=== PATIENT | female | born 1975 | race Caucasian/White ===

== ENCOUNTER 2016-09-24 14:29 | Emergency (ER) | payer OTHER ==
[~2016-09-24] VITALS: Ht 175.3 cm; Wt 128.8 kg
[~2016-09-24 14:29] MED LIST: CORGARD40 MG PO; FLUOXETINE HCL20 M1 PO; METOCLOPRAMIDE10 MG PO; PREMARIN0.625 MG PO; WARFARIN SODIUM5 MG PO
[2016-09-24] MEDS ORDERED: CLARITIN10 MG PO (14:48)
[2016-09-24] MEDS ORDERED: VITAMIN D2000 UNIT PO (14:48)
[2016-09-24] MEDS ORDERED: KETOROLAC TROME10 MG (16:54)
[2016-09-24] MEDS ORDERED: KETOROLAC TROME10 MG PO ×2 (16:56→16:59)
[2016-09-24] MEDS ORDERED: FLOMAX0.4 MG PO (16:58)
[2017-03-07] MEDS ORDERED: MYRBETRIQ25 MG PO (08:18)
== END 2016-09-24 17:14 | disposition home or self-care (01) ==
LOC: ED 14:29
DX: N13.2 Hydronephrosis with renal and ureteral calculous obstruction (principal); Z86.718 Personal history of other venous thrombosis and embolism; Z86.711 Personal history of pulmonary embolism; Z86.73 Personal history of transient ischemic attack (TIA), and cerebral infarction without residual deficits; Z90.710 Acquired absence of both cervix and uterus; Z88.5 Allergy status to narcotic agent; Z79.01 Long term (current) use of anticoagulants; Z79.899 Other long term (current) drug therapy
CPT/HCPCS: 74176; 80053; 81001; 82150; 83690; 85025; 85610; 96361; 96374; 96375; 96376; 99284; J2175; J2405; J7030

== ENCOUNTER 2017-05-11 07:20 | Day surgery (SDC) | payer OTHER ==
[~2017-05-11] VITALS: Ht 175.3 cm; Wt 128.8 kg
[~2017-05-11 07:20] MED LIST changes: +CLARITIN10 MG PO; +COUMADIN5 MG PO; +FLOMAX0.4 MG PO; +KETOROLAC TROME10 MG; +KETOROLAC TROME10 MG PO; +MYRBETRIQ25 MG PO; +VITAMIN D2000 UNIT PO
--- NOTE | 2017-05-11 08:01 | NUR ---
SALINE LOCK FOR GOING TO XRAY.
--- NOTE | 2017-05-11 10:09 | NUR ---
PT RESTING IN BED-ALERT, ORIENTED AND SUPPORTED BY MOTHER AND FRIEND. PT SEEMED TO BE STRONG, AND MAKE TODAY "JUST ANOTHER DAY IN THE OFICE" SO TO SPEAK. WE BEGAN TO VISIT, HER DEFENSES FELL, AND SHE BECAME SOMEWHAT EMOTIONAL. IT WAS A GOOD HONEST TIME OF CARING-PT REQUESTED PRAYER. WILL CONTINUE TO FOLLOW NEEDED
--- NOTE | 2017-05-11 10:14 | NUR ---
0940 returned from [facility].
--- NOTE | 2017-05-11 11:49 | NUR ---
05/11/17 1149 Isabel Burns 1140 PATIENT ARRIVES TO PACU SLEEPING, OPENS EYES TO VERBAL STIMULI, THEN BACK TO SLEEP. RESP EVEN AND UNLABORED, MASK AT 6 LITERS. 1145 PATIENT AWAKE OFF/ON, DENIES PAIN OR NAUSEA. MASK OFF, ROOM AT 100%. PATIENT HAS A DRY COUGH. DENIES PAIN OR NAUSEA.
[2017-05-11] MEDS ORDERED: IBUPROFEN600 MG PO (11:53)
[2017-05-11] MEDS ORDERED: OXYCODON-ACETA1 EAC2 PO (11:54)
[2017-05-11] MEDS ORDERED: MAPAP325 MG PO (11:54)
--- NOTE | 2017-05-11 12:16 | NUR ---
FAMILY IN ROOM.
--- NOTE | 2017-05-12 13:35 | OR ---
[facility] [address] [place], [place] [address] Signed DATE OF OPERATION: 05/11/2017 SURGEON: Sung Oakes MD PREOPERATIVE DIAGNOSES: 1. Left lower outer suspicious microscopic calcifications (inaccessible to image guided biopsy). 2. 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 POSTOPERATIVE DIAGNOSES: 1. Left lower outer suspicious microscopic calcifications (inaccessible to image guided biopsy). 2. 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 PROCEDURE: Left needle localized excisional breast biopsy. ANESTHESIA: General endotracheal, Shea Garcia, FILM SPOOLER and local 10 mL of 0.25% Marcaine. INDICATION: This 41-year-old woman is currently a patient of Dr. Adelfo Chandler, previously Dr. Timothy Burks and has a complex past medical history including cerebrovascular accident at age 15 from a paradoxical embolism related to left lower leg deep venous thrombosis and patent foramen ovale. She recovered from the stroke and the patent foramina ovale was repaired surgically. She has underlying Klippel Trenaunay syndrome (vascular malformation of the left lower extremity) and is chronically anticoagulated. She is found on mammography to have microcalcifications in the left lower outer aspect of the breast. An attempt at biopsy in [place], [place] was unsuccessful due to its location. Repeat mammogram in the [place] area showed more pleomorphic microcalcifications in the same area. It is unlikely that image guided biopsy could be obtained in a reasonable way and on that basis, consideration is made for needle localized excisional biopsy. Her family history does include a paternal grandmother with breast cancer. She understands risks of breast biopsy including, but not limited to bleeding, infection, failure to diagnose the problem (missed lesion) as well as risks and hazards related to recurrent deep venous thrombosis. She is off her Coumadin 4 days in advance of this Electronically Signed By: SUNG OAKES MD 05/12/17 1335 PATIENT NAME: CHRISSY ORNELAS OPERATIVE REPORT DATE OF : 73 PHYSICIAN: SUNG OAKES MD REPORT #: [id number] REPORT IS CONFIDENTIAL AND NOT TO BE RELEASED WITHOUT AUTHORIZATION [facility] [address] [place] [id number] Signed procedure and bridge therapy has been considered, but deemed inappropriate under the circumstances. Brief withholding of her Coumadin is deemed reasonable under the circumstances. Understanding all these risks related to a needle localized excisional breast biopsy, she is here to undergo procedure. FINDINGS: Needle localization was challenging. Two wires were ultimately placed. They emanated from the lateral aspect of the left breast. Wide excision, mindful of the position of the wires were undertaken and specimen radiograph confirmed that the offending microcalcifications were in the excised specimen. The area of excision was in the lower outer aspect on the left breast. An additional amount of breast tissue was excised that had a firm fibrous feel to it, though it was not the actual area of microcalcification. The specimen radiograph as interpreted by Dr. Brewer included the area with microcalcifications. The satellite area that was excised had no microcalcifications. DESCRIPTION OF PROCEDURE: The patient received from Radiology suite and taken to the operating room, given a general endotracheal anesthetic. Preoperative antibiotic Ancef was given and sequential compression device stocking was used on the right leg. The left leg was too large to fit or accommodate such device. Heparin was administered subcutaneously. The wires emanated from the lateral aspect of the left breast. The wire designated as short of the target, was distinguished from the other, which was far beyond the target though passing through. The left breast and chest area prepared with a spray, Betadine solution and draped sterilely. A curvilinear incision was made in the lower outer aspect of the breast and dissection carried through the dermis with electrocautery. The wires were delivered into the wound. The wire that was just short of the lesion was grasped and used as the main guide. Electrocautery was used to widely excise tissue extending toward the medial aspect. The other wire, which passed through the area, but extended well beyond it was ultimately identified as well and ultimately a generous specimen of tissue was excised down to the pectoralis fascia. The specimen was removed and palpation of the biopsy cavity showed an area that was firm and nodular and this was additionally excised and placed in the cassette for specimen radiograph. Specimen radiograph ultimately confirmed microcalcifications were in the initially excised mass area. The additional tissue had no microcalcifications. Irrigation was undertaken in the biopsy cavity and there was no untoward bleeding. The wound was closed with interrupted 2-0 Vicryl and a running subcuticular 3-0 Vicryl for the skin. Steri-Strips were applied as was Mepilex silver sponge dressing and an OpSite. The patient was ultimately extubated and transferred to recovery room in good condition, having suffered no complications. Sponge, needle, and counts reported as correct x3. Electronically Signed By: SUNG OAKES MD 05/12/17 1335 PATIENT NAME: CHRISSY ORNELAS OPERATIVE REPORT DATE OF : 73 PHYSICIAN: SUNG OAKES MD REPORT #: [id number] REPORT IS CONFIDENTIAL AND NOT TO BE RELEASED WITHOUT AUTHORIZATION [address] [place] [address] Signed MD DEBBIE Mcclellan/TIM /[id number] cc: AWILDA Ewing MD Cynthia Sue Holmes, MD Electronically Signed By: SUNG OAKES MD 05/12/17 1335 PATIENT NAME: CHRISSY ORNELAS OPERATIVE REPORT DATE OF : 73 PHYSICIAN: SUNG OAKES MD REPORT #: [id number] REPORT IS CONFIDENTIAL AND NOT TO BE RELEASED WITHOUT AUTHORIZATION
[2017-06-06] MEDS ORDERED: WARFARIN SODIUM10 MG PO (07:47)
[2017-06-06] MEDS ORDERED: COUMADIN10 MG PO (07:48)
== END 2017-05-11 13:50 | disposition home or self-care (01) ==
LOC: OPS 07:20 → DS 07:20 → OPS 08:30 → MAM 08:30 → EDSTATUS 08:30 → OPS 13:50
PROVIDERS: Surgery
PROC: 0HBU0ZX Excision of Left Breast, Open Approach, Diagnostic (ICD-10-PCS; principal; 2017-05-11 09:30)
DX: N60.12 Diffuse cystic mastopathy of left breast (principal); Q87.2 Congenital malformation syndromes predominantly involving limbs; Q27.32 Arteriovenous malformation of vessel of lower limb; K21.9 Gastro-esophageal reflux disease without esophagitis; I89.0 Lymphedema, not elsewhere classified; F33.8 Other recurrent depressive disorders; G43.829 Menstrual migraine, not intractable, without status migrainosus; Z80.3 Family history of malignant neoplasm of breast; Z86.711 Personal history of pulmonary embolism; Z79.01 Long term (current) use of anticoagulants; Z87.74 Personal history of (corrected) congenital malformations of heart and circulatory system; Z86.718 Personal history of other venous thrombosis and embolism; Z90.49 Acquired absence of other specified parts of digestive tract; Z90.710 Acquired absence of both cervix and uterus; Z98.890 Other specified postprocedural states; Z88.1 Allergy status to other antibiotic agents; Z88.5 Allergy status to narcotic agent; Z86.73 Personal history of transient ischemic attack (TIA), and cerebral infarction without residual deficits
CPT/HCPCS: 00404; 19281; 76098; J0330; J0690; J1100; J1644; J2250; J2370; J2405; J2704; J3010; J7120

== ENCOUNTER 2019-02-10 10:37 | Emergency (ER) | payer OTHER ==
[~2019-02-10] VITALS: Ht 175.3 cm; Wt 128.8 kg
--- OUTSIDE RECORDS SUMMARY | ~2019-02-10 | XMS | Encounter Summary ---
Demographics + + + | Address | [address] | | | [place] [address] | + + + | Home Phone | | + + + | Preferred Language | Unknown | + + + | Marital Status | Single | + + + | Moravian Affiliation | PRO | + + + | Race | White | + + + | Ethnic Group | Not or | + + + Author + + + | Author | [facility] | + + + | Organization | [facility] | + + + | Address | Unknown | + + + | Phone | Unavailable | + + + Support + + + + + | Name | Relationship | Address | Phone | + + + + + | Mariah Prather | OZZIE | [place] | | + + + + + Care Team Providers + +------+ + | Care Washcloth Folder Name | Role | Phone | + +------+ + | Timothy Burks MD | PCP | | + +------+ + Encounter Details +--------+ + + + + | Date | Type | Department | Care Team | Description | +--------+ + + + + | 06/22/ | Documentati | Dig[facility]ive Health | [place], | | | 2016 | on | Center at [facility] [address] | MD [address]y [address] | | | | | [address] | [address] | | | | | Mailcode: Center | [place], [place] | | | | | for Health and | [address] | | | | | Healing, [address] | [phone] | | | | | [place], [place] | | | | | | [address] | | | | | | [phone] | | | +--------+ + + + + Social History + +-------+ +--------+------+ | Tobacco Use | Types | Packs/Day | Years | Date | | | | | Used | | + +-------+ +--------+------+ | Never Smoker | | | | | + +-------+ +--------+------+ + +---+---+---+ | Smokeless Tobacco: | | | | | Never Used | | | | + +---+---+---+ + + +---------+ + | Alcohol Use | Drinks/Week | oz/Week | Comments | + + +---------+ + | No | | | "few times a year | | | | | maybe" | + + +---------+ + + + + | Sex Assigned at | Date Recorded | | | | + + + | Not on file | | + + + + + + + | Job Start Date | Occupation | Industry | + + + + | Not on file | Not on file | Not on file | + + + + + + + + | Travel History | Travel Start | Travel End | + + + + + + | No recent travel history available. | + + documented as of this encounter Plan of Treatment Not on filedocumented as of this encounter Visit Diagnoses Not on filedocumented in this encounter
--- OUTSIDE RECORDS SUMMARY | ~2019-02-10 | XMS | Encounter Summary ---
Demographics + + + | Address | [address] | | | [place] [address] | + + + | Home Phone | | + + + | Preferred Language | Unknown | + + + | Marital Status | Single | + + + | Temple Affiliation | PRO | + + + | Race | White | + + + | Ethnic Group | Not or | + + + Author + + + | Author | [facility] | + + + | Organization | [facility] | + + + | Address | Unknown | + + + | Phone | Unavailable | + + + Support + + + + + | Name | Relationship | Address | Phone | + + + + + | Mariah Prather | OZZIE | [place] | | + + + + + Care Team Providers + +------+ + | Care Filenet Architect Name | Role | Phone | + +------+ + | Jose Ramires MD | PCP | | + +------+ + Reason for Referral Consultation (Routine) + +--------+ + + + + | Status | Reason | Specialty | Diagnoses / | Referred By | Referred To | | | | | Procedures | Contact | Contact | + +--------+ + + + + | Incomplete | | Podiatry / | Diagnoses | Adams, | Bryan, | | | | Family | Neoplasm of | Sierra T, | Bettricia, | | | | Practice | uncertain | [facility] [address] | [address] | | | | | behavior of | [address] | [address] | | | | | skin of | [place], [place] | [place], [place] | | | | | lower leg | [address] | [address] | | | | | Procedures | Phone: | Phone: | | | | | CONSULT TO | [phone] | [phone] | | | | | PODIATRY | Fax: | Fax: | | | | | | [phone] | [phone] | + +--------+ + + + + Reason for Visit +---------+ + | Reason | Comments | +---------+ + | Post Op | excision left leg skin lesion | +---------+ + Encounter Details +--------+---------+ + + + | Date | Type | Department | Care Team | Description | +--------+---------+ + + + | 02/01/ | Office | Plastic and | Adams, Sierra T, | Neoplasm of | | 2019 | Visit | Reconstructive | [facility] [address] | uncertain behavior | | | | Surgery at [facility] [address] [place], [place] | of skin of lower leg | | | | [address] | [address] | (Primary Dx) | | | | Mailcode: [facility] | [phone] | | | | | [facility] | | | | | | and Healing, | | | | | | Building [address], [address]th | | | | | | Floor [place], [place] | | | | | | [address] | | | | | | [phone] | | | +--------+---------+ + + + Social History + +-------+ [...] + + documented as of this encounter Last Filed Vital Signs + + + + + | Vital Sign | Reading | Time Taken | Comments | + + + + + | Blood Pressure | 112/60 | 02/01/2019 10:31 AM | | | | | PST | | + + + + + | Pulse | 84 | 02/01/2019 10:31 AM | | | | | PST | | + + + + + | Temperature | - | - | | + + + + + | Respiratory Rate | 16 | 02/01/2019 10:31 AM | | | | | PST | | + + + + + | Oxygen Saturation | 98% | 02/01/2019 10:31 AM | | | | | PST | | + + + + + | Inhaled Oxygen | - | - | | | Concentration | | | | + + + + + | Weight | 139.7 kg (308 lb) | 02/01/2019 10:31 AM | | | | | PST | | + + + + + | Height | 175.3 cm (5' 9") | 02/01/2019 10:31 AM | | | | | PST | | + + + + + | Body Mass Index | 45.48 | 02/01/2019 10:31 AM | | | | | PST | | + + + + + documented in this encounter Progress Notes Sierra Espinoza, ANGELA - 02/01/2019 10:15 AM [facility] Division of Plastic and Reconstructive Surgery Date of surgery: 01/23/2019. Description of surgery: Excision left leg mass 1.5 cm diameter, closure 4 cm wound in layer s left leg. Surgeon: Dr. Uzair Mendoza MD. POD#: 9. The 4 cm linear wound was closed with 3-0 polysorbe interrupted dermal sutures and interrup sophie 3-0 nylon mattress sutures. Subjective: Pain control going well. Only took 3-4 oxycodone. Notes has poor venous return on her left leg-had prior to surgery as well. Denies changes i n either leg. Pleased with postoperative recovery. Notes healing well. BP 112/60 (BP Location: Right lower arm, Patient Position: Sitting) | Pulse 84 | Resp 16 | Ht 1.753 m (5' 9") | Wt 139.7 kg (308 lb) | SpO2 98% | BMI 45.48 kg/m | BSA 2.61 m Objective: General: NAD, conversant. Respiratory: Non-labored breathing. Incision site, left leg: CDI incision with 1/5 teaspoon of clear serous fluid today (on gau ze). No erythema or bruising. No fluctuance. Difficult to discern if induration given skin i s generally thicker in this area at baseline. Pathology report: Vascular malformation: The findings are consistent with the patient's his tory of Klippel Trenauny syndrome. Assessment: Healing well after surgery. No signs of hematoma. Some clear fluid leakage, but no signs of trapped fluid. No fluctuance. Plan: -Discussed postoperative instructions with Mahi. Noted importance of leg elevation (above h eart, below head) to assist in healing. -Recommended she follow up with Dr. Mendoza in 4-6 weeks. Appears she was not able to be sc hedule for this follow up at check out today so I asked PLS to reach out to her for melody ya. -In addition, asked that Mahi contact us if any questions or concerns as well. I answered all of the patient's questions, discussed all examination findings, all recommen ded precautions, and discussed the agreed upon plan with the patient. The patient indicated understanding of the plan, the important precautions, and agrees/agreed with the plan. 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
--- OUTSIDE RECORDS SUMMARY | ~2019-02-10 | XMS | Encounter Summary ---
Demographics + + + | Address | [address] | | | [place] [address] | + + + | Home Phone | | + + + | Preferred Language | Unknown | + + + | Marital Status | Single | + + + | Alevism Affiliation | PRO | + + + | Race | White | + + + | Ethnic Group | Not or | + + + Author + + + | Author | [facility] | + + + | Organization | [facility] | + + + | Address [...] Team Providers + +------+ + | Care Recruitment Consultant Name | Role | Phone | + +------+ + | Timothy Burks MD | PCP | | + +------+ + Reason for Visit + + + | Reason | Comments | + + + | Pre-op evaluation | excision lymphangioma right buttock | + + + | Pre-op evaluation | | + + + Consultation (Routine) +--------+--------+ + + + + | Status | Reason | Specialty | Diagnoses / | Referred By | Referred To | | | | | Procedures | Contact | Contact | +--------+--------+ + + + + | Closed | | Plastic | Diagnoses | Zara, | Kelly, | | | | Surgery | Vascular | MD Lazaro | MD Uzair | | | | | malformation | [address] | [address] | | | | | Procedures | Bob Vital | Patsy | | | | | CONSULT TO | Rd | [place], [place] | | | | | SURGERY - | [place], [place] | [address] | | | | | PLASTICS | [address] | Phone: | | | | | | | [phone] | | | | | | | Fax: | | | | | | | [phone] | +--------+--------+ + + + + Encounter Details +--------+---------+ + + + | Date | Type | Department | Care Team | Description | +--------+---------+ + + + | 12/18/ | Office | Plastic and | Jannette Dow PA | Other specified | | 2009 | Visit | Reconstructive | | pre-operative | | | | Surgery at [facility] [address] | | examination (Primary | | | | [address] | | Dx) | | | | Mailcode: 5 | | | | | | [facility] | | | | | | and Healing, | | | | | | Building [address], [address]th | | | | | | Floor [place], [place] | | | | | | [address] | | | | | | [phone] | | | +--------+---------+ + + + Social History + +-------+ +--------+------+ | Tobacco Use | Types | Packs/Day | Years | Date | | | | | Used | | + +-------+ +--------+------+ | Never Smoker | | | | | + +-------+ +--------+------+ + + +---------+ + | Alcohol Use | Drinks/Week | oz/Week | Comments | + + +---------+ + | No | | | | + + +---------+ + + + [...] + + + | Blood Pressure | 104/57 | 12/18/2009 10:15 AM | | | | | PDT | | + + + + + | Pulse | 69 | 12/18/2009 10:15 AM | | | | | PDT | | + + + + + | Temperature | - | - | | + + + + + | Respiratory Rate | 19 | 12/18/2009 10:15 AM | | | | | PDT | | + + + + + | Oxygen Saturation | 95% | 12/18/2009 10:15 AM | | | | | PDT | | + + + + + | Inhaled Oxygen | - | - | | | Concentration | | | | + + + + + | Weight | 107.8 kg (237 lb | 12/18/2009 10:15 AM | | | | 11.2 oz) | PDT | | + + + + + | Height | 172.7 cm (5' 8") | 12/18/2009 10:15 AM | | | | | PDT | | + + + + + | Body Mass Index | 36.14 | 12/18/2009 10:15 AM | | | | | PDT | | + + + + + documented in this encounter Patient Instructions Patient Instructions Jannette Dow PA - 12/18/2009 10:37 AM PDTRegistration Locations (pl ease check in at one of the following registration desks prior to surgery) For surgeries scheduled to take place [place] the [place] at the [facility]: Surgeries scheduled in the [facility] ([address] [place] [address]): registration is located on the 4th floor of [facility] (Day Surgery). Surgeries scheduled in the [facility]: registration is located on the 9th floor. Surgeries scheduled in [facility]: registration is located on the 6th floor. Surgeries scheduled in the [facility]: registration is located i n the [facility] on the first floor. For surgeries scheduled to take place at the [facility]: registration is l ocated on the 4th floor (Surgery Center). Important Information Due to the increased prevalence of pests in our community, we are asking patients to partne r with us to keep our hospital clean. If you have noticed bugs or other pests in your home, on your belongings or on your body, please contact your doctor's office prior to your admis paloma. For your safety and protection, please limit what you bring to the hospital. All valuables should be left at home. This includes pillows, blankets, clothing, purses, wallets, money an d jewelry. Patients may not bring personal electronics into the hospital, including hairdry ers, electric milton, radios and CD players. If you use specialized medical equipment at h ome, please check with your provider before bringing it with you into the hospital. Registration Process for all Admissions/Surgeries 1. Please bring your insurance card(s) with you and be prepared to pay any co-payment, co-i nsurance or deposit that may be required. 2. Once you arrive at the registration desk, you will be interviewed by a Patient Access Se rvice Specialist ([place]). Demographics will be verified (example: name, date of , Social Security Number, address, insurance). 3. You will be asked to sign some paperwork: Terms and Conditions of Service, Notice of Pushpa vacy Practices Acknowledgement and Genetic Testing Opt Out. 4. You will be given some paperwork: copies of any forms signed by you, Patient Rights, Res ponsibilities and Safety, Understanding Advance Directives, and Smoking Cessation Brochure.E lectronically signed by JU Giles at 12/18/2009 10:37 AM PDT documented in this encounter Progress Notes Jannette Dow PA - 12/18/2009 10:37 AM PDT Pre-Procedure History and Physical Date of Admission: 12-23-09 HISTORY: 34 y.o. female with venous angiodysplasia of the left leg and a history of multipl e excision of a gluteal cleft lymphatic lesion times 3. Also has history of CVA, DVT, PE, A- Fib. 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] 05/26/2008 Allergic Rhinitis [477.9AD] 06/29/2007 Atrial Fibrillation [427.31] 06/29/2007 Deep Venous Thrombosis [453.40N] 06/29/2007 Pulmonary Embolism [415.19AD] 06/29/2007 Cerebrovascular Accident with stroke [434.91GR] 06/29/2007 Past Medical History Diagnosis Date Allergic rhinitis 06/29/2007 Atrial fibrillation 06/29/2007 Deep venous thrombosis 06/29/2007 Pulmonary embolism 06/29/2007 Cerebrovascular Accident with stroke 06-29-2007 Past Surgical History Procedure Date Angiodysplasia of vein of the lower extremities 06-29-2007 Atrial septal defect surgically repaired 06-29-2007 other 06-29-2007 Heart surgery Total abdominal hysterectomy 06-29-2007 Tonsillectomy 1981 Sinus surgery 1997 MEDICATIONS: Current outpatient prescriptions Medication Sig CLARITIN OR one tablet by mouth every day conjugated estrogens 0.625 mg Oral Tablet take 1 tablet (0.625 mg) by oral route once d aily for 21 consecutive days, followed by 7 days off COUMADIN 10 mg Oral Tablet Take 10 mg by mouth once daily. 10mg every day except 7.5mg on monday PROZAC OR take 1 table by mouth every day Allergies Allergen Reactions Codeine Hydrocodone FAMILY HISTORY: No family history on file. REVIEW OF SYSTEMS: History of PHYSICAL EXAM: VITALS: Visit Vitals Item Reading BP 104/57 Pulse 69 RR 19 Ht 1.727 m (5' 8") Wt 107.82 kg (237 lb 11.2 oz) SpO2 95% BMI 36.14 kg/(m^2) HEENT: See Notes: PERRL, EOMI NECK: See Notes: Supple, No LAD CHEST/LUNGS: See Notes: CTAB, BS equal HEART: See Notes: RRR ABDOMEN: Normal BACK: Normal EXTREMITIES: Normal NEUROLOGICAL: See Notes: A& O x3 G.U.: See Notes: deferred PROVISIONAL DIAGNOSIS: venous malformation PLANNED COURSE OF ACTION: excision lymphangioma right buttock. Mahi will be seeing her PCP to obtain instructions for d/c of coumadin and Lovenox bridge. She understands that due to h er complicated medical history and our lack of knowledge of lab values maintained by her PCP this is best handled by them. PARQ: A PARQ session and written consent to be done DOS. documented in this encounter Plan of Treatment Not on filedocumented as of this encounter Results INR (12/18/2009 12:43 PM PDT) + + + + + + | Component | Value | Ref Range | Performed | Pathologist | | | | | At | Signature | + + + + + + | INR | 1.58 (H)Comment: | 0.90 - 1.20 INR | [facility] | | | | INR Therapeutic ranges | | DEPARTMENT | | | | for full | | OF | | | | anticoagulation: | | PATHOLOGY | | | | INR for Venous | | | | | | Thromboembolism | | | | | | (2.0-3.0) | | | | | | INR INR for most | | | | | | patients with mech. | | | | | | valves (2.5-3.5) | | | | | | INR | | | | + + + + + + + + | Specimen | + + | Blood - Blood | + + + + + + + | Performing | Address | City/State/Zipcode | Phone Number | | Organization | | | | + + + + + | [facility] | [address] | [place] [address] | | | PATHOLOGY | [address] | | | + + + + + documented in this encounter Visit Diagnoses + + | Diagnosis | + + | Other specified pre-operative examination - Primary | + + documented in this encounter
--- OUTSIDE RECORDS SUMMARY | ~2019-02-10 | XMS | Clinical Summary ---
Demographics + + + | Address | [address] | | | [place] [address] | + + + | Home Phone | | + + + | Preferred Language | Unknown | + + + | Marital Status | Single | + + + | Mormonism Affiliation | PRO | + + + | Race | White | + + + | Ethnic Group | Not or | + + + Author + + + | Author | [facility] | + + + | Organization | [facility] | + + + | Address | Unknown | + + + | Phone | Unavailable | + + + Support + + + + + | Name | Relationship | Address | Phone | + + + + + | Mariah Prather | OZZIE | [place] | | + + + + + Care Team Providers + +------+ + | Care Atomizer Assembler Name | Role | Phone | + +------+ + | Jose Ramires MD | PCP | | + +------+ + Source Comments [facility] and [facility] InPatient.[facility] Allergies + + + + + + | Active Allergy | Reactions | Severity | Noted | Comments | | | | | Date | | + + + + + + | Clindamycin | Hives, Rash | Medium | 10/26/19 | | | | | | 16 | | + + + + + + | Codeine | Nausea and Vomiting | | 06/03/18 | | | | | | 99 | | + + + + + + | Hydrocodone | Nausea and Vomiting | | 06/03/18 | | | | | | 99 | | + + + + + + Medications + + + +---------+------+------+-------+ | Medication | Sig | Dispensed | Refills | Star | End | Statu | | | | | | t | Date | s | | | | | | Date | | | + + + +---------+------+------+-------+ | COUMADIN 10 mg | Take 5-10 mg by | | 0 | | | Activ | | Oral Tablet | mouth once daily. | | | | | e | | | Taking 5 mg M,W,F | | | | | | | | and 10 T, , S, | | | | | | | | Monday. | | | | | | + + + +---------+------+------+-------+ | loratadine | Take 10 mg by mouth | | 0 | | | Activ | | (CLARITIN) 10 mg | once daily. | | | | | e | | oral tablet | | | | | | | + + + +---------+------+------+-------+ | nadolol 20 mg oral | Take 20 mg by mouth | | 0 | | | Activ | | tabletIndications: | once daily. | | | | | e | | Migraine Prevention | Indications: | | | | | | | | MIGRAINE PREVENTION | | | | | | + + + +---------+------+------+-------+ | FLUoxetine 20 mg | Take 20 mg by mouth | | 0 | 06/3 | | Activ | | oral capsule | once daily. | | | 0/20 | | e | | | | | | 16 | | | + + + +---------+------+------+-------+ | mirabegron | Take 50 mg by mouth | | 0 | | | Activ | | (MYRBETRIQ) 50 mg | once daily. | | | | | e | | oral tablet extended | | | | | | | | release 24 hr | | | | | | | + + + +---------+------+------+-------+ | pantoprazole 40 mg | Take 40 mg by mouth | | 0 | 10/2 | | Activ | | oral tablet,delayed | two times daily. | | | 3/20 | | e | | release (DR/EC) | | | | 18 | | | + + + +---------+------+------+-------+ | Compression Socks, | 40-50mmHG | 5 each | 5 | 09/ | | Activ | | Medium | compression | | | 10/13 | | e | | miscellaneous (misc) | sockThigh high, | | | 19 | | | | misc | custom fit | | | | | | + + + +---------+------+------+-------+ | cholecalciferol | Take 2,000 Units by | | 0 | | | Activ | | (Vitamin D3) 2,000 | mouth once daily. | | | | | e | | unit oral capsule | | | | | | | + + + +---------+------+------+-------+ | sirolimus 2 mg | 1 Dose once daily. | | 0 | 10/ | | Activ | | oral tablet | | | | 04/15 | | e | | | | | | 19 | | | + + + +---------+------+------+-------+ | acyclovir 400 mg | Take 400 mg by mouth | | 0 | /2 | | Activ | | oral tablet | as needed. | | | 07/14 | | e | | | | | | 19 | | | + + + +---------+------+------+-------+ | acetaminophen | Take 650 mg by mouth | | 0 | / | | Activ | | (MAPAP) 325 mg oral | as needed. | | | 20 | | e | | tablet | | | | 18 | | | + + + +---------+------+------+-------+ | enoxaparin sodium | Inject 140 mg/mL | | 0 | | | Activ | | (LOVENOX | under the skin | | | | | e | | SUBQ)Indications: | (SUBC). Indications: | | | | | | | Bridge | Bridge | | | | | | + + + +---------+------+------+-------+ | oxyCODONE | Take 1 tablet by | 15 | 0 | 10/3 | | Activ | | (immediate release) | mouth every three | tablet | | 0/20 | | e | | 5 mg oral tablet | hours as needed for | | | 19 | | | | | moderate pain or | | | | | | | | severe pain. | | | | | | + + + +---------+------+------+-------+ Active Problems + + + | Problem | Noted Date | + + + | Klippel Trenaunay syndrome | 12/11/2018 | + + + | Lymphedema of left leg | 10/26/2015 | + + + | Lymphatic malformation | 12/18/2012 | + + + | Vascular malformation | 05/26/2008 | + + + | Allergic rhinitis | 06/29/2007 | + + + | Atrial fibrillation | 06/29/2007 | + + + | Deep venous thrombosis | 06/29/2007 | + + + | Pulmonary embolism | 06/29/2007 | + + + | Cerebrovascular Accident with stroke | 06/29/2007 | + + + Encounters +--------+ + + + + | Date | Type | Specialty | Care Team | Description | +--------+ + + + + | 02/09/ | MyChart | Plastic Surgery | Sierra Espinoza, | My incision | | 2018 | Encounter | | CHARHOUSE WORKER | | +--------+ + + + + | 02/09/ | MyChart | Plastic Surgery | Uzair Mendoza MD | My incision | | 2018 | Encounter | | | | +--------+ + + + + | 02/01/ | Office | Plastic Surgery | Sierra Espinoza, | Neoplasm of | | 2019 | Visit | | CHARHOUSE WORKER | uncertain behavior | | | | | | of skin of lower leg | | | | | | (Primary Dx) | +--------+ + + + + | 02/01/ | Travel | | | | | 2018 | | | | | +--------+ + + + + | 01/23/ | Surgery | Surgery | Uzair Mendoza MD | EXCISION LEFT LEG | | 2018 | | | | SKIN LESION | +--------+ + + + + | 01/23/ | Anesthesia | Surgery | Sebas Arguello, | | | 2018 | Event | | MD Twila Ambriz | | | | | | JARETT Velazquez | | +--------+ + + + + | 01/23/ | Hospital | Surgery | Uzair Mendoza MD | | | 2018 | Encounter | | | | +--------+ + + + + | 01/23/ | Pharmacy | Pharmacy Services | | | | 2018 | Visit | | | | +--------+ + + + + | 01/23/ | Travel | | | | | 2018 | | | | | +--------+ + + + + | 01/23/ | Procedure | Surgery | | | | 2019 | Pass | | | | +--------+ + + + + | 01/17/ | Telephone | Plastic Surgery | Uzair Mendoza MD | Pre-surgery | | 2018 | | | | evaluation | +--------+ + + + + | 01/14/ | Kelseyt | Plastic Surgery | Sierra Espinoza, | RE: UTI | | 2019 | Encounter | | CHARHOUSE WORKER | | +--------+ + + + + | 01/10/ | Telephone-S | Pre-operative | | Pre-op evaluation | | 2018 | cheduled | Medicine | | | +--------+ + + + + | 01/10/ | Travel | | | | | 2019 | | | | | +--------+ + + + + | 01/07/ | Document-Sc | | Other, Faculty | | | 2019 | anned | | | | +--------+ + + + + | 12/28/ | Telephone | Plastic Surgery | Uzair Mendoza MD | Surgery | | 2019 | | | | | +--------+ + + + + | 12/11/ | Procedure | Dermatology | Michelle | Vascular lesion in | | 2018 | | | MD Kusum | skin or mucosa; New | | | | | | patient consultation | +--------+ + + + + | 12/11/ | Office | Plastic Surgery | Uzair Mendoza MD | Neoplasm of | | 2018 | Visit | | | uncertain behavior | | | | | | of skin of lower leg | | | | | | (Primary Dx) | +--------+ + + + + | 12/11/ | Travel | | | | | 2018 | | | | | +--------+ + + + + from Last 3 Months Family History + + +------+ + | Medical History | Relation | Name | Comments | + + +------+ + | Diabetes | Father | | | + + +------+ + | Obesity | Father | | | + + +------+ + | Prostate Cancer | Father | | | + + +------+ + | Skin Cancer | Father | | | + + +------+ + | Thyroid | Father | | | + + +------+ + | Obesity | Mother | | | + + +------+ + | Thyroid | Mother | | | + + +------+ + | Anesthesia | Neg Hx | | | + + +------+ + | Blood Disease | Neg Hx | | | + + +------+ + + +------+--------+ + | Relation | Name | Status | Comments | + +------+--------+ + | Father | | | | + +------+--------+ + | Mother | | | | + +------+--------+ + Social History + +-------+ +--------+------+ | [...] recent travel history available. | + + Last Filed Vital Signs + + + [...] + + + + | Temperature | 36.6 C (97.9 F) | 01/23/2019 9:30 AM | | | | | PDT [...] | | + + + + + Plan of Treatment + + + + + | Health Maintenance | Due Date | Last Done | Comments | + + + + + | Pneumococcal | | | | | vaccination (1 of 3 | 1 | | | | - PCV13) | | | | + + + + + | Influenza (Flu) | Completed | 12/17/2018, 12/11/2017, | | | vaccination | | 12/23/2015, Additional history | | | | | exists | | + + + + + Procedures + +--------+ + + + | Procedure Name | Priori | Date/Time | Associated Diagnosis | Comments | | | ty | | | | + +--------+ + + + | ANE ETT | Routin | 01/23/2019 | | Results for this | | | e | 8:08 AM | | procedure are in the | | | | PDT | | results section. | + +--------+ + + + | SURGICAL PATHOLOGY | Routin | 01/23/2019 | | Results for this | | | e | 8:04 AM | | procedure are in the | | | | PDT | | results section. | + +--------+ + + + | INCISION & DRAINAGE | Electi | 01/23/2019 | Disorder of the | | | LOWER EXTREMITY | ve | 7:33 AM | skin and | | | | Surgic | PDT | subcutaneous tissue, | | | | al | | unspecified | | + +--------+ + + + | HCG URINE, POC | Routin | 01/23/2019 | | Results for this | | | e | 6:40 AM | | procedure are in the | | | | PDT | | results section. | + +--------+ + + + | CARDIOLOGY | | 01/23/2019 | | Results for this | | | | 12:00 AM | | procedure are in the | | | | PDT | | results section. | + +--------+ + + + | ORDERS OTHER | | 01/07/2019 | | Results for this | | | | 1:58 PM | | procedure are in the | | | | PDT | | results section. | + +--------+ + + + from Last 3 Months Results ETT (01/23/2019 8:08 AM PDT) + + + | Narrative | Performed At | + + + | Karo Jackson CRNA 01/23/2019 8:09 AM [facility] | | | MANAGEMENT - ETT Time of Placement: 01/23/2019 7:44 AM Intubation | | | Reason: For surgical procedure Positioning: Ramped and Sniffing | | | Location Performed:OR OXYGENATION Patient was preoxygenated | | | Grade: Grade 1 - Ventilated by mask Induction:Routine INTUBATION | | | ATTEMPT 1 Blade Type: Mckeon Blade #: 2 Intubation Adjuncts: | | | w/ Stylet Laryngoscopic View: Grade I ETT DETAILS ETT | | | Type:Standard, Hi-Lo Cuffed Intubation Type: Oral Cuff Status: | | | Cuffed Size: 7 ETT secured with adhesive tape Depth at Lip: 22 | | | cm CONFIRMATION Number of Attempts: 1 Atraumatic placement | | | Positive for EtCO2:Waveform capnography Breath Sounds: Bilateral and | | | equal NARRATIVE Attending was physically present for the critical | | | portions of the procedure as described in the procedure note | | | Attending/Authorizing Provider: Sebas Arguello MD Performing | | | Provider: Karo Jackson CRNA Procedure Comments: Easy BMV, | | | ETT passed easily through vocal cords. Soft bite block placed. | | | Atraumatic | | + + + SURGICAL PATHOLOGY (01/23/2019 8:04 AM PDT) + + + + + + | Component | Value | Ref Range | Performed | Pathologist | | | | | At | Signature | + + + + + + | Clinical | The patient is a 43 year | | [facility] | | | History | old woman with a left | | DEPARTMENT | | | | leg mass | | OF | | | | | | PATHOLOGY | | + + + + + + | Final | A. Soft tissue mass, | | [facility] | Electronically | | Pathologic | left leg, excision: | | DEPARTMENT | signed by | | Diagnosis | Vascular malformation | | OF | Destiny G | | | (see comment)Comment: | | PATHOLOGY | MD Gil | | | Sections show a vascular | | | on 01/28/2019 at | | | malformation involving | | | 11:05 AM | | | the dermis and | | | | | | subcutaneous tissue. | | | | | | Immunostain for D2-40 | | | | | | highlights the dilated | | | | | | lymphatics, which are | | | | | | most prominent in the | | | | | | dermis. The malformation | | | | | | is mixed with | | | | | | lymphatic, capillary and | | | | | | venous components. | | | | | | Immunostain is negative | | | | | | for HMB-45. The | | | | | | findings are consistent | | | | | | with the patient's | | | | | | history of Klippel | | | | | | Trenauny syndrome.Case | | | | | | seen by:Margarita Schmid - | | | | | | Medical Student | | | | | | FellowPatricia | | | | | | MD Gil, PhD | | | | | | | | | | | | PathologistPathology, | | | | | | [facility] | | | | | | [facility] electronic | | | | | | signature indicates that | | | | | | I have personally | | | | | | reviewed all diagnostic | | | | | | slides, the gross and/or | | | | | | microscopic portion of | | | | | | this report and | | | | | | formulated the final | | | | | | diagnosis. | | | | + + + + + + | Gross | Received fresh in one | | [facility] | | | Description | container labeled with | | LABORATORY | | | | the patient's name | | SERVICES, | | | | (initials [facility]) and | | [facility] | | | | medical record number | | HEALTH + | | | | [id number].A. Leg, Left | | HEALING | | | | Leg Mass: Received | | | | | | labeled "left leg | | | | | | mass-1" is a 2.4 x 1.6 | | | | | | cm flores-brown, teardrop, | | | | | | wrinkled and hairbearing | | | | | | portion of unoriented | | | | | | skin with underlying | | | | | | flores-yellow cauterized | | | | | | soft tissue excised to a | | | | | | maximum depth of 1.5 | | | | | | cm. The skin surface is | | | | | | remarkable for a | | | | | | central 0.8 x 0.6 cm | | | | | | flores-brown, raised (0.1 | | | | | | cm), ovoid nodule coming | | | | | | to within 0.5 cm of the | | | | | | closest resection edge | | | | | | margins and 1.1 cm of | | | | | | the closest tip margin. | | | | | | The margins are inked | | | | | | black entirely. The | | | | | | specimen is serially | | | | | | sectioned to reveal | | | | | | flores-brown and soft cut | | | | | | surfaces coming to | | | | | | within 1.0 cm of the | | | | | | deep margin and | | | | | | measuring 0.5 cm in | | | | | | thickness. The specimen | | | | | | is submitted entirely | | | | | | and sequentially as | | | | | | follows:A1, tip, | | | | | | bisectedA2-A3, cross | | | | | | sections with noduleA4, | | | | | | broad-based tip, | | | | | | sectioned [facility] | | | | + + + + + + | Ancillary | Analyte specific | | [facility] | | | Information | reagents are used in | | LABORATORY | | | | many laboratory tests | | SERVICES, | | | | necessary for standard | | [facility] | | | | medical care. This test | | HEALTH + | | | | was developed and its | | HEALING | | | | performance | | | | | | characteristics | | | | | | determined by [facility] | | | | | | laboratories. It has not | | | | | | been cleared or | | | | | | approved by the US Food | | | | | | and Drug Administration | | | | | | (FDA). FDA does not | | | | | | require this test to go | | | | | | through premarket FDA | | | | | | review. This test is | | | | | | used for clinical | | | | | | purposes. It should not | | | | | | be regarded as | | | | | | investigational or for | | | | | | research. This | | | | | | laboratory is certified | | | | | | under the Clinical | | | | | | Laboratory Improvement | | | | | | Amendments (CLIA) as | | | | | | qualified to perform | | | | | | high complexity clinical | | | | | | laboratory testing. If | | | | | | immunohistochemical | | | | | | analysis (IHC) was | | | | | | performed concurrently | | | | | | with flow cytometry, the | | | | | | IHC was done to allow | | | | | | assessment of | | | | | | immunoarchitecture, | | | | | | which is not supplied by | | | | | | flow cytometry. Flow | | | | | | cytometry enables better | | | | | | assessment of clonality | | | | | | and antigen aberrancy | | | | | | than IHC. Appropriate | | | | | | positive controls and/or | | | | | | negative controls were | | | | | | used for all stains, | | | | | | including | | | | | | immunohistochemical | | | | | | stains, special stains, | | | | | | and in situ | | | | | | hybridization, and these | | | | | | reacted appropriately. | | | | + + + + + + + + | Specimen | + + | Tissue - Lower leg | | structure (body | | structure) | + + + + + + + | Performing | Address | City/State/Zipcode | Phone Number | | Organization | | | | + + + + + | [facility] DEPARTMENT OF | [address] | [place] [address] | | | PATHOLOGY | [address] | | | + + + + + | [facility] | [address] | [place] [address] | | | [facility] | | | | | HE[facility] + HEALING | | | | + + + + + HCG URINE, POC (01/23/2019 6:40 AM PDT) + + + + + + | Component | Value | Ref Range | Performed | Pathologist | | | | | At | Signature | + + + + + + | HCG URINE, | Negative | Negative | [facility], | | | POC | | | POINT OF | | | | | | CARE TESTS | | + + + + + + + + | Specimen | + + | Urine - Urine | | (substance) | + + + + + + + | Performing | Address | City/State/Zipcode | Phone Number | | Organization | | | | + + + + + | [facility], POINT | [address] | [place] [address] | | | OF CARE TESTS | | | | + + + + + CARDIOLOGY (01/23/2019 12:00 AM PDT) + + + | Narrative | Performed At | + + + | | | + + + ORDERS OTHER (01/07/2019 1:58 PM PDT) + + + | Narrative | Performed At | + + + | | | + + + from Last 3 Months Insurance + +--------+ +--------+ + +------+ | Payer | Benefi | Subscriber | Effect | Phone | Address | Type | | | t Plan | ID | simeon | | | | | | / | | Dates | | | | | | Group | | | | | | + +--------+ +--------+ + +------+ | [employer] | HMA/RG | [phone] | 04/27/19 | [phone] | [address] | PPO | | SHIELD | A | x | 18-Pre | 8 | [address] | | | | | | sent | | [place], | | | | | | | | [place] | | | | | | | | [phone] | | + +--------+ +--------+ + +------+ + +--------+ +--------+ + + | Guarantor Name | Accoun | Relation to | Date | Phone | Billing Address | | | t Type | Patient | of | | | | | | | | | | + +--------+ +--------+ + + | Mahi Prather | Person | Self | [birth year] | [address] | | | al/Fam | | 1976 | [phone] | [place] [id number] | | | sal | | | 1 (Home) | | + +--------+ +--------+ + + Advance Directives + + + + + | Type | Date Recorded | Patient | Explanation | | | | Perl Developer | | + + + + + | Advance | | | | | Directives and | | | | | Living Will | | | | + + + + + | Power of | | | | | Track Machine Operator Repairer | | | | + + + + + + + + + + | Code Status | Date | Date | Comments | | | Activated | Inactivated | | + + + + + | Full Code | 01/23/2019 | 01/23/2019 | | | | 6:10 AM | 3:57 PM | | + + + + +
--- OUTSIDE RECORDS SUMMARY | ~2019-02-10 | XMS | Encounter Summary ---
Demographics + + + | Address | [address] | | | [place] [address] | + + + | Home Phone | | + + + | Preferred Language | Unknown | + + + | Marital Status | Single | + + + | Baptism Affiliation | PRO | + + + | Race | White | + + + | Ethnic Group | Not or | + + + Author + + + | Organization | Unknown | + + + | Address | Unknown | + + + | Phone | Unavailable | + + + Support + + + + + | Name | Relationship | Address | Phone | + + + + + | Mariah Prather | OZZIE | [place] | | + + + + + Care Team Providers + +------+ + | Care Customer Service Representative Name | Role | Phone | + +------+ + | Timothy Burks MD | PCP | | + +------+ + Encounter Details +--------+ + + + + | Date | Type | Department | Care Team | Description | +--------+ + + + + | 06/03/ | [facility] | | Physical, History | Hstry & Physical | | 1999 | ibed | | & | | +--------+ + + + + Social History + +-------+ +--------+------+ | Tobacco Use | Types | Packs/Day | Years | Date | | | | | Used | | + +-------+ +--------+------+ | Never Assessed | | | | | + +-------+ +--------+------+ + + + | Sex Assigned at [...] Visit Diagnoses Not on filedocumented in this encounter"
--- OUTSIDE RECORDS SUMMARY | ~2019-02-10 | XMS | Encounter Summary ---
Demographics + + + | Address | [address] | | | [place] [address] | + + + | Home Phone [...] Team Providers + +------+ + | Care Behavioral Science Chair Name | Role | Phone | + +------+ + PCP | Unavailable | + +------+ + Encounter Details +--------+ + + + + | Date | Type | Department | Care Team | Description | +--------+ + + + + | 11/17/ | Office | | Note, Outpatient | Progress Note | | 2004 | Visit-Trans | | Clinic | | | | cribed | | | | +--------+ + + [...] + + documented as of this encounter Progress Notes Interface, Eeo Officer In - 10/24/2004 7:22 AM PDTClinic Date: 11/18/2003 Clinic: Urology I saw and evaluated this patient with Dr. Shadia German. I discussed the patient with Dr. German and agree with her findings and plan as dictated in her note and also written in her handwritten H and P from November 18, 2003. Derrell Lowe M.D. / [id number] / [id number] / [id number] / [id number] Tdocumented in this encounter Plan of Treatment Not on filedocumented as of this encounter Visit Diagnoses Not on filedocumented in this encounter"
--- OUTSIDE RECORDS SUMMARY | ~2019-02-10 | XMS | Encounter Summary ---
Demographics + + + | Address | [address] | | | [place] [address] | + + + | Home Phone | | + + + | Preferred Language | Unknown | + + + | Marital Status | Single | + + + | Lutheran Affiliation | PRO | + + + | Race | White | + + + | Ethnic Group | Not or | + + + Author + + + | Author | [facility] | + + + | Organization | [facility] | + + + | Address [...] Team Providers + +------+ + | Care Insulation Installer Name | Role | Phone | + +------+ + | Timothy Burks MD | PCP | | + +------+ + Reason for Visit + + + | Reason | Comments | + + + | 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 | + + + Consultation (Routine) +--------+--------+ + + + + | Status | Reason | Specialty | Diagnoses / | Referred By | Referred To | | | | | Procedures | Contact | Contact | +--------+--------+ + + + + | Closed | | Plastic | Diagnoses | Micheal, | Kelly, | | | | Surgery | Other | MD Sebas | MD Uzair | | | | | specified | [address] | [address] | | | | | congenital | [address] | [address] | | | | | anomalies | [address] | [place], [place] | | | | | Congenital | [place], [place] | [address] | | | | | lower limb | [address] | Phone: | | | | | vessel | Phone: | [phone] | | | | | anomaly | [phone] | Fax: | | | | | Procedures | Fax: | [phone] | | | | | CONSULT TO | [phone] | | | | | | SURGERY - | | | | | | | PLASTICS | | | +--------+--------+ + + + + Encounter Details +--------+---------+ + + + | Date | Type | Department | Care Team | Description | +--------+---------+ + + + | 02/26/ | Office | Plastic and | Uzair Mendoza MD | Lymphatic | | 2013 | Visit | Reconstructive | [address] | malformation | | | | Surgery at [facility] [address] | [place], [place] | (Primary Dx) | | | | [address] | [address] | | | | | Mailcode: [facility] | [phone] | | | | | [facility] | | | | | | and Healing, | | | | | | Building 1, | | | | | | Floor [facility] [place] | | | | | | [address] | | | | | | [phone] | | | +--------+---------+ + + + [...] this encounter Last Filed Vital Signs + +---------+ + + | Vital Sign | Reading | Time Taken | Comments | + +---------+ + + | Blood Pressure | 127/72 | 02/26/2013 10:45 AM | | | | | PST | | + +---------+ + + | Pulse | 88 | 02/26/2013 10:45 AM | | | | | PST | | + +---------+ + + | Temperature | - | - | | + +---------+ + + | Respiratory Rate | 16 | 02/26/2013 10:45 AM | | | | | PST | | + +---------+ + + | Oxygen Saturation | 97% | 02/26/2013 10:45 AM | | | | | PST | | + +---------+ + + | Inhaled Oxygen | - | - | | | Concentration | | | | + +---------+ + + | Weight | - | - | | + +---------+ + + | Height | - | - | | + +---------+ + + | Body Mass Index | - | - | | + +---------+ + + documented in this encounter Progress Notes Uzair Mendoza MD - 02/26/2013 7:03 PM Stephanie Prather is a 37 y.o. female about 6 weeks after excision of right gluteal cleft lymphangioma. She was doing well but has noted the dev elopment of a raised exophytic lymphangioma type area on the upper 2 cm of the recent excisi on scar. She is otherwise doing well. The area appears to be recurrent lymphangioma. We will try steroid injection to see if that helps shrink the lesion. If not she may need further surgery. Under sterile conditions after informed consent I injected 0.3 mL of Kenalog 40 into the le paloma. If this injection works she will return in a month for more injections. If it doesn't work she will let us know if she wants further surgical excision. documented in this encounter Plan of Treatment Not on filedocumented as of this encounter Visit Diagnoses + + | Diagnosis | + + | Lymphatic malformation - Primary Congenital anomaly, unspecified | + + documented in this encounter
--- OUTSIDE RECORDS SUMMARY | ~2019-02-10 | XMS | Encounter Summary ---
Demographics + + + | Address | [address] | | | [place] [address] | + + + | Home Phone | | + + + | Preferred Language | Unknown | + + + | Marital Status | Single | + + + | Mandaen Affiliation | PRO | + + + | Race | White | + + + | Ethnic Group | Not or | + + + Author + + + | Author | [facility] | + + + | Organization | [facility] | + + + | Address [...] Team Providers + +------+ + | Care Floor And Wall Applier Liquid Name | Role | Phone | + +------+ + | Timothy Burks MD | PCP | | + +------+ + Reason for Visit + + + | Reason | Comments | + + + | Pre-op evaluation | | + + + Encounter Details +--------+---------+ + + + | Date | Type | Department | Care Team | Description | +--------+---------+ + + + | 12/18/ | Office | Preoperative | Eleni Valdivia, | Vascular | | 2009 | Visit | Medicine Clinic at | ANP [address] | malformation | | | | [facility] 4th Floor [address] | [facility] [address] | (Primary Dx); Other | | | | [address] | [place], [place] | specified | | | | Mailcode: CH4S | [address] | pre-operative | | | | [facility] | [phone] | examination; Atrial | | | | and Healing, | | fibrillation (HCC); | | | | Building [address],4th Floor | | Deep venous | | | | [place], [place] | | thrombosis (HCC); | | | | [address] | | Pulmonary embolism | | | | [phone] | | (HCC) | +--------+---------+ + + + Social History [...] + + + | Blood Pressure | 104/64 | 12/18/2009 12:41 PM | | | | | PDT | | + + + + + | Pulse | 79 | 12/18/2009 12:41 PM | | | | | PDT | | + + + + + | Temperature | 36.4 C (97.5 F) | 12/18/2009 12:41 PM | | | | | PDT | | + + + + + | Respiratory Rate | 12 | 12/18/2009 12:41 PM | | | | | PDT | | + + + + + | Oxygen Saturation | 100% | 12/18/2009 12:41 PM | | | | | PDT | | + + + + + | Inhaled Oxygen | - | - | | | Concentration | | | | + + + + + | Weight | 107.5 kg (237 lb) | 12/18/2009 12:41 PM | | | | | PDT | | + + + + + | Height | 175.3 cm (5' 9") | 12/18/2009 12:41 PM | | | | | PDT | | + + + + + | Body Mass Index | 35 | 12/18/2009 12:41 PM | | | | | PDT | | + + + + + documented in this encounter Patient Instructions Patient Instructions Eleni Rothman - 12/18/2009 12:52 PM PDTPreparing for surgery guidelines for surgery patients Do not eat or drink anything after midnight the night before surgery. These are your Medications: cephALEXin (KEFLEX) 500 mg Oral Capsule, Take 1 Cap by mouth every eight hours. CLARITIN OR, one tablet by mouth every day conjugated estrogens 0.625 mg Oral Tablet, take 1 tablet (0.625 mg) by oral route once xavier y for 21 consecutive days, followed by 7 days off COUMADIN 10 mg Oral Tablet, Take 10 mg by mouth once daily. 10mg every day except 7.5mg on monday PROZAC OR, take 1 table by mouth every day TAKE the following medications with a sip of water on the morning of surgery: Follow your doctor's recommendations for coumadin use and transition to lovenox; do not jarad e oral medications on the day of your procedure Do not take any Aspirin, vitamin E or non-steroidal anti-inflammatory (NSAIDs i.e. Advil , Aleve, Ibuprofen) or herbal supplements seven days prior to your surgery. These drugs may interfere with normal blood clotting and may cause excessive bleeding and bruising during or after the surgery. Please see the list below for more products that contain Aspirin, Ibupro fen, or Vitamin E If you are taking Coumadin (warfarin), Plavix or any other blood thinners please let you r surgical team know as medication changes will be necessary. If you need a pain medication for general purposes, use Tylenol as directed. If you are in doubt about any medications that you are taking, please contact our office . AVOID THESE MEDICATIONS FOR 7 DAYS BEFORE SURGERY PRODUCTS CONTAINING ASPIRIN OR NON-STEROIDAL ANTI-INFLAMMATORY DRUGS (NSAIDs) Advil, Aleve, Sweetie-[place], Anacin, Arthopan, Ascriptin, Aspergum, Aspirin with and without codeine, Chandra aspirin. Bufferin, Butalbital, Butazone, Cataflam, Clinoril, Co-Advil, Coges ic, Darvon, Daypro, Diclofenac, Diflunisal, Dipyridamole, Disalcid, Yoan s, Dolene, Dolobi d, Easpirin, Etodolac, Feldene, Fenoprofen, Ibuprofen, Indocin, Indomethacin, Lodine, Meclof enamate, Menadol, Meprobamate/Aspirin, Midol, Motrin and Motrin IB, Nabumetone, Naproxen, No rgesic, Nuprin, Nytol, Nyquil, Orudis, Oruvail, Oxycodone and aspirin, Oxyphenbutazone, Pamp rin, Pepto Bismol, Percodan, Persantine, Phenylbutazone, Piroxicam, Propoxyphene, Relafen, R obomol, Rufen, Sine-aid, [place] s cold tablets, Sulindac, Talwin, Tolectin, Triaminici n, Trigesic, Voltaren, Zorprin. OTHER PRODUCTS WHICH MAY PROMOTE BLEEDING Vitamin E, Gingko Biloba, Marine Fatty Acids, [place]-3 Fish Oil Supplements Important Guidelines Please do not to shave the surgical site at home before the surgery Do not smoke, drink alcohol or use recreational drugs for 24 hours before your surgery Do not eat any hard candy or chew gum after midnight the night before your surgery. Watch for any change in your health condition. Let your surgeon know right away if you do not feel well. Body hygiene: Take a bath or shower and remember to shampoo your hair using your usual hair product before your arrival at the hospital. Body hygiene -- Hibiclens bath/shower bathe or shower the evening before and the mor alem of your surgery. Use the bottle of Hibiclens soap for each cleansing. Wash from yo ur neck to your toes. BE CAREFUL NOT TO WASH YOUR FACE OR HAIR WITH THIS SOLUTION. Shampoo your hair using your usual hair product before your arrival at the hospital. Dental hygiene: Please remember to brush your teeth the night before and the morning of your procedure. Do not wear makeup, perfume, lotions or powder. Remove any nail mauritanian from at least one fingernail. Do not wear any jewelry to the hospital. Wear loose, comfortable clothing. Bring the case and solution for your contact lenses or wear your glasses. Leave all your valuables at home. Allow enough travel time so you re not late for your check in for surgery. Pain management after surgery Following surgery, at regular intervals, your nurse will ask you to rate your pain on a scale of 0-10 (0 is no pain and 10 is the worst pain you can imagine). A variety of pain management strategies may be appropriate, such as intravenous medicati ons, oral medications, peripheral nerve bocks or epidural catheters that can deliver local a nesthetic to cover the area of your surgical incision. Please discuss this with your anesth esiologist to receive additional information about what might be appropriate for you. The goal for pain control therapy is to be comfortable enough to change your position, c ough and take deep breaths. You will be asked to do such activities to help prevent complic ations. Things to do after surgery (hospitalized patients) Use an incentive spirometer or peep breathe to keep your lungs working properly an d to help prevent respiratory complications. It helps you take long, deep breaths. Use it at least once every hour while you are awake. Leg and feet exercises will maintain good circulation and help prevent blood clots in yo ur legs. Sometimes your doctor will order air compression stockings. Compressed air helps the circulation in your legs. Walking and moving will help stimulate normal circulation and deep breathing. After you r surgery, your nurse may ask you to sit, stand or walk. Check in locations Check-in times for Hospital Admissions are not available until the day prior to surgery. So meone from your surgeon's office will contact you with your check in time. If you do not hea r from anyone by 3:00 PM please call your surgeons' office for [id number]. Day Stay Unit [phone], [facility], fourth floor Room [address] [facility] Day Stay [phone], [facility], fourth floor Admitting [phone], [facility], ninth floor lobby [facility] Unit [phone], [facility], sixth floor Going Home Your surgeon will decide when you are medically ready to go home. If you are released to go home on the same day as your procedure/surgery please note the following: You will not be competent to drive and will require someone else to transport y ou home on the day of discharge since pain medications and physical activity restrictions li delma your ability to drive safely. It is also required that you have someone assist you and look after you on the first night after you have undergone regional blocks, deep sedation, a nd/or general anesthesia. If you stayed in the hospital after surgery, please arrange for your ride to come for yo u around 9AM on the day your doctor says you can go home. Check out time is 11AM. If you have questions or concerns after you go home, call your doctor s office. If it is after office hours, call the [facility] power screwdriver operator at [phone] and ask them to page your doc tor. You will require transportation home on the day of discharge. Pain medications and physi bibi activity restrictions may limit your ability to drive safely. It is also recommended th at you have someone assist you and look after you on the first night after you are released to go home. documented in this encounter Progress Notes Mali Servin - 12/18/2009 12:49 PM PDTVenipuncture performed in clinic, blood sample obtained from Right antecubital site Electronically signed by Mali Servin at 0 12:49 PM PDTAyot Eleni Chase - 12/18/2009 12:41 PM PDTPlease see scanned Preop H & P i n the "Media" tab under ANESTHESIA PREOP EVALUATION. KAROLINE OVALLE [facility] PREADMIT CLINIC [facility] PREOPERATIVE MEDICINE CLINIC [address] [facility] [address] 2007 ACC/ AHA Perioperative Guidelines 1. Need for emergency noncardiac surgery? b. No -> Proceed to next step. 2. Active Cardiac Conditions? These conditions mandate further investigation and manageme nt. A. Acute NV within 7 days: no B. Unstable angina/Recent NV (7- 30 days): no C. Decompensated CHF: no D. Significant arrhythmia: None E. Severe valvular disease: NONE 3. Low risk surgery? b. No -> proceed with next step. 4. Good functional capacity? (>4 METS)a. Yes -> proceed with surgery. 5. Assess Clinical Risk Factors? A. Ischemic heart disease: no B. Compensated / prior heart failure: no C. Diabetes mellitus (treated with insulin): no D. Renal insufficiency (Cr > 2): no E. Cerebrovascular disease: no Recommendations (based on risk factors): 0 risk factors- proceed with surgery 1- 2 risk factors- proceed with planned surgery with HR control or consider noninvasive gualberto ting if it will military exchange wireless manager. 3 or more risk factors AND high risk surgery- consider testing if it will military exchange wireless manager . documented in this e ncounter Plan of Treatment + +------+--------+ + + | Name | Type | Priori | Associated Diagnoses | Order Schedule | | | | ty | | | + +------+--------+ + + | 12 LEAD ECG | ECG | Routin | Other specified | Ordered: 12/18/2009 | | | | e | pre-operative | | | | | | examination | | + +------+--------+ + + documented as of this encounter Procedures + +--------+ + + + | Procedure Name | Priori | Date/Time | Associated Diagnosis | Comments | | | ty | | | | + +--------+ + + + | NM COLLECTION VENOUS | Routin | 12/18/2009 | Other specified | | | BLOOD,VENIPUNCTURE | e | 12:49 PM | pre-operative | | | | | PDT | examination | | + +--------+ + + + | INR | Routin | 12/18/2009 | Other specified | Results for this | | | e | 12:43 PM | pre-operative | procedure are in the | | | | PDT | examination | results section. | + +--------+ + + + | BASIC METABOLIC SET | Routin | 12/18/2009 | Other specified | Results for this | | (NA, K, CL, TCO2, | e | 12:43 PM | pre-operative | procedure are in the | | BUN, CR, GLU, CA) | | PDT | examination | results section. | + +--------+ + + + | CBC ONLY | Routin | 12/18/2009 | Other specified | Results for this | | | e | 12:43 PM | pre-operative | procedure are in the | | | | PDT | examination | results section. | + +--------+ + + + documented in this encounter Results INR (12/18/2009 12:43 PM PDT) + + + + + + | Component | Value | Ref Range | Performed | Pathologist | | | | | At | Signature | + + + + + + | INR | 1.58 (H)Comment: | 0.90 - 1.20 INR | [facility] | | | | INR Therapeutic ranges [...] | + + + + + | [facility] DEPARTMENT OF | [address] | [place] [address] | | | PATHOLOGY | [address] | | | + + + + + CBC ONLY (12/18/2009 12:43 PM PDT) + + + + + + | Component | Value | Ref Range | Performed | Pathologist | | | | | At | Signature | + + + + + + | WHITE CELL | 7.2 | 4.4 - 11.0 K/cu | [facility] | | | COUNT | | mm | DEPARTMENT | | | | | | OF | | | | | | PATHOLOGY | | + + + + + + | RED CELL | 5.04 | 4.00 - 5.20 | [facility] | | | COUNT | | M/cu mm | DEPARTMENT | | | | | | OF | | | | | | PATHOLOGY | | + + + + + + | HEMOGLOBIN | 14.1 | 12.0 - 16.0 | [facility] | | | | | g/dL | DEPARTMENT | | | | | | OF | | | | | | PATHOLOGY | | + + + + + + | HEMATOCRIT | 42.0 | 36.0 - 46.0 % | [facility] | | | | | | DEPARTMENT | | | | | | OF | | | | | | PATHOLOGY | | + + + + + + | MCV | 83.3 | 80.0 - 96.0 fL | [facility] | | | | | | DEPARTMENT | | | | | | OF | | | | | | PATHOLOGY | | + + + + + + | MCHC | 33.6 | 33.4 - 35.5 | [facility] | | | | | g/dL | DEPARTMENT | | | | | | OF | | | | | | PATHOLOGY | | + + + + + + | RDW | 16.5 (H) | 11.5 - 15.0 % | [facility] | | | | | | DEPARTMENT | | | | | | OF | | | | | | PATHOLOGY | | + + + + + + | PLATELET | 255 | 150 - 400 K/cu | [facility] | | | COUNT | | mm | DEPARTMENT | | | | | | OF | | | | | | PATHOLOGY | | + + + + + + + + | Specimen | + + | Blood - Blood | + + + + + + + | Performing | Address | City/State/Zipcode | Phone Number | | Organization | | | | + + + + + | [facility] DEPARTMENT OF | [address] | [place] [address] | | | PATHOLOGY | [address] | | | + + + + + BASIC METABOLIC SET (NA, K, CL, TCO2, BUN, CR, GLU, CA) (12/18/2009 12:43 PM PDT) + + + + + + | Component | Value | Ref Range | Performed | Pathologist | | | | | At | Signature | + + + + + + | GLUCOSE, | 124 (H) | 60 - 99 mg/dL | [facility] | | | PLASMA | | | DEPARTMENT | | | (LAB) | | | OF | | | | | | PATHOLOGY | | + + + + + + | BUN, PLASMA | 14 | 6 - 20 mg/dL | [facility] | | | (LAB) | | | DEPARTMENT | | | | | | OF | | | | | | PATHOLOGY | | + + + + + + | CREATININE | 0.65 | 0.60 - 1.10 | [facility] | | | PLASMA | | mg/dL | DEPARTMENT | | | (LAB) | | | OF | | | | | | PATHOLOGY | | + + + + + + | SODIUM, | 142 | 134 - 143 | [facility] | | | PLASMA | | mmol/L | DEPARTMENT | | | (LAB) | | | OF | | | | | | PATHOLOGY | | + + + + + + | POTASSIUM, | 4.7 | 3.4 - 5.0 | [facility] | | | PLASMA | | mmol/L | DEPARTMENT | | | (LAB) | | | OF | | | | | | PATHOLOGY | | + + + + + + | CHLORIDE, | 106 | 97 - 108 mmol/L | [facility] | | | PLASMA | | | DEPARTMENT | | | (LAB) | | | OF | | | | | | PATHOLOGY | | + + + + + + | TOTAL CO2, | 27 | 23 - 31 mmol/L | [facility] | | | PLASMA | | | DEPARTMENT | | | (LAB) | | | OF | | | | | | PATHOLOGY | | + + + + + + | CALCIUM, | 9.2 | 8.6 - 10.2 | [facility] | | | PLASMA | | mg/dL | DEPARTMENT | | | (LAB) | | | OF | | | | | | PATHOLOGY | | + + + + + + | EGFR | > 60 | >60 mL/min | [facility] | | | - | | | DEPARTMENT | | | FAROESE | | | OF | | | | | | PATHOLOGY | | + + + + + + | EGFR NON | > 60Comment: GFR is | >60 mL/min | [facility] | | | -ALAN | estimated using the MDRD | | DEPARTMENT | | | RICAN | equation recommended by | | OF | | | | theNational Kidney | | PATHOLOGY | | | | Disease Education | | | | | | Program. Estimated GFR | | | | | | Interpretive | | | | | | Information: <60 | | | | | | mL/min/1.73 sq m | | | | | | Chronic Kidney Disease | | | | | | <15 mL/min/1.73 sq m | | | | | | Kidney Failure | | | | | | Estimated GFR greater | | | | | | than 60mL/min/1.73 is of | | | | | | limited clinical Value. | | | | | | The MDRD equation is | | | | | | not valid in the | | | | | | following situations: - | | | | | | Patients under 18 years | | | | | | of age - Severe | | | | | | malnutrition or obesity | | | | | | - Vegetarian diet - | | | | | | Rapidly changing kidney | | | | | | function | | | | + + + + + + | ANION GAP | 9 | 4 - 11 mmol/L | [facility] | | | | | | DEPARTMENT | | | | | | OF | | | | | | PATHOLOGY | | + + + + + + + + | Specimen | + + | Blood - Blood | + + + + + + + | Performing | Address | City/State/Zipcode | Phone Number | | Organization | | | | + + + + + | 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
--- OUTSIDE RECORDS SUMMARY | ~2019-02-10 | XMS | Encounter Summary ---
Demographics + + + | Address | [address] | | | [place] [address] | + + + | Home Phone | | + + + | Preferred Language | Unknown | + + + | Marital Status | Single | + + + | Mu-Ism Affiliation | PRO | + + + | Race | White | + + + | Ethnic Group | Not or | + + + Author + + + | Author | [facility] | + + + | Organization | [facility] | + + + | Address | Unknown | + + + | Phone | Unavailable | + + + Support + + + + + | Name | Relationship | Address | Phone | + + + + + | Mariah Prather | OZZIE | [place] | | + + + + + Care Team Providers + +------+ + | Care Broadband Engineer Name | Role | Phone | + +------+ + | Timothy Burks MD | PCP | | + +------+ + Reason for Referral Diagnostic Testing (Routine) +--------+--------+ + + + + | Status | Reason | Specialty | Diagnoses / | Referred By | Referred To | | | | | Procedures | Contact | Contact | +--------+--------+ + + + + | Closed | | Radiology | Diagnoses | [place], | | | | | | Lymphedema | Sheldon Mack MD | | | | | | of left leg | [address] | | | | | | Procedures | [facility] | | | | | | V[facility] | [address] | | | | | | VENOUS | [place], [place] | | | | | | DUPLEX LOWER | [address] | | | | | | EXTREMITY | Phone: | | | | | | LT | [phone] | | | | | | | Fax: | | | | | | | [phone] | | +--------+--------+ + + + + Reason for Visit Diagnostic Testing (Routine) +--------+--------+ + + + + | Status | Reason | Specialty | Diagnoses / | Referred By | Referred To | | | | | Procedures | Contact | Contact | +--------+--------+ + + + + | Closed | | Radiology | Diagnoses | Ron, | | | | | | Lymphedema | Sheldon Mack MD | | | | | | of left leg | [address] | | | | | | Procedures | [facility] | | | | | | VAS [facility] | [address] | | | | | | VENOUS | [place], [place] | | | | | | DUPLEX LOWER | [address] | | | | | | EXTREMITY | Phone: | | | | | | LT | [phone] | | | | | | | Fax: | | | | | | | [phone] | | +--------+--------+ + + + + Encounter Details +--------+ + + + + | Date | Type | Department | Care Team | Description | +--------+ + + + + | 10/25/ | Hospital | Diagnostic | | | | 2016 | Encounter | Radiology at [facility] | | | | | | [address] | | | | | | [place] Mailcode: | | | | | | [address] [facility] | | | | | | [place], | | | | | | [place] [address] | | | | | | [phone] | | | +--------+ + + + [...] + + documented as of this encounter Medications at Time of Discharge + + + +---------+ + + | Medication | Sig | Dispensed | Refills | Start | End Date | | | | | | Date | | + + + +---------+ + + | COUMADIN 10 mg | Take 5-10 mg by | | 0 | | | | Oral Tablet | mouth once daily. | | | | | | | Taking 5 mg M,W,F | | | | | | | and 10 T, TH, S, | | | | | | | Monday. | | | | | + + + +---------+ + + | FLUoxetine 20 mg | Take 20 mg by mouth | | 0 | 09/24/19 | | | oral capsule | once daily. | | | 16 | | + + + +---------+ + + | loratadine | Take 10 mg by mouth | | 0 | | | | (CLARITIN) 10 mg | once daily. | | | | | | oral tablet | | | | | | + + + +---------+ + + | nadolol 20 mg oral | Take 20 mg by mouth | | 0 | | | | tabletIndications: | once daily. | | | | | | Migraine Prevention | Indications: | | | | | | | MIGRAINE PREVENTION | | | | | + + + +---------+ + + documented as of this encounter Plan of Treatment Not on filedocumented as of this encounter Procedures + +--------+ + + + | Procedure Name | Priori | Date/Time | Associated Diagnosis | Comments | | | ty | | | | + +--------+ + + + | VASC LAB VENOUS | Routin | 10/26/2015 | Lymphedema of left | Results for this | | DUPLEX LOWER | e | 11:55 AM | leg | procedure are in the | | EXTREMITY LT | | PDT | | results section. | + +--------+ + + + documented in this encounter Results VAS LAB VENOUS DUPLEX LOWER EXTREMITY LT (10/26/2015 11:55 AM PDT) + + + + + + | Component | Value | Ref Range | Performed | Pathologist | | | | | At | Signature | + + + + + + | VASC LAB | Left: Left lower | | | | | VENOUS | extremity pain with a | | | | | DUPLEX | prior history of a | | | | | LOWER | congential left | | | | | EXTREMITY | lowerextremity vascular | | | | | LEFT | anomaly.The deep and | | | | | | superficial veins of | | | | | | left lower extremity | | | | | | were examined with | | | | | | the[employer] scanner. There | | | | | | is venous thrombus | | | | | | present in the varicose | | | | | | veins of theleft lateral | | | | | | thigh and calf. All | | | | | | other veins of the left | | | | | | lower extremity | | | | | | hadnormal phasic flow | | | | | | with normal response to | | | | | | augmentation and | | | | | | compressionthroughout. | | | | | | Conclusions: Abnormal | | | | | | examination.Left: There | | | | | | is superficial vein | | | | | | thrombosis of varicose | | | | | | veins of the leftlateral | | | | | | thigh and proximal | | | | | | calf. No deep vein | | | | | | thrombosis. Attending | | | | | | Radiologists: RAYMUNDO | | | | | | NAVYA JUANuthor: | | | | | | RAYMUNDO JUAN MD I | | | | | | have personally viewed | | | | | | this procedure/exam, | | | | | | reviewed this report, | | | | | | and madechanges to it | | | | | | where appropriate. | | | | | | Final/Electronically | | | | | | signed / RAYMUNDO | | | | | | YESSICA 10/26/2015 12:18 | | | | | | PM Preliminary / | | | | | | RAYMUNDO YESSICA | | | | | | 10/26/2015 11:55 AM | | | | + + + + + + + + | Specimen | + + | | + + + +---------+ + + | Performing | Address | City/State/Zipcode | Phone Number | | Organization | | | | + +---------+ + + | [facility] DEPARTMENT OF | | | | | RADIOLOGY | | | | + +---------+ + + documented in this encounter Visit Diagnoses + + | Diagnosis | + + | Lymphedema of left leg Other lymphedema | + + documented in this encounter
--- OUTSIDE RECORDS SUMMARY | ~2019-02-10 | XMS | Encounter Summary ---
Demographics + + + | Address | [address] | | | [place] [address] | + + + | Home Phone | | + + + | Preferred Language | Unknown | + + + | Marital Status | Single | + + + | Confucianist Affiliation | PRO | + + + | Race | White | + + + | Ethnic Group | Not or | + + + Author + + + | Author | [facility] | + + + | Organization | [facility] | + + + | [...] Team Providers + +------+ + | Care Disability Attorney Name | Role | Phone | + +------+ + | Timothy Burks MD | PCP | | + +------+ + Reason for Visit AUTH/CERT +--------+--------+ + + + + | Status | Reason | Specialty | Diagnoses / | Referred By | Referred To | | | | | Procedures | Contact | Contact | +--------+--------+ + + + + | | | | | | | +--------+--------+ + + + + Encounter Details +--------+ + + + + | Date | Type | Department | Care Team | Description | +--------+ + + + + | 06/21/ | Hospital | [facility] | [place], | | | 2016 | Encounter | [address] | MD [address] | | | | | [address] Mailcode: [facility] | [address] | | | | | [facility] | [place], [place] | | | | | [facility] He[facility], | [address] | | | | | [place] [address] | [phone] | | | | | [place], [place] | | | | | | [address] | | | | | | [phone] | | | +--------+ + + + [...] + + + | Blood Pressure | 124/75 | 06/22/2015 3:35 PM | | | | | PDT | | + + + + + | Pulse | 76 | 06/22/2015 3:35 PM | | | | | PDT | | + + + + + | Temperature | 36.4 C (97.6 F) | 06/22/2015 2:26 PM | | | | | PDT | | + + + + + | Respiratory Rate | 23 | 06/22/2015 3:35 PM | | | | | PDT | | + + + + + | Oxygen Saturation | 99% | 06/22/2015 3:35 PM | | | | | PDT | | + + + + + | Inhaled Oxygen | - | - | | | Concentration | | | | + + + + + | Weight | - | - | | + + + + + | Height | - | - | | + + + + + | Body Mass Index | - | - | | + + + + + documented in this encounter Discharge Instructions Instructions [place] [facility] Instructions after Colonoscopy You may resume your normal diet and medications unless told otherwise. Medications The medications you received can cause you to be forgetful and drowsy and will take the rem ainder of the day to wear off. DO NOT drink alcohol, drive, operate heavy machinery, sign legal documents, or make major d ecisions until tomorrow. Common After Effects mild abdominal pain, bloating, and excessive gas. This is caused by the air that was pu t in your colon during the procedure. These symptoms will improve as you pass gas. Activity Light activity such as walking will help you pass the air that was put into your colon. Complications Call your GI doctor if you have: Abnormal pain or any new unexplained symptoms. Bright red rectal bleeding Fever above 101.5 Redness, pain, or swelling at your IV site that is not relieved with warm compress. For any questions related to your procedure call: Monday- Monday 8:00- 4:30 Endoscopy Toll free ext: [phone] or After business hours, or on weekends and holidays call the Hospital Metal Wire Coating Operator Toll Free [phone] Ext. [phone] or and have the GI doctor pharmacy operations manager paged. The provider who performed your procedure is: Dr Montero Results of your exam. biopsies taken and sent to pathology. No coumadin until tomorrow. Only take Tylenol if needed for pain. You will see bleeding tonight and tomorrow am. Go t o ER if bleeding persists and is more than usual. Recommended follow up Colonoscopy: Depends on PCP and pathology Biopsies were taken, they will be sent to the laboratory. You and your referring doctor will get a letter with biopsy results in approximately 2 week s. Follow up Appointments with: Your primary care provider or referring provider will receive copies of the procedure repor t and all pathology reports with recommendations for treatment documented in this encounter Medications at Time of Discharge + + + +---------+--------+ + | Medication | Sig | Dispensed | Refills | Start | End Date | | | | | | Date | | + + + +---------+--------+ + | COUMADIN 10 mg | Take 5-10 mg by | | 0 | | | | Oral Tablet | mouth once daily. | | | | | | | Taking 5 mg M,W,F | | | | | | | and 10 T, TH, S, | | | | | | | Monday. | | | | | + + + +---------+--------+ + | loratadine | Take 10 mg by mouth | | 0 | | | | (CLARITIN) 10 mg | once daily. | | | | | | oral tablet | | | | | | + + + +---------+--------+ + | nadolol 20 mg oral | Take 20 mg by mouth | | 0 | | | | tabletIndications: | once daily. | | | | | | Migraine Prevention | Indications: | | | | | | | MIGRAINE PREVENTION | | | | | + + + +---------+--------+ + documented as of this encounter Progress Notes Heidy Sarmiento Md - 06/22/2015 2:59 PM PDT PRE PROCEDURE NOTE: MR# [id number] Subjective: Mahi Prather is a 39 y.o. female with 6 months of BRBPR who presents today fo r diagnostic colonoscopy. She had a colonoscopy 9 years ago which was normal. She has histor y of stroke and PE, currently holding coumadin. Medications reviewed. Allergies: Allergies as of 05/18/2015 - Fully Reviewed 04/20/2015 Allergen Reaction Noted Codeine Nausea and Vomiting 06/03/1998 Hydrocodone Nausea and Vomiting 06/03/1998 ROS: All others negative. Objective: Vital Signs: BP 102/60 | Pulse 89 | Temp (Src) 36.4 C (97.6 F) (Oral) | RR 18 | SpO2 98 % Neuro: Oriented X3. Mallampati Score: III Neck: Normal Respiratory: Unlabored breathing, lungs clear Cardiac: Regular rhythm Abdomen: Soft, nontender, no masses Impression Mahi Prather is a 39 y.o. female who presents for diagnostic colonoscopy. Plan Colonoscopy PARQ held and all questions addressed. See procedure note 06/22/2015. Heidy Sarmiento MD General Surgery PGY-3 documented in thi s encounter Plan of Treatment + +------+--------+ + + | Name | Type | Priori | Associated Diagnoses | Order Schedule | | | | ty | | | + +------+--------+ + + | SURGICAL PATHOLOGY | Lab | Routin | | Collect Now for 1 | | | | e | | Occurrences starting | | | | | | 06/22/2015 until | | | | | | 06/22/2015 | + +------+--------+ + + documented as of this encounter Procedures + +--------+ + + + | Procedure Name | Priori | Date/Time | Associated Diagnosis | Comments | | | ty | | | | + +--------+ + + + | COLONOSCOPY | | 06/22/2015 | | Results for this | | | | 12:00 AM | | procedure are in the | | | | PDT | | results section. | + +--------+ + + + | SURGICAL PATHOLOGY | Routin | 06/22/2015 | | Results for this | | | e | | | procedure are in the | | | | | | results section. | + +--------+ + + + documented in this encounter Results COLONOSCOPY (06/22/2015 12:00 AM PDT) + + + | Narrative | Performed At | + + + | | | + + + SURGICAL PATHOLOGY (06/22/2015) + + + + + + | Component | Value | Ref Range | Performed | Pathologist | | | | | At | Signature | + + + + + + | SURGICAL | SOURCE OF SPECIMEN:A | | [facility] | | | PATHOLOGY | Sigmoid biopsySOURCE OF | | DEPARTMENT | | | | SPECIMEN:B Rectal biopsy | | OF | | | | Final Pathologic | | PATHOLOGY | | | | Diagnosis:A: Sigmoid, | | | | | | biopsy: - Colonic | | | | | | mucosa with no | | | | | | diagnostic abnormality | | | | | | B: Rectal, | | | | | | biopsy: - Colonic | | | | | | mucosa with no | | | | | | diagnostic abnormality | | | | | | Comment: Multiple | | | | | | deeper levels have been | | | | | | examined for both | | | | | | specimens. Theendoscopic | | | | | | findings and clinical | | | | | | history are noted, but | | | | | | no histologiccorrelate | | | | | | is present in the | | | | | | submitted tissue. | | | | | | Case seen by:Nolan | | | | | | Bravo M.D./Surgical | | | | | | pathology fellowPhilipp | | | | | | Raess M.D., | | | | | | Ph.D./Pathologist | | | | | | Clinical History:The | | | | | | patient is a 39-year-old | | | | | | female with rectal | | | | | | bleeding. Per | | | | | | Epic:abnormal findings | | | | | | of sigmoid and rectum | | | | | | mucositis; abnormal | | | | | | mucosa withenlarged | | | | | | veins. 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 | | | | | | Gross | | | | | | Description:Received are | | | | | | 2 specimens in formalin | | | | | | in containers labeled | | | | | | with the patientname | | | | | | (initials SUZANNE) and: | | | | | | A: Sigmoid biopsy: | | | | | | Received are 3 flores-red | | | | | | tissue fragments, 0.1 x | | | | | | 0.1 x0.1 cm to 0.3 x | | | | | | 0.2 x 0.1 cm. The | | | | | | entire specimen is | | | | | | submitted. B: | | | | | | Rectal biopsy: | | | | | | Received are 2 flores-red | | | | | | tissue fragments, 0.2 x | | | | | | 0.1 x0.1 cm and 0.5 x | | | | | | 0.2 x 0.1 cm. The | | | | | | entire specimen is | | | | | | submitted. | | | | | | Cassette Index:A: | | | | | | Sigmoid biopsy:A1B: | | | | | | Rectal biopsy:B1TG:tp | | | | | | My electronic | | | | | | signature indicates that | | | | | | I have personally | | | | | | reviewed alldiagnostic | | | | | | slides, the gross and/or | | | | | | microscopic portion of | | | | | | thisreport and | | | | | | formulated the final | | | | | | diagnosis. | | | | | | Rendering Diagnostician: | | | | | | Hugh Sprague M.D., | | | | | | | | | | | | Ph.D.PathologistElectron | | | | | | urvashi Signed 06/25/2015 | | | | | | 5:40PM | | | | + + + + + + + + | Specimen | + + | | + + + + + | Narrative | Performed At | + + + | | | + + + + + + + + | Performing | Address | City/State/Zipcode | Phone Number | | Organization | | | | + + + + + | [facility] | [address] | [place] [address] | | | PATHOLOGY | [address] | | | + + + + + documented in this encounter Visit Diagnoses Not on filedocumented in this encounter Administered Medications + +--------+ +---------+------+------+ | Medication Order | MAR | Action | Dose | Rate | Site | | | Action | Date | | | | + +--------+ +---------+------+------+ | fentaNYL citrate (PF) | Given | 06/22/19 | 150 mcg | | | | (SUBLIMAZE) injection 1 dose, | | 16 3:28 | | | | | Starting 06/22/15 at 1453, | | PM PDT | | | | | Until 06/22/15 at 1528 | | | | | | + +--------+ +---------+------+------+ +---+---+ | | | +---+---+ + +-------+ +------+---+---+ | midazolam (PF) (VERSED) | Given | 06/22/19 | 6 mg | | | | injection 1 dose, Starting Mon | | 16 3:27 | | | | | 06/22/15 at 1453, Until Mon | | PM PDT | | | | | 06/22/15 at 1527 | | | | | | + +-------+ +------+---+---+ +---+---+ | | | +---+---+ + +-------+ +------+---+---+ | midazolam (PF) (VERSED) | Given | 06/22/19 | 2 mg | | | | injection 1 dose, Starting Mon | | 16 3:28 | | | | | 06/22/15 at 1512, Until Mon | | PM PDT | | | | | 06/22/15 at 1528 | | | | | | + +-------+ +------+---+---+ +---+---+ | | | +---+---+ + +---------+ +-------+-------+---+ | NaCl 0.9 % solution 100 mL/hr, | New Bag | 06/22/19 | 100 | 100 | | | intravenous, PROCEDURE | | 16 3:28 | mL/hr | mL/hr | | | CONTINUOUS, Starting 06/22/15 | | PM PDT | | | | | at 1500, Until 06/22/15 at | | | | | | | 2224 | | | | | | + +---------+ +-------+-------+---+ +---+---+ | | | +---+---+ documented in this encounter
--- OUTSIDE RECORDS SUMMARY | ~2019-02-10 | XMS | Encounter Summary ---
Demographics + + + | Address | [address] | | | [place] [address] | + + + | Home Phone | | + + + | Preferred Language | Unknown | + + + | Marital Status | Single | + + + | Tenriism Affiliation | PRO | + + + | Race | White | + + + | Ethnic Group | Not or | + + + Author + + + | Author | [facility] | + + + | Organization | [facility] | + + + | Address | Unknown | + + + | Phone | Unavailable | + + + Support + + + + + | Name | Relationship | Address | Phone | + + + + + | Mariah Prather | OZZIE | [place] | | + + + + + Care Team Providers + +------+ + | Care Restaurant Maintenance Technician Name | Role | Phone | + [...] + + + | Closed | | | | | | +--------+--------+ + + + + Encounter Details +--------+ + + + + | Date | Type | Department | Care Team | Description | +--------+ + + + + | 01/10/ | Anesthesia | [facility] | Rut Do, | | | 2012 | Event | [facility] | MD [address] | | | | | and Healing Surgery | [place], [place] | | | | | [facility] | [address] | | | | | Desk Located on the | [phone] | | | | | [address] [place] [address] [address] | | | | | | [place], | | | | | | [place] [address] | | | +--------+ + + + + Anesthesia Record + + + + + | Procedure Name | Responsible | Anesthesia Start | Anesthesia Stop Time | | | Anesthesiologist | Time | | + + + + + | EXCISION BILATERAL | Rut Do MD | 01/10/13 0859 | 01/10/13 1014 | | VASCULAR | | | | | MALFORMATION | | | | | BUTTOCKS Specimens | | | | | to pathology | | | | | (Bilateral Buttocks) | | | | + + + + + +----+---+ + + | Da | T | Event | Comment | | te | i | | | | | m | | | | | e | | | +----+---+ + + | 10 | 0 | | | | /1 | 8 | | | | 7/ | 2 | | | | 20 | 6 | | | | 13 | | | | +----+---+ + + | | 0 | Pt. Check | Prior to anesthesia start, pt. Identified, examined, chart | | | 8 | | reviewed, PARQ held, anesthetic plan made or approved by | | | 2 | | attending anesthesiologist. NPO status confirmed as appropriate | | | 6 | | for procedure Preoperative evaluation: unchanged | +----+---+ + + | | 0 | Eq Check | Anesthesia machine checked Equipment verified | | | 8 | | | | | 4 | | | | | 4 | | | +----+---+ + + | | 0 | An Start | | | | 8 | | | | | 5 | | | | | 9 | | | +----+---+ + + | | 0 | An Start | | | | 9 | Data | | | | 0 | | | | | 2 | | | +----+---+ + + | | 0 | Vitals | Monitors applied Vital signs checked Patient ready for anesthesia | | | 9 | Checked | | | | 0 | | | | | 5 | | | +----+---+ + + | | 0 | Std. Airway | | | | 9 | Mgt. | | | | 0 | | | | | 8 | | | +----+---+ + + | | 0 | Abx | | | | 9 | Administere | | | | 1 | d | | | | 0 | | | +----+---+ + + | | 0 | Ready | | | | 9 | | | | | 1 | | | | | 1 | | | +----+---+ + + | | 0 | Timeout | | | | 9 | | | | | 1 | | | | | 8 | | | +----+---+ + + | | 0 | Incision | | | | 9 | | | | | 2 | | | | | 0 | | | +----+---+ + + | | 0 | Surgery end | | | | 9 | | | | | 5 | | | | | 4 | | | +----+---+ + + | | 1 | An Extubate | Neuromuscular function Intact. Pharynx suctioned. Patient obeys | | | 0 | | commands. Adequate pulmonary mechanics. | | | 0 | | | | | 5 | | | +----+---+ + + | | 1 | an stop | | | | 0 | data | | | | 0 | | | | | 5 | | | +----+---+ + + | | 1 | Anesthesia | | | | 0 | End | | | | 1 | | | | | 4 | | | +----+---+ + + +------+ | Meds | +------+ + + + | Name | Total | + + + | midazolam | 2 mg | + + + | fentaNYL | 175 mcg | + + + | propofol | 200 mg | + + + | succinylcholine | 100 mg | + + + | dexamethasone | 10 mg | + + + | ceFAZolin | 2,000 mg | + + + | ondansetron | 4 mg | + + + | lactated ringers IV | 1,000 mL | + + + + + | Name | + + | Insp Sevo | + + | Et Sevo | + + | O2 Flow Rate (Total Liters) | + + | Air Flow rate (L/min) | + + + + | No blood administrations on file. | + + +--------+ + + + | Type | Details | Placement | Removal | +--------+ + + + | Wound/ | 03/06/08; 1730; buttocks; | 03/06/08 1730 by | 01/12/171621 by | | Incisi | Right:; 01/12/17 (Automatic | Aminta Robertson | Discontinued After | | on/Mini | cleanup per RA 3006--contact | | Discharge | | in | admin for questions.); 1622 | | | | | (Automatic cleanup per RA | | | | | 3006--contact admin for | | | | | questions.) | | | +--------+ + + + | RETIRE | 06/19/08; 905; gluteal wound | 06/19/08905 by | 01/12/17 1622 by | | D - | (surgical); medial; sacrum; | Nia Palmer | Discontinued After | | Wound | surgical wound; 01/12/17 | | Discharge | | | (Automatic cleanup per RA | | | | | 3006--contact admin for | | | | | questions.); 1622 (Automatic | | | | | cleanup per RA 3006--contact | | | | | admin for questions.) | | | +--------+ + + + | RETIRE | 01/10/13; 01/10/13; 1130 (remove | 01/10/13 0000 by | 01/10/13 1130 by | | D - | at [facility]); No; left buttock | JARETT Jimenez | | Drains | wound drain; 10fr; [place]; | | | | | Buttocks | | | | (wound | | | | | s/surg | | | | | ical) | | | | +--------+ + + + | RETIRE | 01/10/13; 0708; 01/10/13; 1130; | 01/10/13 0708 by | 01/10/13 1130 by | | D - | No; 20; Left; Hand; Lidocaine; | JARETT Orr | | Periph | No; Positive | | | | eral | | | | | Line | | | | +--------+ + + + | RETIRE | 01/10/13; 919; No; Bilateral:; | 01/10/13919 by | 01/10/131129 by | | D - | gluteal; 01/10/13; 1129 | Vick Healy RN | Estelle Healy | | Incisi | | | | | on | | | | +--------+ + + + documented in this encounter Social History + +-------+ +--------+------+ | Tobacco [...] in this encounter Administered Medications + +--------+ + +------+------+ | Medication Order | MAR | Action | Dose | Rate | Site | | | Action | Date | | | | + +--------+ + +------+------+ | ceFAZolin (ANCEF) injection | Given | 01/11/20 | 2,000 mg | | | | intravenous, INTRAPROCEDURE PRN, | | 13 9:10 | | | | | Starting Lexus 01/10/13 at 0910, | | AM PDT | | | | | Until Lexus 01/10/13 at 1005 | | | | | | + +--------+ + +------+------+ +---+---+ | | | +---+---+ + +-------+ +-------+---+---+ | dexamethasone (DECADRON) | Given | 01/11/20 | 10 mg | | | | injection intravenous, | | 13 9:16 | | | | | INTRAPROCEDURE PRN, Starting Lexus | | AM PDT | | | | | 01/10/13 at 0916, Until Lexus | | | | | | | 01/10/13 at 1005 | | | | | | + +-------+ +-------+---+---+ +---+---+ | | | +---+---+ + +-------+ +--------+---+---+ | fentaNYL citrate (PF) | Given | 01/11/20 | 25 mcg | | | | (SUBLIMAZE) injection | | 13 9:43 | | | | | INTRAPROCEDURE PRN, Starting Lexus | | AM PDT | | | | | 01/10/13 at 0905, Until Lexus | | | | | | | 01/10/13 at 1005, sedation | | | | | | + +-------+ +--------+---+---+ +-------+ +---------+---+---+ | Given | 01/11/20 | 50 mcg | | | | | 13 9:28 | | | | | | AM PDT | | | | +-------+ +---------+---+---+ | Given | 01/11/20 | 100 mcg | | | | | 13 9:05 | | | | | | AM PDT | | | | +-------+ +---------+---+---+ +---+---+ | | | +---+---+ + +---------+ +---+---+---+ | lactated ringers IV 10 mL/hr, | New Bag | 01/11/20 | | | | | intravenous, PROCEDURE | | 13 9:54 | | | | | CONTINUOUS, Starting Lexus 01/10/13 | | AM PDT | | | | | at 0645, Until Lexus 01/10/13 at | | | | | | | 1747 | | | | | | + +---------+ +---+---+---+ + + +---+---+---+ | given by anesthesiology | 01/11/20 | | | | | | 13 9:22 | | | | | | AM PDT | | | | + + +---+---+---+ | New Bag | 01/11/20 | | | | | | 13 8:28 | | | | | | AM PDT | | | | + + +---+---+---+ +---+---+ | | | +---+---+ + +-------+ +------+---+---+ | midazolam (VERSED) injection | Given | 01/11/20 | 2 mg | | | | INTRAPROCEDURE PRN, Starting Lexus | | 13 8:59 | | | | | 01/10/13 at 0859, Until Lexus | | AM PDT | | | | | 01/10/13 at 1005, sedation | | | | | | + +-------+ +------+---+---+ +---+---+ | | | +---+---+ + +-------+ +------+---+---+ | ondansetron (ZOFRAN) injection | Given | 01/11/20 | 4 mg | | | | INTRAPROCEDURE PRN, Starting Lexus | | 13 9:52 | | | | | 01/10/13 at 0952, Until Lexus | | AM PDT | | | | | 01/10/13 at 1005 | | | | | | + +-------+ +------+---+---+ +---+---+ | | | +---+---+ + +-------+ +--------+---+---+ | propofol INTRAPROCEDURE PRN, | Given | 01/11/20 | 200 mg | | | | Starting Lexus 01/10/13 at 0906, | | 13 9:06 | | | | | Until Lexus 01/10/13 at 1005 | | AM PDT | | | | + +-------+ +--------+---+---+ +---+---+ | | | +---+---+ + +-------+ +--------+---+---+ | SUCCINYLCHOLINE CHLORIDE 20 | Given | 01/11/20 | 100 mg | | | | MG/ML INJ (PROSED/RSI) | | 13 9:06 | | | | | INTRAPROCEDURE PRN, Starting Lexus | | AM PDT | | | | | 01/10/13 at 0906, Until Lexus | | | | | | | 01/10/13 at 1005, Neuromuscular | | | | | | | block | | | | | | + +-------+ +--------+---+---+ +---+---+ | | | +---+---+ documented in this encounter
--- OUTSIDE RECORDS SUMMARY | ~2019-02-10 | XMS | Encounter Summary ---
Demographics + + + | Address | [address] | | | [place] [address] | + + + | Home Phone [...] Team Providers + +------+ + | Care Shoe Dyer Name | Role | Phone | + +------+ + | Timothy Burks MD | PCP | | + +------+ + Reason for Visit + + + | Reason | Comments | + + + | Follow-up encounter | gluteal cleft hemangnoma op 01-10-14 steroid injection | + + + Consultation (Routine) +--------+--------+ [...] | | | | | specified | [address] | [address] | | | | | congenital | [address] | | | | | anomalies | [address] | [place], [place] | | | | | Congenital | [place], [place] | [address] | | | | | lower limb | [address] | Phone: | | | | | vessel | Phone: | [phone] | | | | | anomaly | [phone] | Fax: | | | | | Procedures | Fax: | [phone] | | | | | CONSULT TO | [phone] | | | | | | SURGERY - | | | | | | | PLASTICS | | | +--------+--------+ + + + + Encounter Details +--------+---------+ + + + | Date | Type | Department | Care Team | Description | +--------+---------+ + + + | 05/10/ | Office | Plastic and | Sebastian Jackson, | Lymphatic | | 2014 | Visit | Reconstructive | PA-C [address] | malformation | | | | Surgery at [facility] [address] | (Primary Dx) | | | | [address] | [address] [facility] [place] | | | | | Mailcode: [facility] | [address] | | | | | [facility] | | | | | | and Healing, | | | | | | Building 1, 5th | | | | | | Floor [place], [place] | | | | | | [address] | | | | | | [phone] | | | +--------+---------+ + + + [...] documented as of this encounter Progress Notes Sebastian Hdz - 05/10/2013 2:36 PM PSTPlastic and Reconstructive Surgery Post-operative Visit HPI: Mahi Prather is a 37 y.o. 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 She had excision of left 9 x 2 cm buttock lymphangioma o n 01/10/13. Recovery complicated by recurrence of lesion, She received an injection 02/26/[address] Mendoza. Reports feels there has been some improvement. She has no acute concerns or issues. She would like another injection of steroid today. Denies constitutional sxs. Denies fever, chills, fatigue. Denies increased pain, swelling, or progressive redness around the site. PE: Vitals: There were no vitals taken for this visit. General Appearance: Well-developed, well-nourished female in no apparent distress. Buttocks: no swelling. There is a raised thickened lymphangioma malformation along the glut eal cleft. No erythema, no induration. No wound complications or drainage. Area is NT. Impression: Recurrent lymphangioma Plan: -Will do an intralesional injection today in clinic. -F/U with Dr Mendoza in one month, sooner prn. The patient indicates understanding of these issues and agrees to the plan. Procedure note: Steroid Injection for recurrent lymphangioma (Injection #2) Indication: 37 y.o. female with a recurrent lymphangioma at the gluteal cleft. The risks, benefits and alternatives of kenalog injection were discussed with the patient today. The ri sks, including but not limited to failure to improve condition, telangectasias, thinning of the tissue, and hypopigmentation were discussed with the patient. All questions were answere d. Description of procedure: Prior to beginning the procedure, the patient's identity was veri fied, as well as the procedure to be performed and the surgical site. All equipment required was ready and available. The patient was positioned appropriately. The area was prepped with betadine and alcohol and 0.3 mL of triamcinolone acetonide suspen paloma ( 40 mg/ml) was used to inject the lesion. The site was then dressed with a bandage. Sebastian Jackson PA-C Dept Plastic/Reconstructive Surgery [facility] Electronically signed on 05/10/2013 at 2:37 PM SEBASTIAN JACKSON PA-C. documented in this encounter Plan of Treatment + + +--------+ + + | Name | Type | Priori | Associated Diagnoses | Order Schedule | | | | ty | | | + + +--------+ + + | INTRALESIONAL | Procedures | Routin | Lymphatic | Ordered: 05/10/2013 | | INJECTION, BACK | | e | malformation | | | OFFICE | | | | | + + +--------+ + + documented as of this encounter Visit Diagnoses + + | Diagnosis | + + | Lymphatic malformation - Primary Congenital anomaly, unspecified | + + documented in this encounter
--- OUTSIDE RECORDS SUMMARY | ~2019-02-10 | XMS | Encounter Summary ---
Demographics + + + | Address | [address] | | | [place] [address] | + + + | Home Phone | | + + + | Preferred Language | Unknown | + + + | Marital Status | Single | + + + | Rastafarian Affiliation | PRO | + + + [...] Team Providers + +------+ + | Care Latrine Cleaner Name | Role | Phone | + +------+ + PCP | Unavailable | + +------+ + Encounter Details +--------+ + + + + | Date | Type | Department | Care Team | Description | +--------+ + + + + | 03/19/ | Office | [facility] | Nte, Vascular | Progress Note | | 2002 | Visit-Trans | SURGERY | Surgery Clinic | | | | cribed | [...] as of this encounter Progress Notes Interface, Technology Applications Consultant In - 10/23/2004 4:48 PM PDTDate: 03/19/2003 Patient: Mahi Prather MR# [id number] Vascular Surgery Clinic Established Patient Examination She is back for followup of longstanding angiodysplasia of her left leg and pelvis. She has had no problems with her leg since last being seen. 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 She is going to finish college this year. She has been having increasing irritation, some moist drainage, and some bloody drainage from a lesion in the cleft of her buttocks, and this is the primary source of problems that she has now. Physical Examination: Her left leg is larger than the right. It is swollen. It has the angiodysplastic malformations and the surface hemangioma which had been present since she was a little girl. 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 I suspect that this is angiodysplasia but it could also be a separate neoplasm. It is about 1 x 2 cm in diameter and projects above the surface of the intact skin surrounding it by about 1 cm. Impression: New skin lesion in the buttocks with some bleeding. Plan: Refer her to Dr. Juan Jose Newby to see if he agrees that this is part of her angiodysplasia, and if it can be treated by laser ablation as I think this would probably give a better result than surgical excision in this area. She understands the plan. Lazaro Zuñiga M.D. tent finisher NOET / [id number] / [id number] / [id number] / C: 03/31/2003 jlb P M PDTdocumented in this encounter Plan of Treatment Not on filedocumented as of this encounter Visit Diagnoses Not on filedocumented in this encounter"
--- OUTSIDE RECORDS SUMMARY | ~2019-02-10 | XMS | Encounter Summary ---
Demographics + + + | Address | [address] | | | [place] [address] | + + + | Home Phone [...] Author + + + | Author | [facility] | + + + | Organization | [facility] | + + + | [...] Team Providers + +------+ + | Care Ship Laborer Name | Role | Phone | + +------+ + | Jose Ramires MD | PCP | | + +------+ + Encounter Details +--------+ + + + + | Date | Type | Department | Care Team | Description | +--------+ + + + + | 01/23/ | Pharmacy | Pharmacy @ [facility] | | | | 2019 | Visit | [address] | | | | | | [address] Mailcode: | | | | | | [facility] | | | | | | and Healing, | | | | | | Building [address] | | | | | | [place], [place] | | | | | | [address] | | | +--------+ + + + [...]
--- OUTSIDE RECORDS SUMMARY | ~2019-02-10 | XMS | Encounter Summary ---
Demographics + + + | Address | [address] | | | [place] [address] | + + + | Home Phone | | + + + | Preferred Language | Unknown | + + + | Marital Status | Single | + + + | Bahai Affiliation | PRO | + + + | Race | White | + + + | Ethnic Group | Not or | + + + Author + + + | Author | [facility] | + + + | Organization | [facility] | + + + | Address [...] Team Providers + +------+ + | Care Insurance Sales Representative Name | Role | Phone | + +------+ + | Jose Ramires MD | PCP | | + +------+ + Encounter Details +--------+ + + + + | Date | Type | Department | Care Team | Description | +--------+ + + + + | 01/07/ | Document-Sc | UNKNOWN DEPARTMENT | Other, Faculty | | | 2019 | anned | [address] [facility] | [phone] | | | | | [address] | | | | | | [place], [place] | | | | | | [address] | | | +--------+ + + + [...] + + documented in this encounter Results ORDERS OTHER (01/07/2019 1:58 PM PDT) + + + | Narrative | Performed At | + + + | | | + + + documented in this encounter Visit Diagnoses Not on filedocumented in this encounter
--- OUTSIDE RECORDS SUMMARY | ~2019-02-10 | XMS | Encounter Summary ---
Demographics + + + | Address | [address] | | | [place] [address] | + + + | Home Phone | | + + + | Preferred Language | Unknown | + + + | Marital Status | Single | + + + | Faith Affiliation | PRO | + + + | Race | White | + + + | Ethnic Group | Not or | + + + Author + + + | Author | [facility] | + + + | Organization | [facility] | + + + | Address [...] Team Providers + +------+ + | Care Cream Cheese Maker Name | Role | Phone | + [...] Medicine Clinic at | ANP [address] | malformation | | | | [facility] 4th Floor [address] [facility] [address] | (Primary Dx); Other | | | | [address] | [place], [place] | specified | | | | Mailcode: CH4S | [address] | pre-operative | | | | [facility] | [phone] | examination; Atrial | | | | and Healing, | | fibrillation (HCC); | | | | Building 1,4th Floor | | Deep venous | | | | [place], [place] | | thrombosis (HCC); | | | | [address] | | Pulmonary embolism | | | | [phone] | | (HCC) | +--------+---------+ + + [...] OR NON-STEROIDAL ANTI-INFLAMMATORY DRUGS (NSAIDs) Advil, Aleve, [place], Anacin, Arthopan, Ascriptin, Aspergum, Aspirin with and [...] Piroxicam, Propoxyphene, Relafen, R obomol, Rufen, Sine-aid, [place] s cold tablets, Sulindac, Talwin, Tolectin, Triaminici n, Trigesic, Voltaren, Zorprin. OTHER PRODUCTS WHICH MAY PROMOTE BLEEDING Vitamin E, Gingko Biloba, Marine Fatty Acids, [place]-3 Fish Oil Supplements Important Guidelines Please do [...] perfume, lotions or powder. Remove any nail maltese from at least one fingernail. Do not [...] PM please call your surgeons' office for [id number]. Day Stay Unit [phone], [facility], fourth floor Room [address] [facility] Day Stay [phone], [facility], fourth floor Admitting [phone], [facility], ninth floor lobby [facility] Unit [phone], [facility], sixth floor Going Home Your surgeon will [...] it is after office hours, call the [facility] lens grinding machine operator at [phone] and ask them to page your doc [...] tab under ANESTHESIA PREOP EVALUATION. KAROLINE OVALLE [facility] CL[facility]IC [facility] PREOPERATIVE MEDICINE CLINIC [address] [facility] [address] 2007 ACC/ AHA Perioperative Guidelines 1. Need for emergency noncardiac surgery? b. No -> Proceed to next step. 2. Active Cardiac Conditions? These conditions mandate further investigation and manageme nt. A. Acute MS within 7 days: no B. Unstable angina/Recent MS (7- 30 days): no C. Decompensated CHF: [...] consider noninvasive gualberto ting if it will change control coordinator. 3 or more risk factors AND high risk surgery- consider testing if it will change control coordinator . documented in this e ncounter Plan [...] | + +--------+ + + + | [place] COLLECTION VENOUS | Routin | 12/18/2009 | [...] (H)Comment: | 0.90 - 1.20 INR | [facility] | | | | INR Therapeutic [...] | + + + + + | [facility] DEPARTMENT OF | [address] | [place] [address] | | | PATHOLOGY | [address] [...] DEPARTMENT OF | [address] | [place] [address] | | | PATHOLOGY | [address] [...] | | | DEPARTMENT | | | [facility] | | | OF | | | [...] | + + + + + | [facility] | [address] | [place] [address] | | | PATHOLOGY | [address] [...]
--- OUTSIDE RECORDS SUMMARY | ~2019-02-10 | XMS | Encounter Summary ---
Demographics + + + | Address | [address] | | | [place] [address] | + + + | Home Phone | | + + + | Preferred Language | Unknown | + + + | Marital Status | Single | + + + | Orthodox Affiliation | PRO | + + + [...] Team Providers + +------+ + | Care Plywood Layup Line Back Feeder Name | Role | Phone | + +------+ + | Timothy Burks MD | PCP | | + +------+ + Encounter Details +--------+ + + + + | Date | Type | Department | Care Team | Description | +--------+ + + + + | 09/15/ | Office | [facility] | Note, Outpatient | Progress Note | | 1999 | Visit-Trans | MEDICINE | Clinic | | | | cribed [...] as of this encounter Progress Notes Interface, Merchandiser Seasonal In - 02/09/2006 3:02 [facility]: [facility] SUBJECTIVE: This patient is a 23-year-old woman referred by Dr. Alison Araujo who has a history of gross hematuria with clots which started in March 1999. 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 The patient also complains of frequency every one to two hours, nocturia once or two times per night, urgency with occasional incontinence, but no hesitancy, decreased force of stream, or incomplete emptying. She also denies any dysuria, suprapubic pain, or flank pain but states she had suprapubic pain when she was bleeding. She last had bleeding approximately one week after her cystoscopy was performed in June 1999. The patient has no history of urinary tract infections or kidney stones. Of note, the patient is on chronic anticoagulation with Coumadin secondary to a left lower extremity AVM from which the patient developed a DVT and a subsequent embolic stroke. The patient also has a patent foramen ovale which was closed at the age of 17. Her embolic stroke was in 1991. The patient was taken off her anticoagulation her last year and placed on aspirin after which time she suffered a pulmonary embolus. PAST MEDICAL HISTORY: Hysterectomy and bilateral salpingo-oophorectomy in 1997 and tonsillectomy in 1980. ALLERGIES: None. MEDICATIONS: Coumadin 7.5 mg p.o. Monday, Monday, , Monday, and Monday, and 10 mg p.o. Monday and Monday; Premarin 0.625 mg p.o. q.d.; and Claritin. SOCIAL HISTORY: Tobacco: Negative. Alcohol: Rare. The patient is a full-time student. FAMILY HISTORY: Negative. REVIEW OF SYSTEMS: Otherwise negative. PHYSICAL EXAMINATION: VITAL SIGNS: Blood pressure 116/76, pulse 68, and respirations 20. GENERAL: She is a pleasant woman in no acute distress. LUNGS: Clear to auscultation bilaterally. HEART: Regular rate and rhythm without auscultated murmurs. ABDOMEN: Soft and flat with no palpable masses. She has a very mild suprapubic tenderness to deep palpation but normal abdominal bowel sounds. BACK: No costovertebral angle tenderness. EXTREMITIES: Edema 1+, left lower extremity. The patient also has a large AVM in the upper part of the left lower extremity and a hemangioma in midsacrum. LABORATORY DATA: Urinalysis shows pH 5.0, specific gravity 1.015, glucose normal, protein normal, heme normal, leucocyte esterase negative, and nitrite negative. ASSESSMENT/PLAN: History of gross hematuria which has cleared. The patient clearly does not need to be reevaluated with cystoscopy and is not interested in having treatment for this. We did recommend to her to obtain a study to evaluate the vasculature in her pelvis to evaluate whether she has extension of arterioventricular malformation in the pelvis with the varicosities. We will discuss this with Interventional Radiology and determine whether to do an magnetic resonance imaging or an angiogram and schedule this within one month at which time we will reevaluate the patient. She was advised that if she started having recurrent gross hematuria, to notify us, and we would consider performing a repeat cystoscopy. Colleen Rodrigez M.D. Derrell Lowe M.D. MIKHAIL / ALENA [id number] / [id number] / [id number] / [id number] cc: ALISON ARAUJO MD [address] [place] [address] [id number] signed by Interface, Merchandiser Seasonal In at 02/09/2006 3:02 AM PSTdocume nted in this encounter Plan of Treatment Not on filedocumented as of this encounter Visit Diagnoses Not on filedocumented in this encounter"
--- OUTSIDE RECORDS SUMMARY | ~2019-02-10 | XMS | Encounter Summary ---
Demographics + + + | Address | [address] | | | [place] [address] | + + + | Home Phone | | + + + | Preferred Language | Unknown | + + + | Marital Status | Single | + + + | Restoration Affiliation | PRO | + + + | Race | White | + + + | Ethnic Group | Not or | + + + Author + + + | Author | [facility] | + + + | Organization | [facility] | + + + | Address [...] Team Providers + +------+ + | Care Assistant Dean Name | Role | Phone | + +------+ + PCP | Unavailable | + +------+ + Encounter Details +--------+ + + + + | Date | Type | Department | Care Team | Description | +--------+ + + + + | 11/17/ | Results | Urology General | Derrell Lowe, | | | 2003 | Only | [address] | [address] | | | | | [place] Mailcode: | [place], [place] | | | | | [address] | [address] | | | | | [address] | [phone] | | | | | [place], [place] | | | | | | [address] | | | | | | [phone] | | | +--------+ + + + [...] + | CBC ONLY | Routin | 11/18/2003 | | Results for this | | | e | 4:24 PM | | procedure are in the | | | | PDT | | results section. | + +--------+ + + + documented in this encounter Results CBC ONLY WITH PLATELET (11/18/2003 4:24 PM PDT) + + + + + + | Component | Value | Ref Range | Performed | Pathologist | | | | | At | Signature | + + + + + + | WHITE CELL | 6.6 | 4.4 - 11.0 K/cu | [facility] | | | COUNT | | mm | DEPARTMENT | | | | | | OF | | | | | | PATHOLOGY | | + + + + + + | RED CELL | 5.01 | 3.65 - 5.10 | [facility] | | | COUNT | | M/cu mm | DEPARTMENT | | | | | | OF | | | | | | PATHOLOGY | | + + + + + + | HEMOGLOBIN | 14.0 | 11.4 - 15.0 | [facility] | | | | | g/dL | DEPARTMENT | | | | | | OF | | | | | | PATHOLOGY | | + + + + + + | HEMATOCRIT | 41.7 | 33.0 - 44.6 % | [facility] | | | | | | DEPARTMENT | | | | | | OF | | | | | | PATHOLOGY | | + + + + + + | MCV | 83.1 | 80.0 - 96.0 fL | [facility] | | | | | | DEPARTMENT | | | | | | OF | | | | | | PATHOLOGY | | + + + + + + | MCH | 27.9 (L) | 29.0 - 32.0 pg | [facility] | | | | | [...] + + + + | RDW | 14.4 | 11.5 - 15.0 % | [facility] | | | | | | DEPARTMENT | | | | | | OF | | | | | | PATHOLOGY | | + + + + + + | PLATELET | 277 | 150 - 400 K/cu | [facility] | | | COUNT | | mm | DEPARTMENT | | | | | | OF | | | | | | PATHOLOGY | | + + + + + + | MPV | 7.3 (L) | 7.4 - 10.4 fL | [facility] | | | | [...] + + + + + | [facility] | [address] | [place] [address] | | | PATHOLOGY | [address] | | | + + + + + | [facility] | [address] | [place] [address] | | | PATHOLOGY | [address] | | | + + + + + documented in this encounter Visit Diagnoses Not on filedocumented in this encounter"
--- OUTSIDE RECORDS SUMMARY | ~2019-02-10 | XMS | Encounter Summary ---
Demographics + + + | Address | [address] | | | [place] [address] | + + + | Home Phone | | + + + | Preferred Language | Unknown | + + + | Marital Status | Single | + + + | Congregation Affiliation | PRO | + + + | Race | White | + + + | Ethnic Group | Not or | + + + Author + + + | Author | [facility] | + + + | Organization | [facility] | + + + | Address [...] Team Providers + +------+ + | Care Spout Liner Name | Role | Phone | + +------+ + | Timothy Burks MD | PCP | | + +------+ + Reason for Visit + + + | Reason | Comments | + + + | Follow-up visit | gluteal cleft hemangioma. | + + + Consultation (Routine) +--------+--------+ + + + + | Status | Reason | Specialty | Diagnoses / | Referred By | Referred To | | | | | Procedures | Contact | Contact | +--------+--------+ + + + + | Closed | | Plastic | Diagnoses | [place], | Kelly, | | | | Surgery | Other | MD Sebas | MD Uzair | | | | | specified | [address] | [address] | | | | | congenital | [address] | | | | | anomalies | [address] | [place], [place] | | | | | Congenital | [place], [place] | [address] | | | | | lower limb | [address] | Phone: | | | | | vessel | Phone: | [phone] | | | | | anomaly | [phone] | Fax: | | | | | Procedures | Fax: | [phone] | | | | | CONSULT TO | [phone] | | | | | | SURGERY - | | | | | | | PLASTICS | | | +--------+--------+ + + + + Encounter Details +--------+---------+ + + + | Date | Type | Department | Care Team | Description | +--------+---------+ + + + | 08/06/ | Office | Plastic and | Uzair Mendoza MD | Hemangioma and | | 2014 | Visit | Reconstructive | [address] | lymphangioma | | | | Surgery at [facility] [address] | [place], [place] | (Primary Dx) | | | | [address] | [address] | | | | | Mailcode: [address] | [phone] | | | | | [facility] | | | | | | and Healing, | | | | | | Building [address], | | | | | | Floor [facility] [place] | | | | | | [address] | | | | | | [phone] | | | +--------+---------+ + + + [...] +---------+ + + | Blood Pressure | 120/69 | 08/06/2013 10:13 AM | | | | | PDT | | + +---------+ + + | Pulse | 70 | 08/06/2013 10:13 AM | | | | | PDT | | + +---------+ + + | Temperature | - | - | | + +---------+ + + | Respiratory Rate | 16 | 08/06/2013 10:13 AM | | | | | PDT | | + +---------+ + + | Oxygen Saturation | 97% | 08/06/2013 10:13 AM | | | | | PDT | | + +---------+ + + | [...] encounter Progress Notes Uzair Mendoza MD - 08/09/2013 8:26 AM PDTShe has had good improvement with the steroid in jections. No new lesions. On exam the linear lesion on the left buttock and three small scat tered lesions on the right buttock are all improved since last visit. No bleeding. No draina ge. We elected to inject the lesions again. Under sterile conditions after prepping the skin with alcohol the left linear lesion was in jected along its length with for injection points using a 30 gauge needle, and the three rig ht buttock lesions were injected in the same manner. A total of 0.6 mL of kenalog 40 was inj ected intralesional. She will return in 6-8 weeks. documented in this encounter Plan of Treatment Not on filedocumented as of this encounter Procedures + +--------+ + + + | Procedure Name | Priori | Date/Time | Associated Diagnosis | Comments | | | ty | | | | + +--------+ + + + | WA FILL CONTOUR | Routin | 08/09/2013 | Hemangioma and | | | DEFCT <1CC | e | 8:30 AM | lymphangioma | | | | | PDT | | | + +--------+ + + + documented in this encounter Visit Diagnoses + + | Diagnosis | + + | Hemangioma and lymphangioma - Primary Hemangioma of unspecified site | + + documented in this encounter
--- OUTSIDE RECORDS SUMMARY | ~2019-02-10 | XMS | Encounter Summary ---
Demographics + + + | Address | [address] | | | [place] [address] | + + + | Home Phone | | + + + | Preferred Language | Unknown | + + + | Marital Status | Single | + + + | Yazdanism Affiliation | PRO | + + + [...] Team Providers + +------+ + | Care Data Processing Systems Consultant Name | Role | Phone | + +------+ + | Timothy Burks MD | PCP | | + +------+ + Encounter Details +--------+ + + + + | Date | Type | Department | Care Team | Description | +--------+ + + + + | 02/03/ | Procedure - | | Lab, Vascular | Vascular | | 1998 | | | | | | | Transcribed | | | | +--------+ + + [...] | + +--------+ + + + | VASCULAR FLOW | | 02/03/1999 | | | | IMAGING, NONCARDIAC | | | | | | - VASC LAB | | | | | + +--------+ + + + documented in this encounter Visit Diagnoses Not on filedocumented in this encounter"
--- OUTSIDE RECORDS SUMMARY | ~2019-02-10 | XMS | Encounter Summary ---
Demographics + + + | Address | [address] | | | [place] [address] | + + + | Home Phone | | + + + | Preferred Language | Unknown | + + + | Marital Status | Single | + + + | Yarsani Affiliation | PRO | + + + [...] Team Providers + +------+ + | Care Women'S Swim Coach Name | Role | Phone | + [...] as of this encounter Progress Notes Interface, Exchange Consultant In - 10/24/2004 7:22 AM PDTClinic Date: 11/18/2003 Clinic: Urology I saw and evaluated this patient with Dr. Shadia German. I discussed the patient with Dr. German and agree with her findings and plan as dictated in her note and also written in her handwritten H and P from November 18, 2003. Derrell Lowe M.D. / [id number] / [id number] / [id number] / [id number] Tdocumented in this encounter Plan of Treatment Not on filedocumented as of this encounter Visit Diagnoses Not on filedocumented in this encounter"
--- OUTSIDE RECORDS SUMMARY | ~2019-02-10 | XMS | Encounter Summary ---
Demographics + + + | Address | [address] | | | [place] [address] | + + + | Home Phone | | + + + | Preferred Language | Unknown | + + + | Marital Status | Single | + + + | Advent Affiliation | PRO | + + + | Race | White | + + + | Ethnic Group | Not or | + + + Author + + + | Author | [facility] | + + + | Organization | [facility] | + + + | Address [...] Team Providers + +------+ + | Care Director Global Market Research Name | Role | Phone | + +------+ + | Jose Ramires MD | PCP | | + +------+ + Encounter Details +--------+ + + + + | Date | Type | Department | Care Team | Description | +--------+ + + + + | 01/23/ | Pharmacy | Pharmacy @ [facility] | | | | 2019 | Visit | [address] | | | | | | [address] Mailcode: | | | | | | [facility] | | | | | | and Healing, | | | | | | [address] | | | | | | [place], [place] | | | | | | [address] | | | +--------+ + + + [...]
--- OUTSIDE RECORDS SUMMARY | ~2019-02-10 | XMS | Encounter Summary ---
Demographics + + + | Address | [address] | | | [place] [address] | + + + | Home Phone | | + + + | Preferred Language | Unknown | + + + | Marital Status | Single | + + + | Latter Day Affiliation | PRO | + + + | Race | White | + + + | Ethnic Group | Not or | + + + Author + + + | Author | [facility] | + + + | Organization | [facility] | + + + | Address [...] Team Providers + +------+ + | Care Grain Sacker Name | Role | Phone | + +------+ + | Timothy Burks MD | PCP | | + +------+ + Encounter Details +--------+ + + + + | Date | Type | Department | Care Team | Description | +--------+ + + + + | 06/28/ | Abstract | Vascular Surgery | Sebas Lauren, | | | 2007 | | at [facility] 2nd Floor | [address] | | | | | [address] | [address] | | | | | [place] Mailcode: | [place], [place] | | | | | [address] | [phone] | | | | | [place], | [phone] | | | | | [place] [address] | | | | | | [phone] | | | +--------+ + + + [...]
--- OUTSIDE RECORDS SUMMARY | ~2019-02-10 | XMS | Encounter Summary ---
Demographics + + + | Address | [address] | | | [place] [address] | + + + | Home Phone | | + + + | Preferred Language | Unknown | + + + | Marital Status | Single | + + + | Adventist Affiliation | PRO | + + + [...] Providers + +------+ + | Care Director Of Safety Name | Role | Phone | + +------+ + | Timothy Burks MD | PCP | | + +------+ + Reason for Visit + + + | Reason | Comments | + + + | Postoperative visit | Revision of right gluteal cleft scar | + + + Encounter Details +--------+---------+ + + + | Date | Type | Department | Care Team | Description | +--------+---------+ + + + | 07/07/ | Office | Vascular Surgery | Imtiaz Trejo, | Vascular | | 2008 | Visit | at [facility] 2nd Floor | [address] | Malformation | | | | [address] | [address] | (Primary Dx) | | | | [place] Mailcode: | [place], [place] | | | | | [address] | [address] | | | | | [place], | | | | | | [place] [address] | | | | | | [phone] | | | +--------+---------+ + + + [...] documented as of this encounter Progress Notes Imtiaz Trejo MD - 07/07/2008 9:15 AM PDT 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 On June 19, 2008 the patient underwent reexcision of the poorly healing scared region with open packing of the wound. Today the w ound appears superficial and starting to epithelialize. There is no sign of infection. The re is some drainage from the wound but no evidence of perimeter skin irritation. The patien jesse seems to be managing her wound well and she comes from a good distance so we will arrange for follow-up in one month. The patient agrees with this plan. 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
--- OUTSIDE RECORDS SUMMARY | ~2019-02-10 | XMS | Encounter Summary ---
Demographics + + + | Address | [address] | | | [place] [address] | + + + | Home Phone [...] Author + + + | Author | [facility] | + + + | Organization | [facility] | + + + | Address [...] Team Providers + +------+ + | Care Motocross Racer Name | Role | Phone | + +------+ + | Jose Ramires MD | PCP | | + +------+ + Encounter Details +--------+ + + + + | Date | Type | Department | Care Team | Description | +--------+ + + + + | 01/07/ | Document-Sc | UNKNOWN DEPARTMENT | Other, Faculty | | | 2019 | anned | [address] [facility] | [phone] | | | | | [address] | | | | | | [place], [place] | | | | | | [address] | | | +--------+ + + + [...]
--- OUTSIDE RECORDS SUMMARY | ~2019-02-10 | XMS | Encounter Summary ---
Demographics + + + | Address | [address] | | | [place] [address] | + + + | Home Phone [...] + + + | Author | [facility] | + + + | Organization | [facility] | + + + | Address [...] Team Providers + +------+ + | Care Graduate Engineer Name | Role | Phone | + +------+ + | Jose Ramires MD | PCP | | + +------+ + Encounter Details +--------+ + + + + | Date | Type | Department | Care Team | Description | +--------+ + + + + | 03/14/ | Abstract | Digestive Health | Clinic, Surgery | | | 2018 | | [place] [facility] [address] | | | | | | [address] | | | | | | Mailcode: [place] | | | | | | for Health and | | | | | | Healing, [address] | | | | | | [facility] [place] | | | | | | [address] | | | | | | [phone] | | | +--------+ + + + [...]
--- OUTSIDE RECORDS SUMMARY | ~2019-02-10 | XMS | Encounter Summary ---
Demographics + + + | Address | [address] | | | [place] [address] | + + + | Home Phone [...] Author + + + | Author | [facility] | + + + | Organization | [facility] | + + + | Address | Unknown | + + + | Phone | Unavailable | + + + Support + + + + + | Name | Relationship | Address | Phone | + + + + + | Mariah Prather | OZZIE | [place] | | + + + + + Care Team Providers + +------+ + | Care Divisional Storekeeper Name | Role | Phone | + +------+ + | Timothy Burks MD | PCP | | + +------+ + Encounter Details +--------+ + + + + | Date | Type | Department | Care Team | Description | +--------+ + + + + | 06/21/ | Armature Straightener | [facility] at [facility] | [place] | Bright red rectal | | 2016 | | [place] [address] | [place] | bleeding (Primary | | | | [address] Mailcode: | [address] | Dx) | | | | [facility] | [place], [place] | | | | | Health and Healing, | [address] | | | | | [address] | [phone] | | | | | [place], [place] | | | | | | [address] | | | | | | [phone] | | | +--------+ + + + [...] + | Diagnosis | + + | Bright red rectal bleeding - Primary Hemorrhage of rectum and anus | + + documented in this encounter
--- OUTSIDE RECORDS SUMMARY | ~2019-02-10 | XMS | Encounter Summary ---
Demographics + + + | Address | [address] | | | [place] [address] | + + + | Home Phone [...] + + + | Author | [facility] | + + + | Organization | [facility] | + + + | [...] Team Providers + +------+ + | Care Skate Boarder Name | Role | Phone | + +------+ + | Timothy Burks MD | PCP | | + +------+ + Reason for Visit + + + | Reason | Comments | + + + | Follow-up in | excision gluteal cleft vascular malformation | | outpatient clinic | | + + + Encounter Details +--------+---------+ + + + | Date | Type | Department | Care Team | Description | +--------+---------+ + + + | 05/19/ | Office | Vascular Surgery | Sebas Burton, | Vascular | | 2008 | Visit | at [facility] 2nd Floor | [address] | Malformation | | | | [address] | [address] | Peripheral (Primary | | | | [place] Mailcode: | [place], [place] | Dx) | | | | [address] | [address] | | | | | [place], | [phone] | | | | | [place] [address] | | | | | | [phone] | | | +--------+---------+ + + + [...] documented as of this encounter Progress Notes Sebas Burton MD - 05/19/2008 9:11 AM PSTMassiel still has exudate from her wound from the excisionof the AVM. No fever or chills. Exam: The scar is heaped up and with 5 areasof raw surface. No invasive infection. Treat ed again with silver nitrate. A/P: persistent wound problem. If it does not resolve i would favor reexcision with healin g by secondary intention. 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
--- OUTSIDE RECORDS SUMMARY | ~2019-02-10 | XMS | Encounter Summary ---
Demographics + + + | Address | [address] | | | [place] [address] | + + + | Home Phone | | + + + | Preferred Language | Unknown | + + + | Marital Status | Single | + + + | Jain Affiliation | PRO | + + + [...] Team Providers + +------+ + | Care Rn Plasma Center Name | Role | Phone | + +------+ + | Jose Ramires MD | PCP | | + +------+ + Encounter Details +--------+ + + + + | Date | Type | Department | Care Team | Description | +--------+ + + + + | 01/14/ | MyChart | Plastic and | Sierra Espinoza T, | RE: UTI | | 2019 | Encounter | Reconstructive | SCOURING TRAIN OPERATOR CHIEF [address] | | | | | Surgery at [facility] [address] | [address] [facility] [place] | | | | | [address] | [address] | | | | | Mailcode: [address] | [phone] | | | | | [facility] | | | | | | and Healing, | | | | | | Building [address], 5th | | | | | | Floor [place], [place] | | | | | | [address] | | | | | | [phone] | | | +--------+ + + + [...]
--- OUTSIDE RECORDS SUMMARY | ~2019-02-10 | XMS | Encounter Summary ---
Demographics + + + | Address | [address] | | | [place] [address] | + + + | Home Phone | | + + + | Preferred Language | Unknown | + + + | Marital Status | Single | + + + | Anabaptist Affiliation | PRO | + + + | Race | White | + + + | Ethnic Group | Not or | + + + Author + + + | Author | [facility] | + + + | Organization | [facility] | + + + | Address [...] Team Providers + +------+ + | Care Sheep Farmer Name | Role | Phone | + +------+ + | Jose Ramires MD | PCP | | + +------+ + Encounter Details +--------+ + + + + | Date | Type | Department | Care Team | Description | +--------+ + + + + | 09/07/ | Ancillary | [facility] | | | | 2005 | Registratio | Practice [address] | | | | | n | [facility] | | | | | | [place] [address] | | | | | | [phone] | | | +--------+ + + + [...]
--- OUTSIDE RECORDS SUMMARY | ~2019-02-10 | XMS | Encounter Summary ---
Demographics + + + | Address | [address] | | | [place] [address] | + + + | Home Phone [...] Author + + + | Author | [facility] | + + + | Organization | [facility] | + + + | Address [...] Team Providers + +------+ + | Care Research Biostatistician Name | Role | Phone | + +------+ + | Timothy Burks MD | PCP | | + +------+ + Reason for Visit + + + | Reason | Comments | + + + | Return Patient | | + + + Consultation (Routine) +--------+--------+ + + + + | Status | Reason | Specialty | Diagnoses / | Referred By | Referred To | | | | | Procedures | Contact | Contact | +--------+--------+ + + + + | Closed | | Plastic | Diagnoses | Zara | Kelly | | | | Surgery | Vascular | MD Lazaro | MD Uzair | | | | | malformation | [address] | [address] | | | | | Procedures | [address] | Ave | | | | | CONSULT TO | Rd | [place], [place] | | | | | SURGERY - | [place], [place] | [address] | | | | | PLASTICS | [address] | Phone: | | | | | | | [phone] | | | | | | | Fax: | | | | | | | [phone] | +--------+--------+ + + + + Encounter Details +--------+---------+ + + + | Date | Type | Department | Care Team | Description | +--------+---------+ + + + | 11/09/ | Office | Plastic and | Uzair Mendoza MD | Vascular | | 2010 | Visit | Reconstructive | [address] | malformation | | | | Surgery at [facility] [address] | [place], [place] | (Primary Dx) | | | | [address] | [address] | | | | | Mailcode: CH5P | [phone] | | | | | [facility] | | | | | | and Healing, | | | | | | Building [address], 5th | | | | | | Floor [place], [place] | | | | | | [address] | | | | | | [phone] | | | +--------+---------+ + + + [...] + + + | Blood Pressure | 103/59 | 11/09/2010 11:01 AM | | | | | PDT | | + + + + + | Pulse | 65 | 11/09/2010 11:01 AM | | | | | PDT | | + + + + + | Temperature | - | - | | + + + + + | Respiratory Rate | - | - | | + + + + + | Oxygen Saturation | - | - | | + + + + + | Inhaled Oxygen | - | - | | | Concentration | | | | + + + + + | Weight | 114.6 kg (252 lb 9.6 | 11/09/2010 11:01 AM | | | | oz) | PDT | | + + + + + | Height | 176.5 cm (5' 9.5") | 11/09/2010 11:01 AM | | | | | PDT | | + + + + + | Body Mass Index | 36.77 | 11/09/2010 11:01 AM | | | | | PDT | | + + + + + documented in this encounter Progress Notes Uzair Mendoza MD - 11/09/2010 11:35 AM MAGALIEMahi Prather is here for follow up of a right b uttock lymphangioma excision. She states that she has had not problems on the right side of her buttock where the excision was done. She does have some concerns about the left buttock where she feels some occasional discomfort and has noted episodes of drainage on her clothin g. She was wondering if the left sided lesion should be excised. OBJECTIVE: The scar along the right medial gluteal cleft is clean, dry and intact without e rythema. The scar is of good quality. The right side of the gluteal cleft has 5-6 raised, erythematous, rough feeling, compressib le lesions consistent with lymphangioma penetrating the skin. Palpation of the deeper tissue does not reveal a mass. There is no thrill nor bruit. The skin is of normal color. ASSESSMENT: I have advised her that I would not operate on the right buttock lesion unless it becomes more painful, or the drainage or bleeding become more of a problem, or the lesion is enlarging. PLAN: watchfully waiting. 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
--- OUTSIDE RECORDS SUMMARY | ~2019-02-10 | XMS | Encounter Summary ---
Demographics + + + | Address | [address] | | | [place] [address] | + + + | Home Phone | | + + + | Preferred Language | Unknown | + + + | Marital Status | Single | + + + | Christian Affiliation | PRO | + + + | Race | White | + + + | Ethnic Group | Not or | + + + Author + + + | Author | [facility] | + + + | Organization | [facility] | + + + | Address [...] Team Providers + +------+ + | Care Resolution Expert Name | Role | Phone | + [...] | | | Zahraa Shay Mailcode: | [place], [place] | | | | | [address] | [address] | | | | | [place], | | | | | | [place] [address] | | | | | | [phone] | | | +--------+---------+ + + + [...]
--- OUTSIDE RECORDS SUMMARY | ~2019-02-10 | XMS | Encounter Summary ---
Demographics + + + | Address | [address] | | | [place] [address] | + + + | Home Phone [...] Author + + + | Author | [facility] | + + + | Organization | [facility] | + + + | [...] Team Providers + +------+ + | Care Link Assembler Name | Role | Phone | + +------+ + | Jose Ramires MD | PCP | | + +------+ + Encounter Details +--------+ + + + + | Date | Type | Department | Care Team | Description | +--------+ + + + + | 03/14/ | Abstract | Dig[facility]ive [facility] | Clinic, Surgery | | | 2018 | | [facility] [address] | | | | | | [address] | | | | | | Mailcode: [facility] | | | | | | for Health and | | | | | | Healing, [address] | | | | | | [facility] [place] | | | | | | [address] | | | | | | [phone] | | | +--------+ + + + [...]
--- OUTSIDE RECORDS SUMMARY | ~2019-02-10 | XMS | Encounter Summary ---
Demographics + + + | Address | [address] | | | [place] [address] | + + + | Home Phone | | + + + | Preferred Language | Unknown | + + + | Marital Status | Single | + + + | Mosque Affiliation | PRO | + + + [...] Providers + +------+ + | Care Research Compliance Specialist Name | Role | Phone | + +------+ + | Timothy Burks MD | PCP | | + +------+ + Encounter Details +--------+ + + + + | Date | Type | Department | Care Team | Description | +--------+ + + + + | 08/31/ | Results | | Other, Faculty | | | 2006 | Only | | [phone] | | +--------+ + + + + [...] as of this encounter Plan of Treatment + +------+--------+ + + | Name | Type | Priori | Associated Diagnoses | Date/Time | | | | ty | | | + +------+--------+ + + | DERMATOPATHOLOGY(WET | Lab | Routin | | 08/31/2005 | | GIOVANA) | | e | | | + +------+--------+ + + documented as of this encounter Procedures + +--------+ + + + | Procedure Name | Priori | Date/Time | Associated Diagnosis | Comments | | | ty | | | | + +--------+ + + + | DERMATOPATHOLOGY(WET | Routin | 08/31/2005 | | Results for this | | GI[facility]NA) | e | | | procedure are in the | | | | | | results section. | + +--------+ + + + documented in this encounter Results DERMATOPATHOLOGY(WET [place]) (08/31/2005) + + + + + + | Component | Value | Ref Range | Performed | Pathologist | | | | | At | Signature | + + + + + + | DERMATOPATH | SOURCE OF SPECIMEN:A | | | | | OLOGY(WET | FIRST TISSUE LEVEL IV | | | | | MNT) | [id number] CLINICAL | | | | | | DESCRIPTION:Punch, 5 mm, | | | | | | rt. ant thigh; present | | | | | | x many yrs as a mole- in | | | | | | last 12 moshas spread | | | | | | with irreg. pigment; R/O | | | | | | melanoma. GROSS | | | | | | DESCRIPTION:Rt. anterior | | | | | | thigh, punch, 0.4 x 0.4 | | | | | | cm, bisected. | | | | | | MICROSCOPIC | | | | | | DESCRIPTION:There is a | | | | | | small, fairly well | | | | | | circumscribed | | | | | | melanocytic | | | | | | neoplasmcharacterized by | | | | | | melanin pigment and | | | | | | single melanocytes along | | | | | | the epidermalbasal | | | | | | layer. There are | | | | | | numerous nests, cords, | | | | | | and strands of | | | | | | melanocytesthroughout | | | | | | the papillary and | | | | | | extending into the upper | | | | | | reticular dermis.The | | | | | | melanocytic nuclei are | | | | | | uniform in size and | | | | | | shape. 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 | | | | | | CRW/jyi09/05/05Rendering | | | | | | Diagnostician: Grayson | | | | | | Laquita Rizo Jr., | | | | | | MTerrancePathologistElectroni | | | | | | chino Signed 09/05/2005 | | | | + + + + + + + + | Specimen | + + | | + + + + + | Narrative | Performed At | + + + | Ordered by Han Tenorio | | + + + + + + + + | Performing | Address | City/State/Zipcode | Phone Number | | Organization | | | | + + + + + | [facility] | Mailcode CH5D, [address] | [place] [address] | | | DERMATOPATHOLOGY | Lawrence Acosta | | | + + + + + documented in this encounter Visit Diagnoses Not on filedocumented in this encounter"
--- OUTSIDE RECORDS SUMMARY | ~2019-02-10 | XMS | Encounter Summary ---
Demographics + + + | Address | [address] | | | [place] [address] | + + + | Home Phone [...] + + + | Author | [facility] | + + + | Organization | [facility] | + + [...] Team Providers + +------+ + | Care Caul Fat Puller Name | Role | Phone | + [...] | | | | | VENOUS | [place], [place] | | | | | | DUPLEX LOWER | [address] | | | | | | EXTREMITY | Phone: | | | | | | LT | [phone] | | | | | | | Fax: | | | | | | | [phone] | | +--------+--------+ + + + + [...] | | | of left leg | [address] | | | | | | Procedures | [address] | | | | | | VAS LAB | Zahraa Shay | | | | | | VENOUS | [place], [place] | | | | | | DUPLEX LOWER | [address] | | | | | | EXTREMITY | Phone: | | | | | | LT | [phone] | | | | | | | Fax: | | | | | | | [phone] | | +--------+--------+ + + + + [...] | | | | | | [place], | | | | | | [place] [address] | | | | | | [phone] | | | +--------+ + + + [...] with | | | | | | theDaptiv scanner. There | | | | | [...] | | + +---------+ + + | [facility] DEPARTMENT OF | | | | | RADIOLOGY | | | | + +---------+ + + documented in this encounter Visit Diagnoses + + | Diagnosis | + + | Lymphedema of left leg Other lymphedema | + + documented in this encounter
--- OUTSIDE RECORDS SUMMARY | ~2019-02-10 | XMS | Encounter Summary ---
Demographics + + + | Address | [address] | | | [place] [address] | + + + | Home Phone | | + + + | Preferred Language | Unknown | + + + | Marital Status | Single | + + + | Hoahaoism Affiliation | PRO | + + + | Race | White | + + + | Ethnic Group | Not or | + + + Author + + + | Author | [facility] | + + + | Organization | [facility] | + + + | [...] Team Providers + +------+ + | Care Classroom Teacher Name | Role | Phone | + +------+ + PCP | Unavailable | + +------+ + Encounter Details +--------+ + + + + | Date | Type | Department | Care Team | Description | +--------+ + + + + | 06/03/ | Results | Vascular Surgery | Lazaro Zuñiga MD | | | 1998 | Only | Interventional [address] | | | | | | [address] | | | | | | Jaspal Mailcode: [address] | | | | | | [facility] | | | | | | [place], [place] | | | | | | [address] | | | | | | [phone] | | | +--------+ + + + [...] | + +--------+ + + + | X-RAY CHEST 2 VIEW | Routin | 06/03/1998 | | Results for this | | | e | 12:37 PM | | procedure are in the | | | | PST | | results section. | + +--------+ + + + | NM LUNG VENTILATION | Routin | 06/03/1998 | | Results for this | | AND PERFUSION | e | 12:32 PM | | procedure are in the | | | | PST | | results section. | + +--------+ + + + documented in this encounter Results CHEST 2 VIEW (06/03/1998 12:37 PM PST) + + + + + + | Component | Value | Ref Range | Performed | Pathologist | | | | | At | Signature | + + + + + + | CHEST, 2 | Radiologist 1: ANGELLA, | | | | | VIEWS [place] | Jay OWENS PA AND | | | | | STEREO | LATERAL VIEWS OF THE | | | | | | CHEST: 06/03/98 at 1237 | | | | | | hours. Dictated | | | | | | 06/03/98 COMPARISON: | | | | | | There are no prior | | | | | | studies available for | | | | | | comparison. FINDINGS: | | | | | | The soft tissues are | | | | | | normal. The osseous | | | | | | structures areremarkable | | | | | | for sternal wires from | | | | | | prior cardiac surgery. | | | | | | Thecardiomediastinal | | | | | | silhouette is | | | | | | unremarkable. The lungs | | | | | | are clear. IMPRESSION: | | | | | | 1. Status post old | | | | | | median sternotomy.2. | | | | | | No evidence of acute | | | | | | cardiopulmonary disease. | | | | | | END OF IMPRESSION: | | | | + + + + + + + + | Specimen | + + | | + + + +---------+ + + | Performing | Address | City/State/Zipcode | Phone Number | | Organization | | | | + +---------+ + + | [facility] DEPARTMENT OF | | | | | RADIOLOGY | | | | + +---------+ + + NM LUNG PERFUSION & VENTILATN (06/03/1998 12:32 PM PST) + + + + + + | Component | Value | Ref Range | Performed | Pathologist | | | | | At | Signature | + + + + + + | NM LUNG | Radiologist 1: ANGELLA | | | | | PERFUSION & | Jay OWENSVQ SCAN: | | | | | VENTILATN | 06/03/98 at 1232 hours. | | | | | | Dictated 06/03/98 | | | | | | PROCEDURE: Single | | | | | | breath, equilibrium, and | | | | | | washout ventilation | | | | | | imageswere obtained in | | | | | | the posterior projection | | | | | | following the | | | | | | inhalation of11.1 | | | | | | milliCuries of Xenon | | | | | | 133. The patient was | | | | | | then | | | | | | injectedintravenously | | | | | | with 4.85 milliCuries of | | | | | | 99m technetium MMAA. | | | | | | Perfusionimages of the | | | | | | lungs were obtained in | | | | | | multiple projections. | | | | | | Planarimages of the | | | | | | head and abdomen were | | | | | | also obtained. FINDINGS: | | | | | | 1: Ventilation scan | | | | | | is normal. 2: The | | | | | | perfusion scan | | | | | | demonstrates numerous | | | | | | moderate | | | | | | enlargedsegmental and | | | | | | subsegmental defects in | | | | | | both lungs. The chest | | | | | | x-ray isnormal in this | | | | | | patient. Overall, the | | | | | | finding is consistent | | | | | | with highprobability for | | | | | | acute pulmonary | | | | | | embolism. No tracer is | | | | | | seen withinthe kidneys | | | | | | or brain to suggest a | | | | | | right to left shunt. | | | | | | IMPRESSION: High | | | | | | probability for acute | | | | | | pulmonary embolism. | | | | | | END OF IMPRESSION: | | | | + + + + + + + + | Specimen | + + | | + + + +---------+ + + | Performing | Address | City/State/Zipcode | Phone Number | | Organization | | | | + +---------+ + + | [facility] DEPARTMENT OF | | | | | RADIOLOGY | | | | + +---------+ + + documented in this encounter Visit Diagnoses Not on filedocumented in this encounter"
--- OUTSIDE RECORDS SUMMARY | ~2019-02-10 | XMS | Encounter Summary ---
Demographics + + + | Address | [address] | | | [place] [address] | + + + | Home Phone [...] Author + + + | Author | [facility] | + + + | Organization | [facility] | + + + | Address [...] Team Providers + +------+ + | Care Supervisor Contact And Service Clerks Name | Role | Phone | + +------+ + | Timothy Burks MD | PCP | | + +------+ + Reason for Visit + + + | Reason | Comments | + + + | Follow-up visit | | + + + Consultation (Routine) [...] | | anomalies | [address] | [place], [place] | | | | | Congenital | [place], [place] | [address] | | | | | lower limb | [address] | Phone: | | | | | vessel | Phone: | [phone] | | | | | anomaly | [phone] | Fax: | | | | | Procedures | Fax: | [phone] | | | | | CONSULT TO | [phone] | | | | | | SURGERY - | | | | | | | PLASTICS | | | +--------+--------+ + + + + Encounter Details +--------+---------+ + + + | Date | Type | Department | Care Team | Description | +--------+---------+ + + + | 02/25/ | Office | Plastic and | Uzair Mendoza MD | Lymphangioma | | 2016 | Visit | Reconstructive | [address] | (Primary Dx) | | | | Surgery at [facility] [address] | [place], [place] | | | | | [address] | [address] | | | | | Mailcode: [facility] | [phone] | | | | | [facility] | | | | | | and Mic, | | | | | | [facility] | | | | | | [place], [place] | | | | | | [address] | | | | | | [phone] | | | +--------+---------+ + + + [...] + + + | Blood Pressure | 121/73 | 02/26/2016 4:01 PM | | | | | PST | | + + + + + | Pulse | 82 | 02/26/2016 4:01 PM | | | | | PST | | + + + + + | Temperature | 36.6 C (97.8 F) | 02/26/2016 4:01 PM | | | | | PST | | + + + + + | Respiratory Rate | 18 | 02/26/2016 4:01 PM | | | | | PST | | + + + + + | Oxygen Saturation | 95% | 02/26/2016 4:01 PM | | | | | PST | | + + + + + | Inhaled Oxygen | - | - | | | Concentration | | | | + + + + + | Weight | 133.8 kg (295 lb) | 02/26/2016 4:01 PM | | | | | PST | | + + + + + | Height | - | - | | + + + + + | Body Mass Index | 43.54 | 10/26/2015 10:34 AM | | | | | PDT | | + + + + + documented in this encounter Progress Notes Uzair Mendoza MD - 02/26/2016 3:30 PM 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 She would like further steroid injections. She has noted increase in size and ten derness of some new lesions at the inferior gluteal cleft. She has had good response with th e steroid treatments. OBJECTIVE: There a lymphangioma blebs on both sides of the gluteal cleft. The previously tr eated areas on the upper gluteal cleft are doing well and not enlarging. There is a 4 x 1 cm area of scattered new blebs on the left inferior gluteal cleft. These are the areas treated today. Under sterile conditions 0.7 mL of Kenalog 40 was injected into the lymphangiomas and scar on both sides of the gluteal cleft. She tolerated it well. There are several areas of lympha ngiomatous blebs near the anus. PLAN: She will follow up in 6-8 weeks for more injections. documented in this encounter Plan of Treatment Not on filedocumented as of this encounter Visit Diagnoses + + | Diagnosis | + + | Lymphangioma - Primary Lymphangioma, any site | + + documented in this encounter Administered Medications + +--------+ +-------+------+------+ | Medication Order | MAR | Action | Dose | Rate | Site | | | Action | Date | | | | + +--------+ +-------+------+------+ | triamcinolone acetonide | Given | 03/01/20 | 28 mg | | | | (KENALOG-40) injection 28 mg 28 | | 16 3:48 | | | | | mg, intralesional, ONCE, 1 dose, | | PM PST | | | | | 03/01/16 at 1600 | | | | | | + +--------+ +-------+------+------+ +---+---+ | | | +---+---+ documented in this encounter
--- OUTSIDE RECORDS SUMMARY | ~2019-02-10 | XMS | Encounter Summary ---
Demographics + + + | Address | [address] | | | [place] [address] | + + + | Home Phone | | + + + | Preferred Language | Unknown | + + + | Marital Status | Single | + + + | Jew Affiliation | PRO | + + + [...] Team Providers + +------+ + | Care Health Unit Clerk Name | Role | Phone | + +------+ + PCP | Unavailable | + +------+ + Encounter Details +--------+ + + + + | Date | Type | Department | Care Team | Description | +--------+ + + + + | 03/24/ | Office | [facility] | Nte, Vascular | Progress Note | | 2003 | Visit-Trans | SURGERY | Surgery Clinic [...] as of this encounter Progress Notes Interface, Extrusion Supervisor In - 10/23/2004 11:52 PM PDT [id number] JOHNSON Sagastume Date: 03/24/2004 Patient: Mahi Prather MR# [id number] Established Patient Examination VASCULAR CLINIC FOLLOWUP NOTE Subjective: She is back for annual followup of her ( ) syndrome in the left leg. She has had no specific events regarding the abnormal veins in the left leg since last been seen a year ago. Specifically, there had been no hemorrhages, no ulcerations, and no episodes of thrombosis. She does wear a compression stocking. She finished college and is looking for a job. One problem that has occurred in the last year is that she has gained considerable weight and this affects that amount of swelling present in her leg. 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 She has multiple varicose veins. There are no areas of ulceration. 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 It does not seem to have changed since I saw her a year ago. I discussed with her various approaches to weight loss which might be possible, and she appears to understand all this well. She will return for a routine followup in 1 year. Lazaro Zuñiga M.D. racing secretary and handicapper KT / ALENA [id number] / [id number] / [id number] / Electronically signed by Lazaro Zuñiga JR 03-29-2004 04:03:04 PM documented i n this encounter Plan of Treatment Not on filedocumented as of this encounter Visit Diagnoses Not on filedocumented in this encounter"
--- OUTSIDE RECORDS SUMMARY | ~2019-02-10 | XMS | Encounter Summary ---
Demographics + + + | Address | [address] | | | [place] [address] | + + + | Home Phone | | + + + | Preferred Language | Unknown | + + + | Marital Status | Single | + + + | Buddhism Affiliation | PRO | + + + [...] Team Providers + +------+ + | Care Account Clerk Name | Role | Phone | + +------+ + | Jose Ramires MD | PCP | | + +------+ + Encounter Details +--------+--------+ + + + | Date | Type | Department | Care Team | Description | +--------+--------+ + + + | 01/23/ | Travel | | | | | 2019 | | | | | +--------+--------+ + + + Social History + +-------+ [...]
--- OUTSIDE RECORDS SUMMARY | ~2019-02-10 | XMS | Encounter Summary ---
Demographics + + + | Address | [address] | | | [place] [address] | + + + | Home Phone | | + + + | Preferred Language | Unknown | + + + | Marital Status | Single | + + + | Voodoo Affiliation | PRO | + + + | Race | White | + + + | Ethnic Group | Not or | + + + Author + + + | Author | [facility] | + + + | Organization | [facility] | + + + | [...] Team Providers + +------+ + | Care In Home Baby Sitter Name | Role | Phone | + +------+ + | Timothy Burks MD | PCP | | + +------+ + Encounter Details +--------+ + + + + | Date | Type | Department | Care Team | Description | +--------+ + + + + | 02/16/ | Telephone | Vascular Surgery | Surgery, Vascular | | | 2014 | | at [facility] 2nd Floor | [address] | | | | | [address] | [facility] | | | | | [place]a Shay Mailcode: | [place] [address] | | | | | [address] | | | | | | [place] | | | | | | [place] [address] | | | | | | [phone] | | | +--------+ + + + [...]
--- OUTSIDE RECORDS SUMMARY | ~2019-02-10 | XMS | Encounter Summary ---
Demographics + + + | Address | [address] | | | [place] [address] | + + + | Home Phone | | + + + | Preferred Language | Unknown | + + + | Marital Status | Single | + + + | Protestant Affiliation | PRO | + + + | Race | White | + + + | Ethnic Group | Not or | + + + Author + + + | Author | [facility] | + + + | Organization | [facility] | + + + | [...] Team Providers + +------+ + | Care Machine Worker Name | Role | Phone | + +------+ + | Timothy Burks MD | PCP | | + +------+ + Reason for Visit + + + | Reason | Comments | + + + | Follow-up visit | Needs Steroid Injection | + + + Consultation (Routine) +--------+--------+ + + + + | Status | Reason | Specialty | Diagnoses / | Referred By | Referred To | | | | | Procedures | Contact | Contact | +--------+--------+ + + + + | Closed | | Plastic | Diagnoses | [place], | [place], | | | | Surgery | Other | MD Sebas | MD Uzair | | | | | specified | [address] | [address] | | | | | congenital | [address] | | | | | anomalies | [address] | [place], [place] | | | | | Congenital | [place], [place] | [address] | | | | | lower limb | [address] | Phone: | | | | | vessel | Phone: | [phone] | | | | | anomaly | [phone] | Fax: | | | | | Procedures | Fax: | [phone] | | | | | CONSULT TO | [phone] | | | | | | SURGERY - | | | | | | | PLASTICS | | | +--------+--------+ + + + + Encounter Details +--------+---------+ + + + | Date | Type | Department | Care Team | Description | +--------+---------+ + + + | 01/28/ | Office | Plastic and | Uzair Mendoza MD | Lymphatic | | 2013 | Visit | Reconstructive | [address] | malformation | | | | Surgery at [facility] [address] | [place], [place] | (Primary Dx) | | | | [address] | [address] | | | | | Mailcode: 5 | [phone] | | | | | [facility] | | | | | | and Healing, | | | | | | Building [address] | | | | | | Floor [place], [place] | | | | | | [address] | | | | | | [phone] | | | +--------+---------+ + + + [...] + + + | Blood Pressure | 128/69 | 01/28/2014 10:06 AM | | | | | PST | | + + + + + | Pulse | 70 | 01/28/2014 10:06 AM | | | | | PST | | + + + + + | Temperature | 36.4 C (97.6 F) | 01/28/2014 10:06 AM | | | | | PST | | + + + + + | Respiratory Rate | 16 | 01/28/2014 10:06 AM | | | | | PST | | + + + + + | Oxygen Saturation | 96% | 01/28/2014 10:06 AM | | | | | PST | | + + + + + | Inhaled Oxygen | - | - | | | Concentration | | | | + + + + + | Weight | 126.2 kg (278 lb 4.8 | 01/28/2014 10:06 AM | | | | oz) | PST | | + + + + + | Height | 175.3 cm (5' 9") | 01/28/2014 10:06 AM | verbal | | | | PST | | + + + + + | Body Mass Index | 41.1 | 01/28/2014 10:06 AM | | | | | PST | | + + + + + documented in this encounter Progress Notes Uzair Mendoza MD - 01/28/2014 10:23 AM PSTNo significant change since last visit. Not sure if steroid injections are making a difference. We decided to see what will happen if we sto p the injections. She will follow up if the lesions worsen. documented in this enco unter Plan of Treatment Not on filedocumented as of this encounter Visit Diagnoses + + | Diagnosis | + + | Lymphatic malformation - Primary Congenital anomaly, unspecified | + + documented in this encounter
--- OUTSIDE RECORDS SUMMARY | ~2019-02-10 | XMS | Encounter Summary ---
Demographics + + + | Address | [address] | | | [place] [address] | + + + | Home Phone [...] Team Providers + +------+ + | Care Engineering Assistant Name | Role | Phone | + +------+ + | Timothy Burks MD | PCP | | + +------+ + Encounter Details +--------+ + + + + | Date | Type | Department | Care Team | Description | +--------+ + + + + | 03/10/ | Procedure - | | Lab, Vascular [...] + + | VASCULAR FLOW | | 06/03/1998 | | | | IMAGING, NONCARDIAC | | | | | | - VASC LAB | | | | | + +--------+ + + + documented in this encounter Visit Diagnoses Not on filedocumented in this encounter"
--- OUTSIDE RECORDS SUMMARY | ~2019-02-10 | XMS | Encounter Summary ---
Demographics + + + | Address | [address] | | | [place] [address] | + + + | Home Phone | | + + + | Preferred Language | Unknown | + + + | Marital Status | Single | + + + | Muslim Affiliation | PRO | + + + | Race | White | + + + | Ethnic Group | Not or | + + + Author + + + | Author | [facility] | + + + | Organization | [facility] | + + + | Address [...] Team Providers + +------+ + | Care Waiter/Waitress Informal Name | Role | Phone | + +------+ + | Timothy Burks MD | PCP | | + +------+ + Encounter Details +--------+ + + + + | Date | Type | Department | Care Team | Description | +--------+ + + + + | 06/03/ | Results | Registration [id number] | | | | 1998 | Only | [address] | | | | | | [address] Mailcode: [id number] | | | | | | [place], [place] | | | | | | [address] | | | | | | [phone] | | | +--------+ + + + [...] + +--------+ + + + | CBC TESTS 2 | Routin | 06/07/1998 | | Results for this | | | e | 6:17 AM | | procedure are in the | | | | PST | | results section. | + +--------+ + + + | COAGULATION TESTS 2 | Routin | 06/07/1998 | | Results for this | | | e | 6:17 AM | | procedure are in the | | | | PST | | results section. | + +--------+ + + + | CBC TESTS 2 | Routin | 06/06/1998 | | Results for this | | | e | 6:25 AM | | procedure are in the | | | | PST | | results section. | + +--------+ + + + | COAGULATION TESTS 2 | Routin | 06/06/1998 | | Results for this | | | e | 6:25 AM | | procedure are in the | | | | PST | | results section. | + +--------+ + + + | CHEMISTRY TESTS 4 | Routin | 06/05/1998 | | Results for this | | | e | 6:50 AM | | procedure are in the | | | | PST | | results section. | + +--------+ + + + | CBC TESTS 2 | Routin | 06/05/1998 | | Results for this | | | e | 6:50 AM | | procedure are in the | | | | PST | | results section. | + +--------+ + + + | COAGULATION TESTS 2 | Routin | 06/05/1998 | | Results for this | | | e | 6:50 AM | | procedure are in the | | | | PST | | results section. | + +--------+ + + + | MISCELLANEOUS | Routin | 06/05/1998 | | Results for this | | CHEMISTRY TESTS | e | 5:00 AM | | procedure are in the | | | | PST | | results section. | + +--------+ + + + | CBC TESTS 2 | Routin | 06/04/1998 | | Results for this | | | e | 6:50 AM | | procedure are in the | | | | PST | | results section. | + +--------+ + + + | COAGULATION TESTS 2 | Routin | 06/04/1998 | | Results for this | | | e | 6:50 AM | | procedure are in the | | | | PST | | results section. | + +--------+ + + + | CHEMISTRY TESTS 4 | Routin | 06/03/1998 | | Results for this | | | e | 9:00 PM | | procedure are in the | | | | PST | | results section. | + +--------+ + + + | COAGULATION TESTS 2 | Routin | 06/03/1998 | | Results for this | | | e | 9:00 PM | | procedure are in the | | | | PST | | results section. | + +--------+ + + + | COAGULATION TESTS 1 | Routin | 06/03/1998 | | Results for this | | | e | 9:00 PM | | procedure are in the | | | | PST | | results section. | + +--------+ + + + | COAGULATION TESTS 1 | Routin | 06/03/1998 | | Results for this | | | e | 6:48 PM | | procedure are in the | | | | PST | | results section. | + +--------+ + + + | COAGULATION TESTS 2 | Routin | 06/03/1998 | | Results for this | | | e | 6:00 PM | | procedure are in the | | | | PST | | results section. | + +--------+ + + + | COAGULATION TESTS 2 | Routin | 06/03/1998 | | Results for this | | | e | 4:36 PM | | procedure are in the | | | | PST | | results section. | + +--------+ + + + | CHEMISTRY TESTS 4 | Routin | 06/03/1998 | | Results for this | | | e | 4:35 PM | | procedure are in the | | | | PST | | results section. | + +--------+ + + + | CBC TESTS 2 | Routin | 06/03/1998 | | Results for this | | | e | 4:35 PM | | procedure are in the | | | | PST | | results section. | + +--------+ + + + | COAGULATION TESTS 2 | Routin | 06/03/1998 | | Results for this | | | e | 4:35 PM | | procedure are in the | | | | PST | | results section. | + +--------+ + + + | MISCELLANEOUS | Routin | 06/03/1998 | | Results for this | | CHEMISTRY TESTS | e | 4:35 PM | | procedure are in the | | | | PST | | results section. | + +--------+ + + + | MISCELLANEOUS | Routin | 06/03/1998 | | Results for this | | CHEMISTRY TESTS | e | 4:35 PM | | procedure are in the | | | | PST | | results section. | + +--------+ + + + | COAGULATION TESTS 1 | Routin | 06/03/1998 | | Results for this | | | e | 4:35 PM | | procedure are in the | | | | PST | | results section. | + +--------+ + + + | COAGULATION TESTS 1 | Routin | 06/03/1998 | | Results for this | | | e | 4:35 PM | | procedure are in the | | | | PST | | results section. | + +--------+ + + + documented in this encounter Results COAGULATION TESTS 2 (06/07/1998 6:17 AM PST) + + + + + + | Component | Value | Ref Range | Performed | Pathologist | | | | | At | Signature | + + + + + + | INR | 1.1 (H) | INR | | | + + + + + + | APTT | 38.8 (H) | SECONDS | | | + + + + + + + + | Specimen | + + | | + + + + + + + | Performing | Address | City/State/Zipcode | Phone Number | | Organization | | | | + + + + + | [facility] | [address] | [place] [address] | | | PATHOLOGY | [address] | | | + + + + + CBC TESTS 2 (06/07/1998 6:17 AM PST) + + + + + + | Component | Value | Ref Range | Performed | Pathologist | | | | | At | Signature | + + + + + + | WHITE CELL | 4.9 | K/CU MM | | | | COUNT | | | | | + + + + + + | RED CELL | 5.05 | M/CU MM | | | | COUNT | | | | | + + + + + + | HEMOGLOBIN | 13.5 | GM/DL | | | + + + + + + | HEMATOCRIT | 40.4 | % | | | + + + + + + | MCV | 79.9 (L) | [place] | | | + + + + + + | MCH | 26.7 (L) | PG | | | + + + + + + | MCHC | 33.4 | GM/DL | | | + + + + + + | RDW | 14.5 | % | | | + + + + + + | PLATELET | 276. | K/CU MM | | | | COUNT | | | | | + + + + + + | MPV | 8.1 | [place] | | | + + + + + + + + | Specimen | + + | | + + + + + + + | Performing | Address | City/State/Zipcode | Phone Number | | Organization | | | | + + + + + | [facility] | [address] | [place] [address] | | | PATHOLOGY | [address] | | | + + + + + COAGULATION TESTS 2 (06/06/1998 6:25 AM PST) + + + + + + | Component | Value | Ref Range | Performed | Pathologist | | | | | At | Signature | + + + + + + | INR | 1.03 | INR | | | + + + + + + | APTT | 36. (H) | SECONDS | | | + + + + + + + + | Specimen | + + | | + + + + + + + | Performing | Address | City/State/Zipcode | Phone Number | | Organization | | | | + + + + + | [facility] | [address] | [place] [address] | | | PATHOLOGY | [address] | | | + + + + + CBC TESTS 2 (06/06/1998 6:25 AM PST) + + + + + + | Component | Value | Ref Range | Performed | Pathologist | | | | | At | Signature | + + + + + + | WHITE CELL | 4.7 | K/CU MM | | | | COUNT | | | | | + + + + + + | RED CELL | 5.01 | M/CU MM | | | | COUNT | | | | | + + + + + + | HEMOGLOBIN | 13.3 | GM/DL | | | + + + + + + | HEMATOCRIT | 39.8 | % | | | + + + + + + | MCV | 79.3 (L) | [place] | | | + + + + + + | MCH | 26.6 (L) | PG | | | + + + + + + | MCHC | 33.6 | GM/DL | | | + + + + + + | RDW | 14.2 | % | | | + + + + + + | PLATELET | 290. | K/CU MM | | | | COUNT | | | | | + + + + + + | MPV | 8.1 | [place] | | | + + + + + + + + | Specimen | + + | | + + + + + + + | Performing | Address | City/State/Zipcode | Phone Number | | Organization | | | | + + + + + | [facility] | [address] | [place] [address] | | | PATHOLOGY | [address] | | | + + + + + COAGULATION TESTS 2 (06/05/1998 6:50 AM PST) + + + + + + | Component | Value | Ref Range | Performed | Pathologist | | | | | At | Signature | + + + + + + | INR | 1.05 | INR | | | + + + + + + + + | Specimen | + + | | + + + + + + + | Performing | Address | City/State/Zipcode | Phone Number | | Organization | | | | + + + + + | [facility] | [address] | [place] [address] | | | PATHOLOGY | [address] | | | + + + + + CBC TESTS 2 (06/05/1998 6:50 AM PST) + + + + + + | Component | Value | Ref Range | Performed | Pathologist | | | | | At | Signature | + + + + + + | WHITE CELL | 4.6 | K/CU MM | | | | COUNT | | | | | + + + + + + | RED CELL | 4.98 | M/CU MM | | | | COUNT | | | | | + + + + + + | HEMOGLOBIN | 13.4 | GM/DL | | | + + + + + + | HEMATOCRIT | 39.6 | % | | | + + + + + + | MCV | 79.4 (L) | [place] | | | + + + + + + | MCH | 26.8 (L) | PG | | | + + + + + + | MCHC | 33.7 | GM/DL | | | + + + + + + | RDW | 14.9 | % | | | + + + + + + | PLATELET | 268. | K/CU MM | | | | COUNT | | | | | + + + + + + | MPV | 8. | [place] | | | + + + + + + + + | Specimen | + + | | + + + + + + + | Performing | Address | City/State/Zipcode | Phone Number | | Organization | | | | + + + + + | [facility] | [address] | [place] [address] | | | PATHOLOGY | [address] | | | + + + + + CHEMISTRY TESTS 4 (06/05/1998 6:50 AM PST) + + + + + + | Component | Value | Ref Range | Performed | Pathologist | | | | | At | Signature | + + + + + + | SODIUM, | 141. | mmol/l | | | | PLASMA | | | | | | (LAB) | | | | | + + + + + + | POTASSIUM, | 4. | mmol/l | | | | PLASMA | | | | | | (LAB) | | | | | + + + + + + | CHLORIDE, | 104. | mmol/l | | | | PLASMA | | | | | | (LAB) | | | | | + + + + + + | TOTAL CO2, | 31. (H) | mmol/l | | | | PLASMA | | | | | | (LAB) | | | | | + + + + + + | BUN, PLASMA | 13. | mg/dL | | | | (LAB) | | | | | + + + + + + | CREATININE | 0.9 | mg/dL | | | | PLASMA | | | | | | (LAB) | | | | | + + + + + + | GLUCOSE, | 83. | mg/dL | | | | PLASMA | | | | | | (LAB) | | | | | + + + + + + + + | Specimen | + + | | + + + + + + + | Performing | Address | City/State/Zipcode | Phone Number | | Organization | | | | + + + + + | [facility] | [address] | [place] [address] | | | PATHOLOGY | [address] | | | + + + + + MISCELLANEOUS CHEMISTRY TESTS (06/05/1998 5:00 AM PST) + + + + + + | Component | Value | Ref Range | Performed | Pathologist | | | | | At | Signature | + + + + + + | SAMPLE | 7ML LAVENDER,WHOLE BLOOD | | | | | TYPE-ROUTIN | | | | | | G | | | | | + + + + + + | TEST | FACTOR 5 CAMERON | | | | | REQUESTED | | | | | + + + + + + | SENT TO | DNA LAB:EXT [id number] | | | | + + + + + + + + | Specimen | + + | | + + + + + + + | Performing | Address | City/State/Zipcode | Phone Number | | Organization | | | | + + + + + | [facility] | [address] | [place] [address] | | | PATHOLOGY | [address] | | | + + + + + COAGULATION TESTS 2 (06/04/1998 6:50 AM PST) + + + + + + | Component | Value | Ref Range | Performed | Pathologist | | | | | At | Signature | + + + + + + | INR | 1.01 | INR | | | + + + + + + | APTT | 29.5 | SECONDS | | | + + + + + + + + | Specimen | + + | | + + + + + + + | Performing | Address | City/State/Zipcode | Phone Number | | Organization | | | | + + + + + | [facility] | [address] | [place] [address] | | | PATHOLOGY | [address] | | | + + + + + CBC TESTS 2 (06/04/1998 6:50 AM PST) + + + + + + | Component | Value | Ref Range | Performed | Pathologist | | | | | At | Signature | + + + + + + | WHITE CELL | 4.2 | K/CU MM | | | | COUNT | | | | | + + + + + + | RED CELL | 4.86 | M/CU MM | | | | COUNT | | | | | + + + + + + | HEMOGLOBIN | 12.9 | GM/DL | | | + + + + + + | HEMATOCRIT | 38.7 | % | | | + + + + + + | MCV | 79.4 (L) | [place] | | | + + + + + + | MCH | 26.5 (L) | PG | | | + + + + + + | MCHC | 33.3 | GM/DL | | | + + + + + + | RDW | 13.8 | % | | | + + + + + + | PLATELET | 264. | K/CU MM | | | | COUNT | | | | | + + + + + + | MPV | 8.2 | [place] | | | + + + + + + + + | Specimen | + + | | + + + + + + + | Performing | Address | City/State/Zipcode | Phone Number | | Organization | | | | + + + + + | [facility] | [address] | [place] [address] | | | PATHOLOGY | [address] | | | + + + + + COAGULATION TESTS 2 (06/03/1998 9:00 PM PST) + + + + + + | Component | Value | Ref Range | Performed | Pathologist | | | | | At | Signature | + + + + + + | INR | 1.1 (H) | INR | | | + + + + + + | APTT | 38.4 (H) | SECONDS | | | + + + + + + | FIBRINOGEN | 327. | mg/dL | | | | LEVEL | | | | | + + + + + + + + | Specimen | + + | | + + + + + + + | Performing | Address | City/State/Zipcode | Phone Number | | Organization | | | | + + + + + | [facility] | [address] | [place] [address] | | | PATHOLOGY | [address] | | | + + + + + CHEMISTRY TESTS 4 (06/03/1998 9:00 PM PST) + + + + + + | Component | Value | Ref Range | Performed | Pathologist | | | | | At | Signature | + + + + + + | POTASSIUM, | 4.2 | mmol/l | | | | PLASMA | | | | | | (LAB) | | | | | + + + + + + + + | Specimen | + + | | + + + + + + + | Performing | Address | City/State/Zipcode | Phone Number | | Organization | | | | + + + + + | [facility] | [address] | [place] [address] | | | PATHOLOGY | [address] | | | + + + + + COAGULATION TESTS 1 (06/03/1998 9:00 PM PST) + + + + + + | Component | Value | Ref Range | Performed | Pathologist | | | | | At | Signature | + + + + + + | PROTEIN C | DUPLICATE ORDER | U/mL | | | | ACTIVITY | | | | | + + + + + + | PROTEIN S | DUPLICATE ORDER | U/mL | | | | ACTIV | | | | | + + + + + + + + | Specimen | + + | | + + + + + + + | Performing | Address | City/State/Zipcode | Phone Number | | Organization | | | | + + + + + | [facility] | [address] | [place] [address] | | | PATHOLOGY | [address] | | | + + + + + COAGULATION TESTS 1 (06/03/1998 6:48 PM PST) + + + + + + | Component | Value | Ref Range | Performed | Pathologist | | | | | At | Signature | + + + + + + | ATIII | 0.99 | U/mL | | | | ACTIVITY, | | | | | | PLASMA | | | | | + + + + + + | C-CLOTTING | 1.18 | U/mL | | | + + + + + + | PT SCREEN | TEST NOT INDICATED | INR | | | + + + + + + | PROTEIN S | 0.83 | U/mL | | | | ACTIVITY | | | | | + + + + + + + + | Specimen | + + | | + + + + + + + | Performing | Address | City/State/Zipcode | Phone Number | | Organization | | | | + + + + + | [facility] | [address] | [place] [address] | | | PATHOLOGY | [address] | | | + + + + + COAGULATION TESTS 2 (06/03/1998 6:00 PM PST) + + + + + + | Component | Value | Ref Range | Performed | Pathologist | | | | | At | Signature | + + + + + + | INR | ERRONEOUS REQUEST | INR | | | + + + + + + | APTT | ERRONEOUS REQUEST | SECONDS | | | + + + + + + | FIBRINOGEN | ERRONEOUS REQUEST | mg/dL | | | | LEVEL | | | | | + + + + + + + + | Specimen | + + | | + + + + + + + | Performing | Address | City/State/Zipcode | Phone Number | | Organization | | | | + + + + + | [facility] | [address] | [place] [address] | | | PATHOLOGY | [address] | | | + + + + + COAGULATION TESTS 2 (06/03/1998 4:36 PM PST) + + + + + + | Component | Value | Ref Range | Performed | Pathologist | | | | | At | Signature | + + + + + + | INR | HEMOLYZED, PLEASE | INR | | | | | RESUBMIT | | | | + + + + + + | APTT | HEMOLYZED, PLEASE | SECONDS | | | | | RESUBMIT | | | | + + + + + + | FIBRINOGEN | HEMOLYZED, PLEASE | mg/dL | | | | LEVEL | RESUBMIT | | | | + + + + + + + + | Specimen | + + | | + + + + + + + | Performing | Address | City/State/Zipcode | Phone Number | | Organization | | | | + + + + + | [facility] | [address] | [place] [address] | | | PATHOLOGY | [address] | | | + + + + + COAGULATION TESTS 1 (06/03/1998 4:35 PM PST) + + + + + + | Component | Value | Ref Range | Performed | Pathologist | | | | | At | Signature | + + + + + + | ATIII | SPECIMEN UNSATISFACTORY | U/mL | | | | ACTIVITY, | | | | | | PLASMA | | | | | + + + + + + | PROTEIN C | SPECIMEN UNSATISFACTORY | U/mL | | | | ACTIVITY | | | | | + + + + + + | C-CLOTTING | SPECIMEN UNSATISFACTORY | U/mL | | | + + + + + + | PT SCREEN | SPECIMEN UNSATISFACTORY | INR | | | + + + + + + | PROTEIN S | SPECIMEN UNSATISFACTORY | U/mL | | | | ACTIV | | | | | + + + + + + | PROTEIN S | SPECIMEN UNSATISFACTORY | U/mL | | | | ACTIVITY | | | | | + + + + + + + + | Specimen | + + | | + + + + + + + | Performing | Address | City/State/Zipcode | Phone Number | | Organization | | | | + + + + + | [facility] | [address] | [place] [address] | | | PATHOLOGY | [address] | | | + + + + + MISCELLANEOUS CHEMISTRY TESTS (06/03/1998 4:35 PM PST) + + + + + + | Component | Value | Ref Range | Performed | Pathologist | | | | | At | Signature | + + + + + + | C-REACTIVE | 0.5 | mg/dL | | | | PROTEIN | | | | | + + + + + + + + | Specimen | + + | | + + + + + + + | Performing | Address | City/State/Zipcode | Phone Number | | Organization | | | | + + + + + | [facility] | [address] | [place] [address] | | | PATHOLOGY | [address] | | | + + + + + MISCELLANEOUS CHEMISTRY TESTS (06/03/1998 4:35 PM PST) + + + + + + | Component | Value | Ref Range | Performed | Pathologist | | | | | At | Signature | + + + + + + | HOMOCYSTEIN | 8.4 | umol/L | | | | E,PLASMA,TO | | | | | | CIRILO | | | | | + + + + + + | HOMOCYSTEIN | REF TO [facility] + | umol/L | | | | E,PLASMA,TO | [facility] | | | | | [facility]ILO | | | | | + + + + + + + + | Specimen | + + | | + + + + + + + | Performing | Address | City/State/Zipcode | Phone Number | | Organization | | | | + + + + + | [facility] | [address] | [place] [address] | | | PATHOLOGY | [address] | | | + + + + + CHEMISTRY TESTS 4 (06/03/1998 4:35 PM PST) + + + + + + | Component | Value | Ref Range | Performed | Pathologist | | | | | At | Signature | + + + + + + | SODIUM, | 146. | mmol/l | | | | PLASMA | | | | | | (LAB) | | | | | + + + + + + | POTASSIUM, | 5.3 (H) | mmol/l | | | | PLASMA | | | | | | (LAB) | | | | | + + + + + + | CHLORIDE, | 105. | mmol/l | | | | PLASMA | | | | | | (LAB) | | | | | + + + + + + | TOTAL CO2, | 27. | mmol/l | | | | PLASMA | | | | | | (LAB) | | | | | + + + + + + | BUN, PLASMA | 12. | mg/dL | | | | (LAB) | | | | | + + + + + + | CREATININE | 0.9 | mg/dL | | | | PLASMA | | | | | | (LAB) | | | | | + + + + + + | GLUCOSE, | 75. | mg/dL | | | | PLASMA | | | | | | (LAB) | | | | | + + + + + + | CALCIUM, | 10. | mg/dL | | | | PLASMA | | | | | | (LAB) | | | | | + + + + + + | AST(SGOT) | 31. | U/L | | | + + + + + + | ALK PHOS | 82. | U/L | | | + + + + + + | BILIRUBIN | 1. | mg/dL | | | | TOTAL | | | | | + + + + + + | TOTAL | 8.3 (H) | GM/DL | | | | PROTEIN, | | | | | | PLASMA | | | | | | (LAB) | | | | | + + + + + + | ALBUMIN, | 4.9 | GM/DL | | | | PLASMA | | | | | | (LAB) | | | | | + + + + + + + + | Specimen | + + | | + + + + + + + | Performing | Address | City/State/Zipcode | Phone Number | | Organization | | | | + + + + + | [facility] | [address] | [place] [address] | | | PATHOLOGY | [address] | | | + + + + + COAGULATION TESTS 1 (06/03/1998 4:35 PM PST) + + + + + + | Component | Value | Ref Range | Performed | Pathologist | | | | | At | Signature | + + + + + + | ANTICARDIOL | NEGATIVE | | | | | IPIN GMA | | | | | + + + + + + | ANTICARDIOL | 7. | PL Units | | | | IPIN IGG | | | | | + + + + + + | ANTICARDIOL | <5 | PL Units | | | | IPIN IGM | | | | | + + + + + + | ANTICARDIOL | <5 | PL Units | | | | IPIN IGA | | | | | + + + + + + + + | Specimen | + + | | + + + + + + + | Performing | Address | City/State/Zipcode | Phone Number | | Organization | | | | + + + + + | [facility] | [address] | [place] [address] | | | PATHOLOGY | [address] | | | + + + + + COAGULATION TESTS 2 (06/03/1998 4:35 PM PST) + + + + + + | Component | Value | Ref Range | Performed | Pathologist | | | | | At | Signature | + + + + + + | INR | IMPROPER RATIO | INR | | | | | BLOOD/ANTICOAGULANT | | | | + + + + + + | APTT | IMPROPER RATIO | SECONDS | | | | | BLOOD/ANTICOAGULANT | | | | + + + + + + | FIBRINOGEN | IMPROPER RATIO | mg/dL | | | | LEVEL | BLOOD/ANTICOAGULANT | | | | + + + + + + + + | Specimen | + + | | + + + + + + + | Performing | Address | City/State/Zipcode | Phone Number | | Organization | | | | + + + + + | [facility] | [address] | [place] [address] | | | PATHOLOGY | [address] | | | + + + + + CBC TESTS 2 (06/03/1998 4:35 PM PST) + + + + + + | Component | Value | Ref Range | Performed | Pathologist | | | | | At | Signature | + + + + + + | WHITE CELL | 7.2 | K/CU MM | | | | COUNT | | | | | + + + + + + | RED CELL | 5.16 | M/CU MM | | | | COUNT | | | | | + + + + + + | HEMOGLOBIN | 13.9 | GM/DL | | | + + + + + + | HEMATOCRIT | 41.4 | % | | | + + + + + + | MCV | 80. (L) | FL | | | + + + + + + | MCH | 26.9 (L) | PG | | | + + + + + + | MCHC | 33.6 | GM/DL | | | + + + + + + | RDW | 14.7 | % | | | + + + + + + | PLATELET | 293. | K/CU MM | | | | COUNT | | | | | + + + + + + | MPV | 8.6 | FL | | | + + + + + + | NEUTROPHIL | 73. | % | | | | % | | | | | + + + + + + | LYMPHOCYTE | 21. | % | | | | % | | | | | + + + + + + | MONOCYTE % | 4. | % | | | + + + + + + | EOS % | 1. | % | | | + + + + + + | BASO % | 1. | % | | | + + + + + + | NEUTROPHIL | 5.2 | K/CU MM | | | | # | | | | | + + + + + + | LYMPHOCYTE | 1.5 | K/CU MM | | | | # | | | | | + + + + + + | MONOCYTE # | 0.3 | K/CU MM | | | + + + + + + | EOS # | 0.1 | K/CU MM | | | + + + + + + | BASO # | 0.1 | K/CU MM | | | + + + + + + | RBC FLAG | ;1+ HYPOCHROMIA | K/CU MM | | | + + + + + + + + | Specimen | + + | | + + + + + + + | Performing | Address | City/State/Zipcode | Phone Number | | Organization | | | | + + + + + | [facility] | [address] | [place] [address] | | | PATHOLOGY | [address] | | | + + + + + documented in this encounter Visit Diagnoses Not on filedocumented in this encounter"
--- OUTSIDE RECORDS SUMMARY | ~2019-02-10 | XMS | Encounter Summary ---
Demographics + + + | Address | [address] | | | [place] [address] | + + + | Home Phone [...] Author + + + | Author | [facility] | + + + | Organization | [facility] | + + + | [...] Team Providers + +------+ + | Care Aircraft Structural Fitter Name | Role | Phone | + +------+ + | Timothy Burks MD | PCP | | + +------+ + Encounter Details +--------+ + + + + | Date | Type | Department | Care Team | Description | +--------+ + + + + | 03/08/ | Office | UNKNOWN DEPARTMENT | Other, Faculty | Progress Note | | 1999 | Visit-Trans | [address] [facility] | [phone] | | | | [place] | [address] | | | | | | [place], [place] | | | | | | [address] | | | +--------+ + + + [...] documented as of this encounter Progress Notes Other, Faculty - 10/23/2007 2:05 PM PDT ESTABLISHED PATIENT EXAMINATION DATE: 03/08/2000 PATIENT: Mahi Kim [id number] History: She is here for follow-up of her 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 She has had no symptomatic episodes in the last year. She uses a 40-50 mm high thigh stocking and this controls her swelling adequately. 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 She has had no bleeding complications from her fdc warfarin therapy. Physical Examination: On examination her left leg is approximately twice the size of the right. 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 There are no ulcerations or other abnormalities in these areas. She has normal arterial pulses in the foot. Impression: Venous angiodysplagia, venous thrombosis and pulmonary embolism. Plan: I agree completely with lifelong warfarin therapy and elastic compression. She will return in one year. Lazaro Zuñiga Jr., M.D. hair salon manager [employer]del[employer] A documented in this encounter Plan of Treatment Not on filedocumented as of this encounter Visit Diagnoses Not on filedocumented in this encounter"
--- OUTSIDE RECORDS SUMMARY | ~2019-02-10 | XMS | Encounter Summary ---
Demographics + + + | Address | [address] | | | [place] [address] | + + + | Home Phone [...] Team Providers + +------+ + | Care Supervising Producer Name | Role | Phone | + [...] | | | 2012 | Event | [facility] | MD [address] | | | | | and [facility] | [place], [place] | | | | | [facility] | [address] | | | | | Desk Located on the | [phone] | | | | | [address] [place] [address] [address] | | | | | | [place], | | | | | | [place] [address] | | | +--------+ + + + [...] by | | D - | at [facility]); No; left buttock | JARETT Jimenez | [...]
--- OUTSIDE RECORDS SUMMARY | ~2019-02-10 | XMS | Encounter Summary ---
Demographics + + + | Address | [address] | | | [place] [address] | + + + | Home Phone | | + + + | Preferred Language | Unknown | + + + | Marital Status | Single | + + + | Congregational Affiliation | PRO | + + + | Race | White | + + + | Ethnic Group | Not or | + + + Author + + + | Author | [facility] | + + + | Organization | [facility] | + + + | [...] Team Providers + +------+ + | Care Overcoil Stepper Name | Role | Phone | + +------+ + | Timothy Burks MD | PCP | | + +------+ + Encounter Details +--------+ + + + + | Date | Type | Department | Care Team | Description | +--------+ + + + + | 02/15/ | Office | [facility] | [facility], Vascular | Progress Note | | 2005 | Visit-Trans | SURGERY | Surgery Clinic [...] as of this encounter Progress Notes Interface, Master Lay Out Specialist In - 03/02/2006 2:30 AM PST [id number] JOHNSON Sagastume [id number] Date: 02/15/2006 Patient: Mahi Prather MR# [id number] Established Patient Examination Subjective: Mrs. Prather is coming back for a yearly visit. Briefly, she is a 30-year-old woman with a history of angiodysplasia and edema of her left leg which has been followed in our clinic on a yearly basis. She wears a 40- to 50-mmHg compression stocking, thigh high. Since her last visit, she does not report having any problems. Her leg is stable. There are no episodes of bleeding, infection, or increased flowing, or palpable masses. She has not seen any clots in her leg. She is able to go around with her daily activities without any problems. She has been wearing her compression stocking completely, and at the last-year visit, we recommended her to have CircAid on top of her ( ) partially compliant with that, but not at all time. Objective: The left leg is grossly swollen from the toes all the way to the hip. There are areas of angiodysplasia on third, fourth, and fifth toes, and also on lateral aspect of the upper calf, knee, and lower thigh. The skin overall looks good without any evidence of skin breaks at any place. The consistency of the soft tissue is soggy without any palpable masses. Assessment and Plan: Stable chronic angiodysplasia with cutaneous hemangiomas under good control with compression stocking without any evidence of ulceration or skin break. We recommended her to continue wearing compression stocking at all times which she has been very compliant with, and continue to do her skin care and control weight, and also to wear CircAid as much as possible for her. She understands all this and is willing to follow. We will see her back in our clinic in 1 year for her annual visit. The patient was seen and examined with Dr. Burton. Kenneth Orlando M.D. Sebas Burton M.D. director of resource development / [id number] / [id number] / [id number] / [id number] Electronically signed by Sebas Burton (Greg) 03-01-2006 03:57:24 PM documented i n this encounter Plan of Treatment Not on filedocumented as of this encounter Visit Diagnoses Not on filedocumented in this encounter"
--- OUTSIDE RECORDS SUMMARY | ~2019-02-10 | XMS | Encounter Summary ---
Demographics + + + | Address | [address] | | | [place] [address] | + + + | Home Phone | | + + + | Preferred Language | Unknown | + + + | Marital Status | Single | + + + | Sabianist Affiliation | PRO | + + + [...] Team Providers + +------+ + | Care Evaporator Repairer Name | Role | Phone | + +------+ + | Timothy Burks MD | PCP | | + +------+ + Reason for Referral PROC - Outpatient Surgery (Routine) +--------+--------+ + + + + | Status | Reason | Specialty | Diagnoses / | Referred By | Referred To | | | | | Procedures | Contact | Contact | +--------+--------+ + + + + | Closed | | Plastic | Diagnoses | Kelly | Raven | | | | Surgery | Vascular | MD Uzair | Gen/Recon | | | | | malformation | [address] | [address] | | | | | Procedures | [address] | [address] | | | | | REQUEST TO | [place], [place] | Mailcode: | | | | | SURGERY | [address] | [facility] | | | | | [employer] | Phone: | for Health | | | | | [place] REMOVAL | [phone] | and Healing, | | | | | [place] | Fax: | [facility] 1, | | | | | | [phone] | [address] [place] [address] | | | | | | | [place], [place] | | | | | | | [address] | | | | | | | Phone: | | | | | | | [phone] | +--------+--------+ + + + + Reason for Visit + + + | Reason | Comments | + + + | New patient | eval of r treatment/excision of hypertrophic scar in gluteal area | | consultation | which is uncomfortable and drains lymph fluids. | + + + Consultation (Routine) +--------+--------+ + + + + | Status | Reason | Specialty | Diagnoses / | Referred By | Referred To | | | | | Procedures | Contact | Contact | +--------+--------+ + + + + | Closed | | Plastic | Diagnoses | Zara | Kelly, | | | | Surgery | Vascular | MD Lazaro | MD Uzair | | | | | malformation | [address] | [address] | | | | | Procedures | Bob Vital | Patsy | | | | | CONSULT TO | Rd | [place], [place] | | | | | SURGERY - | [place] | [address] | | | | | PLASTICS | [address] | Phone: | | | | | | | [phone] | | | | | | | Fax: | | | | | | | [phone] | +--------+--------+ + + + + Encounter Details +--------+---------+ + + + | Date | Type | Department | Care Team | Description | +--------+---------+ + + + | 11/24/ | Office | Plastic and | Uzair Mendoza MD | Vascular | | 2009 | Visit | Reconstructive | [address] | malformation | | | | Surgery at [facility] [address] | [place], [place] | (Primary Dx) | | | | [address] | [address] | | | | | Mailcode: [facility] | [phone] | | | | | [facility] | | | | | | and Healing, | | | | | | Building [address], 5th | | | | | | Floor [place], [place] | | | | | | [address] | | | | | | [phone] | | | +--------+---------+ + + + [...] + + + | Blood Pressure | 101/55 | 11/24/2009 2:08 PM | | | | | PDT | | + + + + + | Pulse | 79 | 11/24/2009 2:08 PM | | | | | PDT | | + + + + + | Temperature | - | - | | + + + + + | Respiratory Rate | 19 | 11/24/2009 2:08 PM | | | | | PDT | | + + + + + | Oxygen Saturation | 98% | 11/24/2009 2:08 PM | | | | | PDT | | + + + + + | Inhaled Oxygen | - | - | | | Concentration | | | | + + + + + | Weight | 104.3 kg (230 lb) | 11/24/2009 2:08 PM | | | | | PDT | | + + + + + | Height | 175.3 cm (5' 9") | 11/24/2009 2:08 PM | | | | | PDT | | + + + + + | Body Mass Index | 33.97 | 11/24/2009 2:08 PM | | | | | PDT | | + + + + + documented in this encounter Progress Notes Uzair Mendoza MD - 11/26/2009 8:49 PM PDT Mahi Prather is a 34 y.o. female with venous angiodysplasia of the left leg and a history of multiple excision of a gluteal cleft lymphatic lesion times 3. With each excision the les ion has recurred. She must wear a feminine pad on the lesion at all times and change is mult iple times a day to control the drainage of lymph from the wound. It is also painful for her . ROS:A 14-point review of systems intake form was filled out by the patient and reviewed wit h the patient. ROS was positive for: left leg swelling from angiodysplasia, history of DVT, easy bruising and bleeding from coumadin therapy, depression, heart burn and indigestion. RO S pertinent negative response for: No constitutional symptoms of fevers, fatigue, chills, we ight loss or sweats. ROS was negative of all other symptoms. Past Medical History Diagnosis Date Allergic rhinitis 06/29/2007 Atrial fibrillation 06/29/2007 Deep venous thrombosis 06/29/2007 Pulmonary embolism 06/29/2007 Cerebrovascular Accident with stroke 06-29-2007 Past Surgical History Procedure Date Angiodysplasia of vein of the lower extremities 06-29-2007 Atrial septal defect surgically repaired 06-29-2007 other 06-29-2007 Heart surgery Total abdominal hysterectomy 06-29-2007 Tonsillectomy 1981 Sinus surgery 1997 Allergies Allergen Reactions Codeine Hydrocodone Current outpatient prescriptions Medication Sig CLARITIN OR [...] take 1 table by mouth every day No family history on file. History Substance Use Topics Tobacco Use: Never Alcohol Use: No OBJECTIVE: BP 101/55 | Pulse 79 | RR 19 | Ht 1.753 m (5' 9") | Wt 104.327 kg (230 lb) | SpO2 98% | BMI 33.96 kg/(m^2) Body mass index is 33.96 kg/(m^2). General: She is a well developed, well nourished female in no apparent distress, alert and oriented X 3. Buttock: On the right buttock just next to the gluteal cleft there is a raised 10 long, 1.5 cm wide, and 1 cm raised, bumpy reddish, weeping lesion that looks similar to granulation t issue, but with a thin epithelium. The surrounding skin in soft and normal in appearance. Th ere are no palpable masses surrounding the lesion. The left leg is massively swollen and in a compression garment. ASSESSMENT: I believe this is another focus of her angiodysplasia that is causing these les ions after the previous excisions. We discussed that I did not know of any non-surgical cindy tments. We discussed that reexcision and closure over drains would have a very high recurren ce rate, however I think that is her only change to get rid of the lesion. She understands t he high risk nature of a re-excision and would like me to try. A PARQ was held for excision and closure over drains of right gluteal mass. We discussed th at complications include but are not limited to: infection, bleeding, scar, hematoma, seroma , nerve injury causing permanent numbness paralysis or chronic pain, asymmetry, contour irre gularity, very high risk of recurrence, need for more surgery and other unforseen complicati ons. She appears to understand and wishes to proceed. Photographs were taken today. 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
--- OUTSIDE RECORDS SUMMARY | ~2019-02-10 | XMS | Encounter Summary ---
Demographics + + + | Address | [address] | | | [place] [address] | + + + | Home Phone | | + + + | Preferred Language | Unknown | + + + | Marital Status | Single | + + + | Yazidism Affiliation | PRO | + + + | Race | White | + + + | Ethnic Group | Not or | + + + Author + + + | Author | [facility] | + + + | Organization | [facility] | + + + | Address | Unknown | + + + | Phone | Unavailable | + + + Support + + + + + | Name | Relationship | Address | Phone | + + + + + | Mariah Prather | OZZIE | [place] | | + + + + + Care Team Providers + +------+ + | Care Luncheonette Operator Name | Role | Phone | + +------+ + | Jose Ramires MD | PCP | | + +------+ + Reason for Visit + + + | Reason | Comments | + + + | Pre-surgery | | | evaluation | | + + + Encounter Details +--------+ + + + + | Date | Type | Department | Care Team | Description | +--------+ + + + + | 01/17/ | Telephone | Plastic and | Uzair Mendoza MD | Pre-surgery | | 2019 | | Reconstructive | [address] | evaluation | | | | Surgery at [facility] [address] | [place], [place] | | | | | [address] | [address] | | | | | Mailcode: [facility] | [phone] | | | | | [facility] | | | | | | and Healing, | | | | | | Building [address], [address]th | | | | | | Floor [place], [place] | | | | | | [address] | | | | | | [phone] | | | +--------+ + + + [...]
--- OUTSIDE RECORDS SUMMARY | ~2019-02-10 | XMS | Encounter Summary ---
Demographics + + + | Address | [address] | | | [place] [address] | + + + | Home Phone | | + + + | Preferred Language | Unknown | + + + | Marital Status | Single | + + + | Worship Affiliation | PRO | + + + | Race | White | + + + | Ethnic Group | Not or | + + + Author + + + | Author | [facility] | + + + | Organization | [facility] | + + + | [...] Team Providers + +------+ + | Care Batchmaker Name | Role | Phone | + +------+ + | Timothy Burks MD | PCP | | + +------+ + Encounter Details +--------+ + + + + | Date | Type | Department | Care Team | Description | +--------+ + + + + | 03/21/ | Letter-Laboy | Vascular Surgery | Alonzo Torrez MD | Letters | | 2006 | scribed | Interventional [address] | [address] | | | | | [address] [facility] | [place], | | | | | Jaspal Mailcode: OP[address] | [place] [address] | | | | | [facility] | [phone] | | | | | [place], [place] | | | | | | [address] | | | | | | [phone] | | | +--------+ + + + [...] documented as of this encounter Progress Notes ShanAlonzo - 03/22/2007 7:03 AM [facility] [id number] 03/21/2007 03/21/2007 [id number] JOHNSON Sagastume [id number] [facility] & [address] [address] or March 21, 2007 Timothy Burks M.D. [place], [place] RE: CHRISSY PRATHER MR #: [id number] Dear Dr. Burks: This is just a letter updating you on Ms. Prather. She is the patient who has been followed in our Vascular Clinic at [facility] for her arteriovenous malformations. Most recently, she had excision of a gluteal crease malformation. The indication was recurrent bleeding. Postoperatively, she has done very well, and her incision is well healed. We removed the sutures today. Our plan is to have her come back in 1 year for her usual followup. She can certainly return sooner if problems arise in the meantime. Thanks again for allowing us to continue seeing her. With best wishes, Alonzo Torrez M.D. / ALENA [id number] / [id number] / [id number] / documented in this encoun ter Plan of Treatment Not on filedocumented as of this encounter Visit Diagnoses Not on filedocumented in this encounter"
--- OUTSIDE RECORDS SUMMARY | ~2019-02-10 | XMS | Encounter Summary ---
Demographics + + + | Address | [address] | | | [place] [address] | + + + | Home Phone | | + + + | Preferred Language | Unknown | + + + | Marital Status | Single | + + + | Baptist Affiliation | PRO | + + + | Race | White | + + + | Ethnic Group | Not or | + + + Author + + + | Author | [facility] | + + + | Organization | [facility] | + + + | [...] Team Providers + +------+ + | Care Communications Equipment Operator Name | Role | Phone | + +------+ + PCP | Unavailable | + +------+ + Encounter Details +--------+ + + + + | Date | Type | Department | Care Team | Description | +--------+ + + + + | 10/07/ | Results | Urology General | Derrell Lowe, | | | 1999 | Only | [address] | [address] | | | | | [place] Mailcode: | [place], [place] | | | | | [address] | [address] | | | | | [address] | [phone] | | | | | [place], [place] | | | | | | [address] | | | | | | [phone] | | | +--------+ + + + [...] | + +--------+ + + + | MRI PELVIS, 3 SEQ, | Routin | 10/08/1999 | | Results for this | | [facility] | e | 2:00 PM | | procedure are in the | | | | PDT | | results section. | + +--------+ + + + documented in this encounter Results MRI PELVIS, 3 SEQ, (10/08/1999 2:00 PM PDT) + + + + + + | Component | Value | Ref Range | Performed | Pathologist | | | | | At | Signature | + + + + + + | MRI PELVIS, | Radiologist 1: TYLER, | | | | | 3 SEQ, | Ivana LOZANO, | | | | | | M.D.-Radiologist 2: | | | | | | Ivana SCOTT, | | | | | | M.D.PELVIC MRI: | | | | | | 10/08/99PELVIC MR | | | | | | ANGIOGRAPHY 10/08/99 | | | | | | Dictated: 10/11/99 | | | | | | CLINICAL HISTORY: The | | | | | | patient is a 23-year-old | | | | | | female with a historyof | | | | | | chronic swelling | | | | | | secondary to diffuse | | | | | | varices in the left | | | | | | thigh,the patient has | | | | | | bladder varices on | | | | | | cystoscopy. Please | | | | | | evaluate forpelvic | | | | | | extension. TECHNIQUE:1. | | | | | | Fast spin echo | | | | | | inversion recovery and | | | | | | T1 weighted images | | | | | | wereperformed.2. Axial | | | | | | spin echo proton | | | | | | density and T2 weighted | | | | | | images.3. Sagittal | | | | | | fast spin echo T2 | | | | | | weighted images.4. | | | | | | Axial and coronal spin | | | | | | echo T1 weighted images | | | | | | with fat saturationpost | | | | | | gadolinium | | | | | | administration. 2D time | | | | | | of flight MRA study was | | | | | | also performed. | | | | | | COMPARISON: None. | | | | | | FINDINGS: There is | | | | | | extensive and prominent | | | | | | varicele veins | | | | | | identifiedwithin the | | | | | | subcutaneous tissues of | | | | | | the left proximal thigh | | | | | | and glutealregion. | | | | | | Prominent varices are | | | | | | also seen within the | | | | | | glutealmusculature. | | | | | | These vessels appear | | | | | | to converge upon | | | | | | somewhat largervessels | | | | | | which are in the | | | | | | pudendal and obturator | | | | | | region on the left | | | | | | aswell as a larger | | | | | | vessel which course is | | | | | | along the posterior | | | | | | aspect ofthe iliac crest | | | | | | on the left. | | | | | | Collaterals are seen | | | | | | within the pelviswithin | | | | | | the deep parametrial | | | | | | fat. Similar vessels | | | | | | are within | | | | | | theparametrium | | | | | | bilaterally, however | | | | | | greater on the left. | | | | | | Numerousvarices are | | | | | | seen within the bladder | | | | | | wall with a large varix | | | | | | extendingoff the bladder | | | | | | roof directed towards | | | | | | the left. It appears | | | | | | the pelvicvessels | | | | | | converge on a large | | | | | | internal iliac vein | | | | | | which | | | | | | measuresapproximately 2 | | | | | | cm in greatest | | | | | | dimension. | | | | | | Subcutaneous and | | | | | | somewhatdeeper varices | | | | | | are also seen anteriorly | | | | | | in the region of the | | | | | | monspubis. There is | | | | | | edematous changes | | | | | | surrounding these | | | | | | vessels andappearent | | | | | | proliferation of the | | | | | | pelvic fat. No discreet | | | | | | vascular mass with large | | | | | | feeding or draining | | | | | | veins isidentified to | | | | | | suggest shunt lesion or | | | | | | arterial-venous | | | | | | malformation.No | | | | | | loculated fluid | | | | | | collections are present. | | | | | | The enhancement | | | | | | patternis consistent | | | | | | with slow flow | | | | | | vasculature. MR | | | | | | ANGIOGRAPHY OF THE | | | | | | PELVIS: 2D time of | | | | | | flight MRA images were | | | | | | performed without fat | | | | | | saturationbands in order | | | | | | to evaluate both the | | | | | | arterial and venous | | | | | | flow.Multiple varices | | | | | | are again noted within | | | | | | the left proximal | | | | | | thigh,buttock, and | | | | | | pelvic regions with | | | | | | collaterals converging | | | | | | along the leftiliac | | | | | | vein. Again no | | | | | | discreet arterial venous | | | | | | malformation is | | | | | | present.The smaller | | | | | | varices are not resolved | | | | | | on the MRA. The | | | | | | visualized osseous | | | | | | structures appear normal | | | | | | without evidence | | | | | | forcortical fractures | | | | | | and the marrow signal | | | | | | which is within | | | | | | normallimits. No joint | | | | | | effusions are present. | | | | | | IMPRESSION: 1. Diffuse | | | | | | varicele dilatation | | | | | | within the left proximal | | | | | | thigh,gluteal, and | | | | | | subcutaneous tissues | | | | | | with intra pelvic | | | | | | extension andparametrial | | | | | | vein varices with | | | | | | convergence into the | | | | | | left iliac veinwhich is | | | | | | dilated. This appears | | | | | | to represent a | | | | | | generalized and | | | | | | purelyvenous dysplastic | | | | | | process of the left | | | | | | lower extremity with | | | | | | proximalinvolvement to | | | | | | the pelvis. No | | | | | | discreet vascular mass | | | | | | lesion,arterial-venous | | | | | | malformation, hemangioma | | | | | | of A-V shunting | | | | | | isidentified. 2. | | | | | | Varices within the | | | | | | bladder wall most | | | | | | prominent on the roof of | | | | | | thebladder. END OF | | | | | | IMPRESSION: | | | | + + + + + + + + | Specimen | + + | | + + + +---------+ + + | Performing | Address | City/State/Zipcode | Phone Number | | Organization | | | | + +---------+ + + | [facility] DEPARTMENT OF | | | | | RADIOLOGY | | | | + +---------+ + + documented in this encounter Visit Diagnoses Not on filedocumented in this encounter"
--- OUTSIDE RECORDS SUMMARY | ~2019-02-10 | XMS | Encounter Summary ---
Demographics + + + | Address | [address] | | | [place] [address] | + + + | Home Phone | | + + + | Preferred Language | Unknown | + + + | Marital Status | Single | + + + | Synagogue Affiliation | PRO | + + + [...] Team Providers + +------+ + | Care Ruby On Rails Software Developer Name | Role | Phone | + +------+ + | Timothy Burks MD | PCP | | + +------+ + Encounter Details +--------+ + + + + | Date | Type | Department | Care Team | Description | +--------+ + + + + | 08/30/ | Procedure - | | Record, Operation | Operative Report | | 2001 | | | | | | | [...] | + +--------+ + + + | OPERATION RECORD | | 08/30/2001 | | Results for this | | | | | | procedure are in the | | | | | | results section. | + +--------+ + + + documented in this encounter Results OPERATION RECORD (08/30/2001) + + | Transcriptions | + + | Interface, Fagot Heater In - 11/22/2005 3:00 AM PDT | | [facility] Ciarra Rojas | | [place], [place] [address] | | [facility]OPERATION RECORDMed Rec No.: | | [id number] Date: 08/30/2001Name: Mahi Prather SURGEON:Derrell Heath | | Jay LwoePREOPERATIVE DIAGNOSIS(ES):1. Gross hematuria.2. 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 Gross hematuria.2. 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 Cystourethroscopy.2. Sclerosis of bleeding | | bladder lesion.3. Neodymium YAG laser coagulation of bleeding lesion.SPECIMEN(S) | | REMOVED:Not dictated.ANESTHESIA:General laryngeal mask airway.INDICATIONS:This patient | | is a 25-year-old female with a known venous anomaly withsignificant aberrant | | veins in her pelvis and left leg. She has hadcontinuous gross hematuria | | requiring transfusions over the last month orso. She is here today for coagulation | | of the bleeding lesion. Attempts atstopping the hemorrhage with Amicar instillation | | of the bladder wasunsuccessful.FINDINGS:There was a solitary lesion within the | | bladder, posterior aspect near thedome, which did not appear to be a tumor, but was | | edematous and measuringapproximately 5-6 mm in size. It was actively bleeding. | | This wassuccessfully sclerosed with ethanolamine as well as laser | | photocoagulationwith the neodymium YAG laser. At the end of the case there was | | nobleeding. There were also multiple large venous channels seen below thesurface of | | the bladder, not entirely within the epithelial layer.PROCEDURE:Following informed | | consent the patient was properly identified and broughtto the operating room. After | | the induction of general laryngeal maskairway anesthesia the patient was placed in | | a cystolithotomy position andsterilely prepped and draped in the usual | | sterile fashion forcystourethroscopy. The findings are noted above.A small needle, | | but Contigen needle, was used to inject the base of thelesion with ethanolamine, 2 | | cc. Prior to this contrast was injected toinsure that we were within localized | | tissue and not extravasating beyondthe bladder. A slow injection of this material | | proved initially partiallysatisfactory for coagulation, and this improved over time. | | Additionalcoagulation was then performed using the neodynium YAG laser at the | | settingof 10 blots in a continuous form. The entire lesion was coagulated | | withoutdifficulty. At the end of the case there was no bleeding from this lesion.The | | bladder was emptied and the cystoscope removed. The patient toleratedthe procedure | | well and was transported to the recovery room in stablecondition. No Coombs | | catheter was left in place.Derrell Lowe M.D.[facility] [place]:xt7D: 08/30/2001T: | | 09/01/2001cc:ALISON RAMOS MD[address] [facility] [place] [id number]: | |significant aberrant veins in her pelvis and left leg. She has had | |continuous gross hematuria requiring transfusions over the last month or | |so. She is here today for coagulation of the bleeding lesion. Attempts at | |stopping the hemorrhage with Amicar instillation of the bladder was | |unsuccessful. | | | |FINDINGS: | |There was a solitary lesion within the bladder, posterior aspect near the | |dome, which did not appear to be a tumor, but was edematous and measuring | |approximately 5-6 mm in size. It was actively bleeding. This was | |successfully sclerosed with ethanolamine as well as laser photocoagulation | |with the neodymium YAG laser. At the end of the case there was no | |bleeding. There were also multiple large venous channels seen below the | |surface of the bladder, not entirely within the epithelial layer. | | | |PROCEDURE: | |Following informed consent the patient was properly identified and brought | |to the operating room. After the induction of general laryngeal mask | |airway anesthesia the patient was placed in a cystolithotomy position and | |sterilely prepped and draped in the usual sterile fashion for | |cystourethroscopy. The findings are noted above. | | | |A small needle, but Contigen needle, was used to inject the base of the | |lesion with ethanolamine, 2 cc. Prior to this contrast was injected to | |insure that we were within localized tissue and not extravasating beyond | |the bladder. A slow injection of this material proved initially partially | |satisfactory for coagulation, and this improved over time. Additional | |coagulation was then performed using the neodynium YAG laser at the setting | |of 10 blots in a continuous form. The entire lesion was coagulated without | |difficulty. At the end of the case there was no bleeding from this lesion. | |The bladder was emptied and the cystoscope removed. The patient tolerated | |the procedure well and was transported to the recovery room in stable | |condition. No Coombs catheter was left in place. | | | | | | | |Derrell Lowe M.D. | | | |Tanika:xt7 | | | | | | | |cc: | | | | | | | |ALISON RAMOS MD | |[address] [facility] | |[place] [address] | | | | | |[phone] | | | |CC: | + + documented in this encounter Visit Diagnoses Not on filedocumented in this encounter"
--- OUTSIDE RECORDS SUMMARY | ~2019-02-10 | XMS | Encounter Summary ---
Demographics + + + | Address | [address] | | | [place] [address] | + + + | Home Phone | | + + + | Preferred Language | Unknown | + + + | Marital Status | Single | + + + | Anglican Affiliation | PRO | + + + [...] Team Providers + +------+ + | Care Celery Packer Name | Role | Phone | + +------+ + | Timothy Burks MD | PCP | | + +------+ + Reason for Visit + + + | Reason | Comments | + + + | Follow-up in | excision of right gluteal cleft mass | | outpatient clinic | | + + + Encounter Details +--------+---------+ + + + | Date | Type | Department | Care Team | Description | +--------+---------+ + + + | 04/07/ | Office | Vascular Surgery | Joesph Howard, | Vascular | | 2008 | Visit | at [facility] [address] | [address] | Malformation | | | | [address] | [address] | (Primary Dx) | | | | [address] Mailcode: | [place], [place] | | | | | [address] [facility] | [address] | | | | | [place], | | | | | | [place] [address] | | | | | | [phone] | | | +--------+---------+ + + + [...] documented as of this encounter Progress Notes Clyde Bowen Md - 04/07/2008 10:37 AM PST Vascular Surgery Clinic Established Patient Note Mahi Prather is a 32 y.o. female here today for 2 week follow-up after suture removal for a right gluteal cleft AVM excision on 03/06/08. Pt states that she still has some drainage f rom wound, but is back to her baseline function and the wound is not painful. SUBJECTIVE: Current Medications: Current outpatient prescriptions Medication Sig Dispense Refill CLARITIN OR one tablet by mouth every day clotrimazole 1 % Topical Cream by Topical route two times daily. Apply to affected area for 7 consecutive days. 1 tube 2 conjugated estrogens 0.625 mg Oral Tablet take 1 tablet (0.625 mg) by oral route once d aily for 21 consecutive days, followed by 7 days off COUMADIN ORAL 10 mg every day except 7.5mg on sundays enoxaparin (LOVENOX) 150 mg/mL Subcutaneous Syringe inject 1.5 mg/kg by subcutaneous ro tonto apache once daily, start on MondayMarch 03, finish on MondayMarch 05 3 0 oxycodone (immediate release) 5 mg Oral Tablet Take 1-2 Tabs by mouth every three hour as needed 30 0 PROZAC OR take 1 table by mouth every day Allergies/Adverse Drug Reactions: Allergies Allergen Reactions Codeine Hydrocodone OBJECTIVE: Right superior gluteal cleft incision intact but with edematous granulation tissue with carrie e serous leakage from tissue. No pain on palp and no erythema. Vital Signs: There were no vitals taken for this visit. ASSESSMENT/PLAN: Pt continuing to heal wound in a difficult location especially given her history of lymphed ron. Will continue with conservative treatment and will plan to follow-up again with patient in 2 weeks. Clyde Bowen MD, PhD Resident, General Surgery Department of Surgery [facility] Joesph Munoz MD - 04/07 10:32 AM PSTI saw and evaluated the patient. I agree with the findings and the plan o f care as documented in the resident s note. 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
--- OUTSIDE RECORDS SUMMARY | ~2019-02-10 | XMS | Encounter Summary ---
Demographics + + + | Address | [address] | | | [place] [address] | + + + | Home Phone | | + + + | Preferred Language | Unknown | + + + | Marital Status | Single | + + + | Scientology Affiliation | PRO | + + + [...] Team Providers + +------+ + | Care Lithographic Press Feeder Name | Role | Phone | [...] Closed | | Radiology | Diagnoses | [place], | 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 [facility] [address] | | | | | lower limb | [address] | [address] | | | | | vessel | [address] | | | | | anomaly | [address] | [address] Mailcode: | | | | | Procedures | [facility] [place] | [id number] | | | | | VASC LAB | [address] | Physician's | | | | | VENOUS | Phone: | Pavilion | | | | | DUPLEX LOWER | [phone] | [place], [place] | | | | | EXTREMITY | Fax: | [address] | | | | | LT | [phone] | Phone: | | | | | | | [phone] | | | | | | | Fax: | | | | | | | [phone] | +--------+--------+ + + + + Reason [...] + + + | Closed | | Vascular | | Non-[facility] | Vas Vasc | | | | Surgery | | Epic Dept | Surg [facility] | | | | | | | [address] | | | | | | | [address] | | | | | | | [place] Mailcode: | | | | | | | [address] | | | | | | | Physician's | | | | | | | Pavilion | | | | | | | [place], [place] | | | | | | | [address] | | | | | | | Phone: | | | | | | | [phone] | | | | | | | Fax: | | | | | | | [phone] | +--------+--------+ + + + + Encounter Details +--------+---------+ + + + | Date | Type | Department | Care Team | Description | +--------+---------+ + + + | 10/23/ | Office | Vascular Surgery | Sebas Burton, | Congenital lower | | 2011 | Visit | at [facility] [address] Floor | [address] | limb vessel anomaly | | | | [address] | [address] | (Primary Dx) | | | | [address] Mailcode: | [place], [place] | | | | | [address] [facility] | [address] | | | | | [place], | [phone] | | | | | [place] [address] | | | | | | [phone] | | | +--------+---------+ + + + [...] + + + | Blood Pressure | 97/61 | 10/24/2011 10:08 AM | | | | | PDT | | + + + + + | Pulse | 65 | 10/24/2011 10:08 AM | | | | | PDT | | + + + + + | Temperature | 36.7 C (98.1 F) | 10/24/2011 10:08 AM | | | | | PDT | | + + + + + | Respiratory Rate | - | - | | + + + + + | Oxygen Saturation | 98% | 10/24/2011 10:08 AM | | | | | PDT | | + + + + + | Inhaled Oxygen | - | - | | | Concentration | | | | + + + + + | Weight | 116.6 kg (257 lb) | 10/24/2011 10:08 AM | | | | | PDT | | + + + + + | Height | 176.5 cm (5' 9.5") | 10/24/2011 10:08 AM | | | | | PDT | | + + + + + | Body Mass Index | 37.41 | 10/24/2011 10:08 AM | | | | | PDT | | + + + + + documented in this encounter Progress Notes Jannette Vo MD - 10/24/2011 10:36 AM PDTFormatting of this note might be different fr om the original. Clinical Progress Note Author: JANNETTE VO MD Attending Surgeon: Sebas Burton MD Date: 10/24/2011 IDENTIFICATION: Mahi Prather is a 36 y.o. 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 SUBJECTIVE: Patient is doing well. She states that the swelling in her LLE has been stable . She denies any pain. She has no difficulty with walking. Since the excision of her lymphan gioma, the pain and drainage have completely resolved. She continues to use a compression st ocking on her LLE daily. She only complains of pain x 1.5 months that is occuring behind the left lateral knee usually with movement, but sometimes at rest. No other concerns. MEDICATIONS: CLARITIN OR, one tablet by mouth every day conjugated estrogens 0.625 mg Oral Tablet, take 1 tablet (0.625 mg) by oral route once xavier y for 21 consecutive days, followed by 7 days off COUMADIN 10 mg Oral Tablet, Take 10 mg by mouth once daily. metoclopramide 10 mg Oral Tablet, Take 10 mg by mouth every six hours as needed. PROZAC OR, take 1 table by mouth every day ALLERGIES: Allergies Allergen Reactions Codeine Hydrocodone OBJECTIVE: Vital Signs: Filed Vitals: 10/24/2011 10:08 AM Height: 1.765 m (5' 9.5") Weight: 116.574 kg (257 lb) BP: 97/61 Pulse: 65 Temp: 36.7 C (98.1 F) SpO2: 98% PainSc: 0 - Zero BMI: 37.41 kg/(m^2) Physical Examination: General: Sitting comfortably on exam table. NAD. Pulm: Non-labored breathing LLE: Severe swelling of entire LLE up to the hip. Angiodysplasia visible on mid-lateral leg and over knee. Also present on digits 2-5. Non-tender. No seepage of fluid, no ulcerations or signs of infections. Warm and well-perfused. PT and DP signals present. ASSESSMENT and PLAN: Mahi Prather is a 36 y.o. female with a history of DVT's and PE on co umadin, angiodysplasia of the left lower extremity and gluteal region lymphangioma s/p excis ion in 2007 and 2009. -Gluteal lymphangioma s/p excision- resolved. -LLE angiodysplasia with chronic swelling. Stable. Continue use of compression stockings (4 0-50lb). Advised patient to replace every 6 months for maximum benefit. Provided counseling regarding prevention of infection. Advised patient of importance of skin integrity, reducing risks of skin compromise. -Left knee pain. Will order venous duplex of the left popliteal fossa region to evaluate fo r SVT. Patient is already on anticoagulation so will not require further therapy if present, however, if no SVT recommend see PCP to investigate other etiologies of pain -RTC [address] Burton was present and performed all dumont portions of the history and physical examinati on. The attending surgeon agrees with my assessment and plan. JANNETTE VO MD VASCULAR SURGERY [address] [place] [address] Mailcode: [address] [place] [address] Sebas Prince MD - 10/24/2011 10:32 AM PDTI saw and evaluated the patient. I agree with the findings and the plan of care as documented in the resident s note. SEBAS BURTON MD VASCULAR SURGERY [address] [place] [address] Mailcode: [address] [place] [address] documented in this en counter Plan of Treatment Not on filedocumented as of this encounter Results VASC LAB VENOUS DUPLEX LOWER EXTREMITY LT (10/24/2011 11:22 AM PDT) + + + + + + | Component | Value | Ref Range | Performed | Pathologist | | | | | At | Signature | + + + + + + | VASC LAB | LEFT LOWER EXTREMITY | | | | | VENOUS | VENOUS DUPLEX SCAN: | | | | | DUPLEX | 10/24/2011Dictated | | | | | LOWER | 10/25/2011CLINICAL | | | | | EXTREMITY | INDICATION: Left lower | | | | | LEFT | extremity pain with a | | | | | | prior historyof a | | | | | | congential left lower | | | | | | extremity vascular | | | | | | anomaly.FINDINGS: The | | | | | | deep and superficial | | | | | | veins of left lower | | | | | | extremity wereexamined | | | | | | with the duplex scanner. | | | | | | It was difficult to | | | | | | visualize theleft calf | | | | | | veins due to the | | | | | | patient's body habitus | | | | | | and the | | | | | | previouslymentioned | | | | | | vascular anomaly. | | | | | | However, the visualized | | | | | | veins of the leftlower | | | | | | extremity had normal | | | | | | phasic flow with normal | | | | | | response toaugmentation | | | | | | and compression | | | | | | throughout.IMPRESSION:No | | | | | | rmal left lower | | | | | | extremity venous duplex | | | | | | scan without evidence | | | | | | fordeep or superficial | | | | | | vein thrombosis.END | | | | | | IMPRESSION: Attending | | | | | | Radiologists: Alonzo | | | | | | Jay TorrezAuthor: | | | | | | Alonzo Torrez M.D. I | | | | | | have personally viewed | | | | | | this procedure/exam, | | | | | | reviewed this report,and | | | | | | made changes to it | | | | | | where appropriate. 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
--- OUTSIDE RECORDS SUMMARY | ~2019-02-10 | XMS | Encounter Summary ---
Demographics + + + | Address | [address] | | | [place] [address] | + + + | Home Phone | | + + + | Preferred Language | Unknown | + + + | Marital Status | Single | + + + | Sikh Affiliation | PRO | + + + [...] Team Providers + +------+ + | Care Packaging Coordinator Name | Role | Phone | + [...] Closed | | Plastic | Diagnoses | Kelly, | Kelly, | | | | Surgery | Lymphatic | MD Guillermo | MD Guillermo | | | | | malformation | [address] | [address] | | | | | Procedures | Ave | Ave | | | | | SURGICAL | [place], [place] | [place] | | | | | CASE REQUEST | [id number] | [id number] | | | | | CO EXC | Phone: | Phone: | | | | | SKIN BENIG | [phone] | [phone] | | | | | >4CM | Fax: | Fax: | | | | | TRUNK,ARM,LE | [phone] | [phone] | | | | | G | | | +--------+--------+ + + + [...] | Other | MD Sebas | MD Guillermo | | | | | specified | [address] | [address] | | | | | congenital | Bob | Ave | | | | | anomalies | [address] | [place], [place] | | | | | Congenital | [place], [place] | [address] | | | | | lower limb | [address] | Phone: | | | | | vessel | Phone: | [phone] | | | | | anomaly | [phone] | Fax: | | | | | Procedures | Fax: | [phone] | | | | | CONSULT TO | [phone] | | | | | | SURGERY - | | | | | | | PLASTICS | | | +--------+--------+ + + + + Encounter Details +--------+---------+ + + + | Date | Type | Department | Care Team | Description | +--------+---------+ + + + | 12/18/ | Office | Plastic and | Guillermo Mendoza MD | Vascular | | 2013 | Visit | Reconstructive | [address] | malformation | | | | Surgery at [facility] [address] | [facility] [place] | (Primary Dx); | | | | [address] | [address] | Lymphatic | | | | Mailcode: [facility] | [phone] | malformation | | | | [facility] | | | | | | and Mic, | | | | | | Building | | | | | | [place], [place] | | | | | | [address] | | | | | | [phone] | | | +--------+---------+ + + + [...] + + + | Blood Pressure | 112/61 | 12/18/2012 1:53 PM | | | | | PDT | | + + + + + | Pulse | 89 | 12/18/2012 1:53 PM | | | | | PDT | | + + + + + | Temperature | - | - | | + + + + + | Respiratory Rate | 16 | 12/18/2012 1:53 PM | | | | | PDT | | + + + + + | Oxygen Saturation | 97% | 12/18/2012 1:53 PM | | | | | PDT | | + + + + + | Inhaled Oxygen | - | - | | | Concentration | | | | + + + + + | Weight | 118.8 kg (262 lb) | 12/18/2012 1:53 PM | | | | | PDT | | + + + + + | Height | 176.5 cm (5' 9.49") | 12/18/2012 1:53 PM | | | | | PDT | | + + + + + | Body Mass Index | 38.15 | 12/18/2012 1:53 PM | | | | | PDT | | + + + + + documented in this encounter Progress Notes Guillermo Mendoza MD - 12/19/2012 7:28 AM PDTI was present with the resident during the histo ry and exam. I discussed the case with the resident and agree with the findings and plan as documented in the resident s note. 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 The growths are painful, b leed, and drain lymph. I have recommended surgical excision of the left 8 x 1 cm area and ca uterization of the several small areas of regrowth on the right. A PARQ was held for excision and cautery of lymphatic malformation. We discussed that compl ications include but are not limited to: infection, bleeding, scar, hematoma, seroma, nerve injury causing permanent numbness or chronic pain, asymmetry, contour irregularity, recurren ce, need for more surgery and other unforseen complications. She appears to understand and wishes to proceed. GUILLERMO MENDOZA MD olericulture professor of Plastic Surgery [facility] [place] [address] erRandall carmichael MD - 12/18/2012 1:53 PM PDTFormatting of this note might be different from the origin al. 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 Subjective: Presenting for re-evaluation of gluteal lymphangiomas. Pt reports they have rec urred mostly on the L side over the past few months. They are extremely painful "like razors " and are draining a pinkish fluid. She denies recent fever, chills. No recent infection. No chest pain, no shortness of breath. Pt has difficulty ambulating due to LLE but not due to SOB or chest pain. Denies recent changes to her health. Desires excision of these masses. Past Medical History Diagnosis Date Allergic rhinitis 06/29/2007 Atrial fibrillation 06/29/2007 Deep venous thrombosis 1998 Pulmonary embolism 1998 Cerebrovascular Accident with stroke 06-29-2007 ASD (atrial septal defect) repaired as a child Lymphangioma gluteal cleft region Past Surgical History Procedure Laterality Date Angiodysplasia of vein of the lower extremities 06-29-2007 Atrial septal defect surgically repaired 06-29-2007 other 06-29-2007 Heart surgery Total abdominal hysterectomy 06-29-2007 Tonsillectomy 1981 Sinus surgery 1998 Excision of lymphangioma 2006, 2007, 2009 Social History Narrative None on file Family History Problem Relation Diabetes Father Thyroid Father Thyroid Mother Anesthesia Neg Hx Blood Disease Neg Hx Current Outpatient Prescriptions on File Prior to Visit Medication Sig Dispense Refill CLARITIN OR one tablet by mouth every day conjugated estrogens 0.625 mg Oral Tablet take 1 tablet (0.625 mg) by oral route once d aily for 21 consecutive days, followed by 7 days off COUMADIN 10 mg Oral Tablet Take 10 mg by mouth once daily. metoclopramide 10 mg Oral Tablet Take 10 mg by mouth every six hours as needed. PROZAC OR take 1 table by mouth every day No current facility-administered medications on file prior to visit. Allergies Allergen Reactions Codeine Hydrocodone Physical Exam: BP 112/61 | Pulse 89 | RR 16 | Ht 1.765 m (5' 9.49") | Wt 118.842 kg (262 lb) | SpO2 97% | BMI 38.15 kg/(m^2) Gen- comfortable, oriented CV- regular rate, rhythm Resp- Breathing comfortably on room air, clear bilaterally Abd- soft, non-tender L gluteal cleft with multiple, exophytic sub-centimeter lymphangiomas in clusters, pink in color, tender to palpation, not draining on exam. R gluteal cleft with well healed incision scar LLE significantly swollen due to lymphedema from ankle to hip- stocking in place Assessment and Plan: 37F with congenital angiodysplasia of the LLE, R sided gluteal cleft lymphangiomas s/p exci paloma in 2006, 2007 and 2009, AFib, and hx of DVT and PE (in 1998) on coumadin presenting wit h recurrent gluteal masses now primarily on the L side. Pt desires cauterization and excisio n of the lesions due to discomfort. -- Pt consented for excision of gluteal cleft lesions -- Pt scheduled for surgery on 01/10/2013 at [facility] -- Pt will need to stop coumadin 5 days prior to surgery and bridge with Lovenox. Pt inform ed and will contact her PCP regarding anti-coagulation. Pt seen with Dr. Mendoza who agrees with above assessment and plan. 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
--- OUTSIDE RECORDS SUMMARY | ~2019-02-10 | XMS | Encounter Summary ---
Demographics + + + | Address | [address] | | | [place] [address] | + + + | Home Phone | | + + + | Preferred Language | Unknown | + + + | Marital Status | Single | + + + | Catholic Affiliation | PRO | + + + | Race | White | + + + | Ethnic Group | Not or | + + + Author + + + | Author | [facility] | + + + | Organization | [facility] | + + + | Address [...] Team Providers + +------+ + | Care Chief Scientist Name | Role | Phone | + +------+ + PCP | Unavailable | + +------+ + Encounter Details +--------+ + + + + | Date | Type | Department | Care Team | Description | +--------+ + + + + | 01/07/ | Office | [facility] | Clinic, Urology | Progress Note | | 2003 | Visit-Trans | | | | | | cribed | | [...] as of this encounter Progress Notes Interface, Fruit Or Nut Grower In - 10/24/2004 7:48 AM PDT [id number] [facility] Date: 01/08/2004 Clinic: Urology Ms. Prather is here today for followup. She is doing well. She did have an episode of gross hematuria following our cystoscopy and fulguration of bladder varicosities approximately 2 weeks after surgery. This lasted a couple of weeks and has since resolved, and she has been completely free of gross hematuria since then. She is satisfied with her current results. Of note during her last procedure, I did not notice the degree of varicosities that she had on her first procedure, so I am hoping that this procedure will resolve her for an even longer period of time than the initial procedure. Objective General: Ms. Prather appears comfortable and otherwise healthy. Vital signs: Blood pressure is 106/68, pulse 68, and respirations 14. Impression: Doing well following fulguration of bladder varicosities. Plan: Return to clinic for followup if her bleeding returns. Derrell Lowe M.D. / [id number] / [id number] / [id number] / cc: Charity Araujo M.D. [address] [place] [address] documented i kaden this encounter Plan of Treatment Not on filedocumented as of this encounter Visit Diagnoses Not on filedocumented in this encounter"
--- OUTSIDE RECORDS SUMMARY | ~2019-02-10 | XMS | Encounter Summary ---
Demographics + + + | Address | [address] | | | [place] [address] | + + + | Home Phone [...] Author + + + | Author | [facility] | + + + | Organization | [facility] | + + + | Address [...] Providers + +------+ + | Care Assistant Professor Of Archaeology Name | Role | Phone | + [...] + + | 01/23/ | Hospital | [facility] | Uzair Mendoza MD | | | 2019 | Encounter | [address] | [address] | | | | | Ave Mailcode: [facility] | [place], [place] | | | | | [facility] | [address] | | | | | Health and Healing, | [phone] | | | | | [facility] [address] | | | | | | [place], [place] | | | | | | [address] | | | | | | [phone] | | | +--------+ + + + [...] + + + | Blood Pressure | 132/49 | 01/23/2019 9:30 AM | | | | | PDT | | + + + + + | Pulse | 70 | 01/23/2019 9:15 AM | | | | | PDT | | + + + + + | Temperature | 36.6 C (97.9 F) | 01/23/2019 9:30 AM | | | | | PDT | | + + + + + | Respiratory Rate | 16 | 01/23/2019 9:00 AM | | | | | PDT | | + + + + + | Oxygen Saturation | 99% | 01/23/2019 9:30 AM | | | | | PDT | | + + + + + | Inhaled Oxygen | - | - | | | Concentration | | | | + + + + + | Weight | 137.4 kg (303 lb) | 01/23/2019 6:31 AM | | | | | PDT | | + + + + + | Height | 175.3 cm (5' 9") | 01/23/2019 6:31 AM | | | | | PDT | | + + + + + | Body Mass Index | 44.75 | 01/23/2019 6:31 AM | | | | | PDT | | + + + + + documented in this encounter Discharge Instructions Discharge - Day Procedure Instructions Hailey Red MD - 01/23/2019 7:17 AM PD Alfredocojoanne Instructions: Upon arriving at home, it is best to start low-level activity. You are encouraged to brush your teeth and hair, and get up and walk around the house. Most patients are surprised that they can resume these simple tasks so quickly. Please keep in mind that you have just had a n operation and it is still important to take things easy. Remember to listen to your body; avoid any activity that causes pain or discomfort. Showering and Wound Care: Your incisions have non absorbable sutures in place that will nee d to be removed in 10-14 days. The sutures are covered with a water proof dressing (tegaderm ). Keep this dressing in place, clean and dry until your follow up appointment. The flores colo red margarette bandage can be removed whenever, and replaced with your compression garments at home . You can start showering 24 hours after surgery. When drying, be gentle and towel pat dry. If water gets under the clear tegaderm tape and saturates the white gauze below, then remov e it and cover it with a clean dressing. Please avoid hot tubs, swimming pools, or soaking your incision until advised otherwise. Tobacco and nicotine are bad for wound healing. Tobacco smoke is filled with chemicals that decrease oxygen and healing. Vitamin C and Zinc are critical to the healing process. If yo u eat a well-balanced diet, you most likely have enough. However, if you do not eat a lot of fruits and vegetables, you should take an extra Multi-Vitamin with Vitamin C and Zinc. Food: If you are feeling well without nausea, resuming your regular diet is fine. Most pa tients prefer to avoid heavy or greasy foods the first 24 hours after surgery. Eat a high pr otein and high vitamin C diet to promote healing. Excessive alcohol suppresses your immune s ystem and increases your risks of surgical site infection. Having an occasional glass of win e or beer is fine. Work: Depending on your profession, you may resume work as soon as you feel up to it. Driving: You may resume driving when you are no longer taking prescription narcotic pain m edication and feel you can safely operate a vehicle. Driving while taking narcotic medicatio n is equivalent to drinking and driving. Exercise restrictions: It is safe to resume normal daily activities as soon as you feel yo u are able. Avoid strenuous aerobic exercise such as running, aerobics, and weight lifting w hich can cause swelling, bleeding or prevent healing until cleared by your doctor. Remember to listen to your body if an activity hurts, stop and do not try it again for a couple d ays. Medications: Narcotic pain medication may be given to you after surgery. These pain medica tions may not be necessary if your pain is minimal. Narcotics can be associated with several common side effects such as constipation, nausea, headache, and itching. A good alternative to these medications are Ibuprofen (Motrin, Advil), Naproxen (Aleve) or Tylenol. Follow the medication instructions on the bottle if you are having pain. Avoid consuming alcohol and a dhere to driving restrictions while taking any narcotic pain medication (see above). Scar management: To optimize the conditions for a favorable scar you can: ? Avoid direct sunlight to your incision for 12 months after your surgery as your scars may darken or thicken. Use a sunscreen with an SPF 30 or higher on the incisions every 2 hours when outdoors in the sun. ? Massaging the scar may help breakdown scar tissue and hasten the resolution of swelling i n the area. Massage may be done multiple times a day with a good quality lotion such as Lub riderm, Cetaphil, or Eucerin after the wound has healed. Usually beginning 2-3 weeks after s urgery. ? Studies have shown that the application of silicone sheeting or gel can improve the appea praveena of scars. Silicone sheeting should be applied between 6-24 hours a day, removing once daily to allow site to be washed and dried. For optimal results, wear as often as possible f or a minimum of 2 months. Silicone sheeting or gels may be applied as soon as your physician tells you that your wound is ready, generally 2-3 weeks after surgery. ? Other scar products such as Mederma and Vitamin E have not been proven to work, and you might even be allergic to these products. Follow-up appointment: You will be scheduled to be seen in clinic about 1-2 weeks after you r surgery. Questions? Please feel free to call our office at [phone] with any questions. Call our office immediately or seek medical care if: ? You have severe pain ? You have fluid under the skin or a lot of swelling at the surgery site ? You are sick to your stomach and cannot keep fluids down ? You have pain that does not get better after you take pain medicine ? You have signs of infection, such as: o Increased pain, swelling, warmth or redness o Red streaks leading from your incision o Pus draining from the incision o A fever (oral temperature greater than 101.5 F or 38.5 C) ? You have signs of a blood clot, such as: o Shortness of breath o Pain in your calf, back of the knee, thigh or groin o Redness or swelling in your leg or groin Call 911 anytime you think you have a life threatening emergency or think you may need ameya gency care. documented in this encounter Medications at Time of Discharge + + + +---------+ + + | Medication | Sig | Dispensed | Refills | Start | End Date | | | | | | Date | | + + + +---------+ + + | acetaminophen | Take 650 mg by mouth | | 0 | 05/11/19 | | | (MAPAP) 325 mg oral | as needed. | | | 18 | | | tablet | | | | | | + + + +---------+ + + | acyclovir 400 mg | Take 400 mg by mouth | | 0 | 04/19/19 | | | oral tablet | as needed. | | | 19 | | + + + +---------+ + + | cholecalciferol | Take 2,000 Units by | | 0 | | | | (Vitamin D3) 2,000 | mouth once daily. | | | | | | unit oral capsule | | | | | | + + + +---------+ + + | Compression Socks, | 40-50mmHG | 5 each | 5 | 12/12/19 | | | Medium | compression | | | 19 | | | miscellaneous (misc) | sockThigh high, | | | | | | misc | custom fit | | | | | + + [...] + + + +---------+ + + | enoxaparin sodium | Inject 140 mg/mL | | 0 | | | | (LOVENOX | under the skin | | | | | | SUBQ)Indications: | (SUBC). Indications: | | | | | | Bridge | Bridge | | | | | + + + +---------+ + + | FLUoxetine 20 mg | Take 20 mg by mouth | | 0 | 06/30/20 | | | oral capsule | once daily. | | | 16 | | + + + +---------+ + + | loratadine | Take 10 mg by mouth | | 0 | | | | (CLARITIN) 10 mg | once daily. | | | | | | oral tablet | | | | | | + + + +---------+ + + | mirabegron | Take 50 mg by mouth | | 0 | | | | (MYRBETRIQ) 50 mg | once daily. | | | | | | oral tablet extended | | | | | | | release 24 hr | | | | | | + [...] + + + +---------+ + + | oxyCODONE | Take 1 tablet by | 15 | 0 | //20 | | | (immediate release) | mouth every three | tablet | | 19 | | | 5 mg oral tablet | hours as needed for | | | | | | | moderate pain or | | | | | | | severe pain. | | | | | + + + +---------+ + + | pantoprazole 40 mg | Take 40 mg by mouth | | 0 | 01/16/ | | | oral tablet,delayed | two times daily. | | | 18 | | | release (/EC) | | | | | | + + + +---------+ + + | sirolimus 2 mg | 1 Dose once daily. | | 0 | 01/05/20 | | | oral tablet | | | | 19 | | + + + +---------+ + [...] + + documented in this encounter Results SURGICAL PATHOLOGY (01/23/2019 8:04 AM PDT) + [...] PathologistPathology, | | | | | | [facility] | | | | | | University electronic | | | | | | [...] | HEALTH + | | | | [id number]. Leg, Left | | HEALING | | [...] | + + + + + | [facility] | [address] | [place] [address] | | | PATHOLOGY | [address] | | | + + + + + | [facility] | [address] | [place] [address] | | | SERVICES, TUTTLE FOR | | | | | HEALTH [...] | [facility] | [address] [facility] | [place] [address] | | | OF CARE TESTS | [...] | | + +--------+ + +------+------+ | acetaminophen (TYLENOL) tablet | Given | 01/24/20 | 1,000 mg | | | | 1,000 mg 1,000 mg, oral, ONCE, 1 | | 19 7:30 | | | | | dose, 01/23/19 at 0800 | | AM PDT | | | | + +--------+ + +------+------+ + +---+ | | | + +---+ | acetaminophen (TYLENOL) tablet | | | 1 dose, Starting Mon01/23/19 at | | | 0729, Until Mon01/23/19 at 0730 | | + +---+ | | | + +---+ | fentaNYL (SUBLIMAZE) injection | | | 25 mcg 25 mcg, intravenous, | | | POSTPROCEDURE PRN, 8 doses, | | | Starting Mon01/23/19 at 0813, | | | Until Mon01/23/19 at 1552, | | | severe pain while in Phase I | | | Recovery | | + +---+ | | | + +---+ + + + +---+---+---+ | lactated ringers IV 10 mL/hr, | given by | 01/24/20 | | | | | intravenous, PROCEDURE | | 19 8:32 | | | | | CONTINUOUS, Starting Mon01/23/19 | anesthes | AM PDT | | | | | at 0615, Until Mon01/23/19 at | iology | | | | | | 1552 | | | | | | + + + +---+---+---+ +---------+ + + +---+ | New Bag | 01/24/20 | 10 mL/hr | 10 mL/hr | | | | 19 6:54 | | | | | | AM PDT | | | | +---------+ + + +---+ + +---+ | | | + +---+ | lactated ringers IV 500 mL, | | | intravenous, POSTPROCEDURE PRN, 1 | | | dose, Starting 01/23/19 at | | | 0813, Until Mon01/23/19 at 1552, | | | nausea/vomiting due to | | | dehydration | | + +---+ | | | + +---+ | lidocaine (XYLOCAINE) 10 mg/mL | | | (1 %) injection subcutaneous, | | | PREPROCEDURE PRN, Starting Wed | | | 01/23/19 at 0610, Until Wed | | | 01/23/19 at 1552, IV start | | + +---+ | | | + +---+ | naloxone (NARCAN) injection | | | intravenous, POSTPROCEDURE PRN, | | | Starting 01/23/19 at 0812, | | | Until Mon01/23/19 at 1552, | | | hypopnea | | + +---+ | | | + +---+ | ondansetron (ZOFRAN) injection | | | 4 mg 4 mg, intravenous, | | | POSTPROCEDURE PRN, 1 dose, | | | Starting Mon01/23/19 at 0813, | | | Until Mon01/23/19 at 1552, | | | nausea/vomiting (greater than 6 | | | hours post-operatively) | | + +---+ | | | + +---+ | promethazine (PHENERGAN) | | | injection 6.25 mg 6.25 mg, | | | intravenous, POSTPROCEDURE PRN, 1 | | | dose, Starting Mon01/23/19 at | | | 0813, Until Mon01/23/19 at 1552, | | | nausea/vomiting, 1st line | | + +---+ | | | + +---+ documented in this encounter
--- OUTSIDE RECORDS SUMMARY | ~2019-02-10 | XMS | Encounter Summary ---
Demographics + + + | Address | [address] | | | [place] [address] | + + + | Home Phone [...] | Author | [facility] | + + + | Organization | [facility] | + + + | Address | Unknown | + + + | Phone | Unavailable | + + + Support + + + + + | Name | Relationship | Address | Phone | + + + + + | Mariah Prather | OZZIE | [place] | | + + + + + Care Team Providers + +------+ + | Care Billing Machine Operator Name | Role | Phone | + +------+ + | Jose Ramires MD | PCP | | + +------+ + Encounter Details +--------+ + + + + | Date | Type | Department | Care Team | Description | +--------+ + + + + | 03/02/ | Hospital | Registration 3[address] | Alonzo Torrez MD | | | 2006 | Activity | [address] | [address] | | | | | [place] Mailcode: [id number] | [address] [place], | | | | | [place], [place] | [place] [address] | | | | | [address] | [phone] | | | | | [phone] | | | +--------+ + + + [...] +--------+ + + + | INR | Urgent | 03/02/2007 | | Results for this | | | | 12:10 PM | | procedure are in the | | | | PST | | results section. | + +--------+ + + + | SURGICAL PATHOLOGY | Routin | 03/02/2007 | | Results for this | | | e | | | procedure are in the | | | | | | results section. | + +--------+ + + + documented in this encounter Results PROTHROMBIN TIME (03/02/2007 12:10 PM PST) + + + + + + | Component | Value | Ref Range | Performed | Pathologist | | | | | At | Signature | + + + + + + | INR | 1.84 (H)Comment: | 0.90 - 1.20 INR | [facility] | | | | PT INR Therapeutic | | DEPARTMENT | | | | ranges for full | | OF | | | | anticoagulation: | | PATHOLOGY | | | | INR for | | | | | | Venous Thromboembolism | | | | | | | | | | | | (2.0-3.0)INR | | | | | | INR for most | | | | | | patients with mech. | | | | | | valves (2.5-3.5)INR | | | | + + + + + + + + | Specimen | + + | | + + + + + | Narrative | Performed At | + + + | Specimen hemolyzed | [facility] | | | DEPARTMENT OF | | | PATHOLOGY | + + + + + + + + | Performing | Address | City/State/Zipcode | Phone Number | | Organization | | | | + + + + + | [facility] DEPARTMENT OF | [address] | [place] [address] | | | PATHOLOGY | [address] | | | + + + + + | [facility] DEPARTMENT OF | [address] | [place] [address] | | | PATHOLOGY | [address] | | | + + + + + SURGICAL PATHOLOGY (03/02/2007) + + + + + + | Component | Value | Ref Range | Performed | Pathologist | | | | | At | Signature | + + + + + + | SURGICAL | SOURCE OF SPECIMEN:A | | [facility] | | | PATHOLOGY | Gluteal cleft | | DEPARTMENT | | | | arteriovenous | | OF | | | | malformation Final | | PATHOLOGY | | | | Pathologic | | | | | | Diagnosis:Gluteal cleft, | | | | | | arteriovenous | | | | | | malformation, excision: | | | | | | - Superficial | | | | | | lymphangioma Comment: | | | | | | Immunohistochemical | | | | | | staining for LYVE-1 | | | | | | demonstrates staining | | | | | | ofthe vessels | | | | | | (lymphatics) with no | | | | | | staining of the larger | | | | | | dilated | | | | | | subdermalvessels. The | | | | | | staining is most | | | | | | consistent with a | | | | | | superficial | | | | | | lymphangioma.CD34 | | | | | | decorates blood vessels. | | | | | | Case reviewed by:Kristin | | | | | | Kody Rizo M.D. | | | | | | /ResidentS. Vania | | | | | | [place] | | | | | | /PathologistT: | | | | | | 03/06// I have | | | | | | reviewed all diagnostic | | | | | | slides and have edited | | | | | | the gross | | | | | | and/ormicroscopic | | | | | | portion of this report | | | | | | as part of my pathologic | | | | | | assessment andfinal | | | | | | diagnosis. Clinical | | | | | | History:The patient is a | | | | | | 31-year-old female with | | | | | | a history of | | | | | | arteriovenousmalformatio | | | | | | n. 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 Gross | | | | | | Description:One specimen | | | | | | is received in formalin | | | | | | in a container labeled | | | | | | with thepatient name | | | | | | (initials SUZANNE) and | | | | | | "gluteal cleft | | | | | | arteriovenous | | | | | | malformation."Received | | | | | | is an unoriented, 6.2 x | | | | | | 1.2-cm wrinkled, flores, | | | | | | hair-bearing skinellipse | | | | | | with attached | | | | | | subjacent, lobular, | | | | | | yellow, fatty tissue | | | | | | excised to adepth of up | | | | | | to 1 cm. Along greater | | | | | | than 95% of the skin | | | | | | ellipse is araised, | | | | | | multinodular, | | | | | | glistening, white-red | | | | | | lesion that extends to | | | | | | within<1 mm of the | | | | | | nearest lateral | | | | | | resection margin. The | | | | | | resection margin isinked | | | | | | black. The specimen | | | | | | is serially sectioned to | | | | | | reveal | | | | | | theaforementioned | | | | | | multinodular lesion to | | | | | | extend subcutaneously up | | | | | | to 0.8 cm,as a firm, | | | | | | glistening white lesion. | | | | | | Enrollment Processor cross | | | | | | sections aresubmitted. | | | | | | Cassette Index:A1, skin | | | | | | ellipse, cross | | | | | | sectionKK:GDW:See | | | | | | ng Diagnostician: SSuzie | | | | | | Vania [place] | | | | | | JayPathologistElectroni | | | | | | chino Signed 03/07/2007 | | | | + + + + + + + + | Specimen | + + | | + + + + + + + | Performing | Address | City/State/Zipcode | Phone Number | | Organization | | | | + + + + + | [facility] | [address] | [place] [address] | | | PATHOLOGY | [address] | | | + + + + + | [facility] | [facility] | [place] [address] | | | PATHOLOGY | [address] | | | + + + + + documented in this encounter Visit Diagnoses Not on filedocumented in this encounter
--- OUTSIDE RECORDS SUMMARY | ~2019-02-10 | XMS | Encounter Summary ---
Demographics + + + | Address | [address] | | | [place] [address] | + + + | Home Phone | | + + + | Preferred Language | Unknown | + + + | Marital Status | Single | + + + | Church Affiliation | PRO | + + + | Race | White | + + + | Ethnic Group | Not or | + + + Author + + + | Author | [facility] | + + + | Organization | [facility] | + + + | Address | Unknown | + + + | Phone | Unavailable | + + + Support + + + + + | Name | Relationship | Address | Phone | + + + + + | Mariah Prather | OZZIE | [place] | | + + + + + Care Team Providers + +------+ + | Care Senior Lead Project Manager Name | Role | Phone | + +------+ + | Timothy Burks MD | PCP | | + +------+ + Reason for Visit + + + | Reason | Comments | + + + | Surgical follow-up | Revision of right gluteal cleft scar - pt states finally healing | + + + Encounter Details +--------+---------+ + + + | Date | Type | Department | Care Team | Description | +--------+---------+ + + + | 09/01/ | Office | Vascular Surgery | Sebas Burton, | Vascular | | 2008 | Visit | at [facility] 2nd Floor | [address] | Malformation | | | | [address] | [address] | (Primary Dx) | | | | [place] [place] Mailcode: | [place], [place] | | | | | [address] | [phone] | | | | | [place], | [phone] | | | | | [place] [address] | | | | | | [phone] | | | +--------+---------+ + + + [...] encounter Progress Notes Sebas Burton MD - 09/01/2008 9:38 AM PDTHere for more followup. Initial excision of r ight gluteal cleft lymphangioma in February 2008 with poor wound healing. On June 19, 2008 the patient underwent reexcision of the poorly healing scared region with open packing of th e wound. Today the wound is healed over and very hypertrophic along it's entire length about a cm above the skin surface There is no sign of infection. There is minimal drainage from t he wound and no evidence of perimeter skin irritation. I offered for her to see plastic maribell thomas about the hypertrophic scar but she declined. Will see back prn. 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
--- OUTSIDE RECORDS SUMMARY | ~2019-02-10 | XMS | Encounter Summary ---
Demographics + + + | Address | [address] | | | [place] [address] | + + + | Home Phone | | + + + | Preferred Language | Unknown | + + + | Marital Status | Single | + + + | Hinduism Affiliation | PRO | + + + | Race | White | + + + | Ethnic Group | Not or | + + + Author + + + | Author | [facility] | + + + | Organization | [facility] | + + + | Address | [...] Providers + +------+ + | Care Customer Care Assistant Name | Role | Phone | + +------+ + | Timothy Burks MD | PCP | | + +------+ + Reason for Referral Consultation (Routine) +--------+--------+ + + + + [...] | | | | | specified | [address] | [address] | | | | | congenital | [address] | [address] | | | | | anomalies | [address] | [facility] [place] | | | | | Congenital | [place] | [address] | | | | | lower limb | [address] | Phone: | | | | | vessel | Phone: | [phone] | | | | | anomaly | [phone] | Fax: | | | | | Procedures | Fax: | [phone] | | | | | CONSULT TO | [phone] | | | | | | SURGERY [...] | | | | | | | [address] | | | | | | | [address] | | | | | | | [place] Mailcode: | | | | | | | [address] | | | | | | | Physician's | | | | | | | [address] | | | | | | | [place], [place] | | | | | | | [address] | | | | | | | Phone: | | | | | | | [phone] | | | | | | | Fax: | | | | | | | [phone] | +--------+--------+ + + + + Encounter Details +--------+---------+ + + + | Date | Type | Department | Care Team | Description | +--------+---------+ + + + | 10/29/ | Office | Vascular Surgery | Sebas Burton, | Other specified | | 2012 | Visit | at [facility] 2nd Floor | [address] | congenital anomalies | | | | [address] | [address] | (Primary Dx); | | | | [place] Mailcode: | [place], [place] | Congenital lower | | | | [address] | [address] | limb vessel anomaly | | | | [place], | [phone] | | | | | [place] [address] | | | | | | [phone] | | | +--------+---------+ + + + [...] + + + | Blood Pressure | 114/67 | 10/29/2012 10:43 AM | | | | | PDT | | + + + + + | Pulse | 89 | 10/29/2012 10:43 AM | | | | | PDT | | + + + + + | Temperature | - | - | | + + + + + | Respiratory Rate | - | - | | + + + + + | Oxygen Saturation | 100% | 10/29/2012 10:43 AM | | | | | PDT | | + + + + + | Inhaled Oxygen | - | - | | | Concentration | | | | + + + + + | Weight | 119.3 kg (262 lb | 10/29/2012 10:43 AM | | | | 14.4 oz) | PDT | | + + + + + | Height | - | - | | + + + + + | Body Mass Index | 38.27 | 10/24/2011 10:08 AM | | | | | PDT | | + + + + + documented in this encounter Progress Notes Sebas Burton MD - 10/29/2012 11:24 AM PDTID: Mahi C Crescencio is a 37 yr old female with a history of angiodysplasia of the LLE, 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 Subjective: Ms. Prather is overall doing well. Her main complaint is that she feels that her gluteal cleft lymphangiomas have returned. She first noticed these 3-4 months ago. The y are located bilaterally but the ones on the left are now painful and often have drainage. She says she feels like I am sitting on razor blades . The lymphedema in her LLE is stable. She denies any pain or recurrence of her DVT in this leg. She continues to wear co mpression stocking on the left leg regularly. She does not have any complaints with the LLE . Objective: Wt. 119.251 kg (262 lbs 14.4 oz, BP 114/67, Pulse 89, SpO2 100%, BMI 38.28 kg/(m2) Physical Exam: General: No apparent distress, sitting comfortably HEENT: Atraumatic, normocephalic Back: Multiple 0.5-1 cm erythematous nodules located just laterally to the gluteal cleft bi laterally, more extensive on the left. Extremities: WWP, marked lymphedema in the left lower extremity up to the hip, angiodysplas ia noted on the lateral aspect of the left leg surrounding the knee, no ulcerations or signs of infection. Laboratory Data: No recent lab data Imaging (Vascular Labs, Ultrasound, Computed Tomography): No recent imaging Assessment and Plan: Ms. Prather is a 37 yr old female with a history of LLE angiodysplasial, gluteal cleft lymph angiomas, DVT, and PE who presents today with recurrence of the gluteal cleft lymphangiomas bilaterally, worse on the left. - Gluteal cleft lymphangioma: Discussed with patient the options for treatment including s urveillance , excision by the Vascular team, or discussing options with Dr. Mendoza the Plas tic Surgeon she has also see for this issue. She has decided to see Dr. Mendoza for his opi nion. We will put in for a referral to his clinic. Instructed her to return to our clinic if she would like to have the Vascular team treat her lymphangiomas. - LLE angiodysplasia with chronic lymphedema: Stable today without complaints. Refill for her compression stockings (Thigh-high 40-50). Instructed her to limit the use of the stock ings to 6 months at a time for maximum benefit. - Return to clinic in 1 year for LLE angiodysplasia SEBAS BURTON MD VASCULAR SURGERY [address] [place] [address] Mailcode: [address] [place] [address] documented in this en counter Plan of Treatment Not on filedocumented as of this encounter Visit Diagnoses + + | Diagnosis | + + | Other specified congenital anomalies - Primary | + + | Congenital lower limb vessel anomaly | + + documented in this encounter
--- OUTSIDE RECORDS SUMMARY | ~2019-02-10 | XMS | Encounter Summary ---
Demographics + + + | Address | [address] | | | [place] [address] | + + + | Home Phone | | + + + | Preferred Language | Unknown | + + + | Marital Status | Single | + + + | Evangelical Affiliation | PRO | + + + [...] Team Providers + +------+ + | Care Commercial Baking Teacher Name | Role | Phone | + +------+ + | Timothy Burks MD | PCP | | + +------+ + Reason for Visit + + + | Reason | Comments | + + + | Follow-up visit | 3mth f/u gluteal cleft hemangnoma | + + + Consultation (Routine) +--------+--------+ + + + + | Status | Reason | Specialty | Diagnoses / | Referred By | Referred To | | | | | Procedures | Contact | Contact | +--------+--------+ + + + + | Closed | | Plastic | Diagnoses | Tyler, | Kelly, | | | | Surgery | Other | MD Sebas | MD Uzair | | | | | specified | [address] | [address] | | | | | congenital | [address] | [address] | | | | | anomalies | [address] | [facility], [place] | | | | | Congenital | [place] | [address] | | | | | lower limb | [address] | Phone: | | | | | vessel | Phone: | [phone] | | | | | anomaly | [phone] | Fax: | | | | | Procedures | Fax: | [phone] | | | | | CONSULT TO | [phone] | | | | | | SURGERY - | | | | | | | PLASTICS | | | +--------+--------+ + + + + Encounter Details +--------+---------+ + + + | Date | Type | Department | Care Team | Description | +--------+---------+ + + + | 10/24/ | Office | Plastic and | Uzair Mendoza MD | Lymphatic | | 2015 | Visit | Reconstructive | [address] | malformation | | | | Surgery at [facility] [address] | [place], [place] | (Primary Dx) | | | | [address] | [address] | | | | | Mailcode: [facility] | [phone] | | | | | [facility] | | | | | | and Healing, | | | | | | Building [address], 5th | | | | | | Floor [place], [place] | | | | | | [address] | | | | | | [phone] | | | +--------+---------+ + + + [...] +---------+ + + | Blood Pressure | 107/76 | 10/24/2014 3:34 PM | | | | | PDT | | + +---------+ + + | Pulse | 72 | 10/24/2014 3:34 PM | | | | | PDT | | + +---------+ + + | Temperature | - | - | | + +---------+ + + | Respiratory Rate | 16 | 10/24/2014 3:34 PM | | | | | PDT | | + +---------+ + + | Oxygen Saturation | - [...] encounter Progress Notes Uzair Mendoza MD - 10/24/2014 3:49 PM PDTMahi Prather 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 She would like further steroid injections. OBJECTIVE: There a lymphangioma blebs on both sides of the gluteal cleft. They have improve d with the last series of steroid injections. Under sterile conditions 6 mL of Kenalog 40 was injected into the lymphangiomas and scar on both sides of the gluteal cleft. She tolerated it well. PLAN: She will follow up in 6-8 weeks for more injections. documented in this encounter Plan of Treatment Not on filedocumented as of this encounter Procedures + +--------+ + + + | Procedure Name | Priori | Date/Time | Associated Diagnosis | Comments | | | ty | | | | + +--------+ + + + | TN FILL CONTOUR | Routin | 10/24/2014 | Lymphatic | | | DEFCT <1CC | e | 3:49 PM | malformation | | | | | PDT | | | + +--------+ + + + documented in this encounter Visit Diagnoses + + | Diagnosis | + + | Lymphatic malformation - Primary Congenital anomaly, unspecified | + + documented in this encounter
--- OUTSIDE RECORDS SUMMARY | ~2019-02-10 | XMS | Encounter Summary ---
Demographics + + + | Address | [address] | | | [place] [address] | + + + | Home Phone | | + + + | Preferred Language | Unknown | + + + | Marital Status | Single | + + + | Holiness Affiliation | PRO | + + + [...] Team Providers + +------+ + | Care Home Restoration Service Supervisor Name | Role | Phone | + +------+ + | Timothy Burks MD | PCP | | + +------+ + Encounter Details +--------+ + + + + | Date | Type | Department | Care Team | Description | +--------+ + + + + | 08/31/ | Discharge | | Summary, Discharge | D/C Summary ODDS | | 2001 | Summary-Tra | | | | | | nscribed | | | | +--------+ + + [...] + + documented as of this encounter Discharge Summaries Interface, Permastone Applicator In - 11/18/2005 1:09 AM PDT [place] [address] [address] [facility] MEDICAL SUMMARY OF HOSPITALIZATION Med Rec No: [id number] Admission Date: 08/28/2001 Name: Mahi Prather Discharge Date: 08/31/2001 ATTENDING PHYSICIAN: Derrell Lowe MD PRINCIPAL FINAL DIAGNOSIS: Gross hematuria. ADDITIONAL DIAGNOSES: 1. Congenital venous angiodysplasia. 2. History of patent atrial septal defect surgically repaired. 3. History of stroke. 4. History of pulmonary embolism. 5. History of deep venous thrombosis. 6. 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 7. History of atrial fibrillation. PRINCIPAL PROCEDURE: Left lower extremity angiogram. ADDITIONAL PROCEDURES: 1. Cystourethroscopy. 2. Fulguration of bleeding bladder lesion. 3. Neodymium YAG laser coagulation of bleeding lesions. 4. Magnetic resonance venography (MRV) of the pelvis. REASON FOR ADMISSION: This is a middle-aged female patient with known history of angiodysplasia of the lower extremities, and the pelvis, and history of patent atrial septal defect managed surgically, history of atrial fibrillation, previous history of stroke, and previous history of pulmonary embolism. HOSPITAL COURSE: The patient presented with history of hematuria, and was taken to the operating room on August 26, 2001, and was found to be bleeding from distended and dilated veins. Sclerosis of the blood of lesions was performed, and neodymium YAG laser coagulation. The patient did well postoperatively. There was no bleeding. She was discharged home in good general condition. CONDITION ON DISCHARGE: Good general condition. DISCHARGE DISPOSITION: Home. DISCHARGE MEDICATIONS: Continue previous medications. DISCHARGE INSTRUCTIONS: ACTIVITY: Normal. DIET: Normal. FOLLOWUP: Followup with her primary care physician. MD Derrell Cruz MD [place]:x60 C: 2001 [facility] [id number] signed by Interface, Permastone Applicator In at 11/18/2005 1:09 AM PDTdoc umented in this encounter Plan of Treatment Not on filedocumented as of this encounter Visit Diagnoses Not on filedocumented in this encounter"
--- OUTSIDE RECORDS SUMMARY | ~2019-02-10 | XMS | Encounter Summary ---
Demographics + + + | Address | [address] | | | [place] [address] | + + + | Home Phone [...] Team Providers + +------+ + | Care Pile Header Name | Role | Phone | + +------+ + | Timothy Burks MD | PCP | | + +------+ + Encounter Details +--------+ + + + + | Date | Type | Department | Care Team | Description | +--------+ + + + + | 08/31/ | Documentati | Anesthesiology | Unknown . | | | 2001 | on | [address] | | | | | | [place], | | | | | | [place] [address] | | | +--------+ + + + [...] | + +--------+ + + + | ANESTHESIA/SEDATION | | 08/31/2001 | | Results for this | | | | 10:44 AM | | procedure are in the | | | | PDT | | results section. | + +--------+ + + + documented in this encounter Results ANESTHESIA/SEDATION (08/31/2001 10:44 AM PDT) + + + | Narrative | Performed At | + + + | Ordered by an unspecified provider. | | + + + + + | Transcriptions | + + | 08/31/2001 10:44 AM PDT Anesthesia PostOp Report | | | | Patient: CHRISSY PRATHER Med Rec: [id number] Sex F Bdate: 1975 | | Date/Time Data | | Entered Into [facility] | | Anesth PostOp | | Surgery Date 08/31/01 10:44 | | Anesthesiologist JITENDRA NUNEZ 08/31/01 10:44 | | Complications | | None/None Reported YES 08/31/01 09:34 | | Outcomes Information | | Satisfied with care YES 08/31/01 09:34 | | Info obtained from PATIENT 08/31/01 09:34 | | Outcome of Anesthesia NO CHANGE IN HOSPITAL COURSE 08/31/01 09:34 | | | + + documented in this encounter Visit Diagnoses Not on filedocumented in this encounter"
--- OUTSIDE RECORDS SUMMARY | ~2019-02-10 | XMS | Encounter Summary ---
Demographics + + + | Address | [address] | | | [place] [address] | + + + | Home Phone | | + + + | Preferred Language | Unknown | + + + | Marital Status | Single | + + + | Islam Affiliation | PRO | + + + [...] Team Providers + +------+ + | Care Delimer Name | Role | Phone | + +------+ + | Timothy Burks MD | PCP | | + +------+ + Encounter Details +--------+ + + + + | Date | Type | Department | Care Team | Description | +--------+ + + + + | 08/31/ | Results | | Other, Faculty | | | 2006 | Only | | [phone] | | +--------+ + + + + [...] | | | | | MNT) | [address] CLINICAL | | | | | | [...] + + | [facility] | Mailcode [address] | [place] [address] | | | DERMATOPATHOLOGY | Lawrence Acosta | | | + + + + + documented in this encounter Visit Diagnoses Not on filedocumented in this encounter"
--- OUTSIDE RECORDS SUMMARY | ~2019-02-10 | XMS | Encounter Summary ---
Demographics + + + | Address | [address] | | | [place] [address] | + + + | Home Phone [...] + + + | Author | [facility] | + + + | Organization | [facility] | + + + | Address [...] Team Providers + +------+ + | Care Flow Worker Name | Role | Phone | + +------+ + | Timothy Burks MD | PCP | | + +------+ + Reason for Visit + + + | Reason | Comments | + + + | Follow-up in | edema of her left leg | | outpatient clinic | | + + + Encounter Details +--------+---------+ + + + | Date | Type | Department | Care Team | Description | +--------+---------+ + + + | 01/20/ | Office | Vascular Surgery | Sebas Lauren, | Vascular Anomaly | | 2007 | Visit | at [facility] 2nd Floor | [address] | (Primary Dx) | | | | [address] | [address] | | | | | [place] Mailcode: | [place], [place] | | | | | [address] Phys[address] | [phone] | | | | | [place], | [phone] | | | | | [place] [address] | | | | | | [phone] | | | +--------+---------+ + + + [...] Comments | + + +---------+ + | Not Asked | | | | + + +---------+ [...] as of this encounter Progress Notes Sebas Lauren - 01/21/2008 10:25 AM PDTAddendum: I wrote her a prescription for 40-50 mmH g thigh high compression stockings. SEBAS LAUREN MD VASCULAR SURGERY, [address] Mail Code [address] [place] [address] Email: [email or web address] ebas Lauren - 008 10:21 AM PDT VASCULAR AND ENDOVASCULAR SURGERY CLINIC Reason for Visit: f/u excision of gluteal AVM and LLE AVM HISTORY: Ms. Prather is a 32 y.o. female who is s/p left gluteal cleft AVM excision last yea r. She has recently noticed AVM recurrence with new onset of bleeding and drainage. She othe rwise is doing well. He left leg AVM is stable and she is able to ambulate without difficult y. 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 Atrial septal defect surgically repaired 06-29-2007 other 06-29-2007 Hx total abdominal hysterectomy 06-29-2007 Current outpatient prescriptions Medication Sig CLARITIN OR one tablet by mouth every day Conjugated Estrogens (PREMARIN) 0.625 mg Oral Tablet take 1 tablet (0.625 mg) by oral r oute once daily for 21 consecutive days, followed by 7 days off COUMADIN ORAL 10 mg every day except 7.5mg on sundays PROZAC OR take 1 table by mouth every day Allergies Allergen Reactions Codeine Hydrocodone PHYSICIAN EXAMINATION: the patient appears WDWN and in no distress motor function is 5 of 5 in all extremities and sensation is intact in all extremities. There is recurrent AVM at the site of her previous left gluteal cleft AVM excision. Large l eft leg AVM. Good pulses in all extremities. No other significant abnormalities noted on exa m. ASSESSMENT AND PLAN: recurrent left gluteal cleft AVM. It is painful enough that she wishes to have definitive treatment of it. She has not had any imaging of this for a long time. I would like to do a pelvic MRI to assess its depth before doing any further excision. We will schedule an MRI and see her back afterwards. CC: Timothy Burks MD [facility] [address] [place] [address] [place] [id number] documented in this encoun ter Plan of Treatment Not on filedocumented as of this encounter Procedures + +--------+ + + + | Procedure Name | Priori | Date/Time | Associated Diagnosis | Comments | | | ty | | | | + +--------+ + + + | MRA PELVIS W | Routin | 02/07/2008 | | Results for this | | CONTRAST | e | 1:54 PM | | procedure are in the | | | | PST | | results section. | + +--------+ + + + | MRI PELVIS WWO | Routin | 02/07/2008 | Vascular Anomaly | Results for this | | CONTRAST | e | 1:54 PM | | procedure are in the | | | | PST | | results section. | + +--------+ + + + documented in this encounter Results MRA PELVIS W CONTRAST (02/07/2008 1:54 PM PST) + + + + + + | Component | Value | Ref Range | Performed | Pathologist | | | | | At | Signature | + + + + + + | MR MRA | Procedure: MRI and MR | | | | | PELVIS W | angiogram of the | | | | | CONTRAST | pelvisIndications: 32 | | | | | | year-old female with | | | | | | known vascular | | | | | | malformation leftleg and | | | | | | pelvis. Patient has | | | | | | had prior MR in 1999 and | | | | | | 2001, andselective | | | | | | venography in 2001. At | | | | | | the time of venography, | | | | | | and therewere no | | | | | | apparent deep valves in | | | | | | a lower extremity. | | | | | | There was anapparent | | | | | | persistent sciatic vein | | | | | | on the left.Procedure:T1 | | | | | | weighted aircraft instrument repairer images | | | | | | as well and has proton | | | | | | density axial imagesin | | | | | | three planes, T1 | | | | | | weighted images in three | | | | | | planes, and | | | | | | postcontrastgradient | | | | | | echo images were | | | | | | obtained. Angiographic | | | | | | MIP projectionswere | | | | | | performed. The present | | | | | | study is compared to | | | | | | two prior | | | | | | studies.Findings:There | | | | | | are numerous low flow | | | | | | vascular structures in | | | | | | the soft tissuesof the | | | | | | posterior left buttock | | | | | | and extending into the | | | | | | pelvis along thesuperior | | | | | | aspect of the bladder. | | | | | | The subcutaneous | | | | | | components of thisappear | | | | | | more prominent than on | | | | | | the previous studies. 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 | | | | | | In the low left | | | | | | posterior inferior | | | | | | gluteal deep | | | | | | subcutaneousfat there is | | | | | | a oblong venous albrecht | | | | | | that was not seen on | | | | | | prior studies.There is a | | | | | | large draining vein | | | | | | posteriorly in the | | | | | | region of thesciatic | | | | | | nerve that appears to | | | | | | emanate from the left | | | | | | internal iliacvein.. | | | | | | This extends inferiorly | | | | | | and laterally. The | | | | | | common femoralvein is | | | | | | normal. The femoral | | | | | | vein in the thigh is not | | | | | | well-visualizedon this | | | | | | study. there is no | | | | | | arterial component. | | | | | | The left common | | | | | | iliacvein is again noted | | | | | | to be somewhat enlarged | | | | | | but unchanged compared | | | | | | toprior studies. No | | | | | | pelvic masses are | | | | | | identified. There is | | | | | | atrophy ofthe left | | | | | | gluteal muscles. The | | | | | | bony structures appear | | | | | | intact.Impression:1. | | | | | | Extensive venous | | | | | | confirmation left thigh | | | | | | and left | | | | | | buttock.Intrapelvic | | | | | | components involving | | | | | | bladder dome. 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 | | | | | | Thesefindings are | | | | | | largely stable, although | | | | | | the subcutaneous veins | | | | | | appearmore prominent on | | | | | | the current | | | | | | study.[id number] have | | | | | | personally viewed this | | | | | | procedure/exam and | | | | | | reviewed this | | | | | | report.Author: SUNG | | | | | | Jay NORRISReviewer: | | | | | | SUNG Doe | | | | | | Jay JUAREZSTATUS FINAL | | | | | | / Dr. SUNG Doe | | | | | | JOSYUS FINAL / | | | | | | Dr. SUNG Doe | | | | | | JOSYUS | | | | | | PRELIMINARY - UNSIGNED / | | | | | | Dr. SUNG JUAREZ | | | | + + + + + + + + | Specimen | + + | | + + + +---------+ + + | Performing | Address | City/State/Zipcode | Phone Number | | Organization | | | | + +---------+ + + | [facility] | | | | | RADIOLOGY | | | | + +---------+ + + MRI PELVIS WWO CONTRAST (02/07/2008 1:54 PM PST) + + + + + + | Component | Value | Ref Range | Performed | Pathologist | | | | | At | Signature | + + + + + + | MR PELVIS | Procedure: MRI and MR | | | | | WWO | angiogram of the | | | | | CONTRAST | pelvisIndications: 32 | | | | | | year-old female with | | | | | | known vascular | | | | | | malformation leftleg and | | | | | | pelvis. Patient has | | | | | | had prior MR in 1999 and | | | | | | 2001, andselective | | | | | | venography in 2001. At | | | | | | the time of venography, | | | | | | and therewere no | | | | | | apparent deep valves in | | | | | | a lower extremity. | | | | | | There was anapparent | | | | | | persistent sciatic vein | | | | | | on the left.Procedure:T1 | | | | | | weighted aircraft instrument repairer images | | | | | | as well and has proton | | | | | | density axial imagesin | | | | | | three planes, T1 | | | | | | weighted images in three | | | | | | planes, and | | | | | | postcontrastgradient | | | | | | echo images were | | | | | | obtained. Angiographic | | | | | | MIP projectionswere | | | | | | performed. The present | | | | | | study is compared to | | | | | | two prior | | | | | | studies.Findings:There | | | | | | are numerous low flow | | | | | | vascular structures in | | | | | | the soft tissuesof the | | | | | | posterior left buttock | | | | | | and extending into the | | | | | | pelvis along thesuperior | | | | | | aspect of the bladder. | | | | | | The subcutaneous | | | | | | components of thisappear | | | | | | more prominent than on | | | | | | the previous studies. 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 | | | | | | In the low left | | | | | | posterior inferior | | | | | | gluteal deep | | | | | | subcutaneousfat there is | | | | | | a oblong venous albrecht | | | | | | that was not seen on | | | | | | prior studies.There is a | | | | | | large draining vein | | | | | | posteriorly in the | | | | | | region of thesciatic | | | | | | nerve that appears to | | | | | | emanate from the left | | | | | | internal iliacvein.. | | | | | | This extends inferiorly | | | | | | and laterally. The | | | | | | common femoralvein is | | | | | | normal. The femoral | | | | | | vein in the thigh is not | | | | | | well-visualizedon this | | | | | | study. there is no | | | | | | arterial component. | | | | | | The left common | | | | | | iliacvein is again noted | | | | | | to be somewhat enlarged | | | | | | but unchanged compared | | | | | | toprior studies. No | | | | | | pelvic masses are | | | | | | identified. There is | | | | | | atrophy ofthe left | | | | | | gluteal muscles. The | | | | | | bony structures appear | | | | | | intact.Impression:1. | | | | | | Extensive venous | | | | | | confirmation left thigh | | | | | | and left | | | | | | buttock.Intrapelvic | | | | | | components involving | | | | | | bladder dome. 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 | | | | | | Thesefindings are | | | | | | largely stable, although | | | | | | the subcutaneous veins | | | | | | appearmore prominent on | | | | | | the current | | | | | | study.[id number] have | | | | | | personally viewed this | | | | | | procedure/exam and | | | | | | reviewed this | | | | | | report.Author: SUNG | | | | | | Jay NORRISReviewer: | | | | | | SUNG Doe | | | | | | Jay JUAREZSTATUS FINAL | | | | | | / Dr. SUNG Doe | | | | | | LARRYSTATUS FINAL / | | | | | | Dr. SUNG Doe | | | | | | INDU | | | | | | PRELIMINARY - UNSIGNED / | | | | | | Dr. 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
--- OUTSIDE RECORDS SUMMARY | ~2019-02-10 | XMS | Encounter Summary ---
Demographics + + + | Address | [address] | | | [place] [address] | + + + | Home Phone [...] Author + + + | Author | [facility] | + + + | Organization | [facility] | + + + | Address [...] Team Providers + +------+ + | Care Heading Pinner Name | Role | Phone | + +------+ + | Timothy Burks MD | PCP | | + +------+ + Encounter Details +--------+ + + + + | Date | Type | Department | Care Team | Description | +--------+ + + + + | 02/16/ | Telephone | Vascular Surgery | Surgery, Vascular | | | 2014 | | at [facility] 2nd Floor | [address] | | | | | [address] | [facility] | | | | | [place] Mailcode: | [place] [address] | | | | | [address] | | | | | | [place] | | | | | | [place] [address] | | | | | | [phone] | | | +--------+ + + + [...]
--- OUTSIDE RECORDS SUMMARY | ~2019-02-10 | XMS | Encounter Summary ---
Demographics + + + | Address | [address] | | | [place] [address] | + + + | Home Phone | | + + + | Preferred Language | Unknown | + + + | Marital Status | Single | + + + | Gnosticist Affiliation | PRO | + + + | Race | White | + + + | Ethnic Group | Not or | + + + Author + + + | Author | [facility] | + + + | Organization | [facility] | + + + | [...] Team Providers + +------+ + | Care Java Websphere Developer Name | Role | Phone | [...] + + + + | 01/10/ | Hospital | [facility] | Uzair Mendoza MD | | | 2012 | Encounter | [address] | [address] | | | | | Ave Mailcode: [facility] | [place], [place] | | | | | [facility] | [address] | | | | | [facility], | [phone] | | | | | [address] [address] | | | | | | [place], [place] | | | | | | [address] | | | | | | [phone] | | | +--------+ + + + [...] + + + | Blood Pressure | 127/77 | 01/10/2013 10:45 AM | | | | | PDT | | + + + + + | Pulse | 65 | 01/10/2013 10:45 AM | | | | | PDT | | + + + + + | Temperature | 36.7 C (98.1 F) | 01/10/2013 10:45 AM | | | | | PDT | | + + + + + | Respiratory Rate | 14 | 01/10/2013 10:45 AM | | | | | PDT | | + + + + + | Oxygen Saturation | 97% | 01/10/2013 10:45 AM | | | | | PDT | | + + + + + | Inhaled Oxygen | - | - | | | Concentration | | | | + + + + + | Weight | 117.9 kg (260 lb) | 01/10/2013 6:35 AM | | | | | PDT | | + + + + + | Height | 175.3 cm (5' 9") | 01/10/2013 6:35 AM | | | | | PDT | | + + + + + | Body Mass Index | 38.4 | 01/10/2013 6:35 AM | | | | | PDT | | + + + + + documented in this encounter Discharge Instructions Instructions Rigoberto Bills RN - 01/10/2013 Nursing Disc harge Instructions General discharge instructions for same-day procedure patients: Remember that you are under the influence of medication. Do not stay alone. A responsible person should be with you. Do not drive, drink alcohol or make important personal or business decision for 24 hours . Resume normal activity and return to work when advised by your Doctor. Pain Management: 650mg Tylenol at 11:15am Your last oral pain medication was given at: Please follow your Doctor's instructions on the medication bottle. Do not take pain medication on an empty stomach, as this may cause nausea and vomiting. Do not drive or drink alcohol while on narcotic pain medication. If you received a Peripheral Nerve Block, please take pain medication when numbing begin s to wear off or when you go to bed. This will allow for pain coverage when your nerve bloc k wears off during the night. Diet: If you do not experience nausea or vomiting resume your regular diet. Eat lightly and av oid large, high fat or highly spiced meals for 24-48 hours. Constipation can be a side effect of narcotic pain medication. Take stool softeners, in crease dietary fiber and drink plenty of water to prevent this. Wound/Dressing/Drain Care: Change your dressing according to your Doctor's instructions. You may place a bandaid o n incisional site if needed. Change bandaid daily. Call your Doctor if there is excessive bleeding, redness, swelling or drainage at the o perative site. IV Site Care Instructions: Monitor IV site for pain, redness, swelling and/or drainage. If present, call your Doct or immediately. Minor redness and/;or tenderness may be treated with warm, moist compresses for 24-48 ho urs, If the area is still red and/or tender after this, notify your Doctor. Call 911 if you experience difficulty breathing or unusual shortness of breath. Additional Home Care Instructions: General instructions for the Care of your Drain at home Follow up Appointment: As scheduled After arriving home you may receive a patient satisfaction survey from "Francoise Schwartz". We w jean marie appreciate your feedback on the survey to help us provide excellent service to you and your families. documented in this encounter Medications at Time [...] +---------+--------+ + documented as of this encounter Plan of Treatment Not on filedocumented as of this encounter Procedures + +--------+ + + + | Procedure Name | Priori | Date/Time | Associated Diagnosis | Comments | | | ty | | | | + +--------+ + + + | PROCEDURE NOTE | Routin | 04/30/2015 | | Results for this | | | e | 9:08 PM | | procedure are in the | | | | PST | | results section. | + +--------+ + + + | PROCEDURE NOTE | Routin | 04/30/2015 | | Results for this | | | e | 9:07 PM | | procedure are in the | | | | PST | | results section. | + +--------+ + + + | BUTTOCK MASS | Electi | 01/10/2013 | Lymphatic | | | EXCISION | ve | 9:01 AM | malformation | | | | Surgic | PDT | | | | | al | | | | + +--------+ + + + | SURGICAL PATHOLOGY | Routin | 01/10/2013 | | Results for this | | | e | | | procedure are in the | | | | | | results section. | + +--------+ + + + documented in this encounter Results PROCEDURE NOTE (04/30/2015 9:08 PM PST)PROCEDURE NOTE (04/30/2015 9:07 PM PST) + + | Transcriptions | + + | Other, Faculty - 01/12/2013 6:09 AM PDT | + + SURGICAL PATHOLOGY (01/10/2013) + + + + + + | Component | Value | Ref Range | Performed | Pathologist | | | | | At | Signature | + + + + + + | SURGICAL | SOURCE OF SPECIMEN:A | | [facility] | | | PATHOLOGY | Inferior left buttock | | DEPARTMENT | | | | lesionSOURCE OF | | OF | | | | SPECIMEN:B Superior left | | PATHOLOGY | | | | buttock lesion | | | | | | Final Pathologic | | | | | | Diagnosis:A. Left | | | | | | buttock, inferior | | | | | | lesion, resection:- | | | | | | Lymphangioma, completely | | | | | | excised B. Left | | | | | | buttock, superior | | | | | | lesion, resection:- | | | | | | Lymphangioma, completely | | | | | | excised Case seen | | | | | | by:Hugh Sprague M.D., | | | | | | Ph.D./Surgical | | | | | | Pathology FellowRichard | | | | | | Katya Abdi, | | | | | | M.D./Pathologist | | | | | | Clinical History:The | | | | | | patient is a 37-year-old | | | | | | female with buttock | | | | | | lesions. Gross | | | | | | Description:Received are | | | | | | 2 specimens fresh in | | | | | | containers labeled with | | | | | | the patient | | | | | | name(initials SUZANNE) and: | | | | | | A: Inferior left | | | | | | buttock lesion: | | | | | | Received is an | | | | | | unoriented skin | | | | | | excisionmeasuring 1.5 x | | | | | | 0.8 cm to a depth of 1.1 | | | | | | cm. The epidermal | | | | | | surfacecontains a 1 x | | | | | | 0.6 x 0.3-cm, claire-pink, | | | | | | elevated, wrinkled | | | | | | lesion. Thelesion | | | | | | comes within 0.1 cm of | | | | | | the nearest resection | | | | | | margin. The entiredeep | | | | | | margin is inked black. | | | | | | The specimen is | | | | | | trisected and submitted. | | | | | | B: Superior | | | | | | left buttock lesion: | | | | | | Received is an | | | | | | oriented skin | | | | | | excisionmeasuring 6 (SI) | | | | | | x 1.4 (ML) x 3.3 (SD) | | | | | | cm. The epidermal | | | | | | surface containsmultiple | | | | | | claire-pink, bulging, | | | | | | bosselated lesions | | | | | | measuring 5 x 1.4 x 0.8 | | | | | | cmin aggregate. The | | | | | | closest approach to | | | | | | margin is 0.1 cm to the | | | | | | superiorlateral margin | | | | | | and 0.1 cm to the | | | | | | superior medial margin. | | | | | | The remaininglesion | | | | | | comes within 0.2 cm of | | | | | | remaining margins. The | | | | | | specimen is | | | | | | inkedaccording to the | | | | | | color scheme: Superior = | | | | | | blue, inferior = green, | | | | | | medial =orange, lateral | | | | | | = purple, deep = black. | | | | | | The lesion grossly | | | | | | appears toextend 1.5 cm | | | | | | into the subjacent | | | | | | tissue and comes within | | | | | | 1.5 cm of the | | | | | | deepmargin. The entire | | | | | | specimen is serially | | | | | | sectioned and | | | | | | sequentiallysubmitted | | | | | | from superior to | | | | | | inferior. Cassette | | | | | | Index:A: Inferior | | | | | | left buttock lesion:A1B: | | | | | | Superior left buttock | | | | | | lesion:B1, bisected | | | | | | superior tipB2-8, | | | | | | sequentially submitted | | | | | | from superior to | | | | | | inferiorB9, inferior tip | | | | | | bisectedAMJ:tp My | | | | | | electronic signature | | | | | | indicates that I have | | | | | | personally reviewed | | | | | | alldiagnostic slides, | | | | | | the gross and/or | | | | | | microscopic portion of | | | | | | thisreport and | | | | | | formulated the final | | | | | | diagnosis. | | | | | | Rendering Diagnostician: | | | | | | Imtiaz Abdi | | | | | | MTerrancePathologistElectroni | | | | | | chino Signed 01/14/2013 | | | | | | 2:49PM | | | | + + + + + + + + | Specimen | + + | | + + + + + + + | Performing | Address | City/State/Zipcode | Phone Number | | Organization | | | | + + + + + | [facility] | [address] | [place] [address] | | | PATHOLOGY | [address] | | | + + + + + documented in this encounter Visit Diagnoses Not on filedocumented in this encounter Administered Medications + +--------+ +--------+------+------+ | Medication Order | MAR | Action | Dose | Rate | Site | | | Action | Date | | | | + +--------+ +--------+------+------+ | acetaminophen (TYLENOL) tablet | Given | 01/11/20 | 625 mg | | | | 500-1,000 mg 500-1,000 mg, oral, | | 13 11:15 | | | | | EVERY 6 HOURS NEEDED, | | AM PDT | | | | | Starting Lexus 01/10/13 at 0958, | | | | | | | Until Lexus 01/10/13 at 1747, mild | | | | | | | pain | | | | | | + +--------+ +--------+------+------+ +---+---+ | | | +---+---+ + +---------+ [...] | | +---+---+ + +-------+ +--------+---+---+ | lidocaine (XYLOCAINE) 10 mg/mL | Given | 01/11/20 | 0.1 mL | | | | (1 %) injection subcutaneous, | | 13 7:08 | | | | | PREPROCEDURE PRN, Starting Lexus | | AM PDT | | | | | 01/10/13 at 0639, Until Lexus | | | | | | | 01/10/13 at 1747, IV start | | | | | | + +-------+ +--------+---+---+ +---+---+ | | | +---+---+ + + + +---------+---+---+ | scopolamine (TRANSDERM-SCOPE) | Applied | 01/11/20 | 1 patch | | | | 1.5 mg 1 patch 1 patch, | Patch | 13 7:10 | | | | | transdermal, ONCE, 1 dose, Lexus | | AM PDT | | | | | 01/10/13 at 1700 | | | | | | + + + +---------+---+---+ +---+---+ | | | +---+---+ documented in this encounter
--- OUTSIDE RECORDS SUMMARY | ~2019-02-10 | XMS | Encounter Summary ---
Demographics + + + | Address | [address] | | | [place] [address] | + + + | Home Phone | | + + + | Preferred Language | Unknown | + + + | Marital Status | Single | + + + | Gnosticism Affiliation | PRO | + + + [...] Team Providers + +------+ + | Care Packager Hand Name | Role | Phone | + +------+ + | Timothy Burks MD | PCP | | + +------+ + Encounter Details +--------+ + + + + | Date | Type | Department | Care Team | Description | +--------+ + + + + | 11/25/ | Telephone | Vascular Surgery | Surgery, Vascular | | | 2016 | | at [facility] 2nd Floor | [address] | | | | | [address] | [facility] | | | | | [place] Mailcode: | [place] [address] | | | | | [address] | | | | | | [place] | | | | | | [place] [address] | | | | | | [phone] | | | +--------+ + + + [...]
--- OUTSIDE RECORDS SUMMARY | ~2019-02-10 | XMS | Encounter Summary ---
Demographics + + + | Address | [address] | | | [place] [address] | + + + | Home Phone | | + + + | Preferred Language | Unknown | + + + | Marital Status | Single | + + + | Amish Affiliation | PRO | + + + | Race | White | + + + | Ethnic Group | Not or | + + + Author + + + | Author | [facility] | + + + | Organization | [facility] | + + + | Address [...] Team Providers + +------+ + | Care Equipment Operator Name | Role | Phone [...] | Closed | | | | | [address] | | | | | | | Short Stay | | | | | | | [address] | | | | | | | [address] | | | | | | | [address] | | | | | | | [place] | | | | | | | [place] | | | | | | | [facility] | | | | | | | ([facility]) | | | | | | | [place], | | | | | | | [place] [address] | | | | | | | Phone: | | | | | | | [phone] | | | | | | | Fax: | | | | | | | [phone] | +--------+--------+ + + + + Encounter Details +--------+ + + + + | Date | Type | Department | Care Team | Description | +--------+ + + + + | 03/06/ | Hospital | [facility] [address] | Sebas Payan, | | | 2007 | Encounter | [address] | MD [address] [facility] | | | | | [address] [place] [address]/[facility] | [address] | | | | | Donald Velasquez | [place], [place] | | | | | ([place]/[facility]) | [address] | | | | | [place], [place] | [phone] | | | | | [address] | | | | | | [phone] | | | +--------+ + + + [...] + + + | Blood Pressure | 106/48 | 03/06/2008 6:45 PM | | | | | PST | | + + + + + | Pulse | 72 | 03/06/2008 6:45 PM | | | | | PST | | + + + + + | Temperature | 36.1 C (97 F) | 03/06/2008 6:28 PM | | | | | PST | | + + + + + | Respiratory Rate | 16 | 03/06/2008 6:45 PM | | | | | PST | | + + + + + | Oxygen Saturation | 97% | 03/06/2008 6:45 PM | | | | | PST | | + + + + + | Inhaled Oxygen | - | - | | | Concentration | | | | + + + + + | Weight | 104.3 kg (230 lb) | 03/06/2008 2:37 PM | | | | | PST | | + + + + + | Height | 175.3 cm (5' 9") | 03/06/2008 2:37 PM | | | | | PST | | + + + + + | Body Mass Index | 33.97 | 03/06/2008 2:37 PM | | | | | PST | | + + + + + documented in this encounter Discharge Summaries Adalberto, Dre - 03/06/2008 7:00 PM PST Raquel Vazquez - 03/06/2008 5:17 PM PSTFormatt ing of this note might be different from the original. 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 Prather is a 32 y.o. 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 She nathan s recently noticed AVM recurrence with new onset of bleeding and drainage. She underwent re- excision of gluteal cleft AVM without apparent complication. Discharge Medications: Current Medication List Name Sig CLARITIN OR one tablet by mouth every day CONJUGATED ESTROGENS 0.625 MG TAB take 1 tablet (0.625 mg) by oral route once daily for 21 consecutive days, followed by 7 days off COUMADIN ORAL 10 mg every day except 7.5mg on sundays LOVENOX 150 MG/ML SUB-Q SYRINGE inject 1.5 mg/kg by subcutaneous route once daily, start on MondayMarch 03, finish on MondayMarch 05 PROZAC OR take 1 table by mouth every day Oxycodone 5-10mg PO Q3h prn pain disp 30 Diet: regular Activity: No Restrictions Special Instructions: (Treatment, Equipment, Supplies, Dressings, LAB follow-up) Weigh daily: no Call: Vascular Surgery Resident at If you have any of the following: Difficulty breathing or unusual shortness of breath Excessive bleeding, drainage at the operative site Fevers, chills, increased pain that is not relieved by pain medications Persistent nausea or vomiting Other SPECIFIC concerns, such as: Follow Up Appointments: PCP: Timothy Burks MD When? Vascular Surgery clinic in 2 weeks, call to schedule [phone] Other: Follow Up Tests: (Tests at [facility] must be entered into Epic) Condition On Discharge: good Vital Signs at discharge as appropriate: BP: 103/58 mmHg (03/06/08 2:02 PM) Pulse: 72 (03/06/08 2:02 PM) Resp: 16 (03/06/08 2:02 PM) Wt - Scale: 104.327 kg (230 lb) (03/06/08 2:37 PM) Discharge Patient To: Home Does patient have a planned readmission: No Discharge Summary Completed?: Yes- Date Discharging Provider: RAQUEL VAZQUEZ MD Date Completed: Time Completed: Discharging Attending: MD RAQUEL Ayala MD [facility] [address] [place] [address] documented in this encoun ter Discharge Instructions Instructions Raquel Vazquez - 03/06/2008Formatting of this note might be different from t he original. 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 Prather is a 32 y.o. 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 She nathan s recently noticed AVM recurrence with new onset of bleeding and drainage. She underwent re- excision of gluteal cleft AVM without apparent complication. Discharge Medications: Current Medication List Name Sig CLARITIN OR one tablet by mouth every day CONJUGATED ESTROGENS 0.625 MG TAB take 1 tablet (0.625 mg) by oral route once daily for 21 consecutive days, followed by 7 days off COUMADIN ORAL 10 mg every day except 7.5mg on sundays LOVENOX 150 MG/ML SUB-Q SYRINGE inject 1.5 mg/kg by subcutaneous route once daily, start on MondayMarch 03, finish on MondayMarch 05 PROZAC OR take 1 table by mouth every day Diet: regular Activity: No Restrictions Special Instructions: (Treatment, Equipment, Supplies, Dressings, LAB follow-up) Weigh daily: no Call: Vascular Surgery Resident at If you have any of the following: Difficulty breathing or unusual shortness of breath Excessive bleeding, drainage at the operative site Fevers, chills, increased pain that is not relieved by pain medications Persistent nausea or vomiting Other SPECIFIC concerns, such as: Follow Up Appointments: PCP: Timothy Burks MD When? Vascular Surgery clinic in 2 weeks, call to schedule [phone] Other: Follow Up Tests: (Tests at [facility] must be entered into Epic) Condition On Discharge: good Vital Signs at discharge as appropriate: BP: 103/58 mmHg (03/06/08 2:02 PM) Pulse: 72 (03/06/08 2:02 PM) Resp: 16 (03/06/08 2:02 PM) Wt - Scale: 104.327 kg (230 lb) (03/06/08 2:37 PM) Discharge Patient To: Home Does patient have a planned readmission: No Discharge Summary Completed?: Yes- Date Discharging Provider: RAQUEL VAZQUEZ MD Date Completed: Time Completed: Discharging Attending: Sebas Payan MD documented in this encounter Progress Notes Sebas Payan - 03/06/2008 3:35 PM PSTVascular Attending Preop Note Full PARQ conference held with patient. 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 It is in the g luteal cleft just to the right of midline. It is an exophytic lesion about 1x4cm at the site of prior excision. It is exquisitely tender and also frequently bleeds. She wishes to have it re-excised. She had a recent MRI that showed some hypervascularity in the general region but no significant vascular anomaly that would preclude excision. I discussed the procedure in detail with the patient including a discussion of alternatives, benefits, and risks. Risk s include but are not limited to bleeding, infection, lesion recurrence, nerve injury, anest hetic complications, others. Patient understands and wishes to proceed. Questions solicited and answered. Consent signed by patient. SEBAS PAYAN MD VASCULAR SURGERY, [address] [place] [address] Email: [email or web address] documented in this encoun ter Plan of Treatment Not on filedocumented as of this encounter Procedures + +--------+ + + + | Procedure Name | Priori | Date/Time | Associated Diagnosis | Comments | | | ty | | | | + +--------+ + + + | PROCEDURE NOTE | Routin | 05/01/2015 | | Results for this | | | e | 2:16 PM | | procedure are in the | | | | PST | | results section. | + +--------+ + + + | ANESTHESIA/SEDATION | | 03/06/2008 | | Results for this | | | | 7:00 PM | | procedure are in the | | | | PST | | results section. | + +--------+ + + + | ANESTHESIA/SEDATION | | 03/06/2008 | | Results for this | | | | 7:00 PM | | procedure are in the | | | | PST | | results section. | + +--------+ + + + | INR | Urgent | 03/06/2008 | | Results for this | | | | 2:25 PM | | procedure are in the | | | | PST | | results section. | + +--------+ + + + | OPERATION RECORD | | 03/06/2008 | | Results for this | | | | 12:00 AM | | procedure are in the | | | | PST | | results section. | + +--------+ + + + | SURGICAL PATHOLOGY | Routin | 03/06/2008 | | Results for this | | | e | | | procedure are in the | | | | | | results section. | + +--------+ + + + documented in this encounter Results PROCEDURE NOTE (05/01/2015 2:16 PM PST)ANESTHESIA/SEDATION (03/06/2008 7:00 PM PST) + + + | Narrative | Performed At | + + + | | | + + + + + | Procedure Note | + + | Dre Glover - 03/06/2008 7:00 PM PST | + + ANESTHESIA/SEDATION (03/06/2008 7:00 PM PST) + + + | Narrative | Performed At | + + + | | | + + + + + | Procedure Note | + + | Dre Glover - 03/06/2008 7:00 PM PST | + + INR (03/06/2008 2:25 PM PST) + + + + + + | Component | Value | Ref Range | Performed | Pathologist | | | | | At | Signature | + + + + + + | INR | 1.26 (H)Comment: | 0.90 - 1.20 INR | [...] | + + + + + | [facility] | [address] | [place] [address] | | | PATHOLOGY | [address] | | | + + + + + | [facility] | [address] | [place] [address] | | | PATHOLOGY | [address] | | | + + + + + OPERATION RECORD (03/06/2008 12:00 AM PST) + + + | Narrative | Performed At | + + + | [id number] | | | [id number] | | | [id number] [address] [id number] | | | Date: 03/06/2008 Attending | | | Surgeon: Sebas Payan M.D. | | | Business Continuity Director(s): Raquel Vazquez M.D. | | | Preoperative Diagnosis(es): Right gluteal cleft mass. | | | Postoperative Diagnosis(es): Right gluteal cleft mass. | | | Procedures Performed: Excision of right gluteal cleft mass. | | | Anesthesia: General. Indications: Recurrent right gluteal | | | cleft mass causing significant pain and bleeding. The patient | | | wishes excision of the mass. Findings: We made an elliptical | | | incision around the mass. This was an exophytic mass, and when | | | measured in the operating room measured about 7 cm in length and 1 | | | to 2 cm in width. An elliptical incision was made around this with | | | sharp dissection and electrocautery and carried down to the | | | subcutaneous tissue. The subcutaneous tissue actually appeared | | | normal. There was no vascular lesion present in the subcutaneous | | | tissue. Normal fat was encountered. The lesion was excised and | | | sent to Pathology. Primary closure of the wound performed. | | | Procedure: I met with the patient in the preoperative holding area | | | and discussed the procedure in detail with her including a | | | discussion of alternatives, benefits and risks. The right gluteal | | | cleft lesion was inspected, and the site was marked. Questions | | | were solicited and answered, and the patient wishes to proceed. I | | | did explain to the patient that it is certainly possible that the | | | lesion could recur, and she understands this but feels sufficiently | | | symptomatic presently to want to proceed with the excision. | | | The patient was then brought to the operating room and placed | | | supine. General anesthesia was induced, and she was then placed in | | | the prone position. The right gluteal region was prepped and | | | draped sterilely. An elliptical incision was made around the | | | mass. In order to incorporate the entire mass, the incision was | | | approximately 9 cm in length and 2 cm in width. Sharp dissection | | | and electrocautery were performed down to the subcutaneous tissue, | | | and the lesion was completely excised. The subcutaneous tissue | | | appeared normal. There were no abnormal vascular structures | | | encountered. Normal fat was present. The mass was sent to | | | Pathology and labeled with suture for orientation. We then | | | raised some subcutaneous flaps medially and laterally to facilitate | | | wound closure. The subcutaneous tissue was closed with | | | interrupted 3-0 Vicryl suture, and the skin closed with vertical | | | mattress 2-0 nylon suture. Local anesthetic of 0.5% Marcaine with | | | epinephrine was injected. A total of 10 mL was injected. A | | | sterile dressing was applied. She tolerated the procedure well | | | without complication and was taken to the recovery room in stable | | | condition. Sebas Payan M.D. [facility] | | | / HS [id number] / [id number] / [id number] / | | | | | + + + + + | Procedure Note | + + | Sebas Payan MD - 03/06/2008 12:00 AM PST [id number] | | [id number] [address] | | C [id number] Date: 03/06/2008 Attending Surgeon: | | Sebas Payan M.D. Business Continuity Director(s): Raquel Vazquez, M.D. | | Preoperative Diagnosis(es):Right gluteal cleft mass. Postoperative Diagnosis(es):Right | | gluteal cleft mass. Procedures Performed:Excision of right gluteal cleft mass. | | Anesthesia:General. Indications:Recurrent right gluteal cleft mass causing significant | | pain and bleeding.The patient wishes excision of the mass. Findings:We made an | | elliptical incision around the mass. This was an exophyticmass, and when measured in | | the operating room measured about 7 cm in lengthand 1 to 2 cm in width. An elliptical | | incision was made around this withsharp dissection and electrocautery and carried down | | to the subcutaneoustissue. The subcutaneous tissue actually appeared normal. There was | | novascular lesion present in the subcutaneous tissue. Normal fat wasencountered. The | | lesion was excised and sent to Pathology. Primaryclosure of the wound performed. | | Procedure:I met with the patient in the preoperative holding area and discussed | | theprocedure in detail with her including a discussion of alternatives,benefits and | | risks. The right gluteal cleft lesion was inspected, and thesite was marked. Questions | | were solicited and answered, and the patientwishes to proceed. I did explain to the | | patient that it is certainlypossible that the lesion could recur, and she understands | | this but feelssufficiently symptomatic presently to want to proceed with the excision. | | The patient was then brought to the operating room and placed supine.General anesthesia | | was induced, and she was then placed in the proneposition. The right gluteal region was | | prepped and draped sterilely. Anelliptical incision was made around the mass. In | | order to incorporate theentire mass, the incision was approximately 9 cm in length and 2 | | cm inwidth. Sharp dissection and electrocautery were performed down to thesubcutaneous | | tissue, and the lesion was completely excised. Thesubcutaneous tissue appeared normal. | | There were no abnormal vascularstructures encountered. Normal fat was present. The | | mass was sent toPathology and labeled with suture for orientation. We then raised some | | subcutaneous flaps medially and laterally to facilitatewound closure. The subcutaneous | | tissue was closed with interrupted 3-0Vicryl suture, and the skin closed with vertical | | mattress 2-0 nylon suture.Local anesthetic of 0.5% Marcaine with epinephrine was | | injected. A totalof 10 mL was injected. A sterile dressing was applied. She tolerated | | theprocedure well without complication and was taken to the recovery room instable | | condition. Sebas Payan M.D. LARRY / [id number] / [id number] / [id number] /D: | | 03/06/2008T: 03/06/2008 | |Indications: | |Recurrent right gluteal cleft mass causing significant pain and bleeding. | |The patient wishes excision of the mass. | | | | | |Findings: | |We made an elliptical incision around the mass. This was an exophytic | |mass, and when measured in the operating room measured about 7 cm in length | |and 1 to 2 cm in width. An elliptical incision was made around this with | |sharp dissection and electrocautery and carried down to the subcutaneous | |tissue. The subcutaneous tissue actually appeared normal. There was no | |vascular lesion present in the subcutaneous tissue. Normal fat was | |encountered. The lesion was excised and sent to Pathology. Primary | |closure of the wound performed. | | | | | |Procedure: | |I met with the patient in the preoperative holding area and discussed the | |procedure in detail with her including a discussion of alternatives, | |benefits and risks. The right gluteal cleft lesion was inspected, and the | |site was marked. Questions were solicited and answered, and the patient | |wishes to proceed. I did explain to the patient that it is certainly | |possible that the lesion could recur, and she understands this but feels | |sufficiently symptomatic presently to want to proceed with the excision. | | | | | |The patient was then brought to the operating room and placed supine. | |General anesthesia was induced, and she was then placed in the prone | |position. The right gluteal region was prepped and draped sterilely. An | |elliptical incision was made around the mass. In order to incorporate the | |entire mass, the incision was approximately 9 cm in length and 2 cm in | |width. Sharp dissection and electrocautery were performed down to the | |subcutaneous tissue, and the lesion was completely excised. The | |subcutaneous tissue appeared normal. There were no abnormal vascular | |structures encountered. Normal fat was present. The mass was sent to | |Pathology and labeled with suture for orientation. | | | | | |We then raised some subcutaneous flaps medially and laterally to facilitate | |wound closure. The subcutaneous tissue was closed with interrupted 3-0 | |Vicryl suture, and the skin closed with vertical mattress 2-0 nylon suture. | |Local anesthetic of 0.5% Marcaine with epinephrine was injected. A total | |of 10 mL was injected. A sterile dressing was applied. She tolerated the | |procedure well without complication and was taken to the recovery room in | |stable condition. | | | | | | | | | | | | | | | | | |Sebas Payan M.D. | | | | | |[facility] / HS | |[id number] / [id number] / [id number] / | | | | | | | | | | | | | | | | | | | | | + + SURGICAL PATHOLOGY (03/06/2008) + + + + + + | Component | Value | Ref Range | Performed | Pathologist | | | | | At | Signature | + + + + + + | SURGICAL | SOURCE OF SPECIMEN:A | | [facility] | | | PATHOLOGY | Right gluteal massFinal | | DEPARTMENT | | | | Pathologic | | OF | | | | Diagnosis:Right gluteal | | PATHOLOGY | | | | mass, excision: - | | | | | | Lymphangioma with skin | | | | | | erosion, extending to | | | | | | medial and | | | | | | lateralmarginsCase seen | | | | | | by:Rox Valdovinos M.D. | | | | | | / ResidentChristopher | | | | | | LSuzie Orozco M.D., Ph.D. 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 Prior | | | | | | resection of mass at | | | | | | [facility].Gross | | | | | | Description:One specimen | | | | | | is received fresh in a | | | | | | container labeled with | | | | | | the patient | | | | | | name(initials SUZANNE) and | | | | | | "right gluteal mass | | | | | | (long stitch cephalad, | | | | | | short stitchlateral)." | | | | | | Received is a7.3 (SI) | | | | | | x 2.7 (ML)-cm flores skin | | | | | | ellipse excised to a | | | | | | depth of 1.2 cm. | | | | | | Anattached short | | | | | | suture along one skin | | | | | | aspect designates | | | | | | lateral and anattached | | | | | | long suture at one skin | | | | | | tip designates cephalad. | | | | | | The epithelialsurface | | | | | | has multiple raised, | | | | | | confluent, flores-pink | | | | | | nodules with an | | | | | | overallconfluent | | | | | | measurement of 4.8 (SI) | | | | | | x 1.7 (ML) cm and | | | | | | extends up to 0.3 | | | | | | cmabove the epithelial | | | | | | surface. Two distinct | | | | | | purple ulcers are noted | | | | | | andmeasure up to 1.1 x | | | | | | 0.3 and 2.2 x 0.8 cm.The | | | | | | entire lateral skin and | | | | | | corresponding soft | | | | | | tissue margin is inked | | | | | | blue,the entire medial | | | | | | skin and corresponding | | | | | | soft tissue margin is | | | | | | inked green,and the deep | | | | | | margin is inked black. | | | | | | Serial sectioning | | | | | | reveals the noduleson | | | | | | section to have an | | | | | | ill-defined, fibrous, | | | | | | [id number] | | | | | | purple cutsurface, | | | | | | averaging 0.4 cm thick. | | | | | | The tissue deep to the | | | | | | lesion is | | | | | | grosslyconsistent with | | | | | | dense, fibrous tissue. | | | | | | The fibrous tissue is | | | | | | notedextending | | | | | | throughout the entire | | | | | | specimen. | | | | | | Outreach Analyst | | | | | | sections aresubmitted | | | | | | sequentially, superiorly | | | | | | to inferiorly.Cassette | | | | | | Index:A1-7, sequential, | | | | | | superior to | | | | | | inferiorJK:labRendering | | | | | | Diagnostician: | | | | | | Scot Orozco | | | | | | | | | | | | Neva.,Ph.D.PathologistEle | | | | | | ctronically Signed | | | | | | 03/11/2008 | | | | + + + + + + + + | Specimen | + + | Other | + + + + + + + | Performing | Address | City/State/Zipcode | Phone Number | | Organization | | | | + + + + + | [facility] | [facility] [facility] [address] | [place] [address] | | | PATHOLOGY | [address] | | | + + + + + | [facility] | [address] [facility] [address] | [place] [address] | | | PATHOLOGY | [address] | | | + + + + + documented in this encounter Visit Diagnoses Not on filedocumented in this encounter Administered Medications + +--------+ +------+------+------+ | Medication Order | MAR | Action | Dose | Rate | Site | | | Action | Date | | | | + +--------+ +------+------+------+ | ondansetron (aka ZOFRAN) | Given | 03/06/20 | 4 mg | | | | injection 1 dose, Starting Lexus | | 08 5:45 | | | | | 03/06/08 at 1747, Until Lexus | | PM PST | | | | | 03/06/08 at 1746 | | | | | | + +--------+ +------+------+------+ +---+---+ | | | +---+---+ documented in this encounter
--- OUTSIDE RECORDS SUMMARY | ~2019-02-10 | XMS | Encounter Summary ---
Demographics + + + | Address | [address] | | | [place] [address] | + + + | Home Phone | | + + + | Preferred Language | Unknown | + + + | Marital Status | Single | + + + | Sikhism Affiliation | PRO | + + + [...] Team Providers + +------+ + | Care Trial Manager Name | Role | Phone | [...] | | | Zahraa Shay Mailcode: | [place], [place] | | | | | [address] | [phone] | | | | | [place], | [phone] | | | | | [place] [address] | | | | | | [phone] | | | +--------+---------+ + + + [...] back prn. 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
--- OUTSIDE RECORDS SUMMARY | ~2019-02-10 | XMS | Encounter Summary ---
Demographics + + + | Address | [address] | | | [place] [address] | + + + | Home Phone [...] + + + | Author | [facility] | + + + | Organization | [facility] | + + + | [...] Team Providers + +------+ + | Care Clinical Documentation Specialist Name | Role | Phone | [...] Closed | | Plastic | Diagnoses | [place], | Kelly, | | | | Surgery | Other | MD Sebas | MD Uzair | | | | | specified | [address] | [address] | | | | | congenital | [address] | [address] | | | | | anomalies | [address] | [place], [place] | | | | | Congenital | [place], [place] | [address] | | | | | lower limb | [address] | Phone: | | | | | vessel | Phone: | [phone] | | | | | anomaly | [phone] | Fax: | | | | | Procedures | Fax: | [phone] | | | | | CONSULT TO | [phone] | | | | | | SURGERY [...] malformation | | | | Surgery at [facility] [address] | [place], [place] | (Primary Dx) | | | | [address] | [address] | | | | | Mailcode: 5 | [phone] | | | | | [facility] | | | | | | and Healing, | | | | | | Building 1, 5th | | | | | | Floor [place], [place] | | | | | | [address] | | | | | | [phone] | | | +--------+---------+ + + + [...]
--- OUTSIDE RECORDS SUMMARY | ~2019-02-10 | XMS | Encounter Summary ---
Demographics + + + | Address | [address] | | | [place] [address] | + + + | Home Phone [...] Author | [facility] | + + + | Organization | [facility] | + + + | Address | Unknown | + + + | Phone | Unavailable | + + + Support + + + + + | Name | Relationship | Address | Phone | + + + + + | Mariah Prather | OZZIE | [place] | | + + + + + Care Team Providers + +------+ + | Care Schedule Checker Name | Role | Phone | + +------+ + | Timothy Burks MD | PCP | | + +------+ + Encounter Details +--------+ + + + + | Date | Type | Department | Care Team | Description | +--------+ + + + + | 12/25/ | Office | General Internal | Note, Outpatient | Progress Note | | 1995 | Visit-Trans | Medicine [address] | Clinic | | | | [address]alatha | [address] | | | | | | Mailcode: L475 | | | | | | Outpatient Clinic | | | | | | [address] | | | | | | [place], [place] | | | | | | [address] | | | | | | [phone] | | | +--------+ + + + [...] as of this encounter Progress Notes Interface, Bulb Brander In - 06/10/2006 5:11 AM PDT CLINIC DATE: 12/26/95 ALLERGY CLINIC HISTORY OF PRESENT ILLNESS/PATIENT IDENTIFICATION: Ms. Prather is a 20-year-old female originally seen in Allergy Clinic on the . At that time she presented complaining of more prominent hay fever symptoms since moving to [place] from [facility] on September 24 of this year. Physically she had some sneezing, watery eyes, and rhinorrhea to a greater degree than she had experienced prior to the move westward. Work-up at that time was unrevealing for any specific new allergens. She was empirically tried on combination of nasal steroids and Claritin. She responded symptomatically very positively to the Claritin and reported today that her breathing was much better and was very satisfied with that medication. Subsequently she was provided with a prescription for Claritin D and given 6 refills, encouraged that if her symptoms persist to once again try the nasal steroid in conjunction with the medication. We plan on seeing her back in 6 months for a routine follow-up. Jose Martin Araujo M.D. Environmental Projects Advisor, Internal Medicine Ingrid Marion M.D. Harmonic Analyst, Medicine [place]/gil documented in this encounter Plan of Treatment Not on filedocumented as of this encounter Visit Diagnoses Not on filedocumented in this encounter"
--- OUTSIDE RECORDS SUMMARY | ~2019-02-10 | XMS | Encounter Summary ---
Demographics + + + | Address | [address] | | | [place] [address] | + + + | Home Phone [...] Team Providers + +------+ + | Care Media Professional Name | Role | Phone | + +------+ + | Timothy Burks MD | PCP | | + +------+ + Encounter Details +--------+ + + + + | Date | Type | Department | Care Team | Description | +--------+ + + + + | 02/22/ | Telephone | Vascular Surgery | Surgery, Vascular | | | 2015 | | at [facility] 2nd Floor | [address] | | | | | [address] | [facility] | | | | | Zahraa Shay Mailcode: | [place] [address] | | | | | [address] | | | | | | [place] | | | | | | [place] [address] | | | | | | [phone] | | | +--------+ + + + [...]
--- OUTSIDE RECORDS SUMMARY | ~2019-02-10 | XMS | Encounter Summary ---
Demographics + + + | Address | [address] | | | [place] [address] | + + + | Home Phone | | + + + | Preferred Language | Unknown | + + + | Marital Status | Single | + + + | Orthodoxy Affiliation | PRO | + + + | Race | White | + + + | Ethnic Group | Not or | + + + Author + + + | Author | [facility] | + + + | Organization | [facility] | + + + | Address | Unknown | + + + | Phone | Unavailable | + + + Support + + + + + | Name | Relationship | Address | Phone | + + + + + | Mariah Prather | OZZIE | [place] | | + + + + + Care Team Providers + +------+ + | Care Certified Social Workers In Health Care Name | Role | Phone | + +------+ + | Timothy Burks MD | PCP | | + +------+ + Reason for Visit + + + | Reason | Comments | + + + | Follow-up visit | alexus blanc. | + + + Consultation (Routine) +--------+--------+ [...] | | anomalies | [address] | [place], [place] | | | | | Congenital | [place] | [address] | | | | | lower limb | [address] | Phone: | | | | | vessel | Phone: | [phone] | | | | | anomaly | [phone] | Fax: | | | | | Procedures | Fax: | [phone] | | | | | CONSULT TO | [phone] | | | | | | SURGERY - | | | | | | | PLASTICS | | | +--------+--------+ + + + + Encounter Details +--------+---------+ + + + | Date | Type | Department | Care Team | Description | +--------+---------+ + + + | 04/01/ | Office | Plastic and | Uzair Mendoza MD | Lymphangioma | | 2015 | Visit | Reconstructive | [address] | (Primary Dx) | | | | Surgery at [facility] [address] | [place], [place] | | | | | [address] | [address] | | | | | Mailcode: [facility] | [phone] | | | | | [facility] | | | | | | and Healing, | | | | | | Building 1, | | | | | | Floor [facility] [place] | | | | | | [address] | | | | | | [phone] | | | +--------+---------+ + + + [...] +---------+ + + | Blood Pressure | 130/72 | 04/01/2014 11:20 AM | | | | | PST | | + +---------+ + + | Pulse | 90 | 04/01/2014 11:20 AM | | | | | PST | | + +---------+ + + | Temperature | - | - | | + +---------+ + + | Respiratory Rate | 16 | 04/01/2014 11:20 AM | | | | | PST | | + +---------+ + + | Oxygen Saturation | 95% | 04/01/2014 11:20 AM | | | | | PST [...] encounter Progress Notes Uzair Mendoza MD - 04/01/2014 6:24 PM PSTShe has noted increase in size and discomfort of the lesions without steroid injections. In addition she has developed new lesions closer to the rectum. We elected to inject the lesions again. Under sterile conditions after prepping the skin with alcohol the Left upper buttock lesi ons were injected along their length with for injection points using a 30 gauge needle, and the three right buttock lesions were injected in the same manner. The 5 new lesions closer to the rectum were also injected. A total of 0.8 mL of kenalog 40 was injected intralesiona l. She will return in 6-8 weeks. documented in this encounter Plan of Treatment Not on filedocumented as of this encounter Procedures + +--------+ + + + | Procedure Name | Priori | Date/Time | Associated Diagnosis | Comments | | | ty | | | | + +--------+ + + + | NV FILL CONTOUR | Routin | 04/01/2014 | Lymphangioma | | | DEFCT <1CC | e | 6:28 PM | | | | | | PST | | | + +--------+ + + + documented in this encounter Visit Diagnoses + + | Diagnosis | + + | Lymphangioma - Primary Lymphangioma, any site | + + documented in this encounter
--- OUTSIDE RECORDS SUMMARY | ~2019-02-10 | XMS | Encounter Summary ---
Demographics + + + | Address | [address] | | | [place] [address] | + + + | Home Phone [...] Team Providers + +------+ + | Care Embroidery Operator Name | Role | Phone | + +------+ + | Jose Ramires MD | PCP | | + +------+ + Encounter Details +--------+ + + + + | Date | Type | Department | Care Team | Description | +--------+ + + + + | 09/07/ | Ancillary | [facility] | | | | 2005 | Registratio | Practice [address] | | | | | n | [facility] | | | | | | [place] [address] | | | | | | [phone] | | | +--------+ + + + [...]
--- OUTSIDE RECORDS SUMMARY | ~2019-02-10 | XMS | Encounter Summary ---
Demographics + + + | Address | [address] | | | [place] [address] | + + + | Home Phone | | + + + | Preferred Language | Unknown | + + + | Marital Status | Single | + + + | Jewish Affiliation | PRO | + + + [...] Team Providers + +------+ + | Care Rodent Control Worker Name | Role | Phone | + +------+ + | Jose Ramires MD | PCP | | + +------+ + Encounter Details +--------+ + + + + | Date | Type | Department | Care Team | Description | +--------+ + + + + | 03/14/ | Documentati | Dig[facility]ive Health | Clinic, Surgery | | | 2018 | on | Center at [address] | | | | | | [address] | | | | | | Mailcode: [place] | | | | | | for Health and | | | | | | Healing, [address] | | | | | | [place], [place] | | | | | | [address] | | | | | | [phone] | | | +--------+ + + + [...]
--- OUTSIDE RECORDS SUMMARY | ~2019-02-10 | XMS | Encounter Summary ---
Demographics + + + | Address | [address] | | | [place] [address] | + + + | Home Phone [...] Team Providers + +------+ + | Care Lunchroom Operator Name | Role | Phone | + +------+ + | Timothy Burks MD | PCP | | + +------+ + Reason for Visit + + + | Reason | Comments | + + + | Follow-up visit | | + + + Office Visit - E/M Services (Routine) +--------+--------+ + + + + | [...] | | | | | [address] | | | | | | | [address] | | | | | | | [place]asp[place] Mailcode: | | | | | | | [address] | | | | | | | Physician's | | | | | | | [place] | | | | | | | [place], [place] | | | | | | | [address] | | | | | | | Phone: | | | | | | | [phone] | | | | | | | Fax: | | | | | | | [phone] | +--------+--------+ + + + + Encounter Details +--------+---------+ + + + | Date | Type | Department | Care Team | Description | +--------+---------+ + + + | 10/27/ | Office | Vascular Surgery | Sarkis [place] MD | Lymphedema of left | | 2014 | Visit | at [facility] 2nd Floor | [address] | leg (Primary Dx) | | | | [address] | Zahraa Shay [place], | | | | | Zahraa Shay Mailcode: | [place] [address] | | | | | [address] | [phone] | | | | | [place] | | | | | | [place] [address] | | | | | | [phone] | | | +--------+---------+ + + + [...] + + + | Blood Pressure | 119/62 | 10/27/2014 11:07 AM | | | | | PDT | | + + + + + | Pulse | 56 | 10/27/2014 11:07 AM | | | | | PDT | | + + + + + | Temperature | - | - | | + + + + + | Respiratory Rate | - | - | | + + + + + | Oxygen Saturation | 100% | 10/27/2014 11:07 AM | | | | | PDT | | + + + + + | Inhaled Oxygen | - | - | | | Concentration | | | | + + + + + | Weight | 126.6 kg (279 lb) | 10/27/2014 11:07 AM | | | | | PDT | | + + + + + | Height | - | - | | + + + + + | Body Mass Index | 41.2 | 01/28/2014 10:06 AM | | | | | PST | | + + + + + documented in this encounter Progress Notes Sarkis [place] MD - 10/27/2014 12:05 PM PDTIdentification: Mahi Prather is a 38 year old fem chau with history of LLE lymphedema 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 Subjective: She reports she is doing well since her last clinic follow-up a year ago. [facility] a [facility] of lymphangioma and lymphedema of the LLE. 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 She has had multiple recurrences of the lymphangioma that have been re-resected and she is now undergoing steroid injections which appear to be helping shrink the remaining lesion, mo st recently in September 2014. She does not have any wounds of the left leg and she wears rosalva paloma stocking at 40-50 mmHg consistently. She has had no recent VTE events. Aspirin : No Anticoagulation : Yes Statin : No Objective: Wt 123.061 kg (271 lb 4.8 oz), BP 112/74, Pulse 70, SpO2 96%, BMI 40.05 kg/(m^2). Physical Examination: General: No apparent distress. HEENT: Atraumatic, normocephalic. Pulmonary: Clear and no cough or difficulty breathing. Cardiac: Regular rate and rhythm. Abdomen: Soft, non-tender, non-distended. Extremities: Exam is notable for lymphedema of the left leg with multiple superficial vari eugene of the left thigh and purplish pigmentation laterally. There are no wounds or dermatofib rosclerosis of the left leg. Neurological: Alert and oriented to person, place, time, and reason for evaluation. No obvi ous cranial nerve deficits. Imaging: (Vascular Labs, Ultrasound, Computed Tomography) No recent imaging to review Assessment and Plan: Lymphedema of left lower extremity related to lymphangioma, reasonably controlled with use of compression stocking. She is seeing plastic surgery for follow-up of steroid injection of a gluteal cleft lymphangioma that has recurred multiple times after excision. - Continue compression (New script given) and elevation - RTC in 1 year SARKIS MADERA MD VASCULAR SURGERY AT [facility] 2ND FLOOR [address] [place] [address] Mailcode: Op11 [place] [address] documented in this encoun ter Plan of Treatment Not on filedocumented as of this encounter Visit Diagnoses + + | Diagnosis | + + | Lymphedema of left leg - Primary Other lymphedema | + + documented in this encounter
--- OUTSIDE RECORDS SUMMARY | ~2019-02-10 | XMS | Encounter Summary ---
Demographics + + + | Address | [address] | | | [place] [address] | + + + | Home Phone | | + + + | Preferred Language | Unknown | + + + | Marital Status | Single | + + + | Mandaeism Affiliation | PRO | + + + | Race | White | + + + | Ethnic Group | Not or | + + + Author + + + | Author | [facility] | + + + | Organization | [facility] | + + + | [...] Team Providers + +------+ + | Care Criminal Psychologist Name | Role | Phone | + +------+ + | Timothy Burks MD | PCP | | + +------+ + Reason for Visit +--------+ + | Reason | Comments | +--------+ + | Other | | +--------+ + Encounter Details +--------+ + + + + | Date | Type | Department | Care Team | Description | +--------+ + + + + | 04/26/ | Telephone | Plastic and | Uzair Mendoza MD | Other | | 2014 | | Reconstructive | [address] | | | | | Surgery at [facility] [address] | [place], [place] | | | | | [address] | [address] | | | | | Mailcode: 5P | [phone] | | | | | [facility] | | | | | | lilia [place], | | | | | | [facility] | | | | | | [place], [place] | | | | | | [address] | | | | | | [phone] | | | +--------+ + + + [...]
--- OUTSIDE RECORDS SUMMARY | ~2019-02-10 | XMS | Encounter Summary ---
Demographics + + + | Address | [address] | | | [place] [address] | + + + | Home Phone | | + + + | Preferred Language | Unknown | + + + | Marital Status | Single | + + + | Denominational Affiliation | PRO | + + + [...] + +------+ + | Care Director Of Slot Operations Name | Role | Phone | + [...] | | | | | Rd Mailcode: | | | | | | | [address] | | | | | | | Physician's | | | | | | | [address] | | | | | | | [place], [place] | | | | | | | [address] | | | | | | | Phone: | | | | | | | [phone] | | | | | | | Fax: | | | | | | | [phone] | +--------+--------+ + + + + Encounter Details +--------+---------+ + + + | Date | Type | Department | Care Team | Description | +--------+---------+ + + + | 12/05/ | Office | Vascular Surgery | Sebas Burton, | Congenital lower | | 2017 | Visit | at [facility] 2nd Floor | [address] | limb vessel anomaly; | | | | [address] | [address] | Congenital anomaly | | | | Zahraa Shay Mailcode: | [place], [place] | of peripheral | | | | [address] Physician's | [id number] | vascular system | | | | [facility] [place], | [phone] | | | | | [place] [address] | | | | | | [phone] | | | +--------+---------+ + + + [...] + + + | Blood Pressure | 139/58 | 12/05/2016 12:20 PM | | | | | PDT | | + + + + + | Pulse | 65 | 12/05/2016 12:20 PM | | | | | PDT | | + + + + + | Temperature | - | - | | + + + + + | Respiratory Rate | - | - | | + + + + + | Oxygen Saturation | 97% | 12/05/2016 12:20 PM | | | | | PDT | | + + + + + | Inhaled Oxygen | - | - | | | Concentration | | | | + + + + + | Weight | 127.5 kg (281 lb) | 12/05/2016 12:20 PM | | | | | PDT | | + + + + + | Height | - | - | | + + + + + | Body Mass Index | 41.48 | 10/26/2015 10:34 AM | | | | | PDT | | + + + + + documented in this encounter Progress Notes Sebas Burton MD - 12/05/2016 11:30 AM PDTMs. Mahi Prather is 41 yo F with history of LLE lymphedema and lymphangiomas of gluteal cleft (now receiving steroid injections for these). She is on lifelong warfarin. Subjective: Mahi was last seen in clinic about 1 yr ago where she was found to have superfi cial venous thrombosis- these were treated symptomatically with ibuprofen and heat. She has not had a recurrence of those symptoms. Today she reports some tenderness on the plantar asp ect of her left foot. She does not remember incurring injury to this area but does report th e pain is worse when she is walking. She reports she wears her compression stocking on her l eft LE every day. 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 She reports her pump to help her lymphedema works really well but can be cumbersome and stephanie aneta to use. She reports using it for an hour at a time about 3-4 times per week. She is tryi ng to increase this. aspirin: no anticoagulation: yes, on warfarin statin: no Objective: BP 139/58; Pulse 65; Wt 127.5 kg (281 lb); SpO2 97%, BMI 41.48 kg/m2 PE: general: middle-aged woman in no apparent distress pulm: breathing comfortably on room air cardiac: regular rate and rhythm extremities: left lower extremity with severe edema and overlying skin changes (darkened sk in, irregular surface, and <0.5 mm dark spots scattered) on left anterolateral thigh and ove rlying toes 2-5. 1mm callus with pinpoint area of dark material on plantar aspect of left f oot with tenderness on palpation. vasc exam: extremities warm and well perfused; LLE edema as noted above Imaging: none A/P: Ms. Mahi Prather has LLE lymphedema and gluteal lymphangiomas (treated with steroid injectio ns by Dr. Mendoza). Recommend patient to wear lymph pump daily to help with swelling along w ith continued daily use of compression stocking. On exam there was an area of callus and ten derness on the plantar aspect of her left foot. It looked like a very small piece of debris may have been stuck in her dermis. The callus and possible debris were sharply excised with a 15 blade scalpel with subsequent placement of bandaids. Recommended pt to place bandages t ypically used for calluses in order to offload direct pressure on that area while it heals. Pt was provided with Rx for two pairs of left LE thigh-high compression stocking (40-50 mm H g). She can return to clinic in one year for f/up. 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
--- OUTSIDE RECORDS SUMMARY | ~2019-02-10 | XMS | Encounter Summary ---
Demographics + + + | Address | [address] | | | [place] [address] | + + + | Home Phone | | + + + | Preferred Language | Unknown | + + + | Marital Status | Single | + + + | Quaker Affiliation | PRO | + + + | Race | White | + + + | Ethnic Group | Not or | + + + Author + + + | Author | [facility] | + + + | Organization | [facility] | + + + | Address [...] Team Providers + +------+ + | Care Medical Recruiter Name | Role | Phone | + +------+ + | Timothy Burks MD | PCP | | + +------+ + Encounter Details +--------+ + + + + | Date | Type | Department | Care Team | Description | +--------+ + + + + | 06/13/ | Telephone | Vascular Surgery | Sebas Burton, | | | 2017 | | at [facility] 2nd Floor | [address] | | | | | [address] | [address] | | | | | Zahraa Shay Mailcode: | [place], [place] | | | | | [address]'s | [address] | | | | | [place], | [phone] | | | | | [place] [address] | | | | | | [phone] | | | +--------+ + + + [...]
--- OUTSIDE RECORDS SUMMARY | ~2019-02-10 | XMS | Encounter Summary ---
Demographics + + + | Address | [address] | | | [place] [address] | + + + | Home Phone | | + + + | Preferred Language | Unknown | + + + | Marital Status | Single | + + + | Episcopal Affiliation | PRO | + + + [...] Team Providers + +------+ + | Care Vehicle Inspector Name | Role | Phone | + [...]
--- OUTSIDE RECORDS SUMMARY | ~2019-02-10 | XMS | Encounter Summary ---
Demographics + + + | Address | [address] | | | [place] [address] | + + + | Home Phone [...] + + + | Author | [facility] | + + + | Organization | [facility] | + + + | [...] Team Providers + +------+ + | Care Smoking Tobacco Cutter Operator Name | Role | Phone | [...] | +--------+ + + + + | 12/31/ | Telephone-S | Preoperative | | Pre-op evaluation | | 2012 | charli | Medicine Clinic at | | | | | | [facility] | | | | | | Stay [address] [facility] | | | | | | [address] | | | | | | Mailcode: [id number] | | | | | | Donald Aishagila | | | | | | [address] [place], [place] | | | | | | [address] | | | | | | [phone] | | | +--------+ + + + [...] | Meds | +------+ + + + No medications | on file. | + + + + + | No agents on file. | + + + + | No blood administrations on file. | + + +--------+ + + + | Type | Details | Placement | Removal | +--------+ + + + | Wound/ | 03/06/08; 1730; buttocks; | 03/06/08 1730 by | 01/12/17 1622 by | | Incisi | Right:; 01/12/17 [...] + + + | RETIRE | 06/19/08; 0906; gluteal wound | 06/19/08 0906 by | 01/12/17 1622 by | | [...] by | | D - | at [facility]); No; left buttock | Vick Healy RN | Estelle Healy | | Drains | wound drain; 10fr; Ol[place]a; | | | | | Buttocks | | | | (wound | | | | | s/surg | | | | | ical) | | | | +--------+ + + + | RETIRE | 01/10/13; 0708; 01/10/13; 1130; | 01/10/13 07 by | 01/10/13 113 by | | D - | No; 20; Left; Hand; Lidocaine; | JARETT Orr | | Periph | No; Positive | | | | eral | | | | | Line | | | | +--------+ + + + | RETIRE | 01/10/13; 09; No; Bilateral:; | 01/10/13919 by | 01/10/13 113 by | | D - | gluteal; 01/10/13; 1130 | JARETT Jimenez | | Incisi | | | | [...] + + documented as of this encounter Patient Instructions Patient Instructions Conchita Sarmiento RN - 12/31/2012 10:46 AM PDT PREOPERATIVE INSTRUCTIONS Do not eat or drink anything after midnight the night before surgery. TAKE the following medications with a sip of water on the morning of surgery: None Do NOT take the following medications on the morning of surgery: CLARITIN OR CONJUGATED ESTROGENS 0.625 MG TABLET METOCLOPRAMIDE 10 MG TABLET PROZAC OR Do not take any Aspirin, vitamin E or non-steroidal anti-inflammatory (NSAIDs i.e. Advil , Aleve, Ibuprofen) or herbal supplements seven days prior to your surgery. These drugs may interfere with normal blood clotting and may cause excessive bleeding and bruising during or after the surgery. If you are taking Coumadin (warfarin), Plavix or any other blood thinners please let you r surgical team know as medication changes will be necessary. If you need a pain medication for general purposes, use Tylenol as directed. If you are in doubt about any medications that you are taking, please contact our office . Important Guidelines Do not shave the surgical area Do not smoke, drink alcohol or use recreational drugs for 24 hours before your surgery Do not eat any hard candy or chew gum after midnight the night before your surgery. Watch for any change in your health condition. Let your surgeon know right away if you do not feel well. Do not wear makeup, perfume, lotions or powder. Remove any nail bolivian from at least one fingernail. Do not wear any jewelry to the hospital. Wear loose, comfortable clothing. Bring the case and solution for your contact lenses or wear your glasses. Leave all your valuables at home. Allow enough travel time so you re not late for your check in for surgery. Take a bath or shower and remember to shampoo your hair using your usual hair product be fore your arrival at the hospital. Please remember to brush your teeth the night before and the morning of your procedure. Surgery Check in Locations [facility] Day [facility], fourth floor Surgery Check in Time: Someone from your surgeon's office or [facility] will provide you with information regarding your check in time. If you have any questions about this, pl ease contact your surgeon's office. Going Home Your surgical team will decide when you are medically ready to go home. If you are released to go home on the same day as your procedure/surgery please note the following: You will not be able to drive. You will be required to have a competent adult drive you or accompany you by taxi or pub lic transportation on the day of discharge. It is also required that you have a competent adult assist you and look after you on the first night after you have undergone regional blocks (72 hours for patients going home with regional block pump), deep sedation, and/or general anesthesia. If you have questions or concerns after you go home, call your doctor s office. If it is after office hours, call the [facility] lap winding machine operator at [phone] and ask them to page your doc tor. documented in this encounter Plan of Treatment Not on filedocumented as of this encounter Visit Diagnoses Not on filedocumented in this encounter
--- OUTSIDE RECORDS SUMMARY | ~2019-02-10 | XMS | Encounter Summary ---
Demographics + + + | Address | [address] | | | [place] [address] | + + + | Home Phone | | + + + | Preferred Language | Unknown | + + + | Marital Status | Single | + + + | Anabaptism Affiliation | PRO | + + + [...] Team Providers + +------+ + | Care Order Entry Specialist Name | Role | Phone | + +------+ + | Timothy Burks MD | PCP | | + +------+ + Encounter Details +--------+ + + + + | Date | Type | Department | Care Team | Description | +--------+ + + + + | 02/16/ | Office | [facility] | Nte, [...] as of this encounter Progress Notes Interface, Solar Pv Installer In - 03/02/2005 5:02 AM PST [id number] JOHNSON Sagastume Date: 02/16/2005 Patient: Mahi Prather MR# [id number] Established Patient Examination Subjective: This is a 29-year-old white female who we have been following for many years for her longstanding angiodysplasia of her left leg and pelvis. She is complaining of some mild tenderness in her left patrick which is there constantly unless she is lying down. This pain does not inhibit any of her activities. She can still tolerate wearing her compression stockings. She has no other complaints. She is not currently having any bleeding problems. She continues to wear her compression stocking and otherwise is doing well. She is currently living in [place] and is trying hard to lose the weight she had gained last year. 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 She has multiple varicose veins. 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 There are no areas of ulceration. She has some venous congestion in her toes. Her edema is stable. Assessment and Plan: This is a 29-year-old female with stable angiodysplasia. We have recommended that she continue wearing her compression stockings. She wears thigh-highs 40s to 50s. We also recommend adding CircAid boot over her compression stockings, and we have written prescriptions for both. We have recommended that she try to lose some weight, and she will return in 1 year for routine followup. This patient was seen and examined with Dr. Burton. Terri Chambers M.D. Sebas Burton M.D. central services tech HL / HS [id number] / [id number] / [id number] / [id number] Electronically signed by Sebas Burton (Greg) 03-01-2005 04:02:33 PM documented i n this encounter Plan of Treatment Not on filedocumented as of this encounter Visit Diagnoses Not on filedocumented in this encounter"
--- OUTSIDE RECORDS SUMMARY | ~2019-02-10 | XMS | Encounter Summary ---
Demographics + + + | Address | [address] | | | [place] [address] | + + + | Home Phone [...] Team Providers + +------+ + | Care Wafer Polishing Lead Worker Name | Role | Phone | + +------+ + | Timothy Burks MD | PCP | | + +------+ + Encounter Details +--------+ + + + + | Date | Type | Department | Care Team | Description | +--------+ + + + + | 12/11/ | Office | General Internal | Note, Outpatient | Progress Note | | 1995 | Visit-Trans | Medicine [address] | Clinic | | | | [address] | [address] | | | | | | Mailcode: [id number] | | | | | | Outpatient Clinic | | | | | | [address] | | | | | | [place], [place] | | | | | | [address] | | | | | | [phone] | | | +--------+ + + + [...] as of this encounter Progress Notes Interface, Auto Overhauler In - 06/13/2006 3:11 AM PDT CLINIC DATE: 12/12/95 ALLERGY/IMMUNOLOGY CLINIC SUBJECTIVE: Ms. Prather is a 20-year-old woman from [place] who noted worsening in her symptoms of clear rhinorrhea, sneezing and watery eyes following a September 24 move from [facility] to [place]. She states she has had similar symptoms to a lesser degree in [place] for the past five or six springs, but her current symptoms are of much more severe and much more bothersome. She states she lives with a cat and has for 15 years and never noticed this bothered her previously. [place]. She has the same bed and furniture she did in [facility], states her symptoms seem to be worse when away from home. 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 She denies animal exposure otherwise or dust exposure. MEDICATIONS: She has tried Sudafed and Drixoral, the latter of some help. Her only other medication is Zoloft which she has been on since 1993 and finds helpful. ALLERGY: Codeine, which she describes as nausea. PERTINENT FAMILY HISTORY: Remarkable for mother and father who both have a similar history of hay fever. 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 On further evaluation it was found the product of DVT from the malformation that crossed an atrial septal defect and embolized to the head. This was subsequently repaired. OBJECTIVE: On exam today her BP was 110/70. She was noted to be a well developed, well nourished, pleasant young female. There was no erythema of her tympanic membranes, oropharynx or nasopharynx appreciated. There was no sinus tenderness or lymphadenopathy. Heart was regular rate and rhythm without murmur. Chest revealed the sternotomy scar, otherwise clear. ASSESSMENT: Rhinitis, likely allergic given the temporal relation with the move to [place] against a backdrop of seasonal symptoms with clear rhinorrhea, watery eyes and sneezing the past few years in [place]. Of note, her move the first of September correlated with the height of grass pollen season here. She desires to remain in [place] for employment and we will try a course of empiric treatment with Claritin for one week and Vancenase nasal inhaler for one week, then see her in two weeks and gauge her response to therapy. Jose Martin Araujo M.D. Traffic Control Technician, Internal Medicine Ingrid Jackson M.D. Carbide Die Maker, Medicine TRG:madhu documented in this encounter Plan of Treatment Not on filedocumented as of this encounter Visit Diagnoses Not on filedocumented in this encounter"
--- OUTSIDE RECORDS SUMMARY | ~2019-02-10 | XMS | Encounter Summary ---
Demographics + + + | Address | [address] | | | [place] [address] | + + + | Home Phone [...] Team Providers + +------+ + | Care Attendant [facility] Name | Role | Phone | + [...] | | | | | | | [place], [place] | | | | | | | [address] | | | | | | | Phone: | | | | | | | [phone] | | | | | | | Fax: | | | | | | | [phone] | +--------+--------+ + + + + Encounter Details +--------+---------+ + + + | Date | Type | Department | Care Team | Description | +--------+---------+ + + + | 10/27/ | Office | Vascular Surgery | Sarkis Madera MD | Lymphedema of left | | 2014 | Visit | at [facility] 2nd Floor | [address] | leg (Primary Dx) | | | | [address] | [place], | | | | | [place] Mailcode: | [place] [address] | | | | | [address] Physician's | [phone] | | | | | [place] | | | | | | [place] [address] | | | | | | [phone] | | | +--------+---------+ + + + [...] last clinic follow-up a year ago. In [facility] she has a long history of [...] year SARKIS MADERA MD VASCULAR SURGERY AT [facility] 2ND FLOOR [address] [place] [address] Mailcode: [address] [place] [address] documented in this encoun ter Plan of Treatment Not on filedocumented as of this encounter Visit Diagnoses + + | Diagnosis | + + | Lymphedema of left leg - Primary Other lymphedema | + + documented in this encounter
--- OUTSIDE RECORDS SUMMARY | ~2019-02-10 | XMS | Encounter Summary ---
Demographics + + + | Address | [address] | | | [place] [address] | + + + | Home Phone [...] Author + + + | Author | [facility] | + + + | Organization | [facility] | + + + | [...] Team Providers + +------+ + | Care Vice President Investor Relations Name | Role | Phone | + +------+ + | Timothy Burks MD | PCP | | + +------+ + Encounter Details +--------+ + + + + | Date | Type | Department | Care Team | Description | +--------+ + + + + | 03/21/ | Office | Trauma Center at | Wilder Casillas MD | Progress Note | | 2006 | Visit-Trans | [facility] [address] | | | | | [address] | [address] | | | | | | Mailcode: L223A | | | | | | Physician's Ron | | | | | | [address] [place], | | | | | | [place] [address] | | | | | | [phone] | | | +--------+ + + + [...] documented as of this encounter Progress Notes Wilder Casillas Md - 04/27/2007 3:13 PM PST [id number] JOHNSON Sagastume [id number] Date: 03/21/2007 Patient: Mahi Prather MR# [id number] Established Patient Examination History: Ms. Prather presents to Vascular Surgery Clinic following her excision of arteriovenous malformation performed on March 02, 2007. She states she has done well since the time of surgery. She denies any further episodes of bleeding. She denies fevers or chills or any noticeable pain in the area. Physical Examination: Today, she appears well in no acute distress. Her incision is clean, dry, and intact. She has some local irritation at the area of her nylon sutures. The sutures were removed. The two of the sutures were cut today possibly leaving some suture material that would need to express themselves from the wound over time. 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 She has done well since her surgery. A dry dressing was placed at her wound for any small oozing that will happen over the next few days. We will follow her in clinic yearly for her venous stasis disease. She will follow up with her usual scheduled appointment. If she has any questions or concerns, she will call back earlier. Please note that Dr. Torrez was present for the exam and agrees with the above plan. Wilder Casillas M.D. I saw and examined the patient with the resident. We discussed the assessment and I agree with the documented plan of care. Alonzo Torrez M.D. / [id number] / [id number] / [id number] / [id number] Electronically signed by Alonzo Torrez 04-26-2007 11:11:50 PM documented in this en counter Plan of Treatment Not on filedocumented as of this encounter Visit Diagnoses Not on filedocumented in this encounter"
--- OUTSIDE RECORDS SUMMARY | ~2019-02-10 | XMS | Encounter Summary ---
Demographics + + + | Address | [address] | | | [place] [address] | + + + | Home Phone [...] + + + | Author | [facility] | + + + | Organization | [facility] | + + + | Address [...] Team Providers + +------+ + | Care Cement Contractor Name | Role | Phone | + +------+ + | Timothy Burks MD | PCP | | + +------+ + Reason for Visit + + + | Reason | Comments | + + + | Follow-up encounter | gluteal cleft hemangioma s/p steroid injections 01/10/15 new | | | concerns: none | + + + Consultation (Routine) +--------+--------+ [...] | | | congenital | Bob | Larrye | | | | | anomalies | [address] | [place], [place] | | | | | Congenital | [place], [place] | [address] | | | | | lower limb | [address] | Phone: | | | | | vessel | Phone: | [phone] | | | | | anomaly | [phone] | Fax: | | | | | Procedures | Fax: | [phone] | | | | | CONSULT TO | [phone] | | | | | | SURGERY - | | | | | | | PLASTICS | | | +--------+--------+ + + + + Encounter Details +--------+---------+ + + + | Date | Type | Department | Care Team | Description | +--------+---------+ + + + | 10/26/ | Office | Plastic and | Uzair Mnedoza MD | Lymphangioma | | 2016 | Visit | Reconstructive | [address] | (Primary Dx) | | | | Surgery at [facility] [address] | [place], [place] | | | | | [address] | [address] | | | | | Mailcode: [id number] | [phone] | | | | | [facility] | | | | | | and Healing, | | | | | | Building [address], 5th | | | | | | Floor [place], [place] | | | | | | [address] | | | | | | [phone] | | | +--------+---------+ + + + [...] + + + | Blood Pressure | 132/72 | 10/27/2015 10:28 AM | | | | | PDT | | + + + + + | Pulse | 74 | 10/27/2015 10:28 AM | | | | | PDT | | + + + + + | Temperature | - | - | | + + + + + | Respiratory Rate | 18 | 10/27/2015 10:28 AM | | | | | PDT | | + + + + + | Oxygen Saturation | 94% | 10/27/2015 10:28 AM | | | | | PDT | | + + + + + | Inhaled Oxygen | - | - | | | Concentration | | | | + + + + + | Weight | 135.6 kg (298 lb | 10/27/2015 10:28 AM | | | | 14.4 oz) | PDT | | + + + + + | Height | - | - | | + + + + + | Body Mass Index | 44.12 | 10/26/2015 10:34 AM | | | | | PDT | | + + + + + documented in this encounter Progress Notes Uzair Mendoza MD - 10/27/2015 12:58 PM Fady Tanika Prather 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 She would like further steroid injections. She has noted increase in size and ten derness on the left upper buttock. She has had good response with the steroid treatments. OBJECTIVE: There a lymphangioma blebs on both sides of the gluteal cleft. The area on the l eft upper buttock is enlarged, the other lesions are stable. There is a new crusted area of lymphangioma blebs on the right inferior cleft area. The left side is much better the right is stable. Under sterile conditions 0.9 mL of Kenalog 40 was injected into [...] | + +--------+ + + + | NC INJ INTO SKIN | Routin | 10/27/2015 | Lymphangioma | | | LESIONS, UP TO AND | e | 12:58 PM | | | | INCLUDE 7 LESIONS | | PDT | | | + +--------+ + + + documented in this encounter Visit Diagnoses + + | Diagnosis | + + | Lymphangioma - Primary Lymphangioma, any site | + + documented in this encounter
--- OUTSIDE RECORDS SUMMARY | ~2019-02-10 | XMS | Encounter Summary ---
Demographics + + + | Address | [address] | | | [place] [address] | + + + | Home Phone | | + + + | Preferred Language | Unknown | + + + | Marital Status | Single | + + + | Pentecostal Affiliation | PRO | + + + [...] Team Providers + +------+ + | Care Public Address System Installer Name | Role | Phone | + +------+ + | Timothy Burks MD | PCP | | + +------+ + Reason for Visit Diagnostic Testing (Routine) +--------+--------+ + + + + | Status | Reason | Specialty | Diagnoses / | Referred By | Referred To | | | | | Procedures | Contact | Contact | +--------+--------+ + + + + | Closed | | Radiology | Diagnoses | [place], | 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 [facility] [address] | | | | | lower limb | [address] | [address] | | | | | vessel | [address] | | | | | anomaly | [place] | [address] Mailcode: | | | | | Procedures | [facility] [place] | [address] | | | | | VASC LAB | [address] | Physician's | | | | | VENOUS | Phone: | Pavilion | | | | | DUPLEX LOWER | [phone] | [place], [place] | | | | | EXTREMITY | Fax: | [address] | | | | | LT | [phone] | Phone: | | | | | | | [phone] | | | | | | | Fax: | | | | | | | [phone] | +--------+--------+ + + + + Encounter Details +--------+ + + + + | Date | Type | Department | Care Team | Description | +--------+ + + + + | 10/23/ | Hospital | Diagnostic | | | | 2011 | Encounter | Radiology at [facility] | | | | | | [address] | | | | | | [place] Mailcode: | | | | | | [address] Physician's | | | | | | [place], | | | | | | [place] [address] | | | | | | [phone] | | | +--------+ + + + [...] | VASC LAB VENOUS | Routin | 10/24/2011 | Congenital lower | Results for this | | DUPLEX LOWER | e | 11:22 AM | limb vessel anomaly | procedure are in the | | EXTREMITY LT | | PDT | | results section. | + +--------+ + + + documented in this encounter Results [facility] LAB VENOUS DUPLEX LOWER EXTREMITY LT (10/24/2011 [...] | + +---------+ + + | [facility] DEPARTMENT OF | | | | | RADIOLOGY | | | | + +---------+ + + documented in this encounter Visit Diagnoses + + | Diagnosis | + + | Congenital lower limb vessel anomaly | + + documented in this encounter
--- OUTSIDE RECORDS SUMMARY | ~2019-02-10 | XMS | Encounter Summary ---
Demographics + + + | Address | [address] | | | [place] [address] | + + + | Home Phone [...] Team Providers + +------+ + | Care Hop Picker Name | Role | Phone | + +------+ + | Timothy Burks MD | PCP | | + +------+ + Encounter Details +--------+ + + + + | Date | Type | Department | Care Team | Description | +--------+ + + + + | 08/31/ | DELETED | Preoperative | Consult, | ANESTHESIA/SEDATION | | 2001 | TRANSCRIPTI | Medicine Clinic at | Anesthesia [address] | | | | ON | [facility] 4th Floor [address] | | | | | [address] | [address] [place], [place] | | | | | Mailcode: [facility] | [address] | | | | | [facility] | | | | | | and Healing, | | | | | | Building [address],4th Floor | | | | | | [place], [place] | | | | | | [address] | | | | | | [phone] | | | +--------+ + + + [...]
--- OUTSIDE RECORDS SUMMARY | ~2019-02-10 | XMS | Encounter Summary ---
Demographics + + + | Address | [address] | | | [place] [address] | + + + | Home Phone [...] Team Providers + +------+ + | Care Programming Equipment Operator Name | Role | Phone [...] | | | | | | | [facility] | | | | | | | [facility] | | | | | | | [facility] | | | | | | | ([facility]) | | | | | | | [place], | | | | | | | [place] [address] | | | | | | | Phone: | | | | | | | [phone] | | | | | | | Fax: | | | | | | | [phone] | +--------+--------+ + + + + Encounter Details +--------+ + + + + | Date | Type | Department | Care Team | Description | +--------+ + + + + | 03/06/ | Hospital | [facility] [address] | Sebas Payan, | | | 2007 | Encounter | [address] | MD [address] [facility] | | | | | [address] [place] [address]/[facility] | [address] | | | | | Donald Velasquez | [place], [place] | | | | | (MNP/[facility]) | [address] | | | | | [place], [place] | [phone] | | | | | [address] | | | | | | [phone] | | | +--------+ + + + [...] clinic in 2 weeks, call to schedule [phone] Other: Follow Up Tests: (Tests at [facility] must be entered into Epic) Condition On [...] Completed: Discharging Attending: MD RAQUEL Ayala MD [facility] [address] [place] [address] documented in this encoun ter Discharge Instructions [...] gluteal cleft AVM excision last year. She ntahan s recently noticed AVM recurrence with new [...] clinic in 2 weeks, call to schedule [phone] Other: Follow Up Tests: (Tests at [facility] must be entered into Epic) Condition On [...] by patient. SEBAS PAYAN MD VASCULAR SURGERY, [address] Mail Code WB87 [place] [address] Email: [email or web address] documented in this encoun ter Plan [...] [facility] DEPARTMENT OF | [address] | [place] [address] | | | PATHOLOGY | [address] | | | + + + + + | [facility] | [address] | [place] [address] | | | PATHOLOGY | [address] | | | + + + + + OPERATION RECORD (03/06/2008 12:00 AM PST) + + + | Narrative | Performed At | + + + | [id number] | | | [id number] | | | [id number] [facility] [id number] | | | Date: 03/06/2008 Attending | | | Surgeon: Sebas Payan M.D. | | | Director Rehabilitation Program(s): Raquel Vazquez M.D. | | | Preoperative [...] M.D. GJL | | | / HS [id number] / [id number] / [id number] / | | | | | + + + + + | Procedure Note | + + | Sebas Payan MD - 03/06/2008 12:00 AM PST [id number] | | [id number] [facility] | | C [id number] Date: 03/06/2008 Attending Surgeon: | | Sebas Payan M.D. Director Rehabilitation Program(s): Raquel Vazquez, M.D. | | Preoperative Diagnosis(es):Right [...] | condition. Sebas Payan M.D. LARRY / [id number] / [id number] / [id number] /D: | | 03/06/2008T: 03/06/2008 | |Indications: [...] | | | |GJL / HS | |[id number] / [id number] / [id number] / | | | | | | [...] fibrous, | | | | | | tcveu-[id number]-[id number] | | | | | | purple [...] specimen. | | | | | | Gaming Worker | | | | | | sections [...] | + + + + + | [facility] | [employer] [facility] | [place] [address] | | | PATHOLOGY | [address] | | | + + + + + | [facility] DEPARTMENT OF | [address] [facility] | [place] [address] | | | PATHOLOGY | [address] [...]
--- OUTSIDE RECORDS SUMMARY | ~2019-02-10 | XMS | Encounter Summary ---
Demographics + + + | Address | [address] | | | [place] [address] | + + + | Home Phone | | + + + | Preferred Language | Unknown | + + + | Marital Status | Single | + + + | Nondenominational Affiliation | PRO | + + + [...] Team Providers + +------+ + | Care Air Compressor Engineer Name | Role | Phone | + +------+ + | Jose Ramires MD | PCP | | + +------+ + Encounter Details +--------+--------+ + + + | Date | Type | Department | Care Team | Description | +--------+--------+ + + + | 12/11/ | Travel [...]
--- OUTSIDE RECORDS SUMMARY | ~2019-02-10 | XMS | Encounter Summary ---
Demographics + + + | Address | [address] | | | [place] [address] | + + + | Home Phone | | + + + | Preferred Language | Unknown | + + + | Marital Status | Single | + + + | Methodist Affiliation | PRO | + + + | Race | White | + + + | Ethnic Group | Not or | + + + Author + + + | Author | [facility] | + + + | Organization | [facility] | + + + | Address [...] Team Providers + +------+ + | Care Child Care Counselor Name | Role | Phone | + [...] Description | +--------+---------+ + + + | 08/04/ | Office | Vascular Surgery | Imtiaz Trejo, | Vascular | | 2008 | Visit | at [facility] | [address] | Malformation | | | | [address] | [address] | | | | | Zahraa Shay Mailcode: | [place], [place] | | | | | [address] Physician's | [address] | | | | | [place], | | | | | | [place] [address] | | | | | | [phone] | | | +--------+---------+ + + + [...] encounter Progress Notes Imtiaz Trejo MD - 08/04/2008 9:36 AM PDT This is a pleasant 32 year old lady who und 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 The resultant wound and scar did not heal well and continued to drain and was subsequently reexcised in May 26. At the time of the reexcision the wound was packed open. The patient returns today fo r a wound check. There is persistant drainage from the wound. There appears to be hypertrophic scar and granulations at the wound site. There is no sign of acute infection. We will prescribe champion ty hose support hose for this lady at least until the wound is healed. We will continue wit h local cleansing, wound care, and compression to the area. We will follow-up in one month. 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
--- OUTSIDE RECORDS SUMMARY | ~2019-02-10 | XMS | Encounter Summary ---
Demographics + + + | Address | [address] | | | [place] [address] | + + + | Home Phone [...] Team Providers + +------+ + | Care Online Content Editor Name | Role | Phone | + +------+ + PCP | Unavailable | + +------+ + Encounter Details +--------+ + + + + | Date | Type | Department | Care Team | Description | +--------+ + + + + | 06/10/ | Office | [facility] | Note, Dermatology | Progress Note | | 2004 | [...] as of this encounter Progress Notes Interface, Exercise Physiology Professor In - 10/23/2004 10:33 PM PDTDATE OF SERVICE: 06/10 CONSULTATION NOTE: CHIEF COMPLAINT: Lymphangioma. HISTORY OF PRESENT ILLNESS: Ms. Prather is referred by Dr. Newby for the laser excision of a Lymphangioma on her buttock crease/sacrum. The patient has had this since , but this has enlarged and now is protruding and leaking lymph fluid. Because of this I did discuss laser excision using the CO2 laser briefly while she was seeing Dr. Newby in consultation a couple of months back. EXAMINATION: Patient has a 2.5 x 1.3cm. nodule on her right buttock near the crease. She has a vascular stain in the innergluteal cleft as well as on the upper sacrum. ASSESSMENT AND PLAN: 1. Lymphangioma. I had a lengthy discussion with the patient regarding the treatment of this with the CO2 laser. I told her that the goal is to seal the lymph vessels/tunnels but this may not be permanent and could recur given that there is a larger extensive tumor underneath. She is aware of this, but would like to proceed given the symptoms she has had recently of pain and leaking. I went over the risk, benefits and alternatives. Enrrique Holland M.D. Supervisor Lending Activities, Dermatology, Surgery Otolaryngology-Head and Neck Surgery Vesta A 10: 33 PM PDTdocumented in this encounter Plan of Treatment Not on filedocumented as of this encounter Visit Diagnoses Not on filedocumented in this encounter"
--- OUTSIDE RECORDS SUMMARY | ~2019-02-10 | XMS | Encounter Summary ---
Demographics + + + | Address | [address] | | | [place] [address] | + + + | Home Phone [...] + + + | Author | [facility] | + + + | Organization | [facility] | + + + | Address | Unknown | + + + | Phone | Unavailable | + + + Support + + + + + | Name | Relationship | Address | Phone | + + + + + | Mariah Prather | OZZIE | [place] | | + + + + + Care Team Providers + +------+ + | Care Plate Grainer Apprentice Name | Role | Phone | + +------+ + | Jose Ramires MD | PCP | | + +------+ + Encounter Details +--------+ + + + + | Date | Type | Department | Care Team | Description | +--------+ + + + + | 03/12/ | Abstract | Digestive Health | Clinic, Surgery | | | 2018 | | [facility] [address] | | | | | | [address] | | | | | | Mailcode: [place] | | | | | | for Health and | | | | | | Healing, Building 2 | | | | | | [facility] [place] | | | | | | [address] | | | | | | [phone] | | | +--------+ + + + [...]
--- OUTSIDE RECORDS SUMMARY | ~2019-02-10 | XMS | Encounter Summary ---
Demographics + + + | Address | [address] | | | [place] [address] | + + + | Home Phone [...] Team Providers + +------+ + | Care Archival Records Clerk Name | Role | Phone | [...] | | | | REQUEST TO | [place], [place] | Mailcode: | | | | | SURGERY | [address] | [facility] | | | | | MANAGER CODING | Phone: | for Health | | | | | [place] REMOVAL | [phone] | and Healing, | | | | | [facility] | Fax: | [facility], | | | | | | [phone] | [address] [place] [address] | | | | | | | [place], [place] | | | | | | | [address] | | | | | | | Phone: | | | | | | | [phone] | +--------+--------+ + + + + Reason [...] | malformation | [address] | [address] | | | | | Procedures | [address] | | | | | CONSULT TO | Rd | [place], [place] | | | | | SURGERY - | [place] | [address] | | | | | PLASTICS | [address] | Phone: | | | | | | | [phone] | | | | | | | Fax: | | | | | | | [phone] | +--------+--------+ + + + + Encounter Details +--------+---------+ + + + | Date | Type | Department | Care Team | Description | +--------+---------+ + + + | 11/24/ | Office | Plastic and | Uzair Mendoza MD | Vascular | | 2009 | Visit | Reconstructive | [address] | malformation | | | | Surgery at [facility] [address] | [place], [place] | (Primary Dx) | | | | [address] | [address] | | | | | Mailcode: [facility] | [phone] | | | | | [facility] | | | | | | and Healing, | | | | | | Building 1, 5th | | | | | | Floor [place], [place] | | | | | | [address] | | | | | | [phone] | | | +--------+---------+ + + + [...]
--- OUTSIDE RECORDS SUMMARY | ~2019-02-10 | XMS | Encounter Summary ---
Demographics + + + | Address | [address] | | | [place] [address] | + + + | Home Phone [...] Author + + + | Author | [facility] | + + + | Organization | [facility] | + + + | Address [...] Team Providers + +------+ + | Care Television Program Director Name | Role | Phone | + +------+ + | Timothy Burks MD | PCP | | + +------+ + Encounter Details +--------+ + + + + | Date | Type | Department | Care Team | Description | +--------+ + + + + | 06/22/ | Documentati | Digestive Health | [place], | | | 2016 | on | Center at [facility] [address] | MD [address] | | | | | [address] | [address] | | | | | Mailcode: Center | [place], [place] | | | | | for Health and | [address] | | | | | Healing, Building 2 | [phone] | | | | | [place], [place] | | | | | | [address] | | | | | | [phone] | | | +--------+ + + + [...]
--- OUTSIDE RECORDS SUMMARY | ~2019-02-10 | XMS | Clinical Summary ---
Demographics + + + | Address | [address] | | | [place] [address] | + + + | Home Phone | | + + + | Preferred Language | Unknown | + + + | Marital Status | Single | + + + | Oriental Orthodox Affiliation | Unknown | + + + | Race | Unknown | + + + | Ethnic Group | Unknown | + + + Author + + + | Author | [email or web address] (Historical as of | | | 11-10-18) | + + + | Organization | [email or web address] (Historical as of | | | 11-10-18) | + + + | Address | Unknown | + + + | Phone | Unavailable | + + + Support + + +---------+ + | Name | Relationship | Address | Phone | + + +---------+ + | Mariah Prather | ECON | Unknown | | + + +---------+ + Care Team Providers + +------+ + | Care Aquatic Facility Manager Name | Role | Phone | + +------+ + | Jose Ramires MD | PP | | + +------+ + Allergies + + + + + + | Active Allergy | Reactions | Severity | Noted | Comments | | | | | Date | | + + + + + + | Clindamycin | Rash | High | 11/09/19 | | | | | | 19 | | + + + + + + | Codeine | Nausea and Vomiting | Medium | 11/09/19 | | | | | | 19 | | + + + + + + | Hydrocodone | Nausea and Vomiting | Medium | 11/09/19 | | | | | | 19 | | + + + + + + Current Medications + + +-------+---------+------+------+-------+ | Prescription | Sig. | Disp. | Refills | Star | End | Statu | | | | | | t | Date | s | | | | | | Date | | | + + +-------+---------+------+------+-------+ | Cholecalciferol | Take 2,000 Units by | | | | | Activ | | (VITAMIN D) 2000 | mouth daily. | | | | | e | | units CAPS | | | | | | | + + +-------+---------+------+------+-------+ | mirabegron ER | Take by mouth. | | | | | Activ | | (MYRBETRIQ) 50 MG | | | | | | e | | TB24 | | | | | | | + + +-------+---------+------+------+-------+ | pantoprazole | Take 40 mg by mouth | | | | | Activ | | (PROTONIX) 40 MG | 2 (two) times daily. | | | | | e | | tablet | | | | | | | + + +-------+---------+------+------+-------+ | warfarin | Take 10 mg by mouth | | | | | Activ | | (COUMADIN) 10 MG | daily. | | | | | e | | tablet | | | | | | | + + +-------+---------+------+------+-------+ | FLUoxetine | Take 20 mg by mouth | | | | | Activ | | (PROZAC) 20 MG | daily. | | | | | e | | capsule | | | | | | | + + +-------+---------+------+------+-------+ | loratadine | Take 10 mg by mouth | | | | | Activ | | (CLARITIN) 10 MG | daily. | | | | | e | | tablet | | | | | | | + + +-------+---------+------+------+-------+ | nadolol (CORGARD) | Take 20 mg by mouth | | | | | Activ | | 20 MG tablet | daily. | | | | | e | + + +-------+---------+------+------+-------+ | UNABLE TO FIND | Med Name: SIROLIMUS | | | | | Activ | | | 1% CREAM | | | | | e | + + +-------+---------+------+------+-------+ Active Problems + + + | Problem | Noted Date | + + + | Superficial thrombophlebitis | 06/25/2017 | + + + | Thrombophilia (HCC) | 06/25/2017 | + + + | Abnormal findings on diagnostic imaging of breast | 05/01/2017 | + + + | Lymphedema of left leg | 10/26/2015 | + + + | Lymphatic malformation | 12/18/2012 | + + + | Vascular malformation | 05/26/2008 | + + + | Allergic rhinitis | 06/29/2007 | + + + | Atrial fibrillation (HCC) | 06/29/2007 | + + + | Cerebrovascular accident (HCC) | 06/29/2007 | + + + | Deep venous thrombosis (HCC) | 06/29/2007 | + + + | Pulmonary embolism (HCC) | 06/29/2007 | + + + Family History + + +------+ + | Medical History | Relation | Name | Comments | + + +------+ + | Diabetes type II | Father | | | + + +------+ + | No Known Problems | Mother | | | + + +------+ + + +------+--------+ + | Relation | Name | Status | Comments | + +------+--------+ + | Father | | Alive | | + +------+--------+ + | Mother | | Alive | | + +------+--------+ + Social History [...] + +---------+ + | Alcohol Use | Drinks/We | oz/Week | Comments | | | ek | | | + + +---------+ + | No | | | | + + +---------+ + + + + | Sex Assigned at | Date Recorded | | | | + + + | Not on file | | + + + Last Filed Vital Signs + + + + | Vital Sign | Reading | Time Taken | + + + + | Blood Pressure | 94/66 | 11/08/2018 2:35 PM PDT | + + + + | Pulse | 100 | 11/08/2018 2:35 PM PDT | + + + + | Temperature | - | - | + + + + | Respiratory Rate | - | - | + + + + | Oxygen Saturation | 96% | 11/08/2018 2:35 PM PDT | + + + + | Inhaled Oxygen | - | - | | Concentration | | | + + + + | Weight | 139.3 kg (307 lb) | 11/08/2018 2:35 PM PDT | + + + + | Height | 175.3 cm (5' 9") | 11/08/2018 2:35 PM PDT | + + + + | Body Mass Index | 45.34 | 11/08/2018 2:35 PM PDT | + + + + Plan of Treatment + + + + + | Health Maintenance | Due Date | Last Done | Comments | + + + + + | Vaccine: | | | | | Dtap/Tdap/Td (1 - | 4 | | | | Tdap) | | | | + + + + + | Cervical Cancer | | | | | Screening (Pap) | 5 | | | + + + + + | Vaccine: Influenza | | | | | (#1) | 9 | | | + + + + + Results Not on filefrom Last 3 Months Insurance +---------+--------+ +------+-------+ + | Payer | Benefi | Subscriber | Type | Phone | Address | | | t Plan | ID | | | | | | / | | | | | | | Group | | | | | +---------+--------+ +------+-------+ + | PREMERA | PREMER | [id number] | | | [address] [address] | | | A BLUE | 5 | | | [place], [place] | | | CARD | | | | [address] | +---------+--------+ +------+-------+ + + +--------+ +--------+ + + | Guarantor Name | Accoun | Relation to | Date | Phone | Billing Address | | | t Type | Patient | of | | | | | | | | | | + +--------+ +--------+ + + | CHRISSY PRATHER | Person | Self [birth year] | Work: | [address] | | | 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
--- OUTSIDE RECORDS SUMMARY | ~2019-02-10 | XMS | Encounter Summary ---
Demographics + + + | Address | [address] | | | [place] [address] | + + + | Home Phone [...] Team Providers + +------+ + | Care Video Network Engineer Name | Role | Phone | [...] as of this encounter Progress Notes Interface, Assistant Press Operator Offset In - 10/23/2004 10:33 PM PDTDATE OF SERVICE: 06/10 OPERATION RECORD ATTENDING SURGEON: Enrrique Holland M.D. DETHISTLER OPERATOR: Shara Wells LPN PREOPERATIVE DIAGNOSIS(ES): Lymphangioma. POSTOPERATIVE DIAGNOSIS(ES): Same. OPERATIONS PERFORMED: CO2 laser excision. INDICATIONS: Patient presents with a symptomatic Lymphangioma on her buttock, which is leaking fluids. She has the main lesion measuring 2.5 and 1.2cm. as small as 6 other small papules. After a PARQ and both written and verbal informed consent was obtained the procedure was carried out as follows. PROCEDURE: The patient was placed prone on the procedure room table. The area was anesthetized with 1% Lidocaine with Epinephrine. Located on the right buttock skin was a Lymphangioma. The CO2 laser was set at 15-22 mathis in a continuous cycle. All personal as well as the patient had protective eye wear. With the continuous wave the lesion was excised in the cutting mode around the perimeter and then in the coagulation mode the base was sealed. The other smaller lesions numbering 6 were treated individually with the CO2 laser in the coagulation mode. She tolerated the procedure well. 0.25% Marcaine with Epinephrine was injected afterwards for post-operative pain control. A total of 5cc's was injected. The patient tolerated the procedure well. I certify my presence and performance for at least the dumont components of this procedure. Enrrique Holland M.D. Mixing Plant Operator, Dermatology, Surgery Otolaryngology-Head and Neck Surgery ROSEY/yovanny A 10: 33 PM PDTdocumented in this encounter Plan of Treatment Not on filedocumented as of this encounter Visit Diagnoses Not on filedocumented in this encounter"
--- OUTSIDE RECORDS SUMMARY | ~2019-02-10 | XMS | Encounter Summary ---
Demographics + + + | Address | [address] | | | [place] [address] | + + + | Home Phone [...] Team Providers + +------+ + | Care Laboratory Inspector Name | Role | Phone | [...] Closed | | Plastic | Diagnoses | Kathya Zuñiga | | | | Surgery | Vascular | MD Lazaro | MD Uzair | | | | | malformation | [address] | [address] | | | | | Procedures | [address] | | | | | CONSULT TO | Rd | [place], [place] | | | | | SURGERY - | [place] | [address] | | | | | PLASTICS | [address] | Phone: | | | | | | | [phone] | | | | | | | Fax: | | | | | | | [phone] | +--------+--------+ + + + + Reason for Visit + + + | Reason | Comments | + + + | Follow-up visit | f/u excision of right gluteal cleft lymphangioma in February 2008 | | | - check healing | + + + Consultation (Routine) +--------+--------+ [...] | | | | | | | [place], [place] | | | | | | | [address] | | | | | | | Phone: | | | | | | | [phone] | | | | | | | Fax: | | | | | | | [phone] | +--------+--------+ + + + + Encounter Details +--------+---------+ + + + | Date | Type | Department | Care Team | Description | +--------+---------+ + + + | 10/12/ | Office | Vascular Surgery | Lazaro Zuñiga MD | Vascular | | 2009 | Visit | at [facility] | | malformation | | | | [address] | | (Primary Dx) | | | | [place] Mailcode: | | | | | | [address] Physician's | | | | | | [place], | | | | | | [place] [address] | | | | | | [phone] | | | +--------+---------+ + + + [...] documented as of this encounter Progress Notes Lazaro Zuñiga MD - 2009 10:13 AM PDTI saw and examined the patient. I agree with th e findings and plan as recorded in the resident note. llis, Myra Sagastume MD - 2009 10:11 AM [facility] History: Ms. Prather is a 34 y.o. female who returns for follow up. 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 Since that time she has had hypertrophic scar tissue that con tinues to drain daily. She denies bouts of infection or pain. PHYSICAL EXAMINATION: The patient is a WDWN female in no apparent distress. Right gluteal cleft with hypertrophic scar, raised at least 1.5cm, with serous drainage. No surrounding skin breakdown or erythema. ASSESSMENT AND PLAN: Persistent right gluteal cleft hypertrophic scar. Will refer patient to plastics for evaluation. Patient to return to clinic as needed. MD Timothy Warren MD [facility] [address] [place] [id number] documented in this encounter Plan of Treatment Not on filedocumented as of this encounter Visit Diagnoses + + | Diagnosis | + + | Vascular malformation - Primary Unspecified congenital anomaly of circulatory system | + + documented in this encounter"
--- OUTSIDE RECORDS SUMMARY | ~2019-02-10 | XMS | Encounter Summary ---
Demographics + + + | Address | [address] | | | [place] [address] | + + + | Home Phone [...] + + + | Author | [facility] | + + + | Organization | [facility] | + + + | Address [...] Team Providers + +------+ + | Care Melt House Drag Operator Name | Role | Phone | + +------+ + | Timothy Burks MD | PCP | | + +------+ + Reason for Referral Consult to [place] (Routine) +--------+--------+ + + + + | Status | Reason | Specialty | Diagnoses / | Referred By | Referred To | | | | | Procedures | Contact | Contact | +--------+--------+ + + + + | Closed | | Vascular | Diagnoses | Lauren, | Marcella Vasc | | | | Surgery | Congenital | MD Sebas | Surg [facility] | | | | | lower limb | [address] | [address] | | | | | vessel | [address] | [address] | | | | | anomaly | [address] | Rd Mailcode: | | | | | Procedures | [place], [place] | OP11 | | | | | REQUEST TO | [address] | Physician's | | | | | SURGERY | Phone: | Ron | | | | | LABORER DRYING DEPARTMENT | [phone] | [place], [place] | | | | | IN VASCULAR | Fax: | [address] | | | | | SURGERY | [phone] | Phone: | | | | | PROCEDURE | | [phone] | | | | | UNLIST | | Fax: | | | | | | | [phone] | +--------+--------+ + + + + Reason for Visit + + + | Reason | Comments | + + + | Follow-up visit | review MRI done 02/07/08 | + + + Encounter Details +--------+---------+ + + + | Date | Type | Department | Care Team | Description | +--------+---------+ + + + | 02/17/ | Office | Vascular Surgery | Sebas Lauren, | Congenital Lower | | 2007 | Visit | at [facility] 2nd Floor | [address] | Limb Vessel Anomaly | | | | [address] | [address] | (Primary Dx); Periph | | | | [address] Mailcode: | [place], [place] | Vascular Anom NEC | | | | [address] Physician's | [phone] | | | | | [place], | [phone] | | | | | [place] [address] | | | | | | [phone] | | | +--------+---------+ + + + [...] documented as of this encounter Progress Notes Leonidas Sebas - 02/18/2008 10:31 AM PSTFormatting of this note might be different from th e original. [facility] Reason for Visit: f/u left gluteal cleft AVM HISTORY: Ms. Prather is a 32 y.o. 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 She is experiencing frequent bleeding from the AVM and wishes to have it excised if possible.She had a recent MRI to assess the depth of the AVM at this site Past Medical History Diagnosis Date Allergic Rhinitis [...] the patient appears WDWN and in no distress. There is a left gluteal cleft avm that measures about 1x4 cm. It is painful and very friable. No other significant findings on examination today. IMAGING STUDIES. MRI demonstrates angiodysplasia at multiple sites including gluteal cleft. There does not appear to be an extensive subq component. ASSESSMENT AND PLAN: bleeding left gluteal cleft avm. Patient wishes excision of this as so on as possible. I will have our or crane rigger contact her regarding date and time. CC: Timothy Burks MD [facility] [address] [place] [address] [place] [address] documented in this encoun ter Plan of Treatment Not on filedocumented as of this encounter Procedures + +--------+ + + + | Procedure Name | Priori | Date/Time | Associated Diagnosis | Comments | | | ty | | | | + +--------+ + + + | ORDERS OTHER | | 02/07/2008 | | Results for this | | | | 12:00 AM | | procedure are in the | | | | PST | | results section. 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
--- OUTSIDE RECORDS SUMMARY | ~2019-02-10 | XMS | Encounter Summary ---
Demographics + + + | Address | [address] | | | [place] [address] | + + + | Home Phone [...] Author + + + | Author | [facility] | + + + | Organization | [facility] | + + + | Address [...] Team Providers + +------+ + | Care Paper Mill Supervisor Name | Role | Phone | [...] as of this encounter Progress Notes Interface, Dispatcher Electric Power In - 10/23/2004 11:52 PM PDT [id number] JOHNSON Sagastume Date: 03/24/2004 Patient: Mahi Prather [...] followup in 1 year. Lazaro Zuñiga M.D. mother superior KT / ALENA [id number] / [id number] / [id number] / Electronically signed by Lazaro Zuñiga JR 03-29-2004 04:03:04 PM documented i n this encounter Plan of Treatment Not on filedocumented as of this encounter Visit Diagnoses Not on filedocumented in this encounter"
--- OUTSIDE RECORDS SUMMARY | ~2019-02-10 | XMS | Encounter Summary ---
Demographics + + + | Address | [address] | | | [place] [address] | + + + | Home Phone [...] Team Providers + +------+ + | Care Desk Pen Set Assembler Name | Role | Phone | + +------+ + | Jose Ramires MD | PCP | | + +------+ + Encounter Details +--------+ + + + + | Date | Type | Department | Care Team | Description | +--------+ + + + + | 01/23/ | Procedure | [facility] | | | | 2019 | Pass | [facility] | | | | | | and Healing Surgery | | | | | | Center Admitting | | | | | | Desk Located on the | | | | | | 4th floor [address] | | | | | | [place], | | | | | | [place] [address] | | | +--------+ + + + [...]
--- OUTSIDE RECORDS SUMMARY | ~2019-02-10 | XMS | Encounter Summary ---
Demographics + + + | Address | [address] | | | [place] [address] | + + + | Home Phone | | + + + | Preferred Language | Unknown | + + + | Marital Status | Single | + + + | Buddhist Affiliation | PRO | + + + [...] Providers + +------+ + | Care Assistant Health Educator Name | Role | Phone | + [...] | | CONSULT TO | Rd | [place], [place] | | | | | SURGERY - | [place], [place] | [address] | | | | | PLASTICS | [address] | Phone: | | | | | | | [phone] | | | | | | | Fax: | | | | | | | [phone] | +--------+--------+ + + + + Encounter Details +--------+---------+ + + + | Date | Type | Department | Care Team | Description | +--------+---------+ + + + | 11/09/ | Office | Plastic and | Uzair Mendoza MD | Vascular | | 2010 | Visit | Reconstructive | [address] | malformation | | | | Surgery at [facility] [address] | [place], [place] | (Primary Dx) | | | | [address] | [address] | | | | | Mailcode: CH5P | [phone] | | | | | [facility] | | | | | | and Healing, | | | | | | Building 1, 5th | | | | | | Floor [place], [place] | | | | | | [address] | | | | | | [phone] | | | +--------+---------+ + + + [...]
--- OUTSIDE RECORDS SUMMARY | ~2019-02-10 | XMS | Encounter Summary ---
Demographics + + + | Address | [address] | | | [place] [address] | + + + | Home Phone [...] Team Providers + +------+ + | Care Surgical Territory Manager Name | Role | Phone | + +------+ + | Timothy Burks MD | PCP | | + +------+ + Reason for Visit + + + | Reason | Comments | + + + | Medical Records | | | Review | | + + + Encounter Details +--------+ + + + + | Date | Type | Department | Care Team | Description | +--------+ + + + + | 04/21/ | Documentati | Endoscopic | Lab, Gi Procedure | Medical Records | | 2015 | on | Procedural Unit at | | Review | | | | [place] [address] | | | | | | [address] | | | | | | [address] Mailcode: U[facility]83 | | | | | | [place] | | | | | | [address] [place], [place] | | | | | | [address] | | | | | | [phone] | | | +--------+ + + + [...]
--- OUTSIDE RECORDS SUMMARY | ~2019-02-10 | XMS | Encounter Summary ---
Demographics + + + | Address | [address] | | | [place] [address] | + + + | Home Phone | | + + + | Preferred Language | Unknown | + + + | Marital Status | Single | + + + | Presybeterian Affiliation | PRO | + + + [...] Team Providers + +------+ + | Care Press Operator Carbon Blocks Name | Role | Phone | + [...] | | | | | specified | [address] | [address] | | | | | congenital | [address] | [address] | | | | | anomalies | [address] | [place], [place] | | | | | Congenital | [place], [place] | [address] | | | | | lower limb | [address] | Phone: | | | | | vessel | Phone: | [phone] | | | | | anomaly | [phone] | Fax: | | | | | Procedures | Fax: | [phone] | | | | | CONSULT TO | [phone] | | | | | | SURGERY [...] malformation | | | | Surgery at [facility] [address] | (Primary Dx) | | | | [address] | [address] [facility] [place] | | | | | Mailcode: [facility] | [address] | | | | | [facility] | | | | | | and Healing, | | | | | | Building 1, 5th | | | | | | Floor [place], [place] | | | | | | [address] | | | | | | [phone] | | | +--------+---------+ + + + [...] bandage. Sebastian [place] PA-C Dept Plastic/Reconstructive Surgery [facility] Electronically signed on 05/10/2013 at 2:37 PM [...]
--- OUTSIDE RECORDS SUMMARY | ~2019-02-10 | XMS | Encounter Summary ---
Demographics + + + | Address | [address] | | | [place] [address] | + + + | Home Phone [...] + + | Author | [facility] | + + + | Organization | [facility] | + + + | [...] Team Providers + +------+ + | Care Linting Machine Operator Name | Role | Phone | + +------+ + | Timothy Burks MD | PCP | | + +------+ + Encounter Details +--------+ + + + + | Date | Type | Department | Care Team | Description | +--------+ + + + + | 08/27/ | Office | [facility] | Note, Outpatient | Progress Note | | 2001 | Visit-Trans | MEDICINE | Clinic | [...] as of this encounter Progress Notes Interface, Data Miner In - 11/22/2005 3:00 AM PDTCLINIC DATE: 08/27/2001 UROLOGY CLINIC CHIEF COMPLAINT: Gross hematuria. 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 She is not a surgical candidate for repair of these veins. As such, she is currently on maintenance Coumadin. The patient presented 2 years ago to our clinic with gross hematuria. She did not receive treatment, and her hematuria resolved on its own. Today, she comes into the clinic after having a 1-month history of hematuria with blood clots. She has received approximately 8 units of packed red cells in the last month. Cystoscopy performed approximately 2 years ago revealed large dilated veins that course through the bladder. OBJECTIVE: HEENT: No lymphadenopathy. NECK: Supple. Normal thyroid. LUNGS: Clear to auscultation bilaterally. HEART: Regular rate and rhythm. Normal S1 and S2. No murmurs, rubs, or gallops. ABDOMEN: Soft, nontender, and nondistended. Normal bowel sounds in all quadrants. DISTAL EXTREMITIES: Right leg normal. Left leg is grossly edematous. She is currently wearing a compression stocking over her entire leg and thigh. As such, her previously diagnosed superficial angiodysplastic veins were not seen. ASSESSMENT: The patient is a 25-year-old female with a previous diagnosis of angiodysplasia of her veins. She is known to have large dilated veins in her bladder via cystoscopic studies performed 1 year ago. Recent gross hematuria in all likelihood secondary to bleeding from these veins and is complicated by her chronic use of Coumadin which is needed due to her risk of pulmonary embolism and deep vein thrombosis. The patient has been evaluated by vascular surgery, and she is not a candidate for treatment of her underlying angiodysplasia. Therefore, other surgical interventions for her symptoms are the best therapy at this time. PLAN: We will discontinue warfarin therapy starting today. Prescriptions were written for Carbonated Content. The patient is to receive an MRA tomorrow evening at 8 o'clock p.m. The results of that study will guide further treatment. At this time, we anticipate performing embolization of the veins that go to her bladder. This procedure will be scheduled in at least 4 to 5 days after the patient has had adequate time off her Coumadin therapy. In addition, we will draw lab values today including an INR, CBC, and renal panel. If the patient has any acute changes in her symptomatology or symptoms secondary to blood loss, we will consider additional transfusions. Otherwise, we will continue the course as outlined. Derrell Fajardo, MS-III dictating for: Derrell Lowe M.D. [facility] / ALENA [id number] / [id number] / [id number] / Tdocumented in this encounter Plan of Treatment Not on filedocumented as of this encounter Visit Diagnoses Not on filedocumented in this encounter"
--- OUTSIDE RECORDS SUMMARY | ~2019-02-10 | XMS | Encounter Summary ---
Demographics + + + | Address | [address] | | | [place] [address] | + + + | Home Phone | | + + + | Preferred Language | Unknown | + + + | Marital Status | Single | + + + | Roman Catholic Affiliation | PRO | + + + | Race | White | + + + | Ethnic Group | Not or | + + + Author + + + | Author | [facility] | + + + | Organization | [facility] | + + + [...] Team Providers + +------+ + | Care Wad Lubricator Name | Role | Phone | + [...] as of this encounter Progress Notes Interface, Rougher Machine Operator In - 10/23/2004 4:48 PM PDTDate: 03/19/2003 Patient: Mahi Prather MR# [id number] Vascular Surgery Clinic Established Patient Examination She is back for followup of longstanding angiodysplasia of her left leg and pelvis. She has had no problems with her leg since last being seen. 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 She is [...] She understands the plan. Lazaro Zuñiga M.D. stope miner NOET / [id number] / [id number] / [id number] / C: 03/31/2003 jlb P M PDTdocumented in this encounter Plan of Treatment Not on filedocumented as of this encounter Visit Diagnoses Not on filedocumented in this encounter"
--- OUTSIDE RECORDS SUMMARY | ~2019-02-10 | XMS | Encounter Summary ---
Demographics + + + | Address | [address] | | | [place] [address] | + + + | Home Phone [...] Team Providers + +------+ + | Care Reservation Sales Agent Name | Role | Phone | + +------+ + | Jose Ramires MD | PCP | | + +------+ + Reason for Visit +---------+ + | Reason | Comments | +---------+ + | Surgery | | +---------+ + Encounter Details +--------+ + + + + | Date | Type | Department | Care Team | Description | +--------+ + + + + | 12/28/ | Telephone | Plastic and | Uzair Mendoza MD | Surgery | | 2019 | | Reconstructive | [address] | | | | | Surgery at [facility] [address] | [place], [place] | | | | | [address] | [address] | | | | | Mailcode: CH5P | [phone] | | | | | [facility] | | | | | | and Mic, | | | | | | [facility] | | | | | | Floor [place], [place] | | | | | | [address] | | | | | | [phone] | | | +--------+ + + + [...]
--- OUTSIDE RECORDS SUMMARY | ~2019-02-10 | XMS | Encounter Summary ---
Demographics + + + | Address | [address] | | | [place] [address] | + + + | Home Phone [...] Team Providers + +------+ + | Care Piercer Operator Name | Role | Phone | [...] + + | 01/10/ | Telephone-S | Preoperative | | Pre-op evaluation | | 2019 | shanaled | [facility] at | | | | | | [facility] | | | | | | [address] | | | | | | Mail Code: OC8PM | | | | | | [facility] | | | | | | and Mic, | | | | | | [address] | | | | | | [place], [place] | | | | | | [address] | | | | | | [phone] | | | +--------+ + + + + Anesthesia Record + + + + + | Procedure Name | Responsible | Anesthesia Start | Anesthesia Stop Time | | | Anesthesiologist | Time | | + + + + + | EXCISION LEFT LEG | Sebas Arguello MD | 01/23/19729 | 01/23/19832 | | SKIN LESION (Left | | | | | Leg) | | | | + + + + + +----+---+ + + | Da | T | Event | Comment | | te | i | | | | | m | | | | | e | | | +----+---+ + + | 10 | 0 | Eq Check | Anesthesia machine checked Equipment verified | | /3 | 6 | | | | 0/ | 4 | | | | 20 | 2 | | | | 19 | | | | +----+---+ + + | | 0 | Pt. Check | Prior to anesthesia start, pt. Identified, examined, chart | | | 7 | | reviewed, PARQ held, anesthetic plan made or approved by | | | 1 | | attending anesthesiologist. NPO status confirmed as appropriate | | | 2 | | for procedure Preoperative evaluation: unchanged | +----+---+ + + | | 0 | | | | | 7 | | | | | 2 | | | | | 6 | | | +----+---+ + + | | 0 | An Start | | | | 7 | | | | | 3 | | | | | 0 | | | +----+---+ + + | | 0 | An Start | | | | 7 | Data | | | | 3 | | | | | 4 | | | +----+---+ + + | | 0 | Vitals | Monitors applied Vital signs checked Patient ready for anesthesia | | | 7 | Checked | | | | 3 | | | | | 7 | | | +----+---+ + + | | 0 | ETT | | | | 7 | | | | | 4 | | | | | 4 | | | +----+---+ + + | | 0 | Ready | | | | 7 | | | | | 4 | | | | | 6 | | | +----+---+ + + | | 0 | An Data Art | Repositioning patient, BP inaccurate | | | 7 | | | | | 4 | | | | | 8 | | | +----+---+ + + | | 0 | Abx | | | | 7 | Administere | | | | 5 | d | | | | 6 | | | +----+---+ + + | | 0 | Timeout | | | | 7 | | | | | 5 | | | | | 9 | | | +----+---+ + + | | 0 | Incision | | | | 8 | | | | | 0 | | | | | 0 | | | +----+---+ + + | | 0 | Surgery end | | | | 8 | | | | | 2 | | | | | 2 | | | +----+---+ + + | | 0 | An Extubate | Neuromuscular function Intact. Pharynx suctioned. Patient obeys | | | 8 | | commands. Adequate pulmonary mechanics. | | | 2 | | | | | 7 | | | +----+---+ + + | | 0 | an stop | | | | 8 | data | | | | 2 | | | | | 8 | | | +----+---+ + + | | 0 | PACU Rpt | | | | 8 | Given | | | | 3 | | | | | 3 | | | +----+---+ + + | | 0 | Anesthesia | | | | 8 | End | | | | 3 | | | | | 3 | | | +----+---+ + + | | 0 | Post-Op | | | | 8 | Page | | | | 4 | | | | | 5 | | | +----+---+ + + +------+ | Meds | +------+ + + + No medications | on file. | + + + + + | No agents on file. | + + + + | No blood administrations on file. | + + +--------+ + + + | Type | Details | Placement | Removal | +--------+ + + + | Incisi | 01/23/19; 0800; Dr. Mendoza; | 01/23/19 0800 by | | | on | Left; Lateral; knee | Raquel iVllarreal RN | | +--------+ + + + | Periph | 01/23/19; 0653; Right; Hand; 22 | 01/23/19 0653 by | 01/23/19 1001 by | | eral | g; No; None; No; Positive; | Lele Casiano RN | Lele Casiano RN | | IV | 01/23/19; 1001 | | | +--------+ + + + | ETT | 01/23/19; 743 (created via | 01/23/19743 by | 01/23/19826 by | | | procedure documentation); 7; | Karo Jackson, | Karo Jackson, | | | Oral; Cuffed; 01/23/19826 | HIP HOP ARTIST | HIP HOP ARTIST | +--------+ + + + documented in [...] of this encounter Patient Instructions Patient Instructions Caroline Arguelles RN - 01/10/2019 10:39 AM PDT PREOPERATIVE INSTRUCTIONS Pre-surgery "homework" If you have not already done so, please consider getting your flu vaccine before surgery . This is safe and effective before a surgery and recovery. Unless otherwise instructed by your surgeon, stay active between now and surgery, even s triving to increase your activity levels if you can (ex. taking at least one walk daily, beronica n around the block). This can help speed your surgery recovery. Surgery check-in location: [facility] - [facility] and [facility] 2, 1st Floor [employer] Surgery Check in Time: you will receive a call 1-3 business days before your surgery confi rming your exact arrival/check-in time for your surgery day. We know that planning for surg trish can be stressful and involve a lot of family/friend/transportation coordination as well as hotel arrangements. The [facility] does not have access to check in [facility], and we encourage you to contact your surgeon's office for any assistance planning aroun d a tentative arrival time. Empty stomach before surgery On the day BEFORE your surgery, drink plenty of fluids and stay well hydrated NOTHING to eat or drink after midnight the night before surgery. This includes water, coffee, candy, mints, gum. Medications Instructions On the evening before your surgery, take ALL your usual evening medications On the morning of surgery TAKE the following medications with a sip of water: PANTOPRAZOLE 40 MG TABLET,DELAYED RELEASE On the morning of surgery DO NOT TAKE the following medications: ACETAMINOPHEN 325 MG TABLET ACYCLOVIR 400 MG TABLET CHOLECALCIFEROL (VITAMIN D3) 2,000 UNIT CAPSULE COMPRESSION SOCKS, MEDIUM COUMADIN 10 MG TABLET - you have discussed with PCP to come off Coumadin on January 18 an d bridge with Lovenox FLUOXETINE 20 MG CAPSULE LORATADINE 10 MG TABLET MIRABEGRON ER 50 MG TABLET,EXTENDED RELEASE 24 HR NADOLOL 20 MG TABLET SIROLIMUS 2 MG TABLET Other medications not specifically mentioned are at your discretion as to taking or not taking on the morning of surgery. Unless otherwise directed by your surgeon, do not take any Aspirin, fish oil supplements , vitamin E or non-steroidal anti-inflammatory (NSAIDs i.e. Advil, Aleve, Ibuprofen) or herb al supplements 7 days prior to your surgery. These drugs may interfere with normal blood tracey tting and may cause excessive bleeding and bruising during or after the surgery. If you are taking Coumadin (warfarin), Plavix or any other blood thinners please let you r surgical team know as medication changes may be necessary. If you need a pain medication for general purposes, use Tylenol as directed. OK to take it even on the morning of surgery, if needed. If you are in doubt about any medications that you are taking, please contact our office . Other Important Guidelines ? Do not shave the surgical area Do not smoke, drink alcohol or use recreational drugs for 24 hours before your surgery Watch for any change in your health condition. Let your surgeon know right away if you do not feel well. ? Do not wear makeup, perfume, lotions, deodorant, powder or hairspray. Do not wear any jewelry to the hospital. Wear loose, comfortable clothing. Leave all your valuables at home. Allow enough travel time so you re not late for your check in for surgery. Take a bath or shower and remember to shampoo your hair using your usual hair product be fore your arrival at the hospital. Please remember to brush your teeth the night before and the morning of your procedure. Preventing post op complications while you are in the hospital Use an incentive spirometer or peep breathe to keep your lungs working properly an d to help prevent respiratory complications. It helps you take long, deep breaths. Use it at least once every hour while you are awake. Leg and feet exercises will maintain good circulation and help prevent blood clots in yo ur legs. Sometimes your doctor will order sequential air compression stockings. Compressed air helps the circulation in your legs. Walking and moving will help stimulate normal circulation and deep breathing. After you r surgery, your nurse may ask you to sit, stand or walk. Going Home Your surgical team will decide when you are medically ready to go home. If you are released to go home on the same day as your procedure/surgery please note the following: You will not be able to drive yourself A responsible adult MUST escort you home. You may not drive yourself Your responsible adult can drive you or they can accompany you in a taxi, ride share ([place] as Uber/Lyft), or public transportation. An Uber/Lyft/salesperson driver does not count as the responsible adult who accompanies you. Certified Medical Transport can transport you after surgery as long as a competent adult is waiting for you on arrival at your destination Although not mandatory, it is highly recommended that a patient has a responsible person with you to provide overnight monitoring/support following discharge. It IS required that you have a competent person assist you and look after you on the night after you have undergone regional blocks (72 hours for patients going home with reg ional block pump) If you stayed in the hospital after surgery, please discuss anticipated discharge time a nd plans with your inpatient team so that transportation plans and other going home arrangem ents can be coordinated If you have questions or concerns after you go home, call your doctor s office. If it is after office hours, call the [facility] coal cutting machine operator at [phone] and ask them to page him or h er. documented in this encounter Plan of Treatment Not on filedocumented as of this encounter Visit Diagnoses Not on filedocumented in this encounter
--- OUTSIDE RECORDS SUMMARY | ~2019-02-10 | XMS | Encounter Summary ---
Demographics + + + | Address | [address] | | | [place] [address] | + + + | Home Phone | | + + + | Preferred Language | Unknown | + + + | Marital Status | Single | + + + | Taoist Affiliation | PRO | + + + [...] Team Providers + +------+ + | Care Investor Name | Role | Phone | + +------+ + | Timothy Burks MD | PCP | | + +------+ + Encounter Details +--------+ + + + + | Date | Type | Department | Care Team | Description | +--------+ + + + + | 06/08/ | Document-Sc | Health Information | Unknown . | | | 2018 | anned | Services [id number] | | | | | | [address] | | | | | | Mailcode: OP17A | | | | | | [facility] | | | | | | [place], [place] | | | | | | [address] | | | | | | [phone] | | | +--------+ + + + [...]
--- OUTSIDE RECORDS SUMMARY | ~2019-02-10 | XMS | Encounter Summary ---
Demographics + + + | Address | [address] | | | [place] [address] | + + + | Home Phone | | + + + | Preferred Language | Unknown | + + + | Marital Status | Single | + + + | Jainism Affiliation | PRO | + + + [...] Providers + +------+ + | Care Supervisor Wrapping Room Name | Role | Phone | + [...] | | anomalies | [address] | [place], [place] | | | | | Congenital | [place], [place] | [address] | | | | | lower limb | [address] | Phone: | | | | | vessel | Phone: | [phone] | | | | | anomaly | [phone] | Fax: | | | | | Procedures | Fax: | [phone] | | | | | CONSULT TO | [phone] | | | | | | SURGERY - | | | | | | | PLASTICS | | | +--------+--------+ + + + + Encounter Details +--------+---------+ + + + | Date | Type | Department | Care Team | Description | +--------+---------+ + + + | 10/28/ | Office | Vascular Surgery | Sebas Burton, | Congenital lower | | 2013 | Visit | at [facility] 2nd Floor | [address] | limb vessel anomaly | | | | [address] | [address] | (Primary Dx) | | | | [place] Mailcode: | [place], [place] | | | | | [address] Physician's | [address] | | | | | [place], | [phone] | | | | | [place] [address] | | | | | | [phone] | | | +--------+---------+ + + + [...] + + + | Blood Pressure | 112/74 | 10/28/2013 10:48 AM | | | | | PDT | | + + + + + | Pulse | 70 | 10/28/2013 10:48 AM | | | | | PDT | | + + + + + | Temperature | - | - | | + + + + + | Respiratory Rate | - | - | | + + + + + | Oxygen Saturation | 96% | 10/28/2013 10:48 AM | | | | | PDT | | + + + + + | Inhaled Oxygen | - | - | | | Concentration | | | | + + + + + | Weight | 123.1 kg (271 lb 4.8 | 10/28/2013 10:48 AM | | | | oz) | PDT | | + + + + + | Height | - | - | | + + + + + | Body Mass Index | 40.06 | 01/10/2013 6:35 AM | | | | | PDT | | + + + + + documented in this encounter Patient Instructions Patient Instructions Javier Epperson MD - 10/28/2013 11:25 AM PDTContinue leg elevation an d compression as tolerated documented in this encounter Progress Notes Sebas Burton MD - 10/28/2013 4:58 PM PDTI saw and evaluated the patient. I agree with the findings and the plan of care as documented in the resident s note. 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 In b rief she has a long history of lymphangioma and lymphedema of the LLE. 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 She has had multiple recurrences of the lymphangioma that have been re-resected and she is now undergoing steroid injections which appear to be helping shrink the remaining lesion. She does not have any wounds of the left leg and she wears compression stocking at 40-50 m mHg consistently. She has had no recent VTE [...] pigmentation laterally. There are no wounds or dermatofi brosclerosis of the left leg. Neurological: Alert and oriented to person, place, time, and reason for evaluation. No obv ious cranial nerve deficits. Imaging: (Vascular Labs, Ultrasound, Computed Tomography) No recent imaging to review Assessment and Plan: Lymphedema of left lower extremity related to lymphangioma, reasonably controlled with use of compression stocking. She is seeing plastic surgery for follow-up of steroid injection o f a gluteal cleft lymphangioma that has recurred multiple times after excision. - Continue compression (New script given) and elevation - RTC in 1 year Sebas Burton MD is the attending surgeon and agree with my assessment and plan. 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
--- OUTSIDE RECORDS SUMMARY | ~2019-02-10 | XMS | Encounter Summary ---
Demographics + + + | Address | [address] | | | [place] [address] | + + + | Home Phone | | + + + | Preferred Language | Unknown | + + + | Marital Status | Single | + + + | Episcopalian Affiliation | PRO | + + + | Race | White | + + + | Ethnic Group | Not or | + + + Author + + + | Author | [facility] | + + + | Organization | [facility] | + + + | [...] Team Providers + +------+ + | Care Deck And Hull Assembler Name | Role | Phone | [...] evaluation | | 2019 | shanaled | [facility] at | | | | | | [facility] | | | | | | [address] | | | | | | Mail Code: OC8PM | | | | | | [facility] | | | | | | and Mic, | | | | | | Building [address] | | | | | | [place], [place] | | | | | | [address] | | | | | | [phone] | | | +--------+ + + + [...] on | Left; Lateral; knee | Raquel Villarreal RN | | +--------+ + + + [...] | | | Oral; Cuffed; 01/23/19826 | HOUSEKEEPING MANAGER | HOUSEKEEPING MANAGER | +--------+ + + + documented in [...] surgery recovery. Surgery check-in location: [facility] - [facility] and [facility] 2, 1st Floor [facility] Surgery Check in Time: you will receive a call 1-3 business days before your surgery confi rming your exact arrival/check-in time for your surgery day. We know that planning for surg trish can be stressful and involve a lot of family/friend/transportation coordination as well as hotel arrangements. The [facility] does not have access to check in [facility], and we encourage you to contact your [...] ch as Uber/Lyft), or public transportation. An Uber/Lyft/parcel post truck driver does not count as the responsible [...] it is after office hours, call the [facility] long distance operator at [phone] and ask them to page him or h er. documented in this encounter Plan of Treatment Not on filedocumented as of this encounter Visit Diagnoses Not on filedocumented in this encounter
--- OUTSIDE RECORDS SUMMARY | ~2019-02-10 | XMS | Encounter Summary ---
Demographics + + + | Address | [address] | | | [place] [address] | + + + | Home Phone | | + + + | Preferred Language | Unknown | + + + | Marital Status | Single | + + + | Religion Affiliation | PRO | + + + [...] Team Providers + +------+ + | Care Tree Trimmer Helper Name | Role | Phone | + +------+ + | Timothy Burks MD | PCP | | + +------+ + Reason for Visit + + + | Reason | Comments | + + + | Follow-up encounter | gluteal cleft hemangioma s/p steroid injections | + + + Consultation (Routine) +--------+--------+ [...] | | anomalies | Zahra[address] Shay | [place], [place] | | | | | Congenital | [place] | [address] | | | | | lower limb | [address] | Phone: | | | | | vessel | Phone: | [phone] | | | | | anomaly | [phone] | Fax: | | | | | Procedures | Fax: | [phone] | | | | | CONSULT TO | [phone] | | | | | | SURGERY - | | | | | | | PLASTICS | | | +--------+--------+ + + + + Encounter Details +--------+---------+ + + + | Date | Type | Department | Care Team | Description | +--------+---------+ + + + | 07/01/ | Office | Plastic and | Uzair Mendoza MD | Cellulitis (Primary | | 2015 | Visit | Reconstructive | [address] | Dx) | | | | Surgery at [facility] [address] | [facility] [place] | | | | | [address] | [address] | | | | | Mailcode: [facility] | [phone] | | | | | [facility] | | | | | | and Healing, | | | | | | Building 1, | | | | | | Floor [place], [place] | | | | | | [address] | | | | | | [phone] | | | +--------+---------+ + + + [...] + + + | Blood Pressure | 125/80 | 07/01/2014 11:41 AM | | | | | PDT | | + + + + + | Pulse | 84 | 07/01/2014 11:41 AM | | | | | PDT | | + + + + + | Temperature | - | - | | + + + + + | Respiratory Rate | 18 | 07/01/2014 11:41 AM | | | | | PDT | | + + + + + | Oxygen Saturation | 100% | 07/01/2014 11:41 AM | | | | | PDT | | + + + + + | Inhaled Oxygen | - | - | | | Concentration | | | | + + + + + | Weight | 126.3 kg (278 lb 8 | 07/01/2014 11:41 AM | | | | oz) | PDT | | + + + + + | Height | - | - | | + + + + + | Body Mass Index | 41.13 | 01/28/2014 10:06 AM | | | | | PST | | + + + + + documented in this encounter Progress Notes Uzair Mendoza MD - 07/01/2014 1:20 PM Fady Prather is a 38 y.o. female with gluteal c left lymphatic malformation who was here to have another steroid injection. She states that 2 days ago she developed redness heat swelling in the area. She states it is a little better today. She denies fever and chills. OBJECTIVE: She has cellulitis without any fluctuance of the gluteal cleft area. The skin is warm. ASSESSMENT: Cellulitis of the gluteal cleft area. PLAN: Keflex for 7 days. She was advised to call immediately for fever, chills, spreading r edness, failure to improve. She will follow up for a steroid injection in a month. documented in this encounter Plan of Treatment Not on filedocumented as of this encounter Visit Diagnoses + + | Diagnosis | + + | Cellulitis - Primary Cellulitis and abscess of unspecified site | + + documented in this encounter
--- OUTSIDE RECORDS SUMMARY | ~2019-02-10 | XMS | Encounter Summary ---
Demographics + + + | Address | [address] | | | [place] [address] | + + + | Home Phone | | + + + | Preferred Language | Unknown | + + + | Marital Status | Single | + + + | Druze Affiliation | PRO | + + + [...] Team Providers + +------+ + | Care Thermal Intelligence Analyst Name | Role | Phone | + [...] as of this encounter Progress Notes Interface, Building Mechanic In - 10/24/2004 7:48 AM PDT [id number] [facility] Date: 01/08/2004 Clinic: Urology [...] her bleeding returns. Derrell Lowe M.D. / [id number] / [id number] / [id number] / cc: Charity Araujo M.D. [address] [place] [address] documented i kaden this encounter Plan of Treatment Not on filedocumented as of this encounter Visit Diagnoses Not on filedocumented in this encounter"
--- OUTSIDE RECORDS SUMMARY | ~2019-02-10 | XMS | Encounter Summary ---
Demographics + + + | Address | [address] | | | [place] [address] | + + + | Home Phone | | + + + | Preferred Language | Unknown | + + + | Marital Status | Single | + + + | Restorationist Affiliation | PRO | + + + [...] + +------+ + | Care Director Of Group Counseling Program Name | Role | Phone | + +------+ + | Timothy Burks MD | PCP | | + +------+ + Encounter Details +--------+ + + + + | Date | Type | Department | Care Team | Description | +--------+ + + + + | 02/06/ | Hospital | Diagnostic Imaging | Radiologist, Mri | Rad Interface | | 2007 | Encounter | Services at [facility] | [facility] [address] | | | | | [address] | [place] | | | | | [place] Mailcode: | [place] [address] | | | | | [address] | | | | | | [facility] | | | | | | [place], [place] | | | | | | [address] | | | | | | [phone] | | | +--------+ + + + [...]
--- OUTSIDE RECORDS SUMMARY | ~2019-02-10 | XMS | Clinical Summary ---
Demographics + + + | Address | [address] | | | [place] [address] | + + + | Home Phone [...] Team Providers + +------+ + | Care Quiller Runner Name | Role | Phone | + +------+ + | Jose Ramires MD | PCP | | + +------+ + Source Comments [facility] is fully live on both [facility] and [facility] InPatient.[facility] Allergies + + + + [...] | | 2018 | Encounter | | RULING MACHINE FEEDER | | +--------+ + + + + | 02/09/ | MyChart | Plastic Surgery | Uzair Mendoza MD | My incision | | 2018 | Encounter | | | | +--------+ + + + + | 02/01/ | Office | Plastic Surgery | Sierra Espinoza, | Neoplasm of | | 2019 | Visit | | RULING MACHINE FEEDER | uncertain behavior | | | | [...] | | 2019 | Encounter | | RULING MACHINE FEEDER | | +--------+ + + + + [...] PathologistPathology, | | | | | | [facility] | | | | | | [facility] electronic | | | | | [...] | HEALTH + | | | | [id number]. Leg, Left | | HEALING | | [...] | + + + + + | [facility] | [address] | [place] [address] | | | PATHOLOGY | [address] | | | + + + + + | [facility] | [address] | [place] [address] | | | [facility] | | | | | HEALTH [...] | [facility] | [address] [facility] | [place] [address] | | | OF CARE TESTS | [...] | HMA/RG | [id number] | 04/27/19 | [phone] | [address] | PPO | | SHIELD | A | x | 18-Pre | 8 | [address] | | | | | | sent | | [place], | | | | | | | | [place] | | | | | | | | [address] | | + +--------+ +--------+ + +------+ [...] | 1976 | [phone] | [place] [address] | | | sal | | | [address] (Home) | | + +--------+ +--------+ + + Advance Directives + + + + + | Type | Date Recorded | Patient | Explanation | | | | Press Technician | | + + + + + | Advance | | | | | Directives and | | | | | Living Will | | | | + + + + + | Power of | | | | | Occupational Therapist Rehab Manager | | | | + + + [...]
--- OUTSIDE RECORDS SUMMARY | ~2019-02-10 | XMS | Encounter Summary ---
Demographics + + + | Address | [address] | | | [place] [address] | + + + | Home Phone [...] Team Providers + +------+ + | Care Landfill Gas Collection Operator Name | Role | Phone | [...] | | | | | [place], | | | | | | [place] [address] | | | +--------+ + + + [...] | | Patient: CHRISSY PRATHER Med Rec: [id number] Sex F Bdate: 1975 | | Date/Time Data | | Entered Into [facility] | | Anesth PostOp | | [...]
--- OUTSIDE RECORDS SUMMARY | ~2019-02-10 | XMS | Encounter Summary ---
Demographics + + + | Address | [address] | | | [place] [address] | + + + | Home Phone [...] Team Providers + +------+ + | Care Astronomy Professor Name | Role | Phone | + +------+ + PCP | Unavailable | + +------+ + Encounter Details +--------+ + + + + | Date | Type | Department | Care Team | Description | +--------+ + + + + | 11/26/ | Results | Urology General | Derrell Lowe, | | | 2003 | Only | [address] | [address] | | | | | [place] Mailcode: | [place], [place] | | | | | [address] | [address] | | | | | [address] | [phone] | | | | | [place], [place] | | | | | | [address] | | | | | | [phone] | | | +--------+ + + + [...] + + | INR | Urgent | 11/27/2003 | | Results for this | | | | 7:15 AM | | procedure are in the | | | | PDT | | results section. | + +--------+ + + + | APTT (ACT. PART. | Urgent | 11/27/2003 | | Results for this | | THROMBO TIME) | | 7:15 AM | | procedure are in the | | | | PDT | | results section. | + +--------+ + + + documented in this encounter Results PROTHROMBIN TIME (11/27/2003 7:15 AM PDT) + + + + + + | Component | Value | Ref Range | Performed | Pathologist | | | | | At | Signature | + + + + + + | INR | 1.86 (H)Comment: | 0.90 - 1.20 INR | [...] | + + + + + | [facility] | [address] | [place] [address] | | | PATHOLOGY | [address] | | | + + + + + | [facility] | [address] | [place] [address] | | | PATHOLOGY | [address] | | | + + + + + APTT (ACT. PART. THROMBO TIME) (11/27/2003 7:15 AM PDT) + + + + + + | Component | Value | Ref Range | Performed | Pathologist | | | | | At | Signature | + + + + + + | APTT | 38.1 (H)Comment: | 26.0 - 36.0 | [facility] | | | | APTT Therapeutic | seconds | DEPARTMENT | | | | Range | | OF | | | | | | PATHOLOGY | | | | (75-120)sec | | | | | | Heparin levels | | | | | | of 0.35-0.7 U/mL | | | | + + + + + + + + | Specimen | + + | | + + + + + + + | Performing | Address | City/State/Zipcode | Phone Number | | Organization | | | | + + + + + | [facility] | [address] | [place] [address] | | | PATHOLOGY | [address] | | | + + + + + | [facility] | [address] | [place] [address] | | | PATHOLOGY | [address] | | | + + + + + documented in this encounter Visit Diagnoses Not on filedocumented in this encounter"
--- OUTSIDE RECORDS SUMMARY | ~2019-02-10 | XMS | Encounter Summary ---
Demographics + + + | Address | [address] | | | [place] [address] | + + + | Home Phone [...] Team Providers + +------+ + | Care Solid Propellant Processor Name | Role | Phone | + +------+ + | Timothy Burks MD | PCP | | + +------+ + Encounter Details +--------+ + + + + | Date | Type | Department | Care Team | Description | +--------+ + + + + | 11/26/ | Orders Only | | Record, Operation | | | 2004 | | | | | +--------+ + [...] + + | OPERATION RECORD | | 11/27/2003 | | Results for this | | | | | | procedure are in the | | | | | | results section. | + +--------+ + + + documented in this encounter Results OPERATION RECORD (11/27/2003) + + | Transcriptions | + + | Interface, Catapult And Arresting Gear Officer In - 03/15/2005 7:43 PM PST Date: | | 11/27/2003Attending Surgeon: Derrell Lowe M.D.Cnc Maintenance Technician(s): | | Stanley Nguyen M.D.Preoperative Diagnosis(es):1. Gross hematuria.2. | | Bladder varices.Postoperative Diagnosis(es):1. Gross hematuria.2. Bladder | | varices.Procedures Performed:1. Cystourethroscopy.2. Fulguration of bleeding | | bladder varices.Anesthesia:Complications:Specimens:Indications:The patient is a | | 28-year-old woman who has congenital venous malformationswithin her pelvis and leg. | | These include veins within the bladder. Shewas treated previously for gross hematuria | | with fulguration approximately 2years ago. She had a return of her hematuria recently, | | and she is heretoday for treatment.Findings:There was one spot within her bladder that | | was bleeding, and two otherspots that appeared to be either recently having blood or | | near the surfaceof the bladder that might start bleeding in the near future. All of | | theseareas were fulgurated. They were well away from the ureteral orificeswhich were | | normal in position and appearance.Procedure:Following informed consent and the operative | | pause, the patient wasproperly identified, and after the induction of general | | endotrachealanesthesia, the patient was placed in a cystolithotomy position, | | andsterilely prepped and draped in the standard fashion for cystourethroscopywhich was | | carried out using the Dawson laser scope. The neodymium-YAG laserwith a setting of 20 W | | was used to fulgurate the bleeding points asdescribed above. The cystoscope was | | removed, and a Coombs catheter wasplaced, and inflated to 10 mL. The patient tolerated | | the procedure well,was awakened in the Operating Room, and transported to the Recovery | | Room instable condition.Derrell Lowe M.D. / [id number] / [id number] / [id number] /D: | | 11/27/2003T: 11/27/2003 | |Complications: | | | |Specimens: | | | |Indications: | |The patient is a 28-year-old woman who has congenital venous malformations | |within her pelvis and leg. These include veins within the bladder. She | |was treated previously for gross hematuria with fulguration approximately 2 | |years ago. She had a return of her hematuria recently, and she is here | |today for treatment. | | | |Findings: | |There was one spot within her bladder that was bleeding, and two other | |spots that appeared to be either recently having blood or near the surface | |of the bladder that might start bleeding in the near future. All of these | |areas were fulgurated. They were well away from the ureteral orifices | |which were normal in position and appearance. | | | |Procedure: | |Following informed consent and the operative pause, the patient was | |properly identified, and after the induction of general endotracheal | |anesthesia, the patient was placed in a cystolithotomy position, and | |sterilely prepped and draped in the standard fashion for cystourethroscopy | |which was carried out using the Dawson laser scope. The neodymium-YAG laser | |with a setting of 20 W was used to fulgurate the bleeding points as | |described above. The cystoscope was removed, and a Coombs catheter was | |placed, and inflated to 10 mL. The patient tolerated the procedure well, | |was awakened in the Operating Room, and transported to the Recovery Room in | |stable condition. | | | | | | | | | |Derrell Lowe M.D. | | | |MALCOLM / ALENA | |[id number] / [id number] / [id number] / | | | | | + + documented in this encounter Visit Diagnoses Not on filedocumented in this encounter"
--- OUTSIDE RECORDS SUMMARY | ~2019-02-10 | XMS | Encounter Summary ---
Demographics + + + | Address | [address] | | | [place] [address] | + + + | Home Phone [...] Author + + + | Author | [facility] | + + + | Organization | [facility] | + + + | [...] Team Providers + +------+ + | Care Sports Equipment Racker Name | Role | Phone | + +------+ + | Timothy Burks MD | PCP | | + +------+ + Reason for Visit + + + | Reason | Comments | + + + | Appointment Question | | + + + Encounter Details +--------+ + + + + | Date | Type | Department | Care Team | Description | +--------+ + + + + | 05/20/ | Telephone | Plastic and | Mendoza, Uzair, MD | Appointment Question | | 2014 | | Reconstructive | [address] | | | | | Surgery at [facility] [address] | [facility] [place] | | | | | [address] | [address] | | | | | Mailcode: CH5 | [phone] | | | | | [facility] | | | | | | and Healing, | | | | | | Building [address]th | | | | | | Floor [place], [place] | | | | | | [address] | | | | | | [phone] | | | +--------+ + + + [...]
--- OUTSIDE RECORDS SUMMARY | ~2019-02-10 | XMS | Encounter Summary ---
Demographics + + + | Address | [address] | | | [place] [address] | + + + | Home Phone | | + + + | Preferred Language | Unknown | + + + | Marital Status | Single | + + + | Christianity Affiliation | PRO | + + + | Race | White | + + + | Ethnic Group | Not or | + + + Author + + + | Author | [facility] | + + + | Organization | [facility] | + + + | [...] Team Providers + +------+ + | Care Office Rn Name | Role | Phone | + +------+ + | Timothy Burks MD | PCP | | + +------+ + Encounter Details +--------+ + + + + | Date | Type | Department | Care Team | Description | +--------+ + + + + | 02/22/ | Telephone | Vascular Surgery | Surgery, Vascular | | | 2015 | | at [facility] 2nd Floor | [address] | | | | | [address] | [facility] | | | | | [place]raa Shay Mailcode: | [place] [address] | | | | | [address] | | | | | | [place] | | | | | | [place] [address] | | | | | | [phone] | | | +--------+ + + + [...]
--- OUTSIDE RECORDS SUMMARY | ~2019-02-10 | XMS | Encounter Summary ---
Demographics + + + | Address | [address] | | | [place] [address] | + + + | Home Phone | | + + + | Preferred Language | Unknown | + + + | Marital Status | Single | + + + | Samaritan Affiliation | PRO | + + + [...] Team Providers + +------+ + | Care Carbon Electrodes Supervisor Name | Role | Phone | + +------+ + | Timothy Burks MD | PCP | | + +------+ + Encounter Details +--------+ + + + + | Date | Type | Department | Care Team | Description | +--------+ + + + + | 02/26/ | Advertising Photographer | Vascular Surgery | Sebas Lauren, | Deep Venous | | 2007 | | at [facility] 2nd Floor | [address] | Thrombosis (HCC) | | | | [address] | [address] | (Primary Dx) | | | | [place]raa Shay Mailcode: | [place], [place] | | | | | [address] | [address] | | | | | [place], | [phone] | | | | | [place] [address] | | | | | | [phone] | | | +--------+ + + + [...] + | Diagnosis | + + | Deep venous thrombosis (HCC) - Primary Acute venous embolism and thrombosis of | | unspecified deep vessels of lower extremity | + + documented in this encounter"
--- OUTSIDE RECORDS SUMMARY | ~2019-02-10 | XMS | Encounter Summary ---
Demographics + + + | Address | [address] | | | [place] [address] | + + + | Home Phone [...] Team Providers + +------+ + | Care Barn Operator Name | Role | Phone | + +------+ + | Timothy Baldwin MD | PCP | | + +------+ + Encounter Details +--------+ + + + + | Date | Type | Department | Care Team | Description | +--------+ + + + + | // | Discharge | | Summary, Discharge | D/C Summary ODDS | | 1999 | Summary-Tra | | | | | [...] as of this encounter Discharge Summaries Interface, Farm General Manager In - 03/21/2006 3:[address] [address] [facility] MEDICAL SUMMARY OF HOSPITALIZATION Med Rec No: [id number] Admission Date: 06/03/1998 Name: Mahi Kim Discharge Date: 06/07/1998 STAFF PHYSICIAN: Jill Henderson M.D. PRINCIPAL FINAL DIAGNOSIS: Deep venous thrombosis and pulmonary embolism. ADDITIONAL DIAGNOSES: 1. History of deep venous thrombosis and cerebrovascular accident in 1991. 2. History of heart surgery in 1991. 3. Total abdominal hysterectomy in October of 1997. 4. Allergic rhinitis. PRINCIPAL PROCEDURE: Ventilation perfusion scan of the lung and left lower extremity Doppler studies. REASON FOR ADMISSION: Please refer to admitting history and physical examination for details. Briefly, this is a 22-year-old female who presented with left lower extremity swelling and pain. She also reported shortness of breath with increasing physical activity for the past month. HOSPITAL COURSE: 1. Deep venous thrombosis/pulmonary embolism. The ventilation perfusion scan of the lung revealed bilateral pulmonary embolism and left lower extremity Doppler studies revealed thrombosis at the left common femoral vein . The patient was immediately put on low-molecular weight heparin, enoxaparin 80 mg subcutaneously twice a day. Anticoagulation p.o. with Coumadin was also initiated. At the end of the hospital stay, the patient had been stable for oxygen saturations well above 96% on room air. She did not complain of any shortness of breath or any chest pain or pleuritic pain throughout. Her left lower extremity edema and pain had been stable. Upon discharge, her INR was subtherapeutic; however, it was decided that the patient was stable to go home with low-molecular weight heparin, and the INR will be followed by her primary care physician, Dr. Baldwin, in [place]. CONDITION ON DISCHARGE: Stable. DISCHARGE MEDICATION(S): 1. Enoxaparin 80 mg subcutaneously twice a day for the next three days until INR was therapeutic. 2. Coumadin p.o. 5 mg q.d. This will be adjusted by Dr. Baldwin in [place] as indicated. 3. Premarin 0.625 mg once a day. The patient is instructed to hold Premarin until her INR is therapeutic. DISCHARGE INSTRUCTION(S): DIET: Regular. ACTIVITY: As tolerated. FOLLOWUP: The patient will be seen by Dr. Baldwin on June 09 before departing for [facility]. At that visit, the patient will get her INR checked, and Coumadin dosage will be adjusted accordingly. Jay White M.D. JIW/merritt A cc: TIMOTHY BALDWIN MD [address] [place] [id number] signed by Interface, Farm General Manager In at 03/21/2006 3:05 AM PSTdocumented in this encounter Plan of Treatment Not on filedocumented as of this encounter Visit Diagnoses Not on filedocumented in this encounter"
--- OUTSIDE RECORDS SUMMARY | ~2019-02-10 | XMS | Encounter Summary ---
Demographics + + + | Address | [address] | | | [place] [address] | + + + | Home Phone | | + + + | Preferred Language | Unknown | + + + | Marital Status | Single | + + + | Yarsanism Affiliation | PRO | + + + [...] Providers + +------+ + | Care Disability Services Coordinator Name | Role | Phone | + +------+ + | Timothy Burks MD | PCP | | + +------+ + Reason for Visit + + + | Reason | Comments | + + + | Follow-up encounter | gluteal cleft hemangnoma | + + + [...] | | anomalies | [address] | [place], [place] | | | | | Congenital | [place] | [address] | | | | | lower limb | [address] | Phone: | | | | | vessel | Phone: | [phone] | | | | | anomaly | [phone] | Fax: | | | | | Procedures | Fax: | [phone] | | | | | CONSULT TO | [phone] | | | | | | SURGERY - | | | | | | | PLASTICS | | | +--------+--------+ + + + + Encounter Details +--------+---------+ + + + | Date | Type | Department | Care Team | Description | +--------+---------+ + + + | 04/28/ | Office | Plastic and | Guillermo Mendoza MD | Lymphangioma | | 2018 | Visit | Reconstructive | [address] | (Primary Dx) | | | | Surgery at [facility] [address] | [facility] [place] | | | | | [address] | [address] | | | | | Mailcode: 5 | [phone] | | | | | [facility] | | | | | | and Healing, | | | | | | Building [address], 5th | | | | | | Floor [facility] [place] | | | | | | [address] | | | | | | [phone] | | | +--------+---------+ + + + [...] +---------+ + + | Blood Pressure | 135/78 | 04/28/2017 10:41 AM | | | | | PST | | + +---------+ + + | Pulse | 76 | 04/28/2017 10:41 AM | | | | | PST | | + +---------+ + + | Temperature | - | - | | + +---------+ + + | Respiratory Rate | 16 | 04/28/2017 10:41 AM | | | | | PST | | + +---------+ + + | Oxygen Saturation | 98% | 04/28/2017 10:41 AM | | | | | PST [...] encounter Progress Notes Guillermo Mendoza MD - 04/28/2017 10:45 AM PSTI was present with the resident during the histo ry and exam. I discussed the case with the resident and agree with the findings and plan as documented in the resident s note. Continues to have good response to the steroid injections. She has developed several new ar ea of lymphatic blebs that were injected with steroids today. GUILLERMO MENDOZA MD sports management professor of Plastic Surgery [facility] [address] [address] [facility] Center[facility]ill[facility]ona MD - 04/2017 10:45 AM [facility]LAST[facility] CLINIC FOLLOW-UP VISIT ID: Mahi Prather is a 40 year old female with history of recurrent gluteal cleft lymphangiomas, s/p multiple surgical excisions. Interval History: Mahi Prather returns for her gluteal cleft lymphangiomas. She would like further steroid i njections. She has noted increase in size and tenderness of some new lesions at the inferior gluteal cleft and left buttock. She has had good response with the steroid treatments in th e past. Objective: General: Adult female, alert and oriented : There a lymphangioma blebs on both sides of the gluteal cleft. The previously treated a reas on the upper gluteal cleft are doing well and not enlarging. There is an area of scatte red new blebs on the left inferior gluteal cleft. These are the areas treated today. Under sterile conditions 0.8 mL of Kenalog 40 was injected into the lymphangiomas and scar on both sides of the gluteal cleft. She tolerated it well. There are several areas of lympha ngiomatous blebs near the anus. Assessment and Plan: Mahi Prather is a 40 y.o. female with recurrent gluteal cleft lymphangiomas. -Steroid injection performed today, as documented above. -Return to clinic in 6-8 weeks for additional lymphangioma treatment. This patient was seen and examined with attending physician, MD Amie Gan MD, Department of Plastic & Reconstructive Surgery Pager [phone] signed by Guillermo Mendoza MD at 04/28/2017 5:06 PM PSTdocumented i n this encounter Plan of Treatment Not on filedocumented as of this encounter Visit Diagnoses + + | Diagnosis | + + | Lymphangioma - Primary Lymphangioma, any site | + + documented in this encounter
--- OUTSIDE RECORDS SUMMARY | ~2019-02-10 | XMS | Encounter Summary ---
Demographics + + + | Address | [address] | | | [place] [address] | + + + | Home Phone [...] Team Providers + +------+ + | Care Operations Executive Name | Role | Phone | + +------+ + | Timothy Burks MD | PCP | | + +------+ + Encounter Details +--------+ + + + + | Date | Type | Department | Care Team | Description | +--------+ + + + + | 02/06/ | Document-Sc | UNKNOWN DEPARTMENT | Radiologist, | | | 2007 | anned | [address] | [place] | | | | | [address] | | | | | | [place], [place] | | | | | | [address] | | | +--------+ + + + [...]
--- OUTSIDE RECORDS SUMMARY | ~2019-02-10 | XMS | Encounter Summary ---
Demographics + + + | Address | [address] | | | [place] [address] | + + + | Home Phone | | + + + | Preferred Language | Unknown | + + + | Marital Status | Single | + + + | Jehovah'S Witness Affiliation | PRO | + + + | Race | White | + + + | Ethnic Group | Not or | + + + Author + + + | Author | [facility] | + + + | Organization | [facility] | + + + | [...] Team Providers + +------+ + | Care Real Estate Office Supervisor Name | Role | Phone | + +------+ + | Jose Ramires MD | PCP | | + +------+ + Encounter Details +--------+ + + + + | Date | Type | Department | Care Team | Description | +--------+ + + + + | 02/09/ | MyChart | Plastic and | Sierra Espinoza T, | My incision | | 2019 | Encounter | Reconstructive | HEEL LIFT GOUGER [address] | | | | | Surgery at [facility] [address] | [address] [facility] [place] | | | | | [address] | [address] | | | | | Mailcode: 5 | [phone] | | | | | [facility] | | | | | | and Healing, | | | | | | Building [address], | | | | | | Floor [place], [place] | | | | | | [address] | | | | | | [phone] | | | +--------+ + + + [...]
--- OUTSIDE RECORDS SUMMARY | ~2019-02-10 | XMS | Encounter Summary ---
Demographics + + + | Address | [address] | | | [place] [address] | + + + | Home Phone [...] Team Providers + +------+ + | Care Consultative Sales Associate Name | Role | Phone | + [...] | | | | | specified | [address] | [address] | | | | | congenital | [address] | | | | | anomalies | [place] | [facility] [place] | | | | | Congenital | [place], [place] | [address] | | | | | lower limb | [address] | Phone: | | | | | vessel | Phone: | [phone] | | | | | anomaly | [phone] | Fax: | | | | | Procedures | Fax: | [phone] | | | | | CONSULT TO | [phone] | | | | | | SURGERY [...] | | | | | | | [place], [place] | | | | | | | [address] | | | | | | | Phone: | | | | | | | [phone] | | | | | | | Fax: | | | | | | | [phone] | +--------+--------+ + + + + Encounter Details +--------+---------+ + + + | Date | Type | Department | Care Team | Description | +--------+---------+ + + + | 10/29/ | Office | Vascular Surgery | Sebas Burton, | Other specified | | 2012 | Visit | at [facility] 2nd Floor | [address] | congenital anomalies | | | | [address] | [address] | (Primary Dx); | | | | Zahraa Shay Mailcode: | [place], [place] | Congenital lower | | | | [address] | [address] | limb vessel anomaly | | | | [place], | [phone] | | | | | [place] [address] | | | | | | [phone] | | | +--------+---------+ + + + [...] LLE angiodysplasia SEBAS BURTON MD VASCULAR SURGERY [address] [place] [address] Mailcode: [address] [place] [address] documented in this en counter Plan of Treatment Not on filedocumented as of this encounter Visit Diagnoses + + | Diagnosis | + + | Other specified congenital anomalies - Primary | + + | Congenital lower limb vessel anomaly | + + documented in this encounter
--- OUTSIDE RECORDS SUMMARY | ~2019-02-10 | XMS | Encounter Summary ---
Demographics + + + | Address | [address] | | | [place] [address] | + + + | Home Phone [...] Team Providers + +------+ + | Care Oysterman Name | Role | Phone | + [...] Closed | | Radiology | Diagnoses | [place], | 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 [address] | | | | | lower limb | [address] | [address] | | | | | vessel | [address] | [address] | | | | | anomaly | [address] | Rd Mailcode: | | | | | Procedures | [facility] [place] | PV450 | | | | | VASC LAB | [address] | Physician's | | | | | VENOUS | Phone: | Pavilion | | | | | DUPLEX LOWER | [phone] | [place], [place] | | | | | EXTREMITY | Fax: | [address] | | | | | LT | [phone] | Phone: | | | | | | | [phone] | | | | | | | Fax: | | | | | | | [phone] | +--------+--------+ + + + + Reason [...] | | | | | | | [address] | | | | | | | [address] | | | | | | | Jaspal Mailcode: | | | | | | | OP11 | | | | | | | Physician's | | | | | | | Pavilion | | | | | | | [place], [place] | | | | | | | [address] | | | | | | | Phone: | | | | | | | [phone] | | | | | | | Fax: | | | | | | | [phone] | +--------+--------+ + + + + Encounter [...] | | | [address] Mailcode: | [place], [place] | | | | | [address] Physician's | [address] | | | | | [place], | [phone] | | | | | [place] [address] | | | | | | [phone] | | | +--------+---------+ + + + [...] and plan. JANNETTE VO MD VASCULAR SURGERY [address] [place] [address] Mailcode: [address] [place] [address] Sebas Prince MD - 10/24/2011 10:32 AM PDTI saw and evaluated the patient. I agree with the findings and the plan of care as documented in the resident s note. 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
--- OUTSIDE RECORDS SUMMARY | ~2019-02-10 | XMS | Encounter Summary ---
Demographics + + + | Address | [address] | | | [place] [address] | + + + | Home Phone [...] Team Providers + +------+ + | Care Seismology Technical Officer Name | Role | Phone | + +------+ + | Jose Ramires MD | PCP | | + +------+ + Encounter Details +--------+--------+ + + + | Date | Type | Department | Care Team | Description | +--------+--------+ + + + | 01/10/ | Travel [...]
--- OUTSIDE RECORDS SUMMARY | ~2019-02-10 | XMS | Encounter Summary ---
Demographics + + + | Address | [address] | | | [place] [address] | + + + | Home Phone | | + + + | Preferred Language | Unknown | + + + | Marital Status | Single | + + + | Latter-Day Affiliation | PRO | + + + [...] Team Providers + +------+ + | Care Metal Slitter Name | Role | Phone | + [...] Ron | | | | | | [address] [place], [place] | | | | | | [address] | | | | | | [phone] | | | +--------+ + + + [...]
--- OUTSIDE RECORDS SUMMARY | ~2019-02-10 | XMS | Encounter Summary ---
Demographics + + + | Address | [address] | | | [place] [address] | + + + | Home Phone [...] Author + + + | Author | [facility] | + + + | Organization | [facility] | + + + | [...] Team Providers + +------+ + | Care Sheet Metal Assembler Name | Role | Phone | [...] | | anomalies | [address] | [place], [place] | | | | | Congenital | [place], [place] | [address] | | | | | lower limb | [address] | Phone: | | | | | vessel | Phone: | [phone] | | | | | anomaly | [phone] | Fax: | | | | | Procedures | Fax: | [phone] | | | | | CONSULT TO | [phone] | | | | | | SURGERY - | | | | | | | PLASTICS | | | +--------+--------+ + + + + Encounter Details +--------+---------+ + + + | Date | Type | Department | Care Team | Description | +--------+---------+ + + + | 07/22/ | Office | Plastic and | Uzair Mendoza MD | Lymphatic | | 2015 | Visit | Reconstructive | [address] | malformation | | | | Surgery at [facility] [address] | [place], [place] | (Primary Dx); | | | | [address] | [address] | Vascular | | | | Mailcode: CH5P | [phone] | malformation | | | | [facility] | | | | | | and Healing, | | | | | | Building 1, 5th | | | | | | Floor [facility] [place] | | | | | | [address] | | | | | | [phone] | | | +--------+---------+ + + + [...] +---------+ + + | Blood Pressure | 128/66 | 07/22/2014 10:58 AM | | | | | PDT | | + +---------+ + + | Pulse | 79 | 07/22/2014 10:58 AM | | | | | PDT | | + +---------+ + + | Temperature | - | - | | + +---------+ + + | Respiratory Rate | 16 | 07/22/2014 10:58 AM | | | | | PDT | | + +---------+ + + | Oxygen Saturation | 96% | 07/22/2014 10:58 AM | | | | | PDT [...] encounter Progress Notes Uzair Mendoza MD - 07/22/2014 8:33 PM Fady Prather 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 She states that the cellulitis she had last visit promptly resolved with the anti biotics. She would like further steroid injections. OBJECTIVE: The erythema has completely resolved. There a lymphangioma blebs on both sides o f the gluteal cleft. 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
--- OUTSIDE RECORDS SUMMARY | ~2019-02-10 | XMS | Encounter Summary ---
Demographics + + + | Address | [address] | | | [place] [address] | + + + | Home Phone [...] Author + + + | Author | [facility] | + + + | Organization | [facility] | + + + | Address [...] Team Providers + +------+ + | Care Lines Tender Name | Role | Phone | + +------+ + | Jose Ramires MD | PCP | | + +------+ + Encounter Details +--------+ + + + + | Date | Type | Department | Care Team | Description | +--------+ + + + + | 03/12/ | Abstract | Digestive Health | Clinic, Surgery | | | 2018 | | [facility] [address] | | | | | | [address] | | | | | | Mailcode: [place] | | | | | | for Health and | | | | | | Healing, Building 2 | | | | | | [facility] [place] | | | | | | [address] | | | | | | [phone] | | | +--------+ + + + [...]
--- OUTSIDE RECORDS SUMMARY | ~2019-02-10 | XMS | Encounter Summary ---
Demographics + + + | Address | [address] | | | [place] [address] | + + + | Home Phone [...] + + + | Author | [facility] | + + + | Organization | [facility] | + + + | Address | Unknown | + + + | Phone | Unavailable | + + + Support + + + + + | Name | Relationship | Address | Phone | + + + + + | Mariah Prather | OZZIE | [place] | | + + + + + Care Team Providers + +------+ + | Care Pulmonary Physical Therapist Name | Role | Phone | + +------+ + | Timothy Burks MD | PCP | | + +------+ + Reason for Visit + + + | Reason | Comments | + + + | Postoperative visit | Excision of right gluteal cleft mass | + + + Encounter Details +--------+---------+ + + + | Date | Type | Department | Care Team | Description | +--------+---------+ + + + | 03/24/ | Office | Vascular Surgery | aMlini Dent, | Benign Isaias Soft | | 2007 | Visit | at [facility] 2nd Floor | [address] | Tissue Leg; | | | | [address] [place], [place] | Candidiasis of Skin | | | | [place] Mailcode: | [id number] | | | | | [address] Physician's | | | | | | [place], | | | | | | [place] [address] | | | | | | [phone] | | | +--------+---------+ + + + [...] documented as of this encounter Progress Notes Malini Dent - 03/24/2008 9:32 AM PSTHere for f/u after excision of right gluteal macario ft mass. Pt with h/o recurrent right gluteal cleft mass causing significant pain and bleedin g. Pt has done well since the operation and has resolution of pain sx's. PE: right gluteal incision is well healed except for some break through of skiin in the sut ure line resulting from inflammation. Mild candidiasis in the gluteal crease junior. Path: skin erosion, extending to medial and lateral margins A: s/p re-excision of R gluteal Lymphangioma. Sutures removed. Region with candidiasis. P: Nystatin/ clotrimazole cream. RTC 2 weeks for re-examination. documented in this encounter Plan of Treatment Not on filedocumented as of this encounter Visit Diagnoses + + | Diagnosis | + + | Other benign neoplasm of connective and other soft tissue of lower limb, including hip | + + | Candidiasis of skin Candidiasis of skin and nails | + + documented in this encounter"
--- OUTSIDE RECORDS SUMMARY | ~2019-02-10 | XMS | Encounter Summary ---
Demographics + + + | Address | [address] | | | [place] [address] | + + + | Home Phone [...] Team Providers + +------+ + | Care House Mover Name | Role | Phone | + [...] as of this encounter Discharge Summaries Interface, Senior Procurement Specialist In - 11/18/2005 1:09 AM PDT [place] [address] [address] [facility] [...] MD Derrell Cruz MD GA:x60 C: [facility] [id number] signed by Interface, Senior Procurement Specialist In at 11/18/2005 1:09 AM PDTdoc umented in this encounter Plan of Treatment Not on filedocumented as of this encounter Visit Diagnoses Not on filedocumented in this encounter"
--- OUTSIDE RECORDS SUMMARY | ~2019-02-10 | XMS | Encounter Summary ---
Demographics + + + | Address | [address] | | | [place] [address] | + + + | Home Phone [...] Team Providers + +------+ + | Care Chest Painting Leader Name | Role | Phone | + +------+ + | Timothy Burks MD | PCP | | + +------+ + Encounter Details +--------+ + + + + | Date | Type | Department | Care Team | Description | +--------+ + + + + | 01/07/ | Hospital | Dermatopathology | | | | 2014 | Encounter | [address] | | | | | | Mailcode: CH16D | | | | | | [facility] | | | | | | and Healing, | | | | | | Building 1, | | | | | | Floor [place], [place] | | | | | | [address] | | | | | | [phone] | | | +--------+ + + + [...] | + +--------+ + + + | DERM PATHOLOGY | Routin | 01/07/2015 | | Results for this | | | e | | | procedure are in the | | | | | | results section. | + +--------+ + + + documented in this encounter Results DERM PATHOLOGY (01/07/2015) + + + + + + | Component | Value | Ref Range | Performed | Pathologist | | | | | At | Signature | + + + + + + | DERMATOPATH | THIS IS AN ADDENDUM | | [facility] | | | OLOGY(WET | REPORT SOURCE OF | | DERMATOPATH | | | MNT) | SPECIMEN:A Lt. extensor | | OLOGY | | | | upper arm, punch biopsy | | | | | | CLINICAL | | | | | | DESCRIPTION:9 x 6 mm | | | | | | dermal epidermal | | | | | | indurated papule with | | | | | | positive dimple sign; | | | | | | r/odermatofibroma. | | | | | | GROSS | | | | | | DESCRIPTION:Received in | | | | | | formalin is a specimen | | | | | | labeled Mahi Prather:A: | | | | | | Specimen is labeled "L | | | | | | extensor upper arm" and | | | | | | consists of a 6mm | | | | | | punchof flores skin, cut to | | | | | | a depth of 9mm. The | | | | | | surgical margin is inked | | | | | | black; thetissue is | | | | | | trisected; and entirely | | | | | | submitted in cassette | | | | | | A1. MICROSCOPIC | | | | | | DESCRIPTION:There are | | | | | | subtle aggregates of | | | | | | epithelioid histiocytes, | | | | | | many of themdistributed | | | | | | between collagen | | | | | | bundles in palisaded | | | | | | fashion. 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 | | | | | | NOTE: The findings | | | | | | are not typical of | | | | | | dermatofibroma. Deeper | | | | | | sections andspecial | | | | | | stain for mucin | | | | | | (colloidal iron) will be | | | | | | obtained and the | | | | | | resultswill be reported | | | | | | as an addendum. | | | | | | ADDENDUM:Deeper sections | | | | | | are obtained and show | | | | | | findings similar to the | | | | | | initiallevels. | | | | | | Immunohistochemical | | | | | | staining with CD68 | | | | | | highlights | | | | | | interstitialhistiocytes. | | | | | | Special stain colloidal | | | | | | iron demonstrates | | | | | | slightly increaseddermal | | | | | | interstitial mucin. 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 | | | | | | The above diagnosis | | | | | | will remain unchanged. | | | | | | My [...] Diagnostician: | | | | | | Charles Oconnell | | | | | | Ankuri | | | | | | chino Signed 01/21/2015 | | | | | | 5:53PM | | | | + + + [...] | + + + + + | [facility] | [address], [address] | [place] [address] | | | DERMATOPATHOLOGY | [address] | | | + + + + + documented in this encounter Visit Diagnoses Not on filedocumented in this encounter
--- OUTSIDE RECORDS SUMMARY | ~2019-02-10 | XMS | Encounter Summary ---
Demographics + + + | Address | [address] | | | [place] [address] | + + + | Home Phone [...] Team Providers + +------+ + | Care Heating Equipment Repairer Name | Role | Phone | + +------+ + | Jose Ramires MD | PCP | | + +------+ + Encounter Details +--------+ + + + + | Date | Type | Department | Care Team | Description | +--------+ + + + + | 06/14/ | Telephone | Vascular Surgery | Raul Madera MD | | | 2019 | | at [facility] 2nd Floor | [address] | | | | | [address] | [place] | | | | | [place] Mailcode: | [place] [address] | | | | | [address] Physician's | [phone] | | | | | [place], | | | | | | [place] [address] | | | | | | [phone] | | | +--------+ + + + [...]
--- OUTSIDE RECORDS SUMMARY | ~2019-02-10 | XMS | Encounter Summary ---
Demographics + + + | Address | [address] | | | [place] [address] | + + + | Home Phone | | + + + | Preferred Language | Unknown | + + + | Marital Status | Single | + + + | Taoism Affiliation | PRO | + + + [...] Team Providers + +------+ + | Care Hammer Mill Operator Name | Role | Phone | + +------+ + | Timothy Burks MD | PCP | | + +------+ + Encounter Details +--------+ + + + + | Date | Type | Department | Care Team | Description | +--------+ + + + + | 09/02/ | Telephone | Vascular Surgery | Sebas Lauren, | | | 2009 | | at [facility] 2nd Floor | [address] | | | | | [address] | [address] | | | | | [place] Mailcode: | [place], [place] | | | | | [address] Physician's | [address] | | | | | [place], | [phone] | | | | | [place] [address] | | | | | | [phone] | | | +--------+ + + + [...]
--- OUTSIDE RECORDS SUMMARY | ~2019-02-10 | XMS | Encounter Summary ---
Demographics + + + | Address | [address] | | | [place] [address] | + + + | Home Phone [...] Team Providers + +------+ + | Care Library Acquisitions Technician Name | Role | Phone | + +------+ + PCP | Unavailable | + +------+ + Encounter Details +--------+ + + + + | Date | Type | Department | Care Team | Description | +--------+ + + + + | 11/17/ | Results | Urology General | Derrell Lowe, | | | 2003 | Only | [address] | [address] | | | | | [place] Mailcode: | [place], [place] | | | | | [address] Physician's | [address] | | | | | [address] | [phone] | | | | | [place], [place] | | | | | | [address] | | | | | | [phone] | | | +--------+ + + + [...] | + + + + + | [facility] | [address] | [place] [address] | | | PATHOLOGY | [address] | | | + + + + + | [facility] | [address] | [place] [address] | | | PATHOLOGY | [address] | | | + + + + + documented in this encounter Visit Diagnoses Not on filedocumented in this encounter"
--- OUTSIDE RECORDS SUMMARY | ~2019-02-10 | XMS | Encounter Summary ---
Demographics + + + | Address | [address] | | | [place] [address] | + + + | Home Phone [...] Team Providers + +------+ + | Care Mud Plant Operator Name | Role | Phone | [...] | | anomalies | [address] | [place], [place] | | | | | Congenital | [place], [place] | [address] | | | | | lower limb | [address] | Phone: | | | | | vessel | Phone: | [phone] | | | | | anomaly | [phone] | Fax: | | | | | Procedures | Fax: | [phone] | | | | | CONSULT TO | [phone] | | | | | | SURGERY [...] | | | Surgery at [facility] [address] | [place], [place] | (Primary Dx); | | | | [address] | [address] | Vascular | | | | Mailcode: CH5P | [phone] | malformation | | | | [facility] | | | | | | and Healing, | | | | | | Building 1, 5th | | | | | | Floor [facility] [place] | | | | | | [address] | | | | | | [phone] | | | +--------+---------+ + + + [...]
--- OUTSIDE RECORDS SUMMARY | ~2019-02-10 | XMS | Encounter Summary ---
Demographics + + + | Address | [address] | | | [place] [address] | + + + | Home Phone [...] Team Providers + +------+ + | Care Electric Plater Name | Role | Phone | + [...] as of this encounter Progress Notes Interface, Insurance Loss Adjuster In - 10/23/2004 10:33 PM PDTDATE OF SERVICE: 06/10 OPERATION RECORD ATTENDING SURGEON: Enrrique Holland M.D. COMPRESSOR STATION ENGINEER CHIEF: Shara Wells LPN PREOPERATIVE DIAGNOSIS(ES): Lymphangioma. POSTOPERATIVE [...] components of this procedure. Enrrique Holland M.D. Lease Buyer, Dermatology, Surgery Otolaryngology-Head and Neck Surgery ROSEY/yovanny A 10: 33 PM PDTdocumented in this encounter Plan of Treatment Not on filedocumented as of this encounter Visit Diagnoses Not on filedocumented in this encounter"
--- OUTSIDE RECORDS SUMMARY | ~2019-02-10 | XMS | Encounter Summary ---
Demographics + + + | Address | [address] | | | [place] [address] | + + + | Home Phone | | + + + | Preferred Language | Unknown | + + + | Marital Status | Single | + + + | Rastafari Affiliation | PRO | + + + [...] Team Providers + +------+ + | Care Flexible Nanny Name | Role | Phone | + [...] | | 1995 | Visit-Trans | Medicine [address] | Clinic | | | | hemalatha | [address] | | | | | | Mailcode: L475 | | | | | | Outpatient Clinic | | | | | | [address] | | | | | | [place], [place] | | | | | | [address] | | | | | | [phone] | | | +--------+ + + + [...] as of this encounter Progress Notes Interface, Vtc Technician In - 06/13/2006 3:11 AM PDT CLINIC DATE: 12/12/95 ALLERGY/IMMUNOLOGY CLINIC SUBJECTIVE: Ms. Prather is a 20-year-old woman from [place] who noted worsening in her symptoms of clear rhinorrhea, sneezing and watery eyes following a September 24 move from [facility] to [place]. She states she has had similar symptoms to a lesser degree in [place] for the past five or six springs, but her current symptoms are of much more severe and much more bothersome. She states she lives with a cat and has for 15 years and never noticed this bothered her previously. [place] She has the same bed and furniture she did in [facility], states her symptoms seem to be worse when away from home. 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 Of note, her move the first of September correlated with the height of grass pollen season here. She desires to remain in [place] for employment and we will try a course of empiric treatment with Claritin for one week and Vancenase nasal inhaler for one week, then see her in two weeks and gauge her response to therapy. Jose Martin Araujo M.D. Beveling And Edging Machine Operator, Internal Medicine Ingrid Jackson M.D. Qual Research Manager, Medicine TRG:[email or web address] documented in this encounter Plan of Treatment Not on filedocumented as of this encounter Visit Diagnoses Not on filedocumented in this encounter"
--- OUTSIDE RECORDS SUMMARY | ~2019-02-10 | XMS | Encounter Summary ---
Demographics + + + | Address | [address] | | | [place] [address] | + + + | Home Phone [...] Team Providers + +------+ + | Care Developmental Training Counselor Name | Role | Phone | [...] + + | 01/10/ | Hospital | [facility] | Uzair Mendoza MD | | | 2012 | Encounter | [address] | [address] | | | | | Ave Mailcode: [facility] | [place], [place] | | | | | [facility] | [address] | | | | | Health and Healing, | [phone] | | | | | [address] [address] | | | | | | [place], [place] | | | | | | [address] | | | | | | [phone] | | | +--------+ + + + [...] + + + + + | [facility] | [address] | [place] [address] | | | PATHOLOGY | [address] [...]
--- OUTSIDE RECORDS SUMMARY | ~2019-02-10 | XMS | Encounter Summary ---
Demographics + + + | Address | [address] | | | [place] [address] | + + + | Home Phone | | + + + | Preferred Language | Unknown | + + + | Marital Status | Single | + + + | Pentecostalism Affiliation | PRO | + + + [...] Team Providers + +------+ + | Care Production Sampler Name | Role | Phone | + +------+ + | Timothy Burks MD | PCP | | + +------+ + Encounter Details +--------+ + + + + | Date | Type | Department | Care Team | Description | +--------+ + + + + | 03/02/ | Med | AMBULATORY SURGERY | Alonzo Torrez MD | | | 2006 | Reconciliat | [address] | [address] | | | | ion | [address] | [place] | | | | | [place] | [place] [address] | | | | | [address] [place], [place] | [phone] | | | | | [address] | | | +--------+ + + + [...]
--- OUTSIDE RECORDS SUMMARY | ~2019-02-10 | XMS | Encounter Summary ---
Demographics + + + | Address | [address] | | | [place] [address] | + + + | Home Phone [...] Team Providers + +------+ + | Care Swimming Pool Maintenance Name | Role | Phone | + [...] | | anomalies | [address] | [place], [place] | | | | | Congenital | [place], [place] | [address] | | | | | lower limb | [address] | Phone: | | | | | vessel | Phone: | [phone] | | | | | anomaly | [phone] | Fax: | | | | | Procedures | Fax: | [phone] | | | | | CONSULT TO | [phone] | | | | | | SURGERY [...] Dx) | | | | Surgery at [facility] [address] | [place], [place] | | | | | [address] | [address] | | | | | Mailcode: [facility] | [phone] | | | | | [facility] | | | | | | and Mic, | | | | | | [facility] | | | | | | [place], [place] | | | | | | [address] | | | | | | [phone] | | | +--------+---------+ + + + [...]
--- OUTSIDE RECORDS SUMMARY | ~2019-02-10 | XMS | Encounter Summary ---
Demographics + + + | Address | [address] | | | [place] [address] | + + + | Home Phone | | + + + | Preferred Language | Unknown | + + + | Marital Status | Single | + + + | Zoroastrian Affiliation | PRO | + + + [...] Team Providers + +------+ + | Care Piecer Up Name | Role | Phone | + [...] | malformation | [address] | [address] | | | | | Procedures | [address] | P[place]y | | | | | CONSULT TO | Rd | [place], [place] | | | | | SURGERY - | [place], [place] | [address] | | | | | PLASTICS | [address] | Phone: | | | | | | | [phone] | | | | | | | Fax: | | | | | | | [phone] | +--------+--------+ + + + + Encounter Details +--------+---------+ + + + | Date | Type | Department | Care Team | Description | +--------+---------+ + + + | 12/18/ | Office | Plastic and | Jannette Dow PA | Other specified | | 2009 | Visit | Reconstructive | | pre-operative | | | | Surgery at [facility] [address] | | examination (Primary | | | | [address] | | Dx) | | | | Mailcode: 5 | | | | | | [facility] | | | | | | and Healing, | | | | | | Building 1, 5th | | | | | | Floor [place], [place] | | | | | | [address] | | | | | | [phone] | | | +--------+---------+ + + + [...] surgeries scheduled to take place on the finger at the [facility]: Surgeries scheduled in the [facility] ([address] [place] [address]): registration is located on the 4th floor of [facility] (Day Surgery). Surgeries scheduled in the [facility]: registration is located on the 9th floor. Surgeries scheduled in [facility]: registration is located on the 6th floor. Surgeries scheduled in the [facility]: registration is located i n the [facility] on the first floor. For surgeries scheduled to take place at the [facility]: registration is l [...] | + + + + + | [facility] | [address] | [place] [address] | | | PATHOLOGY | [address] | | | + + + + + documented in this encounter Visit Diagnoses + + | Diagnosis | + + | Other specified pre-operative examination - Primary | + + documented in this encounter
--- OUTSIDE RECORDS SUMMARY | ~2019-02-10 | XMS | Encounter Summary ---
Demographics + + + | Address | [address] | | | [place] [address] | + + + | Home Phone [...] Team Providers + +------+ + | Care Dental Practice Manager Name | Role | Phone | + +------+ + | Timothy Burks MD | PCP | | + +------+ + Encounter Details +--------+ + + + + | Date | Type | Department | Care Team | Description | +--------+ + + + + | 11/09/ | MyChart | Vascular Surgery | [address], | RE: Pre | | 2015 | Encounter | at [facility] [address] | MARISA [address] | Determination form | | | | [address] | [address] | | | | | [place] Mailcode: | [place], [place] | | | | | [address] Physician's | [phone] | | | | | [place], | | | | | | [place] [address] | | | | | | [phone] | | | +--------+ + + + [...]
--- OUTSIDE RECORDS SUMMARY | ~2019-02-10 | XMS | Encounter Summary ---
Demographics + + + | Address | [address] | | | [place] [address] | + + + | Home Phone [...] Team Providers + +------+ + | Care Rag Boiler Name | Role | Phone | + [...] | | | | | SURGICAL | [place], [place] | [place] | | | | | CASE REQUEST | [address] | [address] | | | | | LA EXC | Phone: | Phone: | | | | | SKIN BENIG | [phone] | [phone] | | | | | >4CM | Fax: | Fax: | | | | | TRUNK,ARM,LE | [phone] | [phone] | | | | | G | [...] | | anomalies | [address] | [place], [place] | | | | | Congenital | [place], [place] | [address] | | | | | lower limb | [address] | Phone: | | | | | vessel | Phone: | [phone] | | | | | anomaly | [phone] | Fax: | | | | | Procedures | Fax: | [phone] | | | | | CONSULT TO | [phone] | | | | | | SURGERY [...] at [facility] [address] | [facility] [place] | (Primary Dx); | | | | [address] | [address] | Lymphatic | | | | Mailcode: [facility] | [phone] | malformation | | | | [facility] | | | | | | and Mic, | | | | | | Building | | | | | | [place], [place] | | | | | | [address] | | | | | | [phone] | | | +--------+---------+ + + + [...] and wishes to proceed. GUILLERMO MENDOZA MD assistant professor of nursing of Plastic Surgery [facility], [place] [address] erRandall carmichael MD - 12/18/2012 1:53 PM [...] Pt scheduled for surgery on 01/10/2013 at [facility] -- Pt will need to stop coumadin 5 days prior to surgery and bridge with Lovenox. Pt inform ed and will contact her PCP regarding anti-coagulation. Pt seen with Dr. Mendoza who agrees with above assessment and plan. Caleb Flowers MD Otolaryngology-Head & Neck Surgery PGY-1 [id number] signed by Caleb Flowers MD at 12/19/2012 [...]
--- OUTSIDE RECORDS SUMMARY | ~2019-02-10 | XMS | Encounter Summary ---
Demographics + + + | Address | [address] | | | [place] [address] | + + + | Home Phone [...] Team Providers + +------+ + | Care Telecommunications Project Manager Name | Role | Phone | + +------+ + | Timothy Burks MD | PCP | | + +------+ + Encounter Details +--------+ + + + + | Date | Type | Department | Care Team | Description | +--------+ + + + + | 03/02/ | Procedure - | UNKNOWN DEPARTMENT | Record, Operation | Operative Report | | 2006 | | [address] | | | | | Transcribed | [address] | | | | | | [place] | | | | | | [address] | | | +--------+ + + + [...] + + | OPERATION RECORD | | 03/02/2007 | | Results for this | | | | 12:00 AM | | procedure are in the | | | | PST | | results section. | + +--------+ + + + documented in this encounter Results OPERATION RECORD (03/02/2007 12:00 AM PST) + + | Procedure Note | + + | Alonzo Torrez MD - 03/02/2007 12:00 AM [facility] [id number] | | [id number] [address] [id number] | | Date: 03/02/2007 Attending Surgeon: Alonzo Torrez M.D. Compressor Operator Portable(s): Preoperative | | Diagnosis(es): Bleeding arteriovenous malformation along gluteal crease. Postoperative | | Diagnosis(es): Bleeding arteriovenous malformation along gluteal crease. Procedures | | Performed: Excision of bleeding arteriovenous malformation. Anesthesia: General | | endotracheal supplemented with 0.5% Marcaine with epinephrine. Estimated Blood Loss: | | Minimal. 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 This has been intermittently | | bleeding, and it appears superficial in the skin and subcutaneous tissue. I had an | | extensive PARQ conference with the patient and her family prior to the surgery. | | Procedure: The patient was given general anesthesia. She was placed in the prone | | position. The buttocks and the gluteal crease were prepped and draped in the usual | | sterile fashion. Preoperative antibiotics were administered. An elliptical incision was | | made just around the vascular malformation extending through the skin and subcutaneous | | tissue. There was no deep extension of the malformation, and the subcutaneous tissue | | appeared normal. The specimen was excised and sent for pathology. The wound was | | irrigated profusely with antibiotic irrigation. Bleeding was controlled using | | electrocautery. The incision was closed using interrupted 3-0 Vicryl suture with 2 | | layers and interrupted 3-0 nylon with a vertical mattress suture. The patient was placed | | back in the supine position, and she was extubated in the operating room. She was taken | | to recovery in stable condition. Alonzo Torrez M.D. / [id number] / [id number] / | | [id number] / Electronically signed by Alonzo Torrez 04-26-2007 | | 11:07:30 PM | | | | Indications: | | The patient has angiodysplasia, and she has numerous vascular malformations | | including a small gluteal cleft malformation. This has been intermittently | | bleeding, and it appears superficial in the skin and subcutaneous tissue. | | I had an extensive PARQ conference with the patient and her family prior to | | the surgery. | | | | Procedure: | | The patient was given general anesthesia. She was placed in the prone | | position. The buttocks and the gluteal crease were prepped and draped in | | the usual sterile fashion. Preoperative antibiotics were administered. An | | elliptical incision was made just around the vascular malformation | | extending through the skin and subcutaneous tissue. There was no deep | | extension of the malformation, and the subcutaneous tissue appeared normal. | | The specimen was excised and sent for pathology. The wound was irrigated | | profusely with antibiotic irrigation. Bleeding was controlled using | | electrocautery. The incision was closed using interrupted 3-0 Vicryl | | suture with 2 layers and interrupted 3-0 nylon with a vertical mattress | | suture. The patient was placed back in the supine position, and she was | | extubated in the operating room. She was taken to recovery in stable | | condition. | | | | | | | | | | Alonzo Torrez M.D. | | | | TL / HS | | [id number] / [id number] / [id number] / | | | | | | | | | | | | Electronically signed by Alonzo Torrez 04-26-2007 11:07:30 PM | | | | | + + documented in this encounter Visit Diagnoses Not on filedocumented in this encounter"
--- OUTSIDE RECORDS SUMMARY | ~2019-02-10 | XMS | Encounter Summary ---
Demographics + + + | Address | [address] | | | [place] [address] | + + + | Home Phone [...] Team Providers + +------+ + | Care Church Worker Name | Role | Phone | [...] Rd | | | | | | [place] | | | | | | [address] | | | +--------+ + + + [...] Alonzo Torrez MD - 03/02/2007 12:00 AM [facility] [id number] | | [phone] [id number] [address] [id number] | | Date: 03/02/2007 Attending Surgeon: Alonzo Torrez M.D. Motor Setter(s): Preoperative | | Diagnosis(es): Bleeding arteriovenous malformation [...] in stable condition. Alonzo Torrez M.D. / [id number] / [id number] / | | [id number] / Electronically signed by Alonzo Torrez 04-26-2007 [...] | | TL / HS | | [id number] / [id number] / [id number] / | | | | | | | | | | | | Electronically signed by Alonzo Torrez 04-26-2007 11:07:30 PM | | | | | + + documented in this encounter Visit Diagnoses Not on filedocumented in this encounter"
--- OUTSIDE RECORDS SUMMARY | ~2019-02-10 | XMS | Encounter Summary ---
Demographics + + + | Address | [address] | | | [place] [address] | + + + | Home Phone [...] Team Providers + +------+ + | Care Physical Therapy Technician Name | Role | Phone | [...]
--- OUTSIDE RECORDS SUMMARY | ~2019-02-10 | XMS | Encounter Summary ---
Demographics + + + | Address | [address] | | | [place] [address] | + + + | Home Phone | | + + + | Preferred Language | Unknown | + + + | Marital Status | Single | + + + | Judaism Affiliation | PRO | + + + [...] + +------+ + | Care Vice President Biostatistics Name | Role | Phone | + [...] Closed | | Vascular | Diagnoses | [place], | Vas Vasc | | | | Surgery | Vascular | MD Sebas | Surg [facility] | | | | | malformation | [address] | [address] | | | | | Congenital | [address] | | | | | lower limb | [address] | Rd Mailcode: | | | | | vessel | [place], [place] | [address] | | | | | anomaly | [address] | Physician's | | | | | Procedures | Phone: | Ron | | | | | REQUEST TO | [phone] | [place], [place] | | | | | SURGERY | Fax: | [address] | | | | | DYNAMIC ETCHING PROCESSOR | [phone] | Phone: | | | | | IN EXC SKIN | | [phone] | | | | | BENIG <5MM | | Fax: | | | | | TRUNK,ARM,LE | | [phone] | | | | | G | | | +--------+--------+ + + + + Reason for Visit + + + | Reason | Comments | + + + | Follow-up visit | VMP | + + + Encounter Details +--------+---------+ + + + | Date | Type | Department | Care Team | Description | +--------+---------+ + + + | 06/02/ | Office | Vascular Surgery | Sebas Burton, | Vascular | | 2008 | Visit | at [facility] [address] | [address] | Malformation | | | | [address] | [address] | (Primary Dx) | | | | [place] [place] Mailcode: | [place], [place] | | | | | [address] Physician's | [phone] | | | | | [place], | [phone] | | | | | [place] [address] | | | | | | [phone] | | | +--------+---------+ + + + [...] encounter Progress Notes Sebas Burton MD - 06/02/2008 9:07 AM PDTThe wound is not better; still raw and oozing. Discussed with her that best course now is excisionof the scar with healing by secondary i ntention. She agrees and we will schedule this. 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
--- OUTSIDE RECORDS SUMMARY | ~2019-02-10 | XMS | Encounter Summary ---
Demographics + + + | Address | [address] | | | [place] [address] | + + + | Home Phone [...] Team Providers + +------+ + | Care Small Parts Assembler Name | Role | Phone | [...] evaluation | | | | Surgery at [facility] [address] | [place], [place] | | | | | [address] | [address] | | | | | Mailcode: [facility] | [phone] | | | | | [facility] | | | | | | and Healing, | | | | | | Building [address], 5th | | | | | | Floor [place], [place] | | | | | | [address] | | | | | | [phone] | | | +--------+ + + + [...]
--- OUTSIDE RECORDS SUMMARY | ~2019-02-10 | XMS | Encounter Summary ---
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 [address] | Sebas Burton, | | | 2008 | Encounter | [address] | [address] | | | | | [id number] | [address] | | | | | [place], | [place], [place] | | | | | [place] [address] | [address] | | | | | [phone] | [phone] | | | | | | | | +--------+ + [...] + + + | Blood Pressure | 110/64 | 06/19/2008 11:45 AM | | | | | PDT | | + + + + + | Pulse | 62 | 06/19/2008 11:45 AM | | | | | PDT | | + + + + + | Temperature | 36.7 C (98.1 F) | 06/19/2008 11:45 AM | | | | | PDT | | + + + + + | Respiratory Rate | 16 | 06/19/2008 11:45 AM | | | | | PDT | | + + + + + | Oxygen Saturation | 98% | 06/19/2008 11:45 AM | | | | | PDT | | + + + + + | Inhaled Oxygen | - | - | | | Concentration | | | | + + + + + | Weight | 117 kg (257 lb 15 | 06/19/2008 6:00 AM | | | | oz) | PDT | | + + + + + | Height | 177.8 cm (5' 10") | 06/19/2008 6:00 AM | | | | | PDT | | + + + + + | Body Mass Index | 37.01 | 06/19/2008 6:00 AM | | | | | PDT | | + + + + + documented in this encounter Discharge Summaries Adalberto, Faculty - 06/19/2008 12:16 PM Anahi Rhodes MD - 06/19/2008 8:46 AM Niko ya of this note might be different from the original. 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 female who was taken to the OR for elective excision of her blee ding AVM site. She had no intraoperative or postoperative complications and she was discharged with instuc tions to manage the wound so as to attempt to let it heal by secondary intent. Discharge Medications: START taking these medications docusate sodium (COLACE) 100 mg Oral Capsule Take 1 Cap by mouth two times daily. Qty: 60 Refills: 2 oxycodone-acetaminophen 5-325 mg Oral Tablet Take 1-2 Tabs by mouth every four hours as needed for moderate pain and severe pain. Not t o exceed 12 tablets per any 24 hour period. Qty: 30 Refills: 0 CONTINUE these medications which have NOT CHANGED CLARITIN OR one tablet by mouth every day conjugated estrogens 0.625 mg Oral Tablet take 1 tablet (0.625 mg) by oral route once daily for 21 consecutive days, followed by 7 d ays off COUMADIN 10 mg Oral Tablet Take 10 mg by mouth once daily. 10mg every day except 7.5mg on monday PROZAC OR take 1 table by mouth every day Diet: regular Activity: No lifting >10 lbs No driving if on narcotics Showers allowed; No baths/hot tubs/swimming pools Walking allowed Special Instructions: (Treatment, Equipment, Supplies, Dressings, LAB follow-up) Weigh daily: no Dressing changes: daily changes with dry gauze dressings and cover with ABD pads. Underwear stockings might be helpful to keep the dressings in place. Please do sitz baths (sit in war m water or warm salted water) daily (and after each bowel movement). Call: . If you have any of the following: Difficulty breathing or unusual shortness of breath Excessive bleeding, drainage at the operative site Fevers, chills, increased pain that is not relieved by pain medications Persistent nausea or vomiting Or any other concerns. Follow Up Appointments: PCP: Timothy Burks MD In 2-4 weeks For a 2 week appointment in Vascular Clinic, please call: [phone]. Other: Follow Up Tests: (Tests at [facility] must be entered into Epic) none Condition On Discharge: good Vital Signs at discharge as appropriate: BP 106/61, Pulse 64, Temperature 36.5 C (97.7 F), RR 16, Ht 177.8 cm (5' 10")( < 3 %ile ), Wt 117 kg (257 lbs 15.0 oz)( < 3 %ile), SpO2 98%. Discharge Patient To: Home Does patient have a planned readmission: No Discharge Summary Completed?: Yes- Date 06/19/2008 Discharging Provider: ANAHI HERNANDEZ MD Date Completed: 06/19/2008 Time Completed: 8:35 AM Discharging Attending: MD Dr Anahi Mackey M.B.,B.S. 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 female who was taken to the OR for elective excision of her blee ding AVM site. She had no intraoperative or postoperative complications and she was discharged with instuc tions to manage the wound so as to attempt to let it heal by secondary intent. Discharge Medications: START taking these medications docusate sodium (COLACE) 100 mg Oral Capsule Take 1 Cap by mouth two times daily. Qty: 60 Refills: 2 oxycodone-acetaminophen 5-325 mg Oral Tablet Take 1-2 Tabs by mouth every four hours as needed for moderate pain and severe pain. Not t o exceed 12 tablets per any 24 hour period. Qty: 30 Refills: 0 CONTINUE these medications which have NOT CHANGED CLARITIN OR one tablet by mouth every day conjugated estrogens 0.625 mg Oral Tablet take 1 tablet (0.625 mg) by oral route once daily for 21 consecutive days, followed by 7 d ays off COUMADIN 10 mg Oral Tablet Take 10 mg by mouth once daily. 10mg every day except 7.5mg on monday PROZAC OR take 1 table by mouth every day Diet: regular Activity: No lifting >10 lbs No driving if on narcotics Showers allowed; No baths/hot tubs/swimming pools Walking allowed Special Instructions: (Treatment, Equipment, Supplies, Dressings, LAB follow-up) Weigh daily: no Dressing changes: daily changes with dry gauze dressings and cover with ABD pads. Underwear stockings might be helpful to keep the dressings in place. Please do sitz baths (sit in war m water or warm salted water) daily (and after each bowel movement). Call: . If you have any of the following: Difficulty breathing or unusual shortness of breath Excessive bleeding, drainage at the operative site Fevers, chills, increased pain that is not relieved by pain medications Persistent nausea or vomiting Or any other concerns. Follow Up Appointments: PCP: Timothy Burks MD In 2-4 weeks For a 2 week appointment in Vascular Clinic, please call: [phone]. Other: Follow Up Tests: (Tests at [facility] must be entered into Epic) none Condition On Discharge: good Vital Signs at discharge as appropriate: BP 106/61, Pulse 64, Temperature 36.5 C (97.7 F), RR 16, Ht 177.8 cm (5' 10")( < 3 %ile ), Wt 117 kg (257 lbs 15.0 oz)( < 3 %ile), SpO2 98%. Discharge Patient To: Home Does patient have a planned readmission: No Discharge Summary Completed?: Yes- Date 06/19/2008 Discharging Provider: ANAHI HERNANDEZ MD Date Completed: 06/19/2008 Time Completed: 8:35 AM Discharging Attending: MD Dr Anahi Mackey MEdgar.,B.S. Instrument Tech Department of Surgery [facility] INPATIENT NURSE ORDER FOR DISCHARGE AND INTERDISCIPLINARY INSTRUCTIONS DISCHARGE DATE: 06/19/2008 PATIENT EDUCATION: Patient given the following printed education materials Review with patient/family: Understanding of disease/injury/surgical repair Yes Signs/symptoms that they should report Yes Understanding of medications and side effects Yes Activity and diet instructions Yes Follow-up appointments Yes Any concerns/fears Yes Smoking Cessation Counseling/Information was given: Yes Additional Instructions: (ex: daily weights, wound care, tube feeding, trach care, CBG nikkie toring etc.) Personal Effects/Medications: Sent home with patient Discharged Via: Wheelchair Mode of Transportation: Car Accompanied by: Family/Responsible [employer] Name: (when applicable) Phone #: Discharge Nurse: CINTHIA LONG RN Date: 06/19/2008 Discharge Time: 11:47 [place] [address] [phone] documented in this encounter Medications at Time [...] | | | | | and 10 , , , | | | | | | | [...] for this | | | e | 1:40 PM | | procedure are in the | | | | PST | | results section. | + +--------+ + + + | PATHOLOGY | | 06/19/2008 | | Results for this | | | | 12:16 PM | | procedure are in the | | | | PDT | | results section. | + +--------+ + + + | INR | Routin | 06/19/2008 | | Results for this | | | e | 7:05 AM | | procedure are in the | | | | PDT | | results section. | + +--------+ + + + | CBC ONLY | Routin | 06/19/2008 | | Results for this | | | e | 7:05 AM | | procedure are in the | | | | PDT | | results section. | + +--------+ + + + | ANESTHESIA/SEDATION | | 06/19/2008 | | Results for this | | | | 12:00 AM | | procedure are in the | | | | PDT | | results section. | + +--------+ + + + | OPERATION RECORD | | 06/19/2008 | | Results for this | | | | 12:00 AM | | procedure are in the | | | | PDT | | results section. | + +--------+ + + + | SURGICAL PATHOLOGY | Routin | 06/19/2008 | | Results for this | | | e | | | procedure are in the | | | | | | results section. | + +--------+ + + + | ANESTHESIA/SEDATION | | 06/18/2008 | | Results for this | | | | 12:00 AM | | procedure are in the | | | | PDT | | results section. | + +--------+ + + + documented in this encounter Results PROCEDURE NOTE (05/01/2015 1:40 PM PST)PATHOLOGY (06/19/2008 12:16 PM PDT) + + + | Narrative | Performed At | + + + | | | + + + + + | Procedure Note | + + | Other, Faculty - 06/19/2008 12:16 PM PDT | + + CBC ONLY (06/19/2008 7:05 AM PDT) + + + + + + | Component | Value | Ref Range | Performed | Pathologist | | | | | At | Signature | + + + + + + | WHITE CELL | 5.4 | 4.4 - 11.0 K/cu | [facility] | | | COUNT | | mm | DEPARTMENT | | | | | | OF | | | | | | PATHOLOGY | | + + + + + + | RED CELL | 4.72 | 4.00 - 5.20 | [facility] | | | COUNT | | M/cu mm | DEPARTMENT | | | | | | OF | | | | | | PATHOLOGY | | + + + + + + | HEMOGLOBIN | 12.6 | 12.0 - 16.0 | [facility] | | | | | g/dL | DEPARTMENT | | | | | | OF | | | | | | PATHOLOGY | | + + + + + + | HEMATOCRIT | 38.3 | 36.0 - 46.0 % | [facility] | | | | | | DEPARTMENT | | | | | | OF | | | | | | PATHOLOGY | | + + + + + + | MCV | 81.1 | 80.0 - 96.0 fL | [facility] | | | | | | DEPARTMENT | | | | | | OF | | | | | | PATHOLOGY | | + + + + + + | MCHC | 33.0 (L) | 33.4 - 35.5 | [facility] | | | | | g/dL | DEPARTMENT | | | | | | OF | | | | | | PATHOLOGY | | + + + + + + | RDW | 15.3 (H) | 11.5 - 15.0 % | [facility] | | | | | | DEPARTMENT | | | | | | OF | | | | | | PATHOLOGY | | + + + + + + | PLATELET | 265 | 150 - 400 K/cu | [facility] [...] | + + + + + | [facility] | [address] [facility] [facility] | [place] [address] | | | PATHOLOGY | [address] | | | + + + + + | [facility] | [address] [facility] | [place] [address] | | | PATHOLOGY | [address] | | | + + + + + INR (06/19/2008 7:05 AM PDT) + + + + + + | Component | Value | Ref Range | Performed | Pathologist | | | | | At | Signature | + + + + + + | INR | 2.11 (H)Comment: | 0.90 - 1.20 INR | [facility] | | | | INR [...] | + + + + + | [facility] DEPARTMENT OF | [address] | [place] [address] | | | PATHOLOGY | [address] | | | + + + + + | [facility] DEPARTMENT OF | [address] [facility] | [place] [address] | | | PATHOLOGY | [address] | | | + + + + + ANESTHESIA/SEDATION (06/19/2008 12:00 AM PDT) + + + | Narrative | Performed At | + + + | | | + + + + + | Procedure Note | + + | Other, Faculty - 06/19/2008 12:00 AM PDT | + + OPERATION RECORD (06/19/2008 12:00 AM PDT) + + + | Narrative | Performed At | + + + | [id number] | | | [id number] | | | [id number] [address] [id number] | | | Date: 06/19/2008 Attending | | | Surgeon: Sebas Lauren M.D. | | | Emg Technician(s): Vianney Toledo | | | Preoperative Diagnosis(es): Right gluteal cleft scar. | | | Postoperative Diagnosis(es): Right gluteal cleft scar. | | | Procedure Performed: Revision of right gluteal cleft scar. | | | Anesthesia: General. 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 She presents now with significant scar hypertrophy. | | | We have attempted to manage this conservatively, but the scar | | | remains hypertrophied. We have spoken with her about undergoing | | | excision of the scar and allowing healing by secondary intention, and | | | she agrees with this plan. Findings: We excised the | | | hypertrophied portion of the scar back to healthy underlying | | | subcutaneous tissue. The tissue appeared viable and well perfused. | | | The wound was packed with sterile dressings. Procedure in | | | Detail: She was brought to the operating room and placed supine. | | | General anesthesia was induced, and she was placed in the prone | | | position. The operative site was prepped and draped sterilely. A | | | pause was performed by the surgical team. The hypertrophied | | | portion of the right gluteal cleft scar was sharply excised with a | | | #15 blade. The specimen was sent to Pathology. We excised the | | | scar back to healthy underlying subcutaneous tissue which appeared | | | viable and well perfused. Bleeding was controlled with | | | electrocautery. The wound was irrigated and sterile dressings | | | placed. She tolerated the procedure well without complication and was | | | taken to the recovery room in stable condition. | | | Sebas Lauren M.D. LARRY / [id number] / [id number] / [id number] / | | | | | + + + + + | Procedure Note | + + | Sebas Lauren MD - 06/19/2008 12:00 AM PDT [id number] | | [id number] J[place]ON [address]E | | [id number] Date: 06/19/2008 Attending Surgeon: | | Sebas Lauren M.D. Emg Technician(s): Vianney Toledo | | Preoperative Diagnosis(es):Right gluteal cleft scar. Postoperative Diagnosis(es):Right | | gluteal cleft scar. Procedure Performed:Revision of right gluteal cleft scar. | | Anesthesia:General. Indications:This is a 32-year-old woman who has undergone prior | | resection of a rightgluteal cleft lymphangioma. She presents now with significant | | scarhypertrophy. We have attempted to manage this conservatively, but the scarremains | | hypertrophied. We have spoken with her about undergoing excisionof the scar and | | allowing healing by secondary intention, and she agreeswith this plan. Findings:We | | excised the hypertrophied portion of the scar back to healthy underlyingsubcutaneous | | tissue. The tissue appeared viable and well perfused. Thewound was packed with sterile | | dressings. Procedure in Detail:She was brought to the operating room and placed | | supine. Generalanesthesia was induced, and she was placed in the prone position. | | Theoperative site was prepped and draped sterilely. A pause was performed bythe | | surgical team. The hypertrophied portion of the right gluteal cleftscar was sharply | | excised with a #15 blade. The specimen was sent toPathology. We excised the scar back | | to healthy underlying subcutaneoustissue which appeared viable and well perfused. | | Bleeding was controlledwith electrocautery. The wound was irrigated and sterile | | dressings placed.She tolerated the procedure well without complication and was taken to | | therecovery room in stable condition. Sebas Lauren M.D. LARRY / [id number] / | | [id number] / [id number] / T: 06/19/2008 | | | | | |Anesthesia: | |General. | | | | | |Indications: | |This is a 32-year-old woman who has undergone prior resection of a right | |gluteal cleft lymphangioma. She presents now with significant scar | |hypertrophy. We have attempted to manage this conservatively, but the scar | |remains hypertrophied. We have spoken with her about undergoing excision | |of the scar and allowing healing by secondary intention, and she agrees | |with this plan. | | | | | |Findings: | |We excised the hypertrophied portion of the scar back to healthy underlying | |subcutaneous tissue. The tissue appeared viable and well perfused. The | |wound was packed with sterile dressings. | | | | | |Procedure in Detail: | |She was brought to the operating room and placed supine. General | |anesthesia was induced, and she was placed in the prone position. The | |operative site was prepped and draped sterilely. A pause was performed by | |the surgical team. The hypertrophied portion of the right gluteal cleft | |scar was sharply excised with a #15 blade. The specimen was sent to | |Pathology. We excised the scar back to healthy underlying subcutaneous | |tissue which appeared viable and well perfused. Bleeding was controlled | |with electrocautery. The wound was irrigated and sterile dressings placed. | |She tolerated the procedure well without complication and was taken to the | |recovery room in stable condition. | | | | | | | | | |Sebas Lauren M.D. | | | | | |GJL / HS | |[id number] / [id number] / [id number] / | | | | | | | | | | | | | | | | | | | | | + + SURGICAL PATHOLOGY (06/19/2008) + + + + + + | Component | Value | Ref Range | Performed | Pathologist | | | | | At | Signature | + + + + + + | SURGICAL | SOURCE OF SPECIMEN:A | | [facility] | | | PATHOLOGY | Arteriovenous | | DEPARTMENT | | | | malformation, buttock | | OF | | | | (gluteal | | PATHOLOGY | | | | crease)scarFinal | | | | | | Pathologic | | | | | | Diagnosis:Buttock, | | | | | | gluteal crease scar | | | | | | (arteriovenous | | | | | | malformation), excision: | | | | | | - Skin with | | | | | | subcutaneous | | | | | | arteriovenous | | | | | | malformation and acute | | | | | | andchronic | | | | | | inflammationCase seen | | | | | | by:Letty Devine | | | | | | Jay / Mandeep Adam | | | | | | Jay Johnston / | | | | | | PathologistT:06/22/08:la | | | | | | bClinical History:The | | | | | | patient is a 32-year-old | | | | | | female. Per Epic: H/o | | | | | | of AVM excision.Gross | | | | | | Description:Received is | | | | | | one specimen fresh in a | | | | | | container labeled with | | | | | | the patient | | | | | | name(initials SUZANNE) and | | | | | | "AVM buttock scar." | | | | | | Received is a 5.5 x | | | | | | 1.2 x 0.8-cm,slightly | | | | | | lobular, | | | | | | cykmqq-yco-mw-ulcerated- | | | | | | red, unoriented piece of | | | | | | skin.The margin is | | | | | | inked and the specimen | | | | | | is serially sectioned | | | | | | revealing adense, | | | | | | mottled, claire-red cut | | | | | | surface. | | | | | | Community Education Specialist | | | | | | sections | | | | | | aresubmitted.Cassette | | | | | | Index:[id number] | | | | | | Diagnostician: Mayuri Plascencia | | | | | | Preston | | | | | | JayPathologistClaudioi | | | | | | chino Signed 06/23/2008 | | | | + + + + + + + + | Specimen | + + | Other | + + + + + + + | Performing | Address | City/State/Zipcode | Phone Number | | Organization | | | | + + + + + | [facility] DEPARTMENT OF | [address] | [place] [address] | | | PATHOLOGY | [address] | | | + + + + + | [facility] DEPARTMENT OF | [address] | [place] [address] | | | PATHOLOGY | [address] | | | + + + + + ANESTHESIA/SEDATION (06/18/2008 12:00 AM PDT) + + + | Narrative | Performed At | + + + | | | + + + + + | Procedure Note | + + | Dre Glover - 06/18/2008 12:00 AM PDT | + + documented in this encounter Visit Diagnoses Not on filedocumented in this encounter
--- OUTSIDE RECORDS SUMMARY | ~2019-02-10 | XMS | Encounter Summary ---
Demographics + + + | Address | [address] | | | [place] [address] | + + + | Home Phone | | + + + | Preferred Language | Unknown | + + + | Marital Status | Single | + + + | Hindu Affiliation | PRO | + + + [...] Team Providers + +------+ + | Care Infrastructure Engineer Name | Role | Phone | [...] | | | | | | | [place], [place] | | | | | | | [address] | | | | | | | Phone: | | | | | | | [phone] | | | | | | | Fax: | | | | | | | [phone] | +--------+--------+ + + + + Encounter Details +--------+---------+ + + + | Date | Type | Department | Care Team | Description | +--------+---------+ + + + | 08/28/ | Office | Vascular Surgery | Sarkis Madera MD | Lymphedema of | | 2018 | Visit | at [facility] 2nd Floor | [address] | extremity (Primary | | | | [address] | [place], | Dx) | | | | [place] Mailcode: | [place] [address] | | | | | [address] Physician's | [phone] | | | | | [place], | | | | | | [place] [address] | | | | | | [phone] | | | +--------+---------+ + + + [...] + + + | Blood Pressure | 128/49 | 08/28/2017 2:37 PM | | | | | PDT | | + + + + + | Pulse | 58 | 08/28/2017 2:37 PM | | | | | PDT | | + + + + + | Temperature | - | - | | + + + + + | Respiratory Rate | - | - | | + + + + + | Oxygen Saturation | 97% | 08/28/2017 2:37 PM | | | | | PDT | | + + + + + | Inhaled Oxygen | - | - | | | Concentration | | | | + + + + + | Weight | 133.5 kg (294 lb 4.8 | 08/28/2017 2:37 PM | | | | oz) | PDT | | + + + + + | Height | - | - | | + + + + + | Body Mass Index | 43.44 | 10/26/2015 10:34 AM | | | | | PDT | | + + + + + documented in this encounter Progress Notes Sarkis Madera MD - 08/28/2017 2:45 PM PDTI saw and evaluated the patient. I agree with the findings and the plan of care as documented in the resident s note. 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 She's noted incre ased pain after prolonged standing or walking despite wearing the 40-50mmHg compression stoc jennifer. When she uses her lymphedema pump it improves both her swelling and pain, but soon af ter standing, the swelling and pain returns. 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 Recommended that she u se her pump every day if possible and inquire about lymphedema therapist who performs manual lymphatic drainage in [facility]. 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 This has been electronically signed by SARKIS MADERA MD, 08/29/2017 at 12:58 PM. Reggie Crum MD,MPH - 0 08/28/2017 2:45 PM [facility] Attending Surgeon: Sarkis Madera MD Author: Reggie Aguayo MD, MPH Date: 08/28/2017 Last seen: 12/05/2016 ID: Mahi Prather is a 41 y.o. 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 She is followed by Vascular Surgery as well as Plastic Surgery, who perform intermittent steroid injections (last 04/28/2017). She presents today for clinic for follow-up of her chronic lymphedema. She continues to wea r compression stockings and use her lymph pump 3-4 times/week for 1-1.5 hours at a time. Subjective: States that she has had worse Left calf and foot pain lately. She has chronic p ain which is exacerbated by standing and walking, relieved somewhat by elevating the leg and by swimming (due to offloading the leg in the pool.) Denies any changes to her health or ne w symptoms, but would like something done about her leg pain if possible. Aspirin : No Plavix: No Anticoagulation : Yes, warfarin Statin : No Current tobacco: No Objective: There were no vitals taken for this visit. Physical Examination: General: Alert and oriented, no apparent distress. HEENT: Atraumatic, normocephalic. Pulmonary: Clear to auscultation bilaterally Cardiac: Regular rate and rhythm. Abdomen: Soft, non-tender, non-distended. Extremities: LLE has severe edema throughout with overlying skin changes (purple skin with irregular surface) to anterolateral thigh and calf, as well as over the 2nd-4th toes; nonten river to palpation; warm and well-perfused with good capillary refill. Assessment and Plan: 41-year-old female returns to clinic for 1-year follow-up of chronic LLE lymphedema. Unfort unately there are few options beyond what she is already doing for her lymphedema. We encour aged her to continue wearing stockings, elevating the leg, exercising as much as possible, a nd using her lymph pump. There may be some new techniques being developed in the plastic maribell thomas literature so we suggested looking into this during her next appointment with Plastics. - We have refilled her Rx for compression stockings - Return to clinic as needed, feel free to call/message for Rx refills rather than making c linic appointment Sarkis Madera MD is the attending surgeon and agrees with my assessment and plan. Reggie Aguayo M.D., M.P.H. Neurological Surgery Resident PGY-1 Pager: [phone] signed by Reggie Aguayo MD,MPH at 08/29/2017 12:59 PM Wilmer barrios in this encounter Plan of Treatment Not on filedocumented as of this encounter Visit Diagnoses + + | Diagnosis | + + | Lymphedema of extremity - Primary | + + documented in this encounter
--- OUTSIDE RECORDS SUMMARY | ~2019-02-10 | XMS | Encounter Summary ---
Demographics + + + | Address | [address] | | | [place] [address] | + + + | Home Phone [...] Author + + + | Author | [facility] | + + + | Organization | [facility] | + + + | [...] Team Providers + +------+ + | Care Calibration Checker Name | Role | Phone | + +------+ + | Timothy Burks MD | PCP | | + +------+ + Reason for Visit + + + | Reason | Comments | + + + | Prescription | | + + + Encounter Details +--------+ + + + + | Date | Type | Department | Care Team | Description | +--------+ + + + + | 12/15/ | Telephone | Plastic and | Uzair Mendoza MD | Prescription | | 2009 | | Reconstructive | [address] | | | | | Surgery at [facility] [address] | [place], [place] | | | | | [address] | [address] | | | | | Mailcode: [facility] | [phone] | | | | | [facility] | | | | | | and Mic, | | | | | | Building | | | | | | Floor [place], [place] | | | | | | [address] | | | | | | [phone] | | | +--------+ + + + [...]
--- OUTSIDE RECORDS SUMMARY | ~2019-02-10 | XMS | Encounter Summary ---
Demographics + + + | Address | [address] | | | [place] [address] | + + + | Home Phone [...] Team Providers + +------+ + | Care Nutritional Chemist Name | Role | Phone | + [...]
--- OUTSIDE RECORDS SUMMARY | ~2019-02-10 | XMS | Encounter Summary ---
Demographics + + + | Address | [address] | | | [place] [address] | + + + | Home Phone [...] Team Providers + +------+ + | Care Gameplay Programmer Name | Role | Phone | + [...] + + | 06/21/ | Hospital | [facility] GI PROCEDURE | [place], | | | 2016 | Encounter | [address] | MD [address] | | | | | Ave Mailcode: [facility] | [address] | | | | | [facility] Center [facility] | [place], [place] | | | | | Health and Healing, | [address] | | | | | [place] [address] | [phone] | | | | | [place], [place] | | | | | | [address] | | | | | | [phone] | | | +--------+ + + + [...] Discharge Instructions Instructions Santa Coronado RN [facility] Care Instructions after Colonoscopy You may resume [...] Monday 8:00- 4:30 Endoscopy Toll free ext: [phone] or After business hours, or on weekends and holidays call the Hospital Tracer Lathe Set Up Operator Toll Free [phone] Ext. [phone] or and have the GI doctor simulation specialist paged. The provider who performed your procedure [...] 2:59 PM PDT PRE PROCEDURE NOTE: MR# [id number] Subjective: Mahi Prather is a 39 y.o. [...] | + + + + + | [facility] | [address] | [place] [address] | | | PATHOLOGY | [address] [...]
--- OUTSIDE RECORDS SUMMARY | ~2019-02-10 | XMS | Encounter Summary ---
Demographics + + + | Address | [address] | | | [place] [address] | + + + | Home Phone [...] Team Providers + +------+ + | Care Filing And Polishing Supervisor Name | Role | Phone | + +------+ + | Timothy Burks MD | PCP | | + +------+ + Encounter Details +--------+ + + + + | Date | Type | Department | Care Team | Description | +--------+ + + + + | 09/02/ | Telephone | Vascular Surgery | Sebas Lauren, | | | 2009 | | at [facility] 2nd Floor | [address] | | | | | [address] | [address] | | | | | [place] Mailcode: | [place], [place] | | | | | [address] Physician's | [address] | | | | | [place], | [phone] | | | | | [place] [address] | | | | | | [phone] | | | +--------+ + + + [...]
--- OUTSIDE RECORDS SUMMARY | ~2019-02-10 | XMS | Encounter Summary ---
Demographics + + + | Address | [address] | | | [place] [address] | + + + | Home Phone [...] Author + + + | Author | [facility] | + + + | Organization | [facility] | + + + | [...] Providers + +------+ + | Care Chief Accounting Officer Name | Role | Phone | [...] | | | | | Surgery at [facility] [address] | [facility] [place] | | | | | [address] | [address] | | | | | Mailcode: CH5 | [phone] | | | | | [facility] | | | | | | and Healing, | | | | | | Building [address]th | | | | | | Floor [place], [place] | | | | | | [address] | | | | | | [phone] | | | +--------+ + + + [...]
--- OUTSIDE RECORDS SUMMARY | ~2019-02-10 | XMS | Encounter Summary ---
Demographics + + + | Address | [address] | | | [place] [address] | + + + | Home Phone [...] Team Providers + +------+ + | Care Dinkey Engine Firer Name | Role | Phone | + +------+ + | Timothy Burks MD | PCP | | + +------+ + Reason for Visit + + + | Reason | Comments | + + + | Follow-up visit | 4 month f/u--Gluteal cleft hemangnoma-OP: 01/10 Mendoza- Steroid | | | Injects-Mkw | + + + Consultation (Routine) +--------+--------+ [...] | | anomalies | [address] | [place], [place] | | | | | Congenital | [place] | [address] | | | | | lower limb | [address] | Phone: | | | | | vessel | Phone: | [phone] | | | | | anomaly | [phone] | Fax: | | | | | Procedures | Fax: | [phone] | | | | | CONSULT TO | [phone] | | | | | | SURGERY - | | | | | | | PLASTICS | | | +--------+--------+ + + + + Encounter Details +--------+---------+ + + + | Date | Type | Department | Care Team | Description | +--------+---------+ + + + | 02/24/ | Office | Plastic and | Uzair Mendoza MD | Lymphatic | | 2015 | Visit | Reconstructive | [address] | malformation | | | | Surgery at [facility] [address] | [place], [place] | (Primary Dx) | | | | [address] | [address] | | | | | Mailcode: [facility] | [phone] | | | | | [facility] | | | | | | and Healing, | | | | | | Building [address], 5th | | | | | | Floor [place], [place] | | | | | | [address] | | | | | | [phone] | | | +--------+---------+ + + + [...] +---------+ + + | Blood Pressure | 144/66 | 02/24/2015 11:13 AM | | | | | PST | | + +---------+ + + | Pulse | 86 | 02/24/2015 11:13 AM | | | | | PST | | + +---------+ + + | Temperature | - | - | | + +---------+ + + | Respiratory Rate | 16 | 02/24/2015 11:13 AM | | | | | PST | | + +---------+ + + | Oxygen Saturation | 97% | 02/24/2015 11:13 AM | | | | | PST [...] encounter Progress Notes Uzair Mendoza MD - 02/24/2015 11:27 AM BECCAMahi Prather 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 She would like further steroid injections. She has had good response with the baldemar roid treatments. She does complain of 2 months of discomfort from some lesions more inferior on the gluteal cleft. OBJECTIVE: There a lymphangioma blebs on both sides of the gluteal cleft. They have improve d substantially with the last series of steroid injections. Under sterile conditions 6 mL of Kenalog 40 was injected into the lymphangiomas and scar on both sides of the gluteal cleft. She tolerated it well. There are several areas of lymphagn iomatous blebs near the anus. They are not ulcerated. They are not firm. I am not sure why t hey cause discomfort. PLAN: She will follow up in 6-8 weeks for more injections. documented in this encounter Plan of Treatment Not on filedocumented as of this encounter Procedures + +--------+ + + + | Procedure Name | Priori | Date/Time | Associated Diagnosis | Comments | | | ty | | | | + +--------+ + + + | WA INJ INTO SKIN | Routin | 02/24/2015 | Lymphatic | | | LESIONS, UP TO AND | e | 11:30 AM | malformation | | | INCLUDE 7 LESIONS | | PST | | | + +--------+ + + + documented in this encounter Visit Diagnoses + + | Diagnosis | + + | Lymphatic malformation - Primary Congenital anomaly, unspecified | + + documented in this encounter
--- OUTSIDE RECORDS SUMMARY | ~2019-02-10 | XMS | Encounter Summary ---
Demographics + + + | Address | [address] | | | [place] [address] | + + + | Home Phone [...] Team Providers + +------+ + | Care Manager Non Profit Name | Role | Phone | + +------+ + | Jose Ramires MD | PCP | | + +------+ + Reason for Visit + + + | Reason | Comments | + + + | Vascular lesion in | | | skin or mucosa | | + + + | New patient | | | consultation | | + + + Consultation (Routine) + +--------+ + + + + | Status | Reason | Specialty | Diagnoses / | Referred By | Referred To | | | | | Procedures | Contact | Contact | + +--------+ + + + + | New Request | | Otolaryngolog | | [place], | Ent Vasc | | | | y | | MD Raul | Anomalies [facility] | | | | | | [address] | [address] | | | | | | [facility] | [facility] | | | | | | Rd | Rd | | | | | | [place], [place] | Mailcode: | | | | | | [address] | [address] | | | | | | Phone: | Physician's | | | | | | [phone] | Pavilion | | | | | | Fax: | [place], [place] | | | | | | [phone] | [address] | | | | | | | Phone: | | | | | | | [phone] | | | | | | | Fax: | | | | | | | [phone] | + +--------+ + + + + Encounter Details +--------+ + + + + | Date | Type | Department | Care Team | Description | +--------+ + + + + | 12/11/ | Procedure | Dermatology | Michelle, | Vascular lesion in | | 2019 | | Vascular Anomolies | MD Asad [address] | skin or mucosa; New | | | | at [facility] [address] | [address] [place], | patient consultation | | | | [address] | [place] [address] | | | | | Mailcode: [address] | [phone] | | | | | [place], [facility] | | | | | | floor [place], [place] | | | | | | [address] | | | | | | [phone] | | | +--------+ + + + [...] of this encounter Patient Instructions Patient Instructions Asad Albrecht MD - 12/11/2018 1:30 PM PDTFor nails: try urea 4 0% cream (example: [employer], search "urea 40% foot cream" on Amazon). Use nightly for 2 months, then as needed. If insufficient effect, recommend consultation with podiatry, suc h as Dr Adams at [facility]. For your excision, Dr Mendoza's motor generator set operator will call you. Follow-up in 1 year in Vascular Anomalies clinic documented in this encounter Progress Notes Asad Albrecht MD - 12/11/2018 1:30 PM PDT HEMANGIOMA AND [facility]ED[facility]ERMATOLOGY NEW PATIENT VISIT, HISTORY AND PHYSICAL Chief complaint: New painful nodule HISTORY OF PRESENT ILLNESS: Mahi Prather is a 43 y.o. female who presents for evaluation of the left leg nodule. She h as h/o KTS of the LLE. She is currently using sirolimus ointment since March 2018 for the lymphatic blebs on her buttock. This has been very helpful. The new nodule is behind the k nee and sometimes drains. She wears her compression garment. Needs a new one. Also, relat es that her L toenails are becoming increasingly difficult to care for and get very sharp an d painful. PAST MEDICAL HISTORY: Past Medical History: Diagnosis Date Allergic rhinitis Anemia Angiodysplasia LLE, since ASD (atrial septal defect) repaired as a child Blood in stool Cerebrovascular Accident with stroke Deep venous thrombosis (HCC) 1998 Depressive disorder, not elsewhere classified Gastric ulcer GERD (gastroesophageal reflux disease) Kidney stones Lymphangioma gluteal cleft region PONV (postoperative nausea and vomiting) Pulmonary embolism ([facility]) 1998 Stress incontinence of urine Ulcerative colitis ([facility]) UTI (urinary tract infection) FAMILY HISTORY: Relevant for: None SOCIAL HISTORY: none MEDICATIONS: Outpatient Medications Prior to Visit Medication Sig Dispense Refill COUMADIN 10 mg Oral Tablet Take 5-10 mg by mouth once daily. Taking 5 mg ,, and 10 , , , Monday. famotidine 40 mg oral tablet Take by mouth. FLUoxetine 20 mg oral capsule Take 20 mg by mouth once daily. 0 loratadine (CLARITIN) 10 mg oral tablet Take 10 mg by mouth once daily. mirabegron (MYRBETRIQ) 50 mg oral tablet extended release 24 hr Take 50 mg by mouth. nadolol 20 mg oral tablet Take 20 mg by mouth once daily. Indications: MIGRAINE PREVENT ION pantoprazole 40 mg oral tablet,delayed release (DR/EC) Take 40 mg by mouth two times da sal. 0 No facility-administered medications prior to visit. ALLERGIES: Allergies Allergen Reactions Clindamycin Hives and Rash Codeine Nausea and Vomiting Hydrocodone Nausea and Vomiting ROS GEN: Negative with exception of that noted in the HPI CARDIAC: Negative with exception of that noted in the HPI RESP: Negative with exception of that noted in the HPI HEENT: Negative with exception of that noted in the HPI MSK: Negative with exception of that noted in the HPI GI: Negative with exception of that noted in the HPI : Negative with exception of that noted in the HPI NEURO: Negative with exception of that noted in the HPI Allergy: Negative with exception of that noted in the HPI PSYCH: Negative with exception of that noted in the HPI PHYSICAL EXAMINATION: Well-developed, well-nourished female in no acute distress. Awake, alert. A complete skin examination was performed including the scalp, face, eyelids, ears, lips, n gissell, chest, back, abdomen, buttocks, bilateral arms and legs, bilateral hands and feet, and nails. Findings were within normal limits except for the following: -purple vascular stain with overlying small hyperkeratotic papules over soft tissue fullnes s LLE, involving the buttock. Lesion of interest is an approx 1 cm firm purple nodule with central crust behind the L knee. -Mildly thickened and distally upturned L toenails ASSESSMENT AND PLAN: Klippel Trenauny syndrome KTS is characterized by a vascular stain, usually a capillary malformation or a mixed capi llary lymphatic malformation, varicose veins including persistent embryonic veins and overgr owth of the soft tissue and/or bone of the affected limb. The presence of sharply defined ge ographic stain is predictive of lymphatic involvement as are the hemorrhagic blebs.The bony hypertrophy can increase progressivly and orthopedic intervention is often necessary. The a dditional finding of an arteriovenous fistula in the affected extremity characterizes Klippe y-Ctteiirha-Facmr syndrome (also known as Richard-Esteban syndrome). The pathophysiology of KT syndrome is thought to be related to hypoplasia or malformation o f the deep veins, with resultant obstruction of venous flow leading to venous hypertension, the development of varices, and limb hypertrophy. The diagnosis is made clinically, along with using MRI to delineate the vascular component. Therapeutic management includes compression stockings in older children, orthopedic follow- up for shoe lifts or surgical approches. Laser does not play a large role because it does no t treat the underlying abnormal venous and lymphatic systems. Low-grade, localized intravasc ular clotting/coagulopathy and phleboliths may occur. To evaluate for this d-dimer, fibrino gen and CBC may be followed and aspirin may be considered if there are abnormalities to prev ent formation of painful phleboliths. Patients with Klippel-Trenaunay syndrome can develop thrombophlebitis or bland thrombi in the affected extremity, which rarely may lead to pulmon taran embolism. Other complications of KT syndrome include coagulopathy, congestive heart fail ure (in the presence of hemodynamically significant AVM), cutaneous ulcerations, and bleedin g. Approximately 20% of KTS patients with port wine stains involving the trunk and/or perineum will have involvement of the gastrointestinal tract, most commonly the distal colon and rec rob. Bleeding is the most common symptom in KTS patients with GI involvement, and may manif est as chronic anemia or life-threatening bleeding. Roughly 30% of KTS patients will have genitourinary involvement, manifesting as vascular ma lformations that may affect the bladder, penis, scrotum, vagina, and vulva. Women may develo p menorrhagia and infertility. For Mahi, specific plan today: -Sirolimus 1% cream very helpful for the buttock, continue daily use -Continue thigh high 40-50 mm Hg compression garment, refilled today -New bothersome growth, Dr Mendoza discussed RBA excision, will plan for this -Urea 40% cream daily for toenails that are bothersome, if not helpful enough, consult with podiatry -Follow-up in [facility] [place] in 1 year Patient seen today with Drs. Albrecht of dermatology and Dr. Mendoza of plastic surgery I have reviewed and verified the above scribed note of my visit with this patient as record ed by Joy Mg CMA. 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
--- OUTSIDE RECORDS SUMMARY | ~2019-02-10 | XMS | Encounter Summary ---
Demographics + + + | Address | [address] | | | [place] [address] | + + + | Home Phone [...] Team Providers + +------+ + | Care Field Sales Associate Name | Role | Phone | + +------+ + | Timothy Burks MD | PCP | | + +------+ + Reason for Visit + + + | Reason | Comments | + + + | Follow-up visit | gluteal cleft hemangnoma | + + + Consultation (Routine) +--------+--------+ + + + + | Status | Reason | Specialty | Diagnoses / | Referred By | Referred To | | | | | Procedures | Contact | Contact | +--------+--------+ + + + + | Closed | | Plastic | Diagnoses | [place], | Kelly, | | | | Surgery | Other | MD Sebas | MD Guillermo | | | | | specified | [address] | [address] | | | | | congenital | [address] | [address] | | | | | anomalies | [address] | [place], [place] | | | | | Congenital | [place], [place] | [address] | | | | | lower limb | [address] | Phone: | | | | | vessel | Phone: | [phone] | | | | | anomaly | [phone] | Fax: | | | | | Procedures | Fax: | [phone] | | | | | CONSULT TO | [phone] | | | | | | SURGERY - | | | | | | | PLASTICS | | | +--------+--------+ + + + + Encounter Details +--------+---------+ + + + | Date | Type | Department | Care Team | Description | +--------+---------+ + + + | 06/25/ | Office | Plastic and | Guillermo Mendoza MD | Hemangioma and | | 2013 | Visit | Reconstructive | [address] | lymphangioma | | | | Surgery at [facility] [address] | [place], [place] | (Primary Dx) | | | | [address] | [address] | | | | | Mailcode: 5 | [phone] | | | | | [facility] | | | | | | and Healing, | | | | | | Building 1, 5th | | | | | | Floor [facility] [place] | | | | | | [address] | | | | | | [phone] | | | +--------+---------+ + + + [...] +---------+ + + | Blood Pressure | 119/72 | 06/25/2013 12:49 PM | | | | | PDT | | + +---------+ + + | Pulse | 76 | 06/25/2013 12:49 PM | | | | | PDT | | + +---------+ + + | Temperature | - | - | | + +---------+ + + | Respiratory Rate | 16 | 06/25/2013 12:49 PM | | | | | PDT | | + +---------+ + + | Oxygen Saturation | 96% | 06/25/2013 12:49 PM | | | | | PDT [...] encounter Progress Notes Guillermo Mendoza MD - 06/30/2013 8:18 AM PDTI was present with the resident during the histo ry and exam. I discussed the case with the resident and agree with the findings and plan as documented in the resident s note. GUILLERMO MENDOZA MD professor of graphic design of Plastic Surgery [address], [place] [address] Kateryna Pan - 06/25/2013 12:14 PM PDTPlastic and Reconstructive Surgery Post-operative Visit HPI: Mahi Prather is a 37 y.o. 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 She had excision of left 9 x 2 cm buttock lymphangioma o n 01/10/13 followed by recurrence. She received an injection for this on 02/26/[address] Carmelo delgado, and a second one on 05/10. Reports that she has had the swelling recur off and on. PE: Vitals: There were no vitals taken for this visit. General Appearance: Well-developed, well-nourished female in no apparent distress. Buttocks: There is a raised thickened lymphangioma malformation along the gluteal cleft. No erythema, no induration. No drainage. Area is mildly tender. Impression: Recurrent lymphangioma Plan: -Will do an intralesional injection today in clinic. Please refer to the procedure note jamaal calix. Procedure note: Steroid Injection for recurrent lymphangioma (Injection #3) Indication: 37 y.o. female with a recurrent lymphangioma at the gluteal cleft. We will att empt one more steroid injection today. Description of procedure: Prior to beginning the procedure, the patient's identity was veri fied. The area was prepped with alcohol and 0.3 mL of triamcinolone acetonide suspension ( 4 0 mg/ml) was used to inject the lesion. The site was then dressed with a bandage. F/U in one month. Kateryna Grubbs MD PGY 7, Plastic and Reconstructive Surgery Pager [phone] documented in this encounter Plan of Treatment Not on filedocumented as of this encounter Procedures + +--------+ + + + | Procedure Name | Priori | Date/Time | Associated Diagnosis | Comments | | | ty | | | | + +--------+ + + + | AZ INJ INTO SKIN | Routin | 06/30/2013 | Hemangioma and | | | LESIONS, UP TO AND | e | 8:19 AM | lymphangioma | | | INCLUDE 7 LESIONS | | PDT | | | + +--------+ + + + documented in this encounter Visit Diagnoses + + | Diagnosis | + + | Hemangioma and lymphangioma - Primary Hemangioma of unspecified site | + + documented in this encounter
--- OUTSIDE RECORDS SUMMARY | ~2019-02-10 | XMS | Encounter Summary ---
Demographics + + + | Address | [address] | | | [place] [address] | + + + | Home Phone [...] Author + + + | Author | [facility] | + + + | Organization | [facility] | + + + | [...] Team Providers + +------+ + | Care Refiner Operator Name | Role | Phone | [...] Kelly, | | | | Surgery | Disorder of | MD Guillermo | MD Guillermo | | | | | the skin | [address] | [address] | | | | | and | Ave | Ave | | | | | subcutaneous | [place], [place] | [place], [place] | | | | | tissue, | [address] | [address] | | | | | unspecified | Phone: | Phone: | | | | | | [phone] | [phone] | | | | | Procedures | Fax: | Fax: | | | | | REQUEST TO | [phone] | [phone] | | | | | SURGERY | | | | | | | REED PRESS FEEDER | | | | | | | IN EXC SKIN | | | | | | | BENIG | | | | | | | 1.1-2CM | | | | | | | TRUNK,ARM,LE | | | | | | | G IN EXC | | | | | | | SKIN BENIG | | | | | | | 2.1-3CM | | | | | | | TRUNK,ARM,LE | | | | | | | G | | | +--------+--------+ + + + + Encounter Details +--------+---------+ + + + | Date | Type | Department | Care Team | Description | +--------+---------+ + + + | 12/11/ | Office | Plastic Surgery | Guillermo Mendoza MD | Neoplasm of | | 2019 | Visit | Pediatric Vascular | [address] | uncertain behavior | | | | Anomalies at [facility] | [place], [place] | of skin of lower leg | | | | [address] | [address] | (Primary Dx) | | | | Zahraa Shay Mailcode: | [phone] | | | | | [address] | | | | | | [place], [place] | | | | | | [address] | | | | | | [phone] | | | +--------+---------+ + + + [...] documented as of this encounter Progress Notes Alfonso Sheets MD - 12/11/2018 1:30 PM PDT Division of Plastic and Reconstructive Surgery Outpatient Follow-up ID: Mahi Prather is a 42 year old female with history of recurrent gluteal cleft lymphangio mas, s/p multiple surgical excisions. She presents today for her gluteal cleft lymphangiomas and right lower leg lymphangiomas. She has been using sirolimus cream on her gluteal cleft since Mar a great response. History of Present Illness: - doing well w sirolimus cream on gluteal cleft - notes that she has a popliteal fossa lesion on the left, hard, not bleeding - complains of sharp toe nails on the left foot and would like to have them removed Physical Exam: Vitals: There were no vitals taken for this visit. General Appearance: Well-developed, well-nourished female in no apparent distress. : There a lymphangioma blebs on both sides of the gluteal cleft. The previously treated a reas on the upper gluteal cleft are doing well and not enlarging. There is an area of scatte red new blebs on the left inferior gluteal cleft. These are the areas treated today. LLE: 1cm hard painful nodule in lateral popliteal fossa Assessment/Plan: Mahi Prather is a 43 y.o. female w lymphangiomas of the gluteal cleft and a nodule of the LLE, doing well. - urea cream for left toe nails - if this does not work, then referral to Dr. Oneill of podiatry - continue compression of the LLE - we can coordinate excision of LLE nodule Alfonso Sheets MD [id number] Plastic & Reconstructive Surgery Associated attestation - Guillermo Mendoza MD - 12/11/2018 1:42 PM PDTI was present with the resident during the history and exam. I discussed the case with the resident and agree with the findings and plan as documented in the resident s note. The sirolimus is working wonderfully on the gluteal lesions. She is in this clinic for her left leg that has massive lymphedema. She also has a painful hard 1.5 cm skin lesion that is raised with a central ulceration at the lateral knee area. It should be excised. We had a PARQ discuss for excision of mass from left leg. We discussed that the risk includ e: Scar, infection, bleeding, nerve injury, numbness, weakness, recurrence, incomplete excis ion, asymmetry (two sides no matching), no guarantee of specific cosmetic outcome, need for desire for other medial or surgical treatment. This procedure has been fully reviewed with the patient, she was asked if she wished any further explanation of the procedure(s) and stated that she did not; written informed consen t was obtained and signed. We gave her a prescription for more compression stockings - custom, 40-50 mmHg, thigh high and for urea cream for issues with her toe nails. (see derm note for details). GUILLERMO MENDOZA MD assistant professor of marine biology of Plastic Surgery [facility] [address], [place] [address] [email or web address] in this encounter Plan of Treatment Not on filedocumented as of this encounter Visit Diagnoses + + | Diagnosis | + + | 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
--- OUTSIDE RECORDS SUMMARY | ~2019-02-10 | XMS | Encounter Summary ---
Demographics + + + | Address | [address] | | | [place] [address] | + + + | Home Phone [...] Team Providers + +------+ + | Care Edi Analyst Name | Role | Phone | [...] Description | +--------+---------+ + + + | 04/21/ | Office | Vascular Surgery | Sebas Burton, | Vascular | | 2008 | Visit | at [facility] [address] [facility] | [address] | Malformation | | | | [address] | [address] | (Primary Dx) | | | | Zahraa Shay Mailcode: | [place], [place] | | | | | [address] | [address] | | | | | [place], | [phone] | | | | | [place] [address] | | | | | | [phone] | | | +--------+---------+ + + + [...] encounter Progress Notes Sebas Burton MD - 04/21/2008 10:10 AM PSTReturns for follow up excision gluteal cleft v ascular malformation. Wound is healed but she oozes from raw areas of the scar. Exam: healed wound with areas of granulation tissue. Silver nitrate applied. A/P: improving; return if wound continues to ooze. 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
--- OUTSIDE RECORDS SUMMARY | ~2019-02-10 | XMS | Encounter Summary ---
Demographics + + + | Address | [address] | | | [place] [address] | + + + | Home Phone [...] Team Providers + +------+ + | Care Hogshead Inspector Name | Role | Phone | + +------+ + PCP | Unavailable | + +------+ + Encounter Details +--------+ + + + + | Date | Type | Department | Care Team | Description | +--------+ + + + + | 03/19/ | Letter-[facility] | | Letter, Clinic | Letters | | 2002 | scribed | | | | +--------+ + + [...] as of this encounter Progress Notes Interface, Pipe Crew Foreman In - 10/23/2004 4:48 PM PDT [place] [address], [place], [place] [id number] or March 19, 2003 Juan Jose Newby M.D. Department of Dermatology [facility], OP 06 RE: CHRISSY PRATHER MR #: [id number] Dear Juan Jose: Ms. Chrissy Prather has an appointment to see you as a new patient. 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 Her current problem is bloody drainage from a new lesion in the cleft of her buttocks. On examination, she has a verrucous-type skin lesion in the upper part of her buttock cleft which is irritated because of its location. I suspect that this is a part of her angiodysplasia, but it does have a slightly different appearance from her other skin lesions, and so I am also concerned that this maybe an entirely separate neoplasm. I am referring her to you for your diagnosis and also because I am wondering if laser ablation might not be the best approach to treating this lesion. Thank you for being willing to see her. With best wishes. Sincerely, Lazaro Zuñiga M.D. managed services consultant [facility] / [id number] / [id number] / [id number] / C: 03/28/2003 jlb P M PDTdocumented in this encounter Plan of Treatment Not on filedocumented as of this encounter Visit Diagnoses Not on filedocumented in this encounter"
--- OUTSIDE RECORDS SUMMARY | ~2019-02-10 | XMS | Encounter Summary ---
Demographics + + + | Address | [address] | | | [place] [address] | + + + | Home Phone [...] + + + + + | Mariah rPather | OZZIE | [place] | | + + + + + Care Team Providers + +------+ + | Care Division Operations Specialist Name | Role | Phone | [...] | | | | | VENOUS | [place], [place] | | | | | | DUPLEX LOWER | [address] | | | | | | EXTREMITY | Phone: | | | | | | LT | [phone] | | | | | | | Fax: | | | | | | | [phone] | | +--------+--------+ + + + + [...] | | | | | | | [place], [place] | | | | | | | [address] | | | | | | | Phone: | | | | | | | [phone] | | | | | | | Fax: | | | | | | | [phone] | +--------+--------+ + + + + Encounter Details +--------+---------+ + + + | Date | Type | Department | Care Team | Description | +--------+---------+ + + + | 10/25/ | Office | Vascular Surgery | Sebas Burton, | Lymphedema of left | | 2016 | Visit | at [facility] Floor | [address] | leg (Primary Dx); | | | | [address] | [address] | Congenital lower | | | | Zahraa Shay Mailcode: | [place], [place] | limb vessel anomaly; | | | | [address] | [address] | Congenital anomaly | | | | [place], | [phone] | of peripheral | | | | [place] [address] | | vascular system; | | | | [phone] | | Varicose veins of | | | | | | lower extremities | | | | | | with complications, | | | | | | left [I83.892] | +--------+---------+ + + + Social History [...] + + + | Blood Pressure | 113/52 | 10/26/2015 10:34 AM | | | | | PDT | | + + + + + | Pulse | 65 | 10/26/2015 10:34 AM | | | | | PDT | | + + + + + | Temperature | - | - | | + + + + + | Respiratory Rate | - | - | | + + + + + | Oxygen Saturation | 94% | 10/26/2015 10:34 AM | | | | | PDT | | + + + + + | Inhaled Oxygen | - | - | | | Concentration | | | | + + + + + | Weight | 132.9 kg (293 lb) | 10/26/2015 10:34 AM | | | | | PDT | | + + + + + | Height | 175.3 cm (5' 9.02") | 10/26/2015 10:34 AM | | | | | PDT | | + + + + + | Body Mass Index | 43.25 | 10/26/2015 10:34 AM | | | | | PDT | | + + + + + documented in this encounter Progress Notes Sebas Burton MD - 10/26/2015 11:05 AM PDTI saw and evaluated the patient. I agree with the findings and the plan of care as documented in the resident s note. She had SVT of t he lateral thigh and calf that likely explains her discomfort in those areas. Advised warm packs and Motrin. Sebas Burton MD VASCULAR SURGERY AT [facility] [address]ND FLOOR [address] [place] [address] Mailcode: [address] [place] [address] heldon Velasquez MD - 10/26/2015 10:32 AM PDT Attending Surgeon: Sebas Burton MD Author: Sheldon Velasquez MD Date: 10/26/2015 Identification: Mahi Prather is a 39 year old female with history of LLE lymphedema and h/o lymphangiomas of gluteal cleft s/p multiple resections and more recently steroid injections. 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 Recently had BRBPR, colonoscopy by Dr. Montero had normal biopsy results in early 6. Events: Reports Left Lateral leg pain ~ 2/10 over the last 1 year gradually getting worse and also spreading to dorsum of foot No other associated symptoms- denies enlargement of left leg Had colonoscopy for BRBPR by Dr. Montero, normal biopsies Still receiving Kenalog injections by Dr. Mendoza, last on 07/07/15 with good response Objective: Last Vitals: BP 113/52 | Pulse 65 | Ht 1.753 m (5' 9.02") | Wt 132.904 kg (293 lb) | SpO2 9 4% | BMI 43.25 kg/(m^2) Physical Examination: General: No apparent distress. HEENT: Atraumatic, normocephalic. Pulmonary: Clear and no cough or difficulty breathing. Cardiac: Regular rate and rhythm. Abdomen: Soft, non-tender, non-distended. Extremities: Exam is notable for large LLE with significant lymphedema to mid thigh. Unabl e to palpate pedal pulses due to lymphedema, triphasic DP/PT on left. Palpable DP/PT on righ t. Neurological: Alert and oriented to person, place, time, and reason for evaluation. No obv ious cranial nerve deficits. Imaging: Lt leg venous duplex: superficial thrombosis without e/o DVT per Dr. Burton. Assessment and Plan: Mahi Prather is a 39 year old female with history of LLE lymphedema and h/o lymphangiomas of gluteal cleft s/p multiple resections and more recently steroid injections by Dr. Mendoza , doing well. Mild increased pain in left lateral leg, dorsum of foot appears secondary to s uperficial venous thrombosis in the setting of significant lymphedema. - NSAIDS, elevation and heat for SVT symptom management - New order for lymphedema pump/referral to [facility] faxed, given to patient and placed in c madrigal - Ordered new custom thigh high compression stockings 40-50mmHg, faxed and original given t o patient - Lymphedema pamphlet given for pumps - f/u in 6 months Sebas Burton MD is the attending surgeon and agree with my assessment and plan. Sheldon Velasquez MD [facility] General Surgery PGY5 This assessment and plan was formulated both independently and in conjunction with the att ending provider of record above regarding management of this patient and their medical issue s. It is accurate to the best of my knowledge, and is subject to modification based on clini bibi developments, new data, or final imaging results. documented in this e ncounter Plan of Treatment Not on filedocumented as of this encounter Results VASC LAB VENOUS DUPLEX LOWER EXTREMITY LT (10/26/2015 [...] with | | | | | | thebCODE scanner. There | | | | | [...] | | | | | | Radiologists: SEBAS | | | | | | NAVYA BURTONuthor: | | | | | | SEBAS BURTON MD I | | | | | | have personally viewed | | | | | | this procedure/exam, | | | | | | reviewed this report, | | | | | | and madechanges to it | | | | | | where appropriate. 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
--- OUTSIDE RECORDS SUMMARY | ~2019-02-10 | XMS | Encounter Summary ---
Demographics + + + | Address | [address] | | | [place] [address] | + + + | Home Phone [...] Team Providers + +------+ + | Care Performance Manager Name | Role | Phone | [...] | Transcriptions | + + | Interface, Custom Home Installer In - 03/15/2005 7:43 PM PST Date: | | 11/27/2003Attending Surgeon: Derrell Lowe M.D.Street Light Servicer Helper(s): | | Stanley Nguyen M.D.Preoperative Diagnosis(es):1. Gross [...] | Room instable condition.Derrell Lowe M.D. / [id number] / [id number] / [id number] /D: | | 11/27/2003T: 11/27/2003 | |Complications: [...] | | | |MALCOLM / ALENA | |[id number] / [id number] / [id number] / | | | | | + + documented in this encounter Visit Diagnoses Not on filedocumented in this encounter"
--- OUTSIDE RECORDS SUMMARY | ~2019-02-10 | XMS | Encounter Summary ---
Demographics + + + | Address | [address] | | | [place] [address] | + + + | Home Phone [...] + + + | Author | [facility] | + + + | Organization | [facility] | + + + | [...] Team Providers + +------+ + | Care Bearing Inspector Name | Role | Phone | [...] Description | +--------+---------+ + + + | 01/23/ | Surgery | [facility] | Uzair Mendoza MD | EXCISION LEFT LEG | | 2019 | | [place] [facility] | [address] | SKIN LESION | | | | and Healing Surgery | [place], [place] | | | | | Center Admitting | [address] | | | | | Desk Located on the | [phone] | | | | | 4th floor [address] | | | | | | [address] [place], | | | | | | [place] [address] | | | +--------+---------+ + + + [...] Red MD - 01/23/2019 7:17 AM PD TRecovery Instructions: Upon arriving at home, it is [...] feel free to call our office at [phone] with any questions. Call our office immediately [...] emergency or think you may need ameya gen care. documented in this encounter Medications at [...] 40-50mmHG | 5 each | 5 | // | | | Medium | compression | [...] mg by mouth | | 0 | 30/20 | | | oral capsule | once [...] tablet by | 15 | 0 | 01/24/20 | | | (immediate release) | mouth [...] mg by mouth | | 0 | 01/17/20 | | | oral tablet,delayed | two times daily. | | | 18 | | | release (DR/EC) | | | | | | + [...] PathologistPathology, | | | | | | [facility] | | | | | | [facility] electronic | | | | | | [...] | HEALTH + | | | | [id number]. Leg, Left | | HEALING | | [...] | + + + + + | [facility] DEPARTMENT OF | [address] | [place] [address] | | | PATHOLOGY | [address] | | | + + + + + | [facility] | [address] | [place] [address] | | | SERVICES, [facility] | | | | | HEALTH [...] | [facility] | [address] | [place] [address] | | | OF CARE TESTS | [...] 7:30 | | | | | dose, Mon01/23/19 at 0800 | | AM PDT | [...] | | | | | CONTINUOUS, Starting 01/23/19 | anesthes | AM PDT | | [...] intravenous, POSTPROCEDURE PRN, | | | Starting Mon01/23/19 at 0812, | | | Until Mon01/23/19 at 1552, | | | hypopnea | | + +---+ | | | + +---+ | ondansetron (ZOFRAN) injection | | | 4 mg 4 mg, intravenous, | | | POSTPROCEDURE PRN, 1 dose, | | | Starting Wed 19 at 0813, | | | Until Mon01/23/19 [...] +---+ | | | + +---+ + +-------+ +-------+---+ + | ropivacaine (PF) (NAROPIN) | Given | 01/24/20 | 10 mL | | Surgical | | injection INTRAPROCEDURE PRN, | | 19 8:17 | | | Site | | Starting Mon01/23/19 at 0817, | | AM PDT | | | | | Until Mon01/23/19 at 0829 | | | | | | + +-------+ +-------+---+ + +---+---+ | | | +---+---+ documented in this encounter
--- OUTSIDE RECORDS SUMMARY | ~2019-02-10 | XMS | Encounter Summary ---
Demographics + + + | Address | [address] | | | [place] [address] | + + + | Home Phone [...] Team Providers + +------+ + | Care Etl Consultant Name | Role | Phone | [...] as of this encounter Progress Notes Interface, Production Team Leader In - 03/02/2006 2:30 AM PST [id number] JOHNSON Sagastume [id number] Date: 02/15/2006 Patient: Mahi Prather MR# [id number] [...] Burton. Kenneth Orlando M.D. Sebas Burton M.D. rehabilitation worker / [id number] / [id number] / [id number] / [id number] Electronically signed by Sebas Burton (Greg) 03-01-2006 03:57:24 PM documented i n this encounter Plan of Treatment Not on filedocumented as of this encounter Visit Diagnoses Not on filedocumented in this encounter"
--- OUTSIDE RECORDS SUMMARY | ~2019-02-10 | XMS | Encounter Summary ---
Demographics + + + | Address | [address] | | | [place] [address] | + + + | Home Phone [...] Team Providers + +------+ + | Care Termite Inspector Name | Role | Phone | [...] as of this encounter Progress Notes Interface, Deportation Officer In - 11/22/2005 3:00 AM PDTCLINIC DATE: [...] therapy starting today. Prescriptions were written for Boomr. The patient is to receive an MRA [...] for: Derrell Lowe M.D. [facility] / ALENA [id number] / [id number] / [id number] / Tdocumented in this encounter Plan of Treatment Not on filedocumented as of this encounter Visit Diagnoses Not on filedocumented in this encounter"
--- OUTSIDE RECORDS SUMMARY | ~2019-02-10 | XMS | Encounter Summary ---
Demographics + + + | Address | [address] | | | [place] [address] | + + + | Home Phone [...] Team Providers + +------+ + | Care Ton Container Filler Name | Role | Phone | + [...] | malformation | [address] | [address] | | | | | Procedures | [address] | [address] | | | | | CONSULT TO | Rd | [place], [place] | | | | | SURGERY - | [place], [place] | [address] | | | | | PLASTICS | [address] | Phone: | | | | | | | [phone] | | | | | | | Fax: | | | | | | | [phone] | +--------+--------+ + + + + Reason [...] | | | | | | | [place], [place] | | | | | | | [address] | | | | | | | Phone: | | | | | | | [phone] | | | | | | | Fax: | | | | | | | [phone] | +--------+--------+ + + + + Encounter [...] | | | | | | [place] [address] | | | | | | [phone] | | | +--------+---------+ + + + [...] clinic as needed. 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
--- OUTSIDE RECORDS SUMMARY | ~2019-02-10 | XMS | Encounter Summary ---
Demographics + + + | Address | [address] | | | [place] [address] | + + + | Home Phone [...] Author + + + | Author | [facility] | + + + | Organization | [facility] | + + + | Address [...] Team Providers + +------+ + | Care Finisher Card Tender Name | Role | Phone | [...] [id number] | | | | | | [place], [place] | | | | | | [address] | | | | | | [phone] | | | +--------+ + + + [...] + + + + + | [facility] | [address] | [place] [address] | | | PATHOLOGY | [address] [...] + + + + + | [facility] | [address] | [place] [address] | | | PATHOLOGY | [address] [...] + + + + + | [facility] | [address] | [place] [address] | | | PATHOLOGY | [address] [...] + + + + + | [facility] | [address] | [place] [address] | | | PATHOLOGY | [address] [...] + + + + + | [facility] | [address] | [place] [address] | | | PATHOLOGY | [address] [...] + + + + + | [facility] | [address] | [place] [address] | | | PATHOLOGY | [address] [...] + + + + + | [facility] | [address] | [place] [address] | | | PATHOLOGY | [address] [...] + | SENT TO | DNA LAB:EXT [id number] | | | | + + + + + + + + | Specimen | + + | | + + + + + + + | Performing | Address | City/State/Zipcode | Phone Number | | Organization | | | | + + + + + | [facility] | [address] | [place] [address] | | | PATHOLOGY | [address] [...] + + + + + | [facility] | [address] | [place] [address] | | | PATHOLOGY | [address] [...] + + + + + | [facility] | [address] | [place] [address] | | | PATHOLOGY | [address] [...] + + + + + | [facility] | [address] | [place] [address] | | | PATHOLOGY | [address] [...] + + + + + | [facility] | [address] | [place] [address] | | | PATHOLOGY | [address] [...] + + + + + | [facility] | [address] | [place] [address] | | | PATHOLOGY | [address] [...] + + + + + | [facility] | [address] | [place] [address] | | | PATHOLOGY | [address] [...] + + + + + | [facility] | [address] | [place] [address] | | | PATHOLOGY | [address] [...] + + + + + | [facility] | [address] | [place] [address] | | | PATHOLOGY | [address] [...] + + + + + | [facility] | [address] | [place] [address] | | | PATHOLOGY | [address] [...] + + + + + | [facility] | [address] | [place] [address] | | | PATHOLOGY | [address] [...] + + + + + | [facility] | [address] | [place] [address] | | | PATHOLOGY | [address] [...] + + + + + | [facility] | [address] | [place] [address] | | | PATHOLOGY | [address] [...] + + + + + | [facility] | [address] | [place] [address] | | | PATHOLOGY | [address] [...] + + + + + | [facility] | [address] | [place] [address] | | | PATHOLOGY | [address] [...] + + + + + | [facility] | [address] | [place] [address] | | | PATHOLOGY | [address] | | | + + + + + documented in this encounter Visit Diagnoses Not on filedocumented in this encounter"
--- OUTSIDE RECORDS SUMMARY | ~2019-02-10 | XMS | Encounter Summary ---
Demographics + + + | Address | [address] | | | [place] [address] | + + + | Home Phone [...] Team Providers + +------+ + | Care Talent Management Specialist Name | Role | Phone | [...] | Closed | | | | | [facility] | | | | | | | Stay [address] | | | | | | [address] | | | | | | | Mailcode: [facility] | | | | | | | [facility] | | | | | | | for [facility] | | | | | | | and Healing, | | | | | | | [address] | | | | | | | [place], [place] | | | | | | | [address] | | | | | | | Phone: | | | | | | | [phone] | | | | | | | Fax: | | | | | | | [phone] | +--------+--------+ + + + + Encounter Details +--------+ + + + + | Date | Type | Department | Care Team | Description | +--------+ + + + + | 01/04/ | Hospital | [facility] | Uzair Mendoza MD | | | 2009 | Encounter | STAY [address] | [address] | | | | | Ave Mailcode: [facility] | [place], [place] | | | | | [facility] | [address] | | | | | Health and Healing, | [phone] | | | | | [facility] [address] | | | | | | [place], [place] | | | | | | [address] | | | | | | [phone] | | | +--------+ + + + [...] + + + | Blood Pressure | 91/46 | 01/04/2010 1:53 PM | | | | | PDT | | + + + + + | Pulse | 55 | 01/04/2010 1:53 PM | | | | | PDT | | + + + + + | Temperature | 36.2 C (97.2 F) | 01/04/2010 1:53 PM | | | | | PDT | | + + + + + | Respiratory Rate | 12 | 01/04/2010 1:53 PM | | | | | PDT | | + + + + + | Oxygen Saturation | 94% | 01/04/2010 1:53 PM | | | | | PDT | | + + + + + | Inhaled Oxygen | - | - | | | Concentration | | | | + + + + + | Weight | 109 kg (240 lb 4.8 | 01/04/2010 8:30 AM | | | | oz) | PDT | | + + + + + | Height | 175.3 cm (5' 9") | 01/04/2010 8:30 AM | | | | | PDT | | + + + + + | Body Mass Index | 35.49 | 01/04/2010 8:30 AM | | | | | PDT | | + + + + + documented in this encounter Discharge Summaries Other, Faculty - 01/07/2010 6:28 PM PDT documented in this encou nter Discharge Instructions Instructions Loree Berger - 01/04/2010 Nursing Discharg e Instructions General discharge instructions for same-day procedure patients: Do not stay alone; a responsible person should be with you. Do not drive or drink alcohol for 24 hours or while on narcotic pain medication. Do not make any important personal or business decisions for 24 hours or while on narcotic pain medication. Advance diet to regular if no nausea. Eat lightly and avoid large, high fat or highly spic ed meals for 24-48 hours. IV site care instructions: Monitor IV site for pain, redness, swelling or drainage. If present, call your physician i mmediately. Minor redness and tenderness may be treated with warm, moist compresses for 24-48 hours. I f still red and tender after this, notify your physician. Call your provider if you experience: Difficulty breathing or unusual shortness of breath Persistent nausea or vomiting Excessive bleeding, drainage at the operative site Fever of 101 or greater, chills, increased pain that is not relieved by pain medication. Last oral pain medication: Oxycodone 10mg at 1:15pm, ok to start over the counter pain medi cation as needed. Home care instruction handouts:" Home care for wounds" and " Care of your drain at home" Ok to shower. No tub baths. Remove drain when less than 30cc drainage/day. Follow-up appointment: As scheduled documented in this encounter Medications at Time [...] documented as of this encounter Progress Notes Uzair Mendoza MD - 01/04/2010 11:26 AM PDTI have reviewed the pre-procedural history and p hysical and there are no changes. documented in this enc ounter Plan of Treatment Not on filedocumented as of this encounter Procedures + +--------+ + + + | Procedure Name | Priori | Date/Time | Associated Diagnosis | Comments | | | ty | | | | + +--------+ + + + | PROCEDURE NOTE | Routin | 05/01/2015 | | Results for this | | | e | 8:24 AM | | procedure are in the | | | | PST | | results section. | + +--------+ + + + | ORDERS OTHER | | 01/04/2010 | | Results for this | | | | 2:30 PM | | procedure are in the | | | | PDT | | results section. | + +--------+ + + + | ORDERS OTHER | | 01/04/2010 | | Results for this | | | | 2:30 PM | | procedure are in the | | | | PDT | | results section. | + +--------+ + + + | ANESTHESIA/SEDATION | | 01/04/2010 | | Results for this | | | | 12:00 AM | | procedure are in the | | | | PDT | | results section. | + +--------+ + + + | ANESTHESIA/SEDATION | | 01/04/2010 | | Results for this | | | | 12:00 AM | | procedure are in the | | | | PDT | | results section. | + +--------+ + + + | SURGICAL PATHOLOGY | Routin | 01/04/2010 | | Results for this | | | e | | | procedure are in the | | | | | | results section. | + +--------+ + + + documented in this encounter Results PROCEDURE NOTE (05/01/2015 8:24 AM PST)ORDERS OTHER (01/04/2010 2:30 PM PDT) + + + | Narrative | Performed At | + + + | | | + + + + + | Procedure Note | + + | Other, Faculty - 01/07/2010 6:28 PM PDT | | | + + ORDERS OTHER (01/04/2010 2:30 PM PDT) + + + | Narrative | Performed At | + + + | | | + + + + + | Procedure Note | + + | Dre Glover - 01/07/2010 6:28 PM PDT | | | + + ANESTHESIA/SEDATION (01/04/2010 12:00 AM PDT) + + + | Narrative | Performed At | + + + | | | + + + + + | Procedure Note | + + | Adalberto Faculty - 01/04/2010 2:42 PM PDT | | | + + ANESTHESIA/SEDATION (01/04/2010 12:00 AM PDT) + + + | Narrative | Performed At | + + + | | | + + + + + | Procedure Note | + + | Adalberto Faculty - 01/04/2010 12:43 PM PDT | | | + + SURGICAL PATHOLOGY (01/04/2010) + + + + + + | Component | Value | Ref Range | Performed | Pathologist | | | | | At | Signature | + + + + + + | SURGICAL | SOURCE OF SPECIMEN:A | | [facility] | | | PATHOLOGY | Right buttock lesion | | DEPARTMENT | | | | Final Pathologic | | OF | | | | Diagnosis:Right buttock | | PATHOLOGY | | | | lesion, excision: | | | | | | - Hemangioma Case | | | | | | seen by:Luke Coelho | | | | | | Jay Pineda, Ph.D., | | | | | | Surgical Pathology | | | | | | Cheng Gates | | | | | | Jay Orozco, | | | | | | Ph.D./PathologistT:01/06 | | | | | | //rdl Clinical | | | | | | History:The patient is a | | | | | | 34-year-old female. | | | | | | Per Epic: Vascular | | | | | | malformation. | | | | | | Gross | | | | | | Description:Received is | | | | | | 1 specimen fresh in a | | | | | | container labeled with | | | | | | the patient | | | | | | name(initials SUZANNE) and | | | | | | "right buttock lesion, | | | | | | suture superior." | | | | | | Received is atan-pink | | | | | | skin ellipse with an | | | | | | attached suture | | | | | | designating | | | | | | superiormeasuring 12 | | | | | | (SI) x 3.1 (ML) cm | | | | | | excised to a depth of | | | | | | 1.5 (AP) cm. Theskin | | | | | | ellipse is remarkable | | | | | | for a raised, firm, | | | | | | slightly nodular, | | | | | | irregularlesion, 1.3 cm | | | | | | from the superior skin | | | | | | tip and 2 cm from the | | | | | | inferior skintip | | | | | | measuring 6.5 (SI) x 2 | | | | | | (ML) x 1 (AP) cm. The | | | | | | surgical margin is | | | | | | inkedblack with the | | | | | | superior skin tip inked | | | | | | blue and inferior skin | | | | | | tip inkedgreen for | | | | | | identification. The | | | | | | specimen is serially | | | | | | sectioned from | | | | | | superiorto inferior to | | | | | | reveal a flores-pink cut | | | | | | surface with foci of | | | | | | hemorrhage andfatty | | | | | | areas. Superior and | | | | | | inferior skin tips are | | | | | | submitted | | | | | | andrepresentative | | | | | | sections of remaining | | | | | | tissue are submitted. | | | | | | Cassette Index:A1, | | | | | | superior and inferior | | | | | | skin tip submitted en | | | | | | faceA2-3, traffic workforce representative | | | | | | sections of | | | | | | specimenSLP:AKMV:tp | | | | | | My [...] | | | | | | Scot Gates | | | | | | Pam | | | | | | Jay,Ph.D.IsmaEle | | | | | | ctronically Signed | | | | | | 01/07/2010 | | | | + + + + + + + + | Specimen | + + | | + + + + + + + | Performing | Address | City/State/Zipcode | Phone Number | | Organization | | | | + + + + + | [facility] | [address] | [place] [address] | | | PATHOLOGY | [address] | | | + + + + + documented in this encounter Visit Diagnoses Not on filedocumented in this encounter
--- OUTSIDE RECORDS SUMMARY | ~2019-02-10 | XMS | Encounter Summary ---
Demographics + + + | Address | [address] | | | [place] [address] | + + + | Home Phone [...] Team Providers + +------+ + | Care Ecmo Specialist Name | Role | Phone | + +------+ + PCP | Unavailable | + +------+ + Encounter Details +--------+ + + + + | Date | Type | Department | Care Team | Description | +--------+ + + + + | 08/28/ | Results | Urology General | Derrell Lowe, | | | 2001 | Only | [address] | [address] | | | | | Fabián Shay Mailcode: | [place], [place] | | | | | [address] | [id number] | | | | | [address] | [phone] | | | | | [place], [place] | | | | | | [address] | | | | | | [phone] | | | +--------+ + + + [...] + +--------+ + + + | X-RAY FLUOROSCOPY | Routin | 08/30/2001 | | Results for this | | <=1 HOUR | e | 11:00 AM | | procedure are in the | | | | PDT | | results section. | + +--------+ + + + | BLOOD BANK PRODUCT | Routin | 08/29/2001 | | Results for this | | | e | 3:35 PM | | procedure are in the | | | | PDT | | results section. | + +--------+ + + + | BLOOD BANK PRODUCT | Routin | 08/29/2001 | | Results for this | | | e | 3:35 PM | | procedure are in the | | | | PDT | | results section. | + +--------+ + + + | BLOOD BANK PRODUCT | Routin | 08/29/2001 | | Results for this | | | e | 3:35 PM | | procedure are in the | | | | PDT | | results section. | + +--------+ + + + | BLOOD BANK PRODUCT | Routin | 08/29/2001 | | Results for this | | | e | 3:35 PM | | procedure are in the | | | | PDT | | results section. | + +--------+ + + + | BLOOD BANK PRODUCT | Routin | 08/29/2001 | | Results for this | | | e | 3:35 PM | | procedure are in the | | | | PDT | | results section. | + +--------+ + + + | BLOOD BANK PRODUCT | Routin | 08/29/2001 | | Results for this | | | e | 3:35 PM | | procedure are in the | | | | PDT | | results section. | + +--------+ + + + | TYPE AND CROSSMATCH | Routin | 08/29/2001 | | Results for this | | | e | 3:35 PM | | procedure are in the | | | | PDT | | results section. | + +--------+ + + + | VENOGRAM EXTREMITY, | Routin | 08/28/2001 | | Results for this | | UNI | e | 5:09 PM | | procedure are in the | | | | PDT | | results section. | + +--------+ + + + | MRA PELVIS W | Routin | 08/28/2001 | | Results for this | | CONTRAST | e | 3:03 PM | | procedure are in the | | | | PDT | | results section. | + +--------+ + + + | COAG MASTER PANEL | Routin | 08/27/2001 | | Results for this | | | e | 3:35 PM | | procedure are in the | | | | PDT | | results section. | + +--------+ + + + | INR | Routin | 08/27/2001 | | Results for this | | | e | 3:35 PM | | procedure are in the | | | | PDT | | results section. | + +--------+ + + + documented in this encounter Results FLUOROSCOPY <=1 HOUR (08/30/2001 11:00 AM PDT) + + + + + + | Component | Value | Ref Range | Performed | Pathologist | | | | | At | Signature | + + + + + + | FLUOROSCOPY | Radiologist 1: MARCOS, | | | | | <=1 HOUR | [facility] IMPRESSION: | | | | | | FLUOROSCOPY SERVICES | | | | | | WERE PERFORMED UNDER THE | | | | | | DIRECTION OF | | | | | | THEORDERING PHYSICIAN. | | | | | | END OF IMPRESSION: | | | | | | | | | | | | | | | | | |END OF IMPRESSION: | | | | | | | [...] | | | + +---------+ + + BLOOD BANK PRODUCT (08/29/2001 3:35 PM PDT) + + + + + + | Component | Value | Ref Range | Performed | Pathologist | | | | | At | Signature | + + + + + + | PRODUCT | PACKED CELLS | | [facility] | | | DESCRIPTION | | | DEPARTMENT | | | | | | OF | | | | | | PATHOLOGY | | + + + + + + | PRODUCT | [id number] | | [facility] | | | UNIT # | | | DEPARTMENT | | | | | | OF | | | | | | PATHOLOGY | | + + + + + + | UNIT ABO | A | | [facility] | | | | | | DEPARTMENT | | | | | | OF | | | | | | PATHOLOGY | | + + + + + + | UNIT RH | POS | | [facility] | | | | | | DEPARTMENT | | | | | | OF | | | | | | PATHOLOGY | | + + + + + + | STATUS OF | Transfused | | [facility] | | | UNIT | | | DEPARTMENT | | | [...] | + + + + + | [facility] DEPARTMENT OF | [address] | [place] [address] | | | PATHOLOGY | [address] | | | + + + + + | [facility] DEPARTMENT OF | [address] | [place] [address] | | | PATHOLOGY | [address] | | | + + + + + BLOOD BANK PRODUCT (08/29/2001 3:35 PM PDT) + + + + + + | Component | Value | Ref Range | Performed | Pathologist | | | | | At | Signature | + + + + + + | PRODUCT | PACKED CELLS | | [facility] | | | DESCRIPTION | | | DEPARTMENT | | | | | | OF | | | | | | PATHOLOGY | | + + + + + + | PRODUCT | [id number] | | [facility] | | | UNIT # | | | DEPARTMENT | | | | | | OF | | | | | | PATHOLOGY | | + + + + + + | UNIT ABO | A | | [facility] | | | | | | DEPARTMENT | | | | | | OF | | | | | | PATHOLOGY | | + + + + + + | UNIT RH | POS | | [facility] | | | | | | DEPARTMENT | | | | | | OF | | | | | | PATHOLOGY | | + + + + + + | STATUS OF | Released | | [facility] | | | UNIT | | | DEPARTMENT | | | [...] | + + + + + | [facility] DEPARTMENT OF | [address] | [place] [address] | | | PATHOLOGY | [address] | | | + + + + + | [facility] DEPARTMENT OF | [address] | [place] [address] | | | PATHOLOGY | [address] | | | + + + + + ANTIBODY SCREEN & CROSSMATCH (08/29/2001 3:35 PM PDT) + +-------+ + + + | Component | Value | Ref Range | Performed | Pathologist | | | | | At | Signature | + +-------+ + + + | ABO GROUP | A | | [facility] | | | | | | DEPARTMENT | | | | | | OF | | | | | | PATHOLOGY | | + +-------+ + + + | RH TYPE | POS | | [facility] | | | | | | DEPARTMENT | | | | | | OF | | | | | | PATHOLOGY | | + +-------+ + + + | ANTIBODY | NEG | | [facility] | | | SCREEN | | | DEPARTMENT | | | | | | OF | | | | | | PATHOLOGY | | + +-------+ + + + + + | Specimen | + + | | + + + + + | Narrative | Performed At | + + + | EXP 09/02/01 @ 0700 | [facility] | | | DEPARTMENT OF | | | PATHOLOGY | + + + + + + + + | Performing | Address | City/State/Zipcode | Phone Number | | Organization | | | | + + + + + | [facility] DEPARTMENT OF | [address] | [place] [address] | | | PATHOLOGY | [address] | | | + + + + + | [facility] DEPARTMENT OF | [address] | [place], [place] [address] | | | PATHOLOGY | [address] | | | + + + + + BLOOD BANK PRODUCT (08/29/2001 3:35 PM PDT) + + + + + + | Component | Value | Ref Range | Performed | Pathologist | | | | | At | Signature | + + + + + + | PRODUCT | PACKED CELLS | | [facility] | | | DESCRIPTION | | | DEPARTMENT | | | | | | OF | | | | | | PATHOLOGY | | + + + + + + | PRODUCT | [id number] | | [facility] | | | UNIT # | | | DEPARTMENT | | | | | | OF | | | | | | PATHOLOGY | | + + + + + + | UNIT ABO | A | | [facility] | | | | | | DEPARTMENT | | | | | | OF | | | | | | PATHOLOGY | | + + + + + + | UNIT RH | POS | | [facility] | | | | | | DEPARTMENT | | | | | | OF | | | | | | PATHOLOGY | | + + + + + + | STATUS OF | Transfused | | [facility] | | | UNIT | | | DEPARTMENT | | | [...] | + + + + + | [facility] DEPARTMENT OF | [address] | [place] [address] | | | PATHOLOGY | [address] | | | + + + + + | [facility] DEPARTMENT OF | [address] | [place] [address] | | | PATHOLOGY | [address] | | | + + + + + BLOOD BANK PRODUCT (08/29/2001 3:35 PM PDT) + + + + + + | Component | Value | Ref Range | Performed | Pathologist | | | | | At | Signature | + + + + + + | PRODUCT | PACKED CELLS | | [facility] | | | DESCRIPTION | | | DEPARTMENT | | | | | | OF | | | | | | PATHOLOGY | | + + + + + + | PRODUCT | [id number] | | [facility] | | | UNIT # | | | DEPARTMENT | | | | | | OF | | | | | | PATHOLOGY | | + + + + + + | UNIT ABO | A | | [facility] | | | | | | DEPARTMENT | | | | | | OF | | | | | | PATHOLOGY | | + + + + + + | UNIT RH | POS | | [facility] | | | | | | DEPARTMENT | | | | | | OF | | | | | | PATHOLOGY | | + + + + + + | STATUS OF | Transfused | | [facility] | | | UNIT | | | DEPARTMENT | | | [...] | + + + + + | [facility] DEPARTMENT OF | [address] | [place] [address] | | | PATHOLOGY | [address] | | | + + + + + | [facility] | [address] | [place] [address] | | | PATHOLOGY | [address] | | | + + + + + BLOOD BANK PRODUCT (08/29/2001 3:35 PM PDT) + + + + + + | Component | Value | Ref Range | Performed | Pathologist | | | | | At | Signature | + + + + + + | PRODUCT | PACKED CELLS | | [facility] | | | DESCRIPTION | | | DEPARTMENT | | | | | | OF | | | | | | PATHOLOGY | | + + + + + + | PRODUCT | [id number] | | [facility] | | | UNIT # | | | DEPARTMENT | | | | | | OF | | | | | | PATHOLOGY | | + + + + + + | UNIT ABO | A | | [facility] | | | | | | DEPARTMENT | | | | | | OF | | | | | | PATHOLOGY | | + + + + + + | UNIT RH | POS | | [facility] | | | | | | DEPARTMENT | | | | | | OF | | | | | | PATHOLOGY | | + + + + + + | STATUS OF | Transfused | | [facility] | | | UNIT | | | DEPARTMENT | | | [...] | [facility] DEPARTMENT OF | [address] | [place], [place] [address] | | | PATHOLOGY | [address] | | | + + + + + | [facility] DEPARTMENT OF | [address] | [place] [address] | | | PATHOLOGY | [address] | | | + + + + + BLOOD BANK PRODUCT (08/29/2001 3:35 PM PDT) + + + + + + | Component | Value | Ref Range | Performed | Pathologist | | | | | At | Signature | + + + + + + | PRODUCT | PACKED CELLS | | [facility] | | | DESCRIPTION | | | DEPARTMENT | | | | | | OF | | | | | | PATHOLOGY | | + + + + + + | PRODUCT | [id number] | | [facility] | | | UNIT # | | | DEPARTMENT | | | | | | OF | | | | | | PATHOLOGY | | + + + + + + | UNIT ABO | A | | [facility] | | | | | | DEPARTMENT | | | | | | OF | | | | | | PATHOLOGY | | + + + + + + | UNIT RH | POS | | [facility] | | | | | | DEPARTMENT | | | | | | OF | | | | | | PATHOLOGY | | + + + + + + | STATUS OF | Transfused | | [facility] | | | UNIT | | | DEPARTMENT | | | [...] + + + + + | [facility] | [facility] | [place] [address] | | | PATHOLOGY | [address] | | | + + + + + | [facility] | [facility] | [place] [address] | | | PATHOLOGY | [address] | | | + + + + + VENOGRAM EXTREMITY, GAGAN (08/28/2001 5:09 PM PDT) + + + + + + | Component | Value | Ref Range | Performed | Pathologist | | | | | At | Signature | + + + + + + | VENOGRAM | Radiologist 1: LIZANDRO, | | | | | EXTREMITY, | CONI Carr M.D.LEFT | | | | | UNI | LOWER EXTREMITIES | | | | | | VENOGRAM: 08/28/2001 | | | | | | Dictated 09/01/2001 | | | | | | REFERRING PHYSICIAN: | | | | | | Derrell | | | | | | Jay Lowe PRIMARY | | | | | | PLANT CYTOLOGIST: Popeye | | | | | | Jay Pablo | | | | | | MORTUARY BEAUTICIAN ANDANGIOGRAPHY | | | | | | ATTENDING: Coni | | | | | | Jay Bone | | | | | | PREPROCEDURE DIAGNOSIS: | | | | | | May-Thurner syndrome. | | | | | | POSTPROCEDURE DIAGNOSIS: | | | | | | May-Thurner anatomy, | | | | | | without evidence | | | | | | ofhemodynamic | | | | | | significance. In | | | | | | addition, the patient | | | | | | has a persistentleft | | | | | | sciatic vein and | | | | | | venography findings that | | | | | | are suggestive | | | | | | ofKlippel-Trenauney | | | | | | syndrome or other | | | | | | congenital vascular | | | | | | abnormality. 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 MR | | | | | | imagingearlier today | | | | | | indicated the presence | | | | | | of May-Thurner anatomy, | | | | | | which wasfelt to be a | | | | | | potential source for the | | | | | | patient's pelvis | | | | | | venouscongestion. LIST | | | | | | OF OPERATIONS:OPERATION | | | | | | #1: Catheterization | | | | | | of the vena | | | | | | cava.OPERATION #2: | | | | | | Catheterization third | | | | | | order branches of the | | | | | | venous | | | | | | system.OPERATION | | | | | | #3: Left lower | | | | | | extremities venography. | | | | | | PROCEDURE: | | | | | | All the | | | | | | following steps were | | | | | | conducted withthe direct | | | | | | participation and | | | | | | supervision of Dr. | | | | | | Lizandro. The | | | | | | heartrate, blood | | | | | | pressure, and oxygen | | | | | | saturation were | | | | | | continually | | | | | | monitoredthroughout the | | | | | | procedure. After consent | | | | | | was obtained, the | | | | | | patient was placed in a | | | | | | supineposition on the | | | | | | angiography table and | | | | | | sedated with Fentanyl | | | | | | andVersed. Her left | | | | | | groin was sterilely | | | | | | prepped and draped in | | | | | | the usualmanner and | | | | | | infiltrated with 2% | | | | | | Lidocaine. Using the | | | | | | standardSeldinger | | | | | | technique, the left | | | | | | common femoral vein was | | | | | | entered in anantegrade | | | | | | direction and a 5 Malay | | | | | | pigtail catheter was | | | | | | introduced.The catheter | | | | | | was used to perform | | | | | | digital subtraction | | | | | | pelvicvenography. It | | | | | | was then advanced across | | | | | | the iliac confluence | | | | | | into theinferior vena | | | | | | cava and the exchanged | | | | | | for a straight multi | | | | | | side holecatheter. | | | | | | Pulled back blood | | | | | | pressure measurements | | | | | | were then made fromthe | | | | | | inferior vena cava to | | | | | | the left external iliac | | | | | | vein. 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 | | | | | | Left lower extremities | | | | | | venography was then | | | | | | performedfrom the | | | | | | popliteal fossa to the | | | | | | pelvis. The catheter | | | | | | was subsequentlyremoved | | | | | | and hemostasis achieved | | | | | | with manual compression | | | | | | at the groin. FINDINGS: | | | | | | | | | | | | The examination | | | | | | demonstrates a very | | | | | | smallexternal iliac vein | | | | | | and markedly dilated | | | | | | internal iliac. There | | | | | | is aprominent branch of | | | | | | this dilated internal | | | | | | iliac vein | | | | | | whichcommunicates | | | | | | inferolaterally through | | | | | | the sciatic notch with a | | | | | | veinthat lies along the | | | | | | posterior aspect of the | | | | | | femur in continuity | | | | | | withthe femoral vein. It | | | | | | is noteworthy that we | | | | | | were able to | | | | | | catheterizethis entire | | | | | | structure to the level | | | | | | of the popliteal fossa | | | | | | withoutencountering any | | | | | | valves. Contrast | | | | | | injection at the | | | | | | popliteal veinshows an | | | | | | extensive network of | | | | | | venous perforators and | | | | | | varices along thelateral | | | | | | aspect of the thigh, | | | | | | none of which apparently | | | | | | contains anyvalves. | | | | | | | | | | | | There are | | | | | | dilated internaliliac | | | | | | vein branches within the | | | | | | pelvis, though none of | | | | | | these extendacross | | | | | | midline or to the | | | | | | bladder itself. In | | | | | | other words, there | | | | | | doesnot appear to be any | | | | | | pattern of collateral | | | | | | drainage from the | | | | | | leftiliac system as | | | | | | might be expected with a | | | | | | hemodynamically | | | | | | significantMay-Thurner | | | | | | syndrome. This is | | | | | | confirmed by blood | | | | | | pressure | | | | | | measurementswhich show | | | | | | no gradient whatsoever | | | | | | between the vena cava | | | | | | and the iliacvein, | | | | | | though a band of lucency | | | | | | indicating the course | | | | | | of the rightcommon iliac | | | | | | artery is clearly seen | | | | | | on venography. 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 I think | | | | | | the most reasonable | | | | | | course of actionat this | | | | | | point is to evaluate the | | | | | | patient's previous | | | | | | medical record asuncion | | | | | | previous pelvic MRI | | | | | | which is not currently | | | | | | available but which | | | | | | wasperformed | | | | | | approximately two years | | | | | | ago. It would be most | | | | | | interestingto determine | | | | | | whether or not there has | | | | | | been any change in | | | | | | theconfiguration of the | | | | | | pelvic vascular anatomy. | | | | | | Though the patient | | | | | | hasMay-Thurner | | | | | | configuration in her | | | | | | left iliac system, it is | | | | | | nothemodynamically | | | | | | significant and its | | | | | | correction, therefore, | | | | | | willunfortunately not | | | | | | provide any relief of | | | | | | this patient's | | | | | | hematuria. END OF | | | | | | IMPRESSION: | | | | + + + + + + + + | Specimen | + + | | + + + +---------+ + + | Performing | Address | City/State/Zipcode | Phone Number | | Organization | | | | + +---------+ + + | [facility] DEPARTMENT OF | | | | | RADIOLOGY | | | | + +---------+ + + MRI MRA PELVIS W CONTRAST (08/28/2001 3:03 PM PDT) + + + + + + | Component | Value | Ref Range | Performed | Pathologist | | | | | At | Signature | + + + + + + | MR MRA | Radiologist 1: LIZANDRO, | | | | | PELVIS W | CONI Carr M.D.MR - | | | | | CONTRAST | ANGIOGRAM: 08/28/2001 | | | | | | Dictated 09/01/2001 | | | | | | REFERRING PHYSICIAN: | | | | | | Derrell | | | | | | Jay Lowe | | | | | | INDICATIONS: | | | | | | The patient | | | | | | has a 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 She also has | | | | | | previouslydocumented | | | | | | varices that are visible | | | | | | within the urinary | | | | | | bladder ondirect | | | | | | cystoscopy. She now | | | | | | presents with marked | | | | | | hematuria, and we | | | | | | areasked to evaluate the | | | | | | nature of her vascular | | | | | | pathology in and | | | | | | adjacentto the bladder | | | | | | wall. PROCEDURE | | | | | | DESCRIPTION: | | | | | | This was a dedicated | | | | | | vascular imaging | | | | | | studythat was performed | | | | | | using a 1.5 Eladia GE | | | | | | system. It was begun | | | | | | with twodimensional | | | | | | lurb-ai-zwemag | | | | | | venography centering on | | | | | | the pelvis, with | | | | | | asuperior saturation | | | | | | band to exclude arterial | | | | | | flow. This was | | | | | | followedby dynamic three | | | | | | dimensional imaging | | | | | | from the renal arteries | | | | | | throughthe inguinal | | | | | | ligaments during | | | | | | intravenous gadolinium | | | | | | administration.All of | | | | | | the images were reviewed | | | | | | on a dedicated work | | | | | | station. The arterial | | | | | | anatomy is unremarkable | | | | | | in the abdomen and | | | | | | pelvis.Specifically, | | | | | | there is no evidence of | | | | | | arteriovenous | | | | | | communication.The | | | | | | abdominal venous anatomy | | | | | | is similarly | | | | | | unremarkable. | | | | | | | | | | | | Within the pelvis, the | | | | | | venous anatomy | | | | | | isnotable for a markedly | | | | | | dilated left internal | | | | | | iliac artery which has | | | | | | alarge branch passing | | | | | | through the sciatic | | | | | | notch from the | | | | | | posterioraspect of the | | | | | | thigh. There is | | | | | | prominent dilatation of | | | | | | severalinternal iliac | | | | | | artery branches which | | | | | | extend laterally from | | | | | | the regionof th urinary | | | | | | bladder, but are quite | | | | | | posterior to it. There | | | | | | is verysubtle | | | | | | enhancement along the | | | | | | posterior left lateral | | | | | | aspect of thebladder | | | | | | neck which could | | | | | | represent venous | | | | | | structures, but these | | | | | | arenot clearly | | | | | | delineated in continuity | | | | | | with the venous | | | | | | structuresdescribed | | | | | | above. There is also | | | | | | extrinsic compression of | | | | | | the leftcommon iliac | | | | | | vein by the overlying | | | | | | right common iliac | | | | | | artery, afinding which | | | | | | is most clearly | | | | | | demonstrated on the | | | | | | bvke-ur-vvazcauufly. | | | | | | This is the so called | | | | | | "May-Thurner" | | | | | | configuration, a | | | | | | conditionwhich can be | | | | | | associated with | | | | | | significant venous | | | | | | hypertension in | | | | | | theipsilateral pelvis | | | | | | and limb. IMPRESSION: 1. | | | | | | Perhaps the most | | | | | | significant finding on | | | | | | the current examination | | | | | | isthat of a May-Thurner | | | | | | configuration involving | | | | | | the left common | | | | | | iliacvein. This could | | | | | | cause significant | | | | | | ipsilateral venous | | | | | | hypertensionand may be | | | | | | secondarily responsible | | | | | | for the patient's | | | | | | bladder varicesand | | | | | | bleeding. It would be | | | | | | useful to further | | | | | | evaluate this | | | | | | findingwith direct | | | | | | catheterization and | | | | | | hydrodynamics | | | | | | measurement. 2. | | | | | | Although the left | | | | | | internal left vein is | | | | | | quite dilated and | | | | | | appearsto have a | | | | | | persistent sciatic | | | | | | communication, we do | | | | | | clearly identify | | | | | | anyprominent venous | | | | | | structures in continuity | | | | | | with the patient's | | | | | | urinarybladder. Again, | | | | | | this may be more | | | | | | clearly delineated with | | | | | | directcatheter | | | | | | venography. END | | | | | | OFIMPRESSION: | | | | + + + + + + + + | Specimen | + + | | + + + +---------+ + + | Performing | Address | City/State/Zipcode | Phone Number | | Organization | | | | + +---------+ + + | [facility] DEPARTMENT OF | | | | | RADIOLOGY | | | | + +---------+ + + PROTHROMBIN TIME (08/27/2001 3:35 PM PDT) + + + + + + | Component | Value | Ref Range | Performed | Pathologist | | | | | At | Signature | + + + + + + | INR | 1.23 (H)Comment: | 0.98 - 1.08 INR | [facility] | | | | [...] + + + + + | [facility] | [address] | [place] [address] | | | PATHOLOGY | [address] | | | + + + + + | [facility] | [address] [place] [address] | [place] [address] | | | PATHOLOGY | [address] | | | + + + + + KO COLLINS (08/27/2001 3:35 PM PDT) + + + + + + | Component | Value | Ref Range | Performed | Pathologist | | | | | At | Signature | + + + + + + | INR | 1.23 (H)Comment: | 0.98 - 1.08 INR | [facility] | | | | [...] + + + + + | [facility] | [address] | [place] [address] | | | PATHOLOGY | [address] | | | + + + + + | [facility] | [address] | [place] [address] | | | PATHOLOGY | [address] | | | + + + + + documented in this encounter Visit Diagnoses Not on filedocumented in this encounter
--- OUTSIDE RECORDS SUMMARY | ~2019-02-10 | XMS | Encounter Summary ---
Demographics + + + | Address | [address] | | | [place] [address] | + + + | Home Phone [...] Author + + + | Author | [facility] | + + + | Organization | [facility] | + + + | [...] Team Providers + +------+ + | Care Rope Silica Machine Operator Name | Role | Phone | + +------+ + | Jose Ramires MD | PCP | | + +------+ + Encounter Details +--------+ + + + + | Date | Type | Department | Care Team | Description | +--------+ + + + + | 02/09/ | MyChart | Plastic Surgery | Uzair Mendoza MD | My incision | | 2019 | Encounter | Pediatric Vascular | [address] | | | | | Anomalies at [facility] | [place], [place] | | | | | [address] | [address] | | | | | Zahraa Shay Mailcode: | [phone] | | | | | [address] | | | | | | [place], [place] | | | | | | [address] | | | | | | [phone] | | | +--------+ + + + [...]
--- OUTSIDE RECORDS SUMMARY | ~2019-02-10 | XMS | Encounter Summary ---
Demographics + + + | Address | [address] | | | [place] [address] | + + + | Home Phone [...] Team Providers + +------+ + | Care Nursing Surgical Services Director Name | Role | Phone | + +------+ + | Timothy Burks MD | PCP | | + +------+ + Encounter Details +--------+ + + + + | Date | Type | Department | Care Team | Description | +--------+ + + + + | 06/28/ | Abstract | Vascular Surgery | Sebas Lauren, | | | 2007 | | at [facility] 2nd Floor | [address] | | | | | [address] | [address] | | | | | Zahraa Shay Mailcode: | [place], [place] | | | | | [address] Physician's | [id number] | | | | | [place], | [phone] | | | | | [place] [address] | | | | | | [phone] | | | +--------+ + + + [...]
--- OUTSIDE RECORDS SUMMARY | ~2019-02-10 | XMS | Encounter Summary ---
Demographics + + + | Address | [address] | | | [place] [address] | + + + | Home Phone [...] Team Providers + +------+ + | Care Administrative Tech Name | Role | Phone | + +------+ + | Timothy Burks MD | PCP | | + +------+ + Encounter Details +--------+ + + + + | Date | Type | Department | Care Team | Description | +--------+ + + + + | 03/07/ | Office | UNKNOWN DEPARTMENT | Other, Faculty | Progress Note | | 2000 | Visit-Trans | [address] 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 She has had prior complications of venous thrombosis and pulmonary embolism. She has had no recent episodes. The swelling is unchanged since we saw her last year. She continues to wear 40 mm to 50 mm mercury thigh-high stockings, and she remains on long-term warfarin therapy. PHYSICAL EXAMINATION: Normal arterial exam. Large left leg angiodysplasia primarily in the lateral thigh. The left leg is approximately twice the circumference of the right leg. There are no active ulcerations. 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 PLAN: Continue with compression therapy and lifelong warfarin therapy. Sebas Lauren M.D. drawer fitter LARRY / ALENA [id number] / [id number] / [id number] / C: 03/12/2001 moi documented in this encounter Plan of Treatment Not on filedocumented as of this encounter Visit Diagnoses Not on filedocumented in this encounter"
--- OUTSIDE RECORDS SUMMARY | ~2019-02-10 | XMS | Encounter Summary ---
Demographics + + + | Address | [address] | | | [place] [address] | + + + | Home Phone [...] Author + + + | Author | [facility] | + + + | Organization | [facility] | + + + | Address | Unknown | + + + | Phone | Unavailable | + + + Support + + + + + | Name | Relationship | Address | Phone | + + + + + | Mariah Prather | OZZIE | [place] | | + + + + + Care Team Providers + +------+ + | Care Speedboat Operator Name | Role | Phone | [...] | 2019 | Encounter | Reconstructive | CYLINDER HANDLER [address] | | | | | Surgery at [facility] [address] [facility] [place] | | | | | [address] | [address] | | | | | Mailcode: CH5 | [phone] | | | | | [facility] | | | | | | and Healing, | | | | | | Building 1, 5th | | | | | | Floor [place], [place] | | | | | | [address] | | | | | | [phone] | | | +--------+ + + + [...]
--- OUTSIDE RECORDS SUMMARY | ~2019-02-10 | XMS | Encounter Summary ---
Demographics + + + | Address | [address] | | | [place] [address] | + + + | Home Phone | | + + + | Preferred Language | Unknown | + + + | Marital Status | Single | + + + | Shinto Affiliation | PRO | + + + [...] Team Providers + +------+ + | Care Sewing Machines Salesperson Name | Role | Phone | + [...] | | | | | [address] [facility] | Zahra[place] Sh[place], | | | | | Jaspal Mailcode: [address] | [place] [address] | | | | | [facility] | [phone] | | | | | [place], [place] | | | | | | [address] | | | | | | [phone] | | | +--------+ + + + [...] Progress Notes ShanAlonzo - 03/22/2007 7:03 AM [facility] [id number] 03/21/2007 03/21/2007 [id number] JOHNSON Sagastume [id number] [facility] & [facility] & [address] [address] or March 21, 2007 Timothy Burks M.D. [place], [place] RE: CHRISSY PRATHER MR #: [id number] Dear Dr. Burks: This is just a letter updating you on Ms. Prather. She is the patient who has been followed in our Vascular Clinic at [facility] for her arteriovenous malformations. Most recently, she [...] best wishes, Alonzo Torrez M.D. / ALENA [id number] / [id number] / [id number] / documented in this encoun ter Plan of Treatment Not on filedocumented as of this encounter Visit Diagnoses Not on filedocumented in this encounter"
--- OUTSIDE RECORDS SUMMARY | ~2019-02-10 | XMS | Encounter Summary ---
Demographics + + + | Address | [address] | | | [place] [address] | + + + | Home Phone | | + + + | Preferred Language | Unknown | + + + | Marital Status | Single | + + + | Restorationism Affiliation | PRO | + + + [...] Team Providers + +------+ + | Care Chemistry Intern Name | Role | Phone | + +------+ + | Jose Ramires MD | PCP | | + +------+ + Encounter Details +--------+ + + + + | Date | Type | Department | Care Team | Description | +--------+ + + + + | 01/23/ | Procedure | [facility] | | | | 2019 | Pass | [place] [facility] | | | | | | and Healing Surgery | | | | | | Center Admitting | | | | | | Desk Located on the | | | | | | 4th floor [address] | | | | | | [place], | | | | | | [place] [address] | | | +--------+ + + + [...]
--- OUTSIDE RECORDS SUMMARY | ~2019-02-10 | XMS | Encounter Summary ---
Demographics + + + | Address | [address] | | | [place] [address] | + + + | Home Phone [...] Providers + +------+ + | Care Senior Risk Manager Name | Role | Phone | + +------+ + | Timothy Burks MD | PCP | | + +------+ + Reason for Visit + + + | Reason | Comments | + + + | Follow-up in | | | outpatient clinic | | + + + Consultation (Routine) [...] | | | | | | | [place], [place] | | | | | | | [address] | | | | | | | Phone: | | | | | | | [phone] | | | | | | | Fax: | | | | | | | [phone] | +--------+--------+ + + + + Encounter Details +--------+---------+ + + + | Date | Type | Department | Care Team | Description | +--------+---------+ + + + | 10/18/ | Office | Vascular Surgery | Sebas Burton, | Congenital lower | | 2010 | Visit | at [facility] 2nd Floor | [address] | limb vessel anomaly | | | | [address] | [address] | (Primary Dx); Other | | | | Zahraa Shay Mailcode: | [place], [place] | lymphedema | | | | [address] Physician's | [id number] | | | | | [facility] [place], | [phone] | | | | | [place] [address] | | | | | | [phone] | | | +--------+---------+ + + + [...] + + + | Blood Pressure | 110/90 | 10/18/2010 8:54 AM | | | | | PDT | | + + + + + | Pulse | 87 | 10/18/2010 8:54 AM | | | | | PDT | | + + + + + | Temperature | 36.4 C (97.6 F) | 10/18/2010 8:54 AM | | | | | PDT | | + + + + + | Respiratory Rate | - | - | | + + + + + | Oxygen Saturation | 97% | 10/18/2010 8:54 AM | | | | | PDT | | + + + + + | Inhaled Oxygen | - | - | | | Concentration | | | | + + + + + | Weight | 105.7 kg (233 lb) | 10/18/2010 8:54 AM | | | | | PDT | | + + + + + | Height | - | - | | + + + + + | Body Mass Index | 34.41 | 01/04/2010 8:30 AM | | | | | PDT | | + + + + + documented in this encounter Progress Notes Martin Rice MD - 10/18/2010 9:24 AM PDT [facility] Reason for Visit: follow up. HISTORY: Ms. Prather is a 35 y.o. 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 The wound has healed completely. She also has venous adan odysplasia of the left LE; swelling has been controlled by compression stocking. Past Medical History Diagnosis Date Allergic rhinitis 06/29/2007 Atrial fibrillation 06/29/2007 Deep venous thrombosis 06/29/2007 Pulmonary embolism 06/29/2007 Cerebrovascular Accident with stroke 06-29-2007 Past Surgical History Procedure Date Angiodysplasia of vein of the lower extremities 06-29-2007 Atrial septal defect surgically repaired 06-29-2007 other 06-29-2007 Total abdominal hysterectomy 06-29-2007 Tonsillectomy 1981 Sinus surgery 1997 Current outpatient prescriptions Medication Sig cephALEXin (KEFLEX) 500 mg Oral Capsule Take 1 Cap by mouth every eight hours. CLARITIN OR one tablet by mouth every day conjugated estrogens 0.625 mg Oral Tablet take 1 tablet (0.625 mg) by oral route once d aily for 21 consecutive days, followed by 7 days off COUMADIN 10 mg Oral Tablet Take 10 mg by mouth once daily. 10mg every day except 7.5mg on monday ENOXAPARIN SODIUM (LOVENOX SUBQ) Inject under the skin (SUBC). Indications: bridging f or coumadin, hx. of multiple embolisms METHOCARBAMOL ORAL Take by mouth once daily. PROZAC OR take 1 table by mouth every day Solifenacin Succinate (VESICARE) 10 mg Oral Tablet Take 10 mg by mouth once daily. Allergies Allergen Reactions Codeine Hydrocodone PHYSICAL EXAMINATION: the patient appears WDWN and in no distress, there are good breath so unds bilaterally, and the lungs are clear to auscultation and the heart has an irregular rhy thm. Right leg - small wound over the dorsal aspect that is healing. Left leg edema up to the h ip. Compression stocking in place. ASSESSMENT AND PLAN: 35 f here s/p resection of lymphangioma and lower ext venous angiodysp lasia. Continue compression stockings. Follow up in 1 year. CC: Timothy Burks MD [facility] [address] [place] [id number] Sebas Prince M D - 10/18/2010 9:22 AM AMGALIEI saw and evaluated the patient. I agree with the findings and t he plan of care as documented in the resident s note. Overall she is doing well. Gave he r a new Rx for stockings and plan to see back in a year. SEBAS BURTON MD VASCULAR SURGERY [address] [place] [address] Mailcode: [address] Physicians [facility] [address] documented in this en counter Plan of Treatment Not on filedocumented as of this encounter Visit Diagnoses + + | Diagnosis | + + | Congenital lower limb vessel anomaly - Primary | + + | Other lymphedema | + + documented in this encounter
--- OUTSIDE RECORDS SUMMARY | ~2019-02-10 | XMS | Encounter Summary ---
Demographics + + + | Address | [address] | | | [place] [address] | + + + | Home Phone [...] + + | Author | [facility] | + + + | Organization | [facility] | + + + | [...] Team Providers + +------+ + | Care Slurry Mixer Name | Role | Phone | + +------+ + PCP | Unavailable | + +------+ + Encounter Details +--------+ + + + + | Date | Type | Department | Care Team | Description | +--------+ + + + + | 08/28/ | Results | Urology General | Derrell Lowe, | | | 2001 | Only | [address] | [address] | | | | | [place] Mailcode: | [place], [place] | | | | | [address] Physician[address] | [address] | | | | | [address] | [phone] | | | | | [place], [place] | | | | | | [address] | | | | | | [phone] | | | +--------+ + + + [...] + + + + | PRODUCT | [id number] | | [facility] | | | UNIT [...] | + + + + + | [facility] DEPARTMENT OF | [address] [facility] | [place] [address] | | | PATHOLOGY | [address] | | | + + + + + | [facility] DEPARTMENT OF | [address] [facility] | [place] [address] | | | PATHOLOGY | [address] [...] + + + + | PRODUCT | [id number] | | [facility] | | | UNIT [...] | + + + + + | [facility] DEPARTMENT OF | [address] | [place] [address] | | | PATHOLOGY | [address] | | | + + + + + | [facility] DEPARTMENT OF | [address] | [place] [address] | | | PATHOLOGY | [address] [...] DEPARTMENT OF | [address] | [place] [address] | | | PATHOLOGY | [address] | | | + + + + + | [facility] DEPARTMENT OF | [address] | [place], [place] [address] | | | PATHOLOGY | [address] [...] + + + + | PRODUCT | [id number] | | [facility] | | | UNIT [...] DEPARTMENT OF | [address] | [place] [address] | | | PATHOLOGY | [address] | | | + + + + + | [facility] DEPARTMENT OF | [address] | [place] [address] | | | PATHOLOGY | [address] [...] + + + + | PRODUCT | [id number] | | [facility] | | | UNIT [...] | + + + + + | [facility] DEPARTMENT OF | [address] [facility] | [place] [address] | | | PATHOLOGY | [address] | | | + + + + + | [facility] OF | [address] [facility] | [place] [address] | | | PATHOLOGY | [address] [...] + + + + | PRODUCT | [id number] | | [facility] | | | UNIT [...] DEPARTMENT OF | [address] | [place], [place] [address] | | | PATHOLOGY | [address] | | | + + + + + | [facility] DEPARTMENT OF | [address] | [place] [address] | | | PATHOLOGY | [address] [...] + + + + | PRODUCT | [id number] | | [facility] | | | UNIT [...] + + + + | [facility] | [facility] | [place] [address] | | | PATHOLOGY | [address] | | | + + + + + | [facility] | [facility] | [place] [address] | | | PATHOLOGY | [address] [...] PRIMARY | | | | | | MANAGER HIV: Popeye | | | | | | Jay Pablo | | | | | | WELT BEATER ANDANGIOGRAPHY | | | | | | [...] | | | direction and a 5 Danish | | | | | | pigtail [...] 5 | | | | | | Danish Lassiter | | | | | | [...] twodimensional | | | | | | uvjz-tx-hkptkt | | | | | | venography [...] the | | | | | | ckvf-pd-nfjuplrosti. | | | | | | This [...] + + + + | [facility] | [address] [facility] | [place] [address] | | | PATHOLOGY | [address] | | | + + + + + | [facility] | [address] [place] [address] | [place] [address] | | | PATHOLOGY | [address] [...] + + + + | [facility] | [address] | [place] [address] | | | PATHOLOGY | [address] | | | + + + + + | [facility] | [address] | [place] [address] | | | PATHOLOGY | [address] | | | + + + + + documented in this encounter Visit Diagnoses Not on filedocumented in this encounter
--- OUTSIDE RECORDS SUMMARY | ~2019-02-10 | XMS | Encounter Summary ---
Demographics + + + | Address | [address] | | | [place] [address] | + + + | Home Phone | | + + + | Preferred Language | Unknown | + + + | Marital Status | Single | + + + | Caodaism Affiliation | PRO | + + + [...] + + + | Mariah Prather | ZOZIE | [place] | | + + + + + Care Team Providers + +------+ + | Care Healthcare Facility Administrator Name | Role | Phone | + [...] + + | 01/23/ | Anesthesia | [facility] | Sebas Arguello, | | | 2019 | Event | [facility] | [address] | | | | | and Healing Surgery | [address] | | | | | Center Admitting | [place], [place] | | | | | Desk Located on the | [address] | | | | | 4th floor [address] | [phone] | | | | | [address] [place], | | | | | | [place] [address] | | | +--------+ + + + + Anesthesia Record + + + + + | Procedure Name | Responsible | Anesthesia Start | Anesthesia Stop Time | | | Anesthesiologist | Time | | + + + + + | EXCISION LEFT LEG | Sebas Arguello MD | 01/23/19729 | 01/23/19 0833 | | SKIN LESION (Left | | [...] | | | 7 | | reviewed, PARParvez held, anesthetic plan made or approved by [...] | Total | + + + | propofol | 200 mg | + + + | lidocaine 2% | 40 mg | + + + | fentaNYL | 100 mcg | + + + | PHENYLEPHrine | 300 mcg | + + + | dexamethasone | 4 mg | + + + | ondansetron | 4 mg | + + + | ceFAZolin (ANCEF) injection 3 g | 3 g | + + + | succinylcholine | 100 mg | + + + | lidocaine 4% LTA | 3 mL | + + + | propofol (DIPRIVAN) 200 mg | 54,960 mcg | + + + | lactated ringers IV | 800 mL | + + + + + | Name | + + | O2 FR Avance (Total Liters) | + + | Air FR Avance (l/min) | + + | Insp Sevo | + + | Et Sevo | + + | Insp N2O % | + + + + | No [...] 22 | 01/23/19 0653 by | 01/23/19 100 by | | eral | g; No; None; No; Positive; | Lele Casiano RN | Lele Casiano RN | | IV | 01/23/19; 1001 | | | +--------+ + + + | ETT | 01/23/19; 743 (created via | 01/23/19 07 by | 01/23/19826 by | | | procedure documentation); 7; | Karo Jackson, | Karo Jackson, | | | Oral; Cuffed; 01/23/19; 826 | TRIAL MANAGER | TRIAL MANAGER | +--------+ + + + documented [...] + + documented in this encounter Results ETT (01/23/2019 8:08 AM PDT) + [...] | Atraumatic | | + + + documented in this encounter Visit Diagnoses Not on filedocumented in this encounter Administered Medications + +--------+ +------+------+------+ | Medication Order | MAR | Action | Dose | Rate | Site | | | Action | Date | | | | + +--------+ +------+------+------+ | ceFAZolin (ANCEF) injection 3 g | Given | 01/24/20 | 3 g | | | | 3 g, intravenous, PREPROCEDURE | | 19 7:56 | | | | | ONCE, 1 dose, Starting Wed | | AM PDT | | | | | 01/23/19 at 0610, Until Wed | | | | | | | 01/23/19 at 0756 | | | | | | + +--------+ +------+------+------+ +---+---+ | | | +---+---+ + +-------+ +------+---+---+ | dexamethasone (DECADRON) | Given | 01/24/20 | 4 mg | | | | injection intravenous, | | 19 7:59 | | | | | INTRAPROCEDURE PRN, Starting Wed | | AM PDT | | | | | 01/23/19 at 0759, Until Wed | | | | | | | 01/23/19 at 0828 | | | | | | + +-------+ +------+---+---+ +---+---+ | | | +---+---+ + +-------+ +--------+---+---+ | fentaNYL (SUBLIMAZE) injection | Given | 01/24/20 | 25 mcg | | | | INTRAPROCEDURE PRN, Starting Wed | | 19 8:03 | | | | | 01/23/19 at 0800, Until Wed | | AM PDT | | | | | 01/23/19 at 0828 | | | | | | + +-------+ +--------+---+---+ +-------+ +--------+---+---+ | Given | 01/24/20 | 25 mcg | | | | | 19 8:00 | | | | | | AM PDT | | | | +-------+ +--------+---+---+ | Given | 01/24/20 | 50 mcg | | | | | 19 7:41 | | | | | | AM PDT | | | | +-------+ +--------+---+---+ +---+---+ | | | +---+---+ + + + +---+---+---+ | lactated ringers [...] | | | +---------+ + + +---+ +---+---+ | | | +---+---+ + +-------+ +------+---+---+ | lidocaine (LTA) 4 % topical | Given | 01/24/20 | 3 mL | | | | solution INTRAPROCEDURE PRN, | | 19 7:44 | | | | | Starting 01/23/19 at 0744, | | AM PDT | | | | | Until Mon01/23/19 at 0828 | | | | | | + +-------+ +------+---+---+ +---+---+ | | | +---+---+ + +-------+ +-------+---+---+ | lidocaine (XYLOCAINE MPF) 2 % | Given | 01/24/20 | 40 mg | | | | (20 mg/mL) injection | | 19 7:42 | | | | | INTRAPROCEDURE PRN, Starting Wed | | AM PDT | | | | | 01/23/19 at 0742, Until Wed | | | | | | | 01/23/19 at 0828 | | | | | | + +-------+ +-------+---+---+ +---+---+ | | | +---+---+ + +-------+ +------+---+---+ | ondansetron (ZOFRAN) injection | Given | 01/24/20 | 4 mg | | | | intravenous, INTRAPROCEDURE PRN, | | 19 7:59 | | | | | Starting 01/23/19 at 0759, | | AM PDT | | | | | Until 01/23/19 at 0828 | | | | | | + +-------+ +------+---+---+ +---+---+ | | | +---+---+ + +-------+ +---------+---+---+ | PHENYLEPHrine 100 mcg/mL IV | Given | 01/24/20 | 100 mcg | | | | syringe INTRAPROCEDURE PRN, | | 19 8:14 | | | | | Starting Mon01/23/19 at 0753, | | AM PDT | | | | | Until Mon01/23/19 at 0828 | | | | | | + +-------+ +---------+---+---+ +-------+ +---------+---+---+ | Given | 01/24/20 | 100 mcg | | | | | 19 8:06 | | | | | | AM PDT | | | | +-------+ +---------+---+---+ | Given | 01/24/20 | 100 mcg | | | | | 19 7:53 | | | | | | AM PDT | | | | +-------+ +---------+---+---+ +---+---+ | | | +---+---+ + +---------+ + +---+---+ | propofol (DIPRIVAN) 200 mg | New Bag | 01/24/20 | 20 | | | | INTRAPROCEDURE CONTINUOUS PRN, | | 19 8:01 | mcg/kg/m | | | | Starting Mon01/23/19 at 0801, | | AM PDT | in | | | | Until Mon01/23/19 at 0828 | | | | | | + +---------+ + +---+---+ +---+---+ | | | +---+---+ + +-------+ +--------+---+---+ | propofol (DIPRIVAN) injection | Given | 01/24/20 | 200 mg | | | | INTRAPROCEDURE PRN, Starting Wed | | 19 7:42 | | | | | 01/23/19 at 0742, Until Wed | | AM PDT | | | | | 01/23/19 at 0828 | | | | | | + +-------+ +--------+---+---+ +---+---+ | | | +---+---+ + +-------+ +--------+---+---+ | succinylcholine (ANECTINE) | Given | 01/24/20 | 100 mg | | | | injection INTRAPROCEDURE PRN, | | 19 7:43 | | | | | Starting 01/23/19 at 0743, | | AM PDT | | | | | Until 01/23/19 at 0828 | | | | | | + +-------+ +--------+---+---+ +---+---+ | | | +---+---+ documented in this encounter
--- OUTSIDE RECORDS SUMMARY | ~2019-02-10 | XMS | Encounter Summary ---
Demographics + + + | Address | [address] | | | [place] [address] | + + + | Home Phone [...] Team Providers + +------+ + | Care Transferrer Name | Role | Phone | + +------+ + | Timothy Burks MD | PCP | | + +------+ + Reason for Visit + + + | Reason | Comments | + + + | Follow-up visit | 4 month f/u RM 4 month f/u--Gluteal cleft hemangnoma-OP: 01/10 | | | Mendoza- Steroid Injects - nw | + + + Consultation (Routine) +--------+--------+ [...] | | anomalies | [address] | [place], [place] | | | | | Congenital | [place], [place] | [address] | | | | | lower limb | [address] | Phone: | | | | | vessel | Phone: | [phone] | | | | | anomaly | [phone] | Fax: | | | | | Procedures | Fax: | [phone] | | | | | CONSULT TO | [phone] | | | | | | SURGERY - | | | | | | | PLASTICS | | | +--------+--------+ + + + + Encounter Details +--------+---------+ + + + | Date | Type | Department | Care Team | Description | +--------+---------+ + + + | 07/06/ | Office | Plastic and | Uzair Mendoza MD | Lymphangioma | | 2016 | Visit | Reconstructive | [address] | (Primary Dx) | | | | Surgery at [facility] [address] | [place], [place] | | | | | [address] | [address] | | | | | Mailcode: [facility] | [phone] | | | | | [facility] | | | | | | and Healing, | | | | | | Building 1, 5th | | | | | | Floor [place], [place] | | | | | | [address] | | | | | | [phone] | | | +--------+---------+ + + + [...] +---------+ + + | Blood Pressure | 142/74 | 07/07/2015 10:39 AM | | | | | PDT | | + +---------+ + + | Pulse | 76 | 07/07/2015 10:39 AM | | | | | PDT | | + +---------+ + + | Temperature | - | - | | + +---------+ + + | Respiratory Rate | 16 | 07/07/2015 10:39 AM | | | | | PDT | | + +---------+ + + | Oxygen Saturation | 99% | 07/07/2015 10:39 AM | | | | | PDT [...] encounter Progress Notes Uzair Mendoza MD - 07/09/2015 6:01 PM Fady Sagastume Crescencio 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 She would like further steroid injections. She has developed a new painful area o n the right inferior cleft area. She has had good response with the steroid treatments. OBJECTIVE: There a lymphangioma blebs on both sides of the gluteal cleft. They have improve d substantially with the last series of steroid injections. There is a new crusted area of l ymphangioma blebs on the right inferior cleft area. Under sterile conditions 0.8 mL of Kenalog [...] + +--------+ + + + | TN INJ INTO SKIN | Routin | 07/09/2015 | Lymphangioma | | | LESIONS, UP TO AND | e | 6:03 PM | | | | INCLUDE 7 LESIONS | | PDT | | | + +--------+ + + + documented in this encounter Visit Diagnoses + + | Diagnosis | + + | Lymphangioma - Primary Lymphangioma, any site | + + documented in this encounter
--- OUTSIDE RECORDS SUMMARY | ~2019-02-10 | XMS | Encounter Summary ---
Demographics + + + | Address | [address] | | | [place] [address] | + + + | Home Phone [...] Team Providers + +------+ + | Care Lubricating Engineer Name | Role | Phone | [...] | | | | | [address] [place], | | | | | | [place] [address] | | | | | | [phone] | | | +--------+ + + + [...] Casillas Md - 04/27/2007 3:13 PM PST [id number] JOHNSON Sagastume [id number] Date: 03/21/2007 Patient: Mahi Prather MR# [id number] [...] plan of care. Alonzo Torrez M.D. / [id number] / [id number] / [id number] / [id number] Electronically signed by Alonzo Torrez 04-26-2007 11:11:50 PM documented in this en counter Plan of Treatment Not on filedocumented as of this encounter Visit Diagnoses Not on filedocumented in this encounter"
--- OUTSIDE RECORDS SUMMARY | ~2019-02-10 | XMS | Encounter Summary ---
Demographics + + + | Address | [address] | | | [place] [address] | + + + | Home Phone [...] + + + | Author | [facility] | + + + | Organization | [facility] | + + + [...] Providers + +------+ + | Care Commercial Lines Manager Name | Role | Phone | + +------+ + PCP | Unavailable | + +------+ + Encounter Details +--------+ + + + + | Date | Type | Department | Care Team | Description | +--------+ + + + + | 11/26/ | Results | Urology General | Derrell Lowe, | | | 2003 | Only | [address] | [address] | | | | | [place] Mailcode: | [place], [place] | | | | | [address] | [address] | | | | | [address] | [phone] | | | | | [place], [place] | | | | | | [address] | | | | | | [phone] | | | +--------+ + + + [...] | + + + + + | [facility] DEPARTMENT | [address] [facility] | [place] [address] | | | PATHOLOGY | [address] | | | + + + + + | [facility] | [address] [facility] | [place] [address] | | | PATHOLOGY | [address] [...] | + + + + + | [facility] DEPARTMENT OF | [address] | [place] [address] | | | PATHOLOGY | [address] | | | + + + + + | [facility] OF | [address] | [place] [address] | | | PATHOLOGY | [address] | | | + + + + + documented in this encounter Visit Diagnoses Not on filedocumented in this encounter"
--- OUTSIDE RECORDS SUMMARY | ~2019-02-10 | XMS | Encounter Summary ---
Demographics + + + | Address | [address] | | | [place] [address] | + + + | Home Phone [...] Team Providers + +------+ + | Care Parcel Post Weigher Name | Role | Phone | + [...] | Jaspal Mailcode: [id number] | [address] [place], | | | | | [place], [place] | [place] [address] | | | | | [address] | [phone] | | | | | [phone] | | | +--------+ + + + [...] | + + + + + | [facility] DEPARTMENT OF | [address] | [place] [address] | | | PATHOLOGY | [address] | | | + + + + + | [facility] DEPARTMENT OF | [address] | [place] [address] | | | PATHOLOGY | [address] [...] | | | | | Case reviewed by:rKistin | | | | | | Kody [...] lesion. | | | | | | Residential Driver cross | | | | | | [...] | [facility] | [address] | [place] [address] | | | PATHOLOGY | [address] | | | + + + + + | [facility] | [facility] | [place] [address] | | | PATHOLOGY | [address] | | | + + + + + documented in this encounter Visit Diagnoses Not on filedocumented in this encounter
--- OUTSIDE RECORDS SUMMARY | ~2019-02-10 | XMS | Encounter Summary ---
Demographics + + + | Address | [address] | | | [place] [address] | + + + | Home Phone [...] Team Providers + +------+ + | Care Otr Driver Name | Role | Phone | + [...] as of this encounter Progress Notes Interface, Stave Inspector In - 10/23/2004 10:33 PM PDTDATE OF [...] risk, benefits and alternatives. Enrrique Holland M.D. Dishcloth Folder, Dermatology, Surgery Otolaryngology-Head and Neck Surgery Vesta A 10: 33 PM PDTdocumented in this encounter Plan of Treatment Not on filedocumented as of this encounter Visit Diagnoses Not on filedocumented in this encounter"
--- OUTSIDE RECORDS SUMMARY | ~2019-02-10 | XMS | Encounter Summary ---
Demographics + + + | Address | [address] | | | [place] [address] | + + + | Home Phone [...] Team Providers + +------+ + | Care Tele Tech Name | Role | Phone | [...] as of this encounter Progress Notes Interface, Business Support In - 10/23/2004 4:48 PM PDT [place] [address], [place], [place] [id number] or March 19, 2003 Juan Jose Newby M.D. Department of Dermatology [facility], OP 06 RE: CHRISSY PRATHER MR #: [id number] Dear Juan Jose: Ms. Chrissy Prather has an appointment to see you as a new patient. 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 Her current problem is [...] With best wishes. Sincerely, Lazaro Zuñiga M.D. product safety engineer [facility] / [id number] / [id number] / [id number] / C: 03/28/2003 jlb P M PDTdocumented in this encounter Plan of Treatment Not on filedocumented as of this encounter Visit Diagnoses Not on filedocumented in this encounter"
--- OUTSIDE RECORDS SUMMARY | ~2019-02-10 | XMS | Encounter Summary ---
Demographics + + + | Address | [address] | | | [place] [address] | + + + | Home Phone [...] + + + | Author | [facility] | + + + | Organization | [facility] | + + + | [...] Providers + +------+ + | Care Director Orange Name | Role | Phone | + +------+ + | Timothy Burks MD | PCP | | + +------+ + Encounter Details +--------+ + + + + | Date | Type | Department | Care Team | Description | +--------+ + + + + | 02/26/ | Four Horse Hitch Driver | Vascular Surgery | Sebas Lauren, | Deep Venous | | 2007 | | at [facility] 2nd Floor | [address] | Thrombosis (HCC) | | | | [address] | [address] | (Primary Dx) | | | | [address] Mailcode: | [place], [place] | | | | | [address] | [address] | | | | | [place], | [phone] | | | | | [place] [address] | | | | | | [phone] | | | +--------+ + + + [...]
--- OUTSIDE RECORDS SUMMARY | ~2019-02-10 | XMS | Encounter Summary ---
Demographics + + + | Address | [address] | | | [place] [address] | + + + | Home Phone [...] Providers + +------+ + | Care Healthcare Risk Control Consultant Name | Role | Phone | + +------+ + PCP | Unavailable | + +------+ + Encounter Details +--------+ + + + + | Date | Type | Department | Care Team | Description | +--------+ + + + + | 10/07/ | Results | Urology General | Derrell Lowe, | | | 1999 | Only | [address] | [address] | | | | | [place] [place] Mailcode: | [place], [place] | | | | | [address] | [address] | | | | | [address] | [phone] | | | | | [place], [place] | | | | | | [address] | | | | | | [phone] | | | +--------+ + + + [...] | + +---------+ + + | [facility] DEPARTMENT OF | | | | | RADIOLOGY | | | | + +---------+ + + documented in this encounter Visit Diagnoses Not on filedocumented in this encounter"
--- OUTSIDE RECORDS SUMMARY | ~2019-02-10 | XMS | Encounter Summary ---
Demographics + + + | Address | [address] | | | [place] [address] | + + + | Home Phone | | + + + | Preferred Language | Unknown | + + + | Marital Status | Single | + + + | Scientologist Affiliation | PRO | + + + [...] Team Providers + +------+ + | Care Information Systems Coordinator Name | Role | Phone | + +------+ + | Timothy Burks MD | PCP | | + +------+ + Encounter Details +--------+ + + + + | Date | Type | Department | Care Team | Description | +--------+ + + + + | 02/03/ | Office | UNKNOWN DEPARTMENT | Other, Faculty | Progress Note | | 1998 | Visit-Trans | [address] [facility] | [phone] | | | | hemalatha | [address] | | | | | | [place], [place] | | | | | | [address] | | | +--------+ + + + [...] 2:05 PM PDT ESTABLISHED PATIENT EXAMINATION DATE: 02/03/1999 PATIENT: Mahi Kim [id number] The patient was seen and examined with Dr. Lazaro Zuñiga. HISTORY: Mrs. Kim returns for follow-up of left lower extremity congenital A-V malformation and the venous thrombosis. She was previously known and followed in our clinic as Mahi Prather, until she was last year. She was hospitalized in May of this year with DVT and PE, for which she was treated with warfarin. We are now seeing her on a six-month follow up. She has been wearing her stockings daily. She continues to take Premarin after a MALA/BSO for benign disease. 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 She states that she has not had any new problems since her last visit. She denies shortness of breath. PHYSICAL EXAMINATION: The enlarged left AVM with purplish discoloration as well as purplish discoloration of the lateral distal left foot is present. She has lower extremity edema which is her baseline. She has no ulceration. She has 2+ pedal pulses. VASCULAR LABORATORY: Lower extremity venous duplex reveals occlusive DVT of the right femoral and greater saphenous veins. The popliteal and tibial veins have no evidence of DVT. IMPRESSION: Mrs. Kim appears to be back at baseline with regard to her congenital AVM and leg swelling. She has no more symptoms consistent with PE. She has apparent resolution of her popliteal and tibial extension of DVT. PLAN: We recommend she continue warfarin long-term, especially as she continues to take Premarin. We will continue to see her on a yearly basis. Walter Alegre M.D. Lazaro Zuñiga M.D. Resident filling hauler weaving AN / HS [id number] / [id number] / [id number] / [id number] documented in this encounter Plan of Treatment Not on filedocumented as of this encounter Visit Diagnoses Not on filedocumented in this encounter"
--- OUTSIDE RECORDS SUMMARY | ~2019-02-10 | XMS | Encounter Summary ---
Demographics + + + | Address | [address] | | | [place] [address] | + + + | Home Phone | | + + + | Preferred Language | Unknown | + + + | Marital Status | Single | + + + | Confucianism Affiliation | PRO | + + + [...] Providers + +------+ + | Care Office Services Associate Name | Role | Phone | + +------+ + | Timothy Burks MD | PCP | | + +------+ + Reason for Visit + + + | Reason | Comments | + + + | Postoperative visit | f/u excision of lymhangioma R buttoc | + + + Global Period - Transplant (Routine) +--------+--------+ + + + + | Status | Reason | Specialty | Diagnoses / | Referred By | Referred To | | | | | Procedures | Contact | Contact | +--------+--------+ + + + + | Closed | | Plastic | Diagnoses | Zara, | Kelly | | | | Surgery | Vascular | MD Lazaro | MD Uzair | | | | | malformation | [address] | [address] | | | | | Procedures | [facility] | Ave | | | | | OP: | Rd | [place], [place] | | | | | 01/04/10 | [place], [place] | [address] | | | | | excision | [address] | Phone: | | | | | lymphangioma | | [phone] | | | | | right | | Fax: | | | | | buttock | | [phone] | +--------+--------+ + + + + Encounter Details +--------+---------+ + + + | Date | Type | Department | Care Team | Description | +--------+---------+ + + + | 02/12/ | Office | Plastic and | Uzair Mendoza MD | Vascular | | 2009 | Visit | Reconstructive | [address] | malformation | | | | Surgery at [facility] [address] | [place], [place] | (Primary Dx) | | | | [address] | [address] | | | | | Mailcode: CH5P | [phone] | | | | | [facility] | | | | | | and Healing, | | | | | | Building 1, | | | | | | Floor [place], [place] | | | | | | [address] | | | | | | [phone] | | | +--------+---------+ + + + [...] encounter Progress Notes Uzair Mendoza MD - 02/12/2010 9:25 AM PSTPost-operative visit Subjective:Mahi Prather presents 6 weeks after excision of buttock hemangioma. Pt denies: fever, chills, nausea, vomiting. No problems or concerns. Objective: The wound has healed perfectly, the scar is of good quality. No sign of recurren t hemangioma. Assessment: Uncomplicated recovery. Plan: Pt will follow up prn. 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
--- OUTSIDE RECORDS SUMMARY | ~2019-02-10 | XMS | Encounter Summary ---
Demographics + + + | Address | [address] | | | [place] [address] | + + + | Home Phone [...] Team Providers + +------+ + | Care Recreation Therapist Name | Role | Phone | [...] Note | | 1998 | Visit-Trans | [address] [facility] | [phone] | | | | [address]atha | [address] | | | | | | [place], [place] | | | | | | [address] | | | +--------+ + + + [...] for benign disease. 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 She states that she has not had [...] Walter Alegre M.D. Lazaro Zuñiga M.D. Resident office professional AN / HS [id number] / [id number] / [id number] / [id number] documented in this encounter Plan of Treatment Not on filedocumented as of this encounter Visit Diagnoses Not on filedocumented in this encounter"
--- OUTSIDE RECORDS SUMMARY | ~2019-02-10 | XMS | Encounter Summary ---
Demographics + + + | Address | [address] | | | [place] [address] | + + + | Home Phone [...] Team Providers + +------+ + | Care Mill Recorder Name | Role | Phone | + +------+ + | Timothy Burks MD | PCP | | + +------+ + Encounter Details +--------+ + + + + | Date | Type | Department | Care Team | Description | +--------+ + + + + | 11/03/ | Telephone | Vascular Surgery | Surgery, Vascular | | | 2016 | | at [facility] 2nd Floor | [address] | | | | | [address] | [facility] | | | | | [address] Mailcode: | [place] [address] | | | | | [address] | | | | | | [place] | | | | | | [place] [address] | | | | | | [phone] | | | +--------+ + + + [...]
--- OUTSIDE RECORDS SUMMARY | ~2019-02-10 | XMS | Encounter Summary ---
Demographics + + + | Address | [address] | | | [place] [address] | + + + | Home Phone [...] Team Providers + +------+ + | Care Business Mail Entry Clerk Name | Role | Phone | [...] Closed | | Plastic | Diagnoses | [place], | Kelly, | | | | Surgery | Other | MD Sebas | MD Uzair | | | | | specified | [address] | [address] | | | | | congenital | [address] | [address] | | | | | anomalies | [address] | [place], [place] | | | | | Congenital | [place], [place] | [address] | | | | | lower limb | [address] | Phone: | | | | | vessel | Phone: | [phone] | | | | | anomaly | [phone] | Fax: | | | | | Procedures | Fax: | [phone] | | | | | CONSULT TO | [phone] | | | | | | SURGERY [...] lymphangioma | | | | Surgery at [facility] [address] | [place], [place] | (Primary Dx) | | | | [address] | [address] | | | | | Mailcode: 5 | [phone] | | | | | [facility] | | | | | | and Healing, | | | | | | Building 1, | | | | | | Floor [facility] [place] | | | | | | [address] | | | | | | [phone] | | | +--------+---------+ + + + [...] | + +--------+ + + + | RI FILL CONTOUR | Routin | 08/09/2013 | [...]
--- OUTSIDE RECORDS SUMMARY | ~2019-02-10 | XMS | Encounter Summary ---
Demographics + + + | Address | [address] | | | [place] [address] | + + + | Home Phone | | + + + | Preferred Language | Unknown | + + + | Marital Status | Single | + + + | Cheondoism Affiliation | PRO | + + + [...] Team Providers + +------+ + | Care District Operations Manager Name | Role | Phone | [...] [address] | | | | | | [facility] | | | | | | [place], [place] | | | | | | [address] | | | | | | [phone] | | | +--------+ + + + [...] | | + +---------+ + + | [facility] DEPARTMENT OF | | | | [...] | | + +---------+ + + | [facility] DEPARTMENT OF | | | | | RADIOLOGY | | | | + +---------+ + + documented in this encounter Visit Diagnoses Not on filedocumented in this encounter"
--- OUTSIDE RECORDS SUMMARY | ~2019-02-10 | XMS | Encounter Summary ---
Demographics + + + | Address | [address] | | | [place] [address] | + + + | Home Phone [...] Providers + +------+ + | Care Medical Insurance Clerk Name | Role | Phone | [...] | | | [address] Mailcode: | [place], [place] | | | | | [address] | [address] | | | | | [place], | | | | | | [place] [address] | | | | | | [phone] | | | +--------+---------+ + + + [...]
--- OUTSIDE RECORDS SUMMARY | ~2019-02-10 | XMS | Encounter Summary ---
Demographics + + + | Address | [address] | | | [place] [address] | + + + | Home Phone [...] Team Providers + +------+ + | Care Drain Tile Machine Operator Name | Role | Phone [...] | | anomalies | [address] | [place], [place] | | | | | Congenital | [place], [place] | [address] | | | | | lower limb | [address] | Phone: | | | | | vessel | Phone: | [phone] | | | | | anomaly | [phone] | Fax: | | | | | Procedures | Fax: | [phone] | | | | | CONSULT TO | [phone] | | | | | | SURGERY [...] Dx) | | | | Surgery at [facility] [address] | [place], [place] | | | | | [address] | [address] | | | | | Mailcode: CH5 | [phone] | | | | | [facility] | | | | | | and Healing, | | | | | | Building 1, 5th | | | | | | Floor [place], [place] | | | | | | [address] | | | | | | [phone] | | | +--------+---------+ + + + [...] | + +--------+ + + + | [place] INJ INTO SKIN | Routin | 10/27/2015 [...]
--- OUTSIDE RECORDS SUMMARY | ~2019-02-10 | XMS | Encounter Summary ---
Demographics + + + | Address | [address] | | | [place] [address] | + + + | Home Phone [...] Team Providers + +------+ + | Care Industrial Pipefitter Journeyman Name | Role | Phone | + [...] Description | +--------+---------+ + + + | 01/10/ | Surgery | [facility] | Uzair Mendoza MD | EXCISION BILATERAL | | 2012 | | [facility] for [facility] | [address] | VASCULAR | | | | and Healing Surgery | [place], [place] | MALFORMATION | | | | Center Admitting | [address] | BUTTOCKS Specimens | | | | Desk Located on the | [phone] | to pathology | | | | 4th floor [address] | | | | | | [address] [place], | | | | | | [place] [address] | | | +--------+---------+ + + + [...] patient satisfaction survey from "Francoise Schwartz". We karolyn aj appreciate your feedback on the survey to [...] FellowRichard | | | | | | M. Trinidad, | | | | | | M.D./Pathologist [...] | + + + + + | [facility] | [address] | [place] [address] | | | PATHOLOGY | [address] | | | + + + + + documented in this encounter Visit Diagnoses + + | Diagnosis | + + | Lymphatic malformation Congenital [...] PDT | | | | | Starting [facility] 01/10/13 at 0958, | | | | | | | Until [place] 01/10/13 at 1747, mild | | | | | | | pain | | | | | | + +--------+ +--------+------+------+ +---+---+ | | | +---+---+ + +-------+ +---------+---+ + | bacitracin irrigation | Given | 01/11/20 | 50,000 | | Left | | INTRAPROCEDURE PRN, Starting [place] | | 13 9:39 | Units | | Buttocks | | 01/10/13 at 0939, Until [place] | | AM PDT | | | | | 01/10/13 at 1006 | | | | | | + +-------+ +---------+---+ + +---+---+ | | | +---+---+ + +---------+ [...] +---+---+ | | | +---+---+ + +-------+ +-------+---+ + | ropivacaine (PF) (NAROPIN) | Given | 01/11/20 | 10 mL | | Left | | injection INTRAPROCEDURE PRN, | | 13 9:40 | | | Buttocks | | Starting [place] 01/10/13 at 0940, | | AM PDT | | | | | Until [place] 01/10/13 at 1006 | | | | | | + +-------+ +-------+---+ + +---+---+ | | | +---+---+ + + [...]
--- OUTSIDE RECORDS SUMMARY | ~2019-02-10 | XMS | Encounter Summary ---
Demographics + + + | Address | [address] | | | [place] [address] | + + + | Home Phone [...] Team Providers + +------+ + | Care Big Data Lead Name | Role | Phone | + [...] | | | | | VENOUS | [place], [place] | | | | | | DUPLEX LOWER | [address] | | | | | | EXTREMITY | Phone: | | | | | | LT | [phone] | | | | | | | Fax: | | | | | | | [phone] | | +--------+--------+ + + + + [...] | | | | | | | [place], [place] | | | | | | | [address] | | | | | | | Phone: | | | | | | | [phone] | | | | | | | Fax: | | | | | | | [phone] | +--------+--------+ + + + + Encounter [...] | | | [address] Shay Mailcode: | [place], [place] | limb vessel anomaly; | | | | [address] | [address] | 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 Sebas Burton MD VASCULAR SURGERY AT [facility] 2ND FLOOR [address] [place] [address] Mailcode: [address] [place] [address] heldon Velasquez MD - 10/26/2015 [...] my assessment and plan. Sheldon Velasquez MD [facility] General Surgery PGY5 This assessment and plan [...] with | | | | | | theBinary Fountain scanner. There | | | | | [...]
--- OUTSIDE RECORDS SUMMARY | ~2019-02-10 | XMS | Encounter Summary ---
Demographics + + + | Address | [address] | | | [place] [address] | + + + | Home Phone [...] Author + + + | Author | [facility] | + + + | Organization | [facility] | + + + | Address [...] Team Providers + +------+ + | Care Glass Blowing Instructor Name | Role | Phone | + [...] | | | | | | | [place], [place] | | | | | | | [address] | | | | | | | Phone: | | | | | | | [phone] | | | | | | | Fax: | | | | | | | [phone] | +--------+--------+ + + + + Encounter [...] | | [place]ahra[place] Sh[place] Mailcode: | [place] [address] | | | | | OP[address] Physician's | [phone] | | | | | [place], | | | | | | [place] [address] | | | | | | [phone] | | | +--------+---------+ + + + [...] therapist who performs manual lymphatic drainage in [facility]. Also explained the importance of calf [...] M.D., M.P.H. Neurological Surgery Resident PGY-1 Pager: [phone] signed by Reggie Aguayo MD,MPH at 08/29/2017 12:59 PM Wilmer barrios in this encounter Plan of Treatment Not on filedocumented as of this encounter Visit Diagnoses + + | Diagnosis | + + | Lymphedema of extremity - Primary | + + documented in this encounter
--- OUTSIDE RECORDS SUMMARY | ~2019-02-10 | XMS | Encounter Summary ---
Demographics + + + | Address | [address] | | | [place] [address] | + + + | Home Phone [...] Providers + +------+ + | Care Heating Element Repairer Name | Role | Phone | [...] | | | | | | | [address] | | | | | | | [address] | | | | | | | Jaspal [id number] | | | | | | | [facility] | | | | | | | [facility] | | | | | | | [place], [place] | | | | | | | [address] | | | | | | | Phone: | | | | | | | [phone] | | | | | | | Fax: | | | | | | | [phone] | +--------+--------+ + + + + Encounter Details +--------+ + + + + | Date | Type | Department | Care Team | Description | +--------+ + + + + | 06/19/ | Hospital | [facility] [address] | Sebas Burton, | | | 2008 | Encounter | [address] | [address] | | | | | [address] Carlita | [address] | | | | | [place], | [place], [place] | | | | | [place] [address] | [address] | | | | | [phone] | [phone] | | | | | | | [...] week appointment in Vascular Clinic, please call: [phone]. Other: Follow Up Tests: (Tests at [facility] must be entered into Epic) none Condition [...] Completed?: Yes- Date 06/19/2008 Discharging Provider: ANAHI EHRNANDEZ MD Date Completed: 06/19/2008 Time Completed: 8:35 AM Discharging Attending: MD Dr Anahi Mackey M.B.,B.S. Quilting Machine Operator Department of Surgery [place], [place] [id number] [phone] documented in this en counter Discharge Instructions [...] week appointment in Vascular Clinic, please call: [phone]. Other: Follow Up Tests: (Tests at [facility] must be entered into Epic) none Condition [...] Discharging Attending: MD Dr Anahi Mackey MEdgar.,B.S. Quilting Machine Operator Department of Surgery [facility] INPATIENT NURSE ORDER FOR DISCHARGE AND INTERDISCIPLINARY [...] Mode of Transportation: Car Accompanied by: Family/Responsible [employer] Name: (when applicable) Phone #: Discharge Nurse: CINTHIA LONG RN Date: 06/19/2008 Discharge Time: 11:47 [place] [address] [phone] documented in this encounter Medications at Time [...] + + + + | [facility] | [address] | [place] [address] | | | PATHOLOGY | [address] | | | + + + + + | [facility] | [address] | [place] [address] | | | PATHOLOGY | [address] | | | + + + + + INR (06/19/2008 7:05 AM PDT) + + + + + + | Component | Value | Ref Range | Performed | Pathologist | | | | | At | Signature | + + + + + + | INR | 2.11 (H)Comment: | 0.90 - 1.20 INR | [facility] | | | | INR Therapeutic ranges [...] | + + + + + | [facility] DEPARTMENT OF | [address] | [place] [address] | | | PATHOLOGY | [address] | | | + + + + + | [facility] DEPARTMENT OF | [address] | [place] [address] | | | PATHOLOGY | [address] [...] Performed At | + + + | [id number] | | | [id number] | | | [id number] J[address] 333841 | | | Date: 06/19/2008 Attending | | | Surgeon: Sebas Lauren M.D. | | | Supervisor Phosphatic Fertilizer(s): Vianney Toledo | | | Preoperative Diagnosis(es): [...] | | Sebas Lauren M.D. LARRY / [id number] / [id number] / [id number] / | | | | | + + + + + | Procedure Note | + + | Sebas Lauren MD - 06/19/2008 12:00 AM PDT [id number] | | [id number] JOHNSON LOWE | | C [id number] Date: 06/19/2008 Attending Surgeon: | | Sebas Lauren M.D. Supervisor Phosphatic Fertilizer(s): Vianney Toledo | | Preoperative Diagnosis(es):Right gluteal [...] stable condition. Sebas Lauren M.D. LARRY / [id number] / | | [id number] / [id number] / T: 06/19/2008 | | | | [...] | | | |GJL / HS | |[id number] / [id number] / 86630 / | | | | | | [...] lobular, | | | | | | urrgar-eay-ni-ulcerated- | | | | | | red, [...] surface. | | | | | | Flooring Machine Feeder | | | | | | sections [...] | + + + + + | [facility] DEPARTMENT OF | [address] | [place] [address] | | | PATHOLOGY | [address] | | | + + + + + | [facility] DEPARTMENT OF | [address] | [place] [address] | | | PATHOLOGY | [address] [...]
--- OUTSIDE RECORDS SUMMARY | ~2019-02-10 | XMS | Clinical Summary ---
Demographics + + + | Address | [address] | | | [place] [address] | + + + | Home Phone | | + + + | Preferred Language | Unknown | + + + | Marital Status | Single | + + + | Methodist Affiliation | Unknown | + + + | Race | Unknown | + + + | Ethnic Group | Unknown | + + + Author + + + | Author | [facility] (Historical as of | | | 11-10-18) | + + + | Organization | [facility] (Historical as of | | | 11-10-18) [...] Team Providers + +------+ + | Care Farmworker Fur Name | Role | Phone | + [...] +------+-------+ + | PREMERA | PREMER | [id number] | | | [address] [address] | | | A BLUE | 5 | | | [place], [place] | | | CARD | | | | [address] | +---------+--------+ +------+-------+ + + +--------+ +--------+ [...] | | al/Fam | | 1975 | [phone] | [place] | | | sal | | | [address]: | [address] | | | | | | | | | | | | | [phone] | | | | | | | 7965 | | + +--------+ +--------+ + +
--- OUTSIDE RECORDS SUMMARY | ~2019-02-10 | XMS | Encounter Summary ---
Demographics + + + | Address | [address] | | | [place] [address] | + + + | Home Phone [...] Providers + +------+ + | Care Floor Tiling Professional Name | Role | Phone | [...] | | | | | Stay [address] [facility] | | | | | | [address] | | | | | | Mailcode: UHN65 | | | | | | [place] | | | | | | [address] [place], [place] | | | | | | [address] | | | | | | [phone] | | | +--------+ + + + + Anesthesia Record + + + + + | Procedure Name | Responsible | Anesthesia Start | Anesthesia Stop Time | | | Anesthesiologist | Time | | + + + + + | EXCISION BILATERAL | uRt Do MD | 01/10/13 0859 | 01/10/13 [...] by | | D - | at [facility]); No; left buttock | Vick Healy [...] | No; 20; Left; Hand; Lidocaine; | JRAETT Orr | | Periph | No; Positive [...] perfume, lotions or powder. Remove any nail citizen of [place] from at least one fingernail. Do not [...] of your procedure. Surgery Check in Locations [facility], fourth floor Surgery Check in Time: Someone from your surgeon's office or [facility] will provide you with information regarding your [...] it is after office hours, call the [facility] railroad brake operator at [phone] and ask them to page your doc tor. documented in this encounter Plan of Treatment Not on filedocumented as of this encounter Visit Diagnoses Not on filedocumented in this encounter
--- OUTSIDE RECORDS SUMMARY | ~2019-02-10 | XMS | Encounter Summary ---
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 | + + + Consultation (Routine) +--------+--------+ [...] | | anomalies | [address] | [place], [place] | | | | | Congenital | [place] | [address] | | | | | lower limb | [address] | Phone: | | | | | vessel | Phone: | [phone] | | | | | anomaly | [phone] | Fax: | | | | | Procedures | Fax: | [phone] | | | | | CONSULT TO | [phone] | | | | | | SURGERY - | | | | | | | PLASTICS | | | +--------+--------+ + + + + Encounter Details +--------+---------+ + + + | Date | Type | Department | Care Team | Description | +--------+---------+ + + + | 10/29/ | Office | Plastic and | Uzair Mendoza MD | Lymphatic | | 2013 | Visit | Reconstructive | [address] | malformation | | | | Surgery at [facility] [address] | [place], [place] | (Primary Dx) | | | | [address] | [address] | | | | | Mailcode: [facility] | [phone] | | | | | [facility] | | | | | | and Healing, | | | | | | Building 1, 5th | | | | | | Floor [facility] [place] | | | | | | [address] | | | | | | [phone] | | | +--------+---------+ + + + [...] +---------+ + + | Blood Pressure | 124/65 | 10/29/2013 10:22 AM | | | | | PDT | | + +---------+ + + | Pulse | 91 | 10/29/2013 10:22 AM | | | | | PDT | | + +---------+ + + | Temperature | - | - | | + +---------+ + + | Respiratory Rate | 16 | 10/29/2013 10:22 AM | | | | | PDT | | + +---------+ + + | Oxygen Saturation | 95% | 10/29/2013 10:22 AM | | | | | PDT [...] encounter Progress Notes Uzair Mendoza MD - 10/29/2013 10:37 AM PDTShe has had good improvement with the steroid in jections to the lymphatic malformations. No new lesions. On exam the linear lesion on the le ft buttock and three small scattered lesions on the right buttock are all improved since las t visit. No bleeding. No drainage. We elected to inject the lesions again. [...] inj ected intralesional. She will return in 3 months. P M PDTdocumented in this encounter Plan of Treatment Not on filedocumented as of this encounter Procedures + +--------+ + + + | Procedure Name | Priori | Date/Time | Associated Diagnosis | Comments | | | ty | | | | + +--------+ + + + | ME INJ INTO SKIN | Routin | 10/29/2013 | Lymphatic | | | LESIONS, UP TO AND | e | 10:39 AM | malformation | | | INCLUDE 7 LESIONS | | PDT | | | + +--------+ + + + documented in this encounter Visit Diagnoses + + | Diagnosis | + + | Lymphatic malformation - Primary Congenital anomaly, unspecified | + + documented in this encounter
--- OUTSIDE RECORDS SUMMARY | ~2019-02-10 | XMS | Encounter Summary ---
Demographics + + + | Address | [address] | | | [place] [address] | + + + | Home Phone [...] Team Providers + +------+ + | Care Associate Dean Of Women Name | Role | Phone | + [...] | [address] | [place] | | | | | [place] | [place] [address] | | | | | [address] [place], [place] | [phone] | | | | | [address] | | | +--------+ + + + [...]
--- OUTSIDE RECORDS SUMMARY | ~2019-02-10 | XMS | Encounter Summary ---
Demographics + + + | Address | [address] | | | [place] [address] | + + + | Home Phone [...] Team Providers + +------+ + | Care Manufacturing Engineer Assembly Name | Role | Phone | + [...] LEFT LEG | | 2019 | | [facility] | [address] | SKIN LESION | | | | and Healing Surgery | [place], [place] | | | | | Center Admitting | [address] | | | | | Desk Located on the | [phone] | | | | | 4th floor [address] | | | | | | [address] [place], | | | | | | [place] [address] | | | +--------+---------+ + + + [...] feel free to call our office at [phone] with any questions. Call our office immediately [...] PathologistPathology, | | | | | | [facility] | | | | | | [facility] electronic | | | | | | [...] | HEALTH + | | | | [id number]. Leg, Left | | HEALING | | [...] + | [facility] DEPARTMENT OF | [address] | [place] [address] | | | PATHOLOGY | [address] | | | + + + + + | [facility] LABORATORY | [address] | [place] [address] | | | SERVICES, [place] [facility] | | | | | HEALTH [...] POINT | [address] | [place] [address] | | | OF CARE TESTS | [...]
--- OUTSIDE RECORDS SUMMARY | ~2019-02-10 | XMS | Encounter Summary ---
Demographics + + + | Address | [address] | | | [place] [address] | + + + | Home Phone [...] Providers + +------+ + | Care Manager Audio Name | Role | Phone | + [...] | Transcriptions | + + | Interface, Residential Living Assistant In - 11/22/2005 3:00 AM PDT | | [facility] [address] | | [place], [place] [address] | | [facility] Center[facility] RECORDMed Rec No.: | | [id number] Date: 08/30/2001Name: Mahi Prather SURGEON:Derrell Heath | | Jay LowePREOPERATIVE DIAGNOSIS(ES):1. Gross hematuria.2. Congenital venous | | [...] | catheter was left in place.Derrell Lowe M.D.[facility]:xt7D: 08/30/2001T: | | 09/01/2001cc:ALISON RAMOS MD[address] [facility] [place] [id number]: | |significant aberrant veins in her pelvis [...] | | |ALISON RAMOS MD | |[address] [facility] | |[place] [address] | | | | | |[phone] | | | |CC: | + + documented in this encounter Visit Diagnoses Not on filedocumented in this encounter"
--- OUTSIDE RECORDS SUMMARY | ~2019-02-10 | XMS | Encounter Summary ---
Demographics + + + | Address | [address] | | | [place] [address] | + + + | Home Phone [...] Team Providers + +------+ + | Care Site Safety Representative Name | Role | Phone | + +------+ + | Timothy Burks MD | PCP | | + +------+ + Encounter Details +--------+ + + + + | Date | Type | Department | Care Team | Description | +--------+ + + + + | 11/03/ | Telephone | Vascular Surgery | Surgery, Vascular | | | 2016 | | at [facility] 2nd Floor | [address] | | | | | [address] | [facility] | | | | | [place] Shay Mailcode: | [place] [address] | | | | | [address] Physician's | | | | | | [place] | | | | | | [place] [address] | | | | | | [phone] | | | +--------+ + + + [...]
--- OUTSIDE RECORDS SUMMARY | ~2019-02-10 | XMS | Encounter Summary ---
Demographics + + + | Address | [address] | | | [place] [address] | + + + | Home Phone | | + + + | Preferred Language | Unknown | + + + | Marital Status | Single | + + + | Yazidi Affiliation | PRO | + + + [...] Team Providers + +------+ + | Care Practicing Md Anesthesiologist Name | Role | Phone | + [...] | | anomalies | [address] | [place], [place] | | | | | Congenital | [place], [place] | [address] | | | | | lower limb | [address] | Phone: | | | | | vessel | Phone: | [phone] | | | | | anomaly | [phone] | Fax: | | | | | Procedures | Fax: | [phone] | | | | | CONSULT TO | [phone] | | | | | | SURGERY [...] Dx) | | | | Surgery at [facility] [address] | [place], [place] | | | | | [address] | [address] | | | | | Mailcode: [facility] | [phone] | | | | | [facility] | | | | | | and Healing, | | | | | | Building 1, 5th | | | | | | Floor [place], [place] | | | | | | [address] | | | | | | [phone] | | | +--------+---------+ + + + [...] | + +--------+ + + + | AK INJ INTO SKIN | Routin | 07/09/2015 [...]
--- OUTSIDE RECORDS SUMMARY | ~2019-02-10 | XMS | Encounter Summary ---
Demographics + + + | Address | [address] | | | [place] [address] | + + + | Home Phone | | + + + | Preferred Language | Unknown | + + + | Marital Status | Single | + + + | Oriental Orthodox Affiliation | PRO | + + [...] Team Providers + +------+ + | Care Carpenter Assembler Name | Role | Phone | + +------+ + | Timothy Burks MD | PCP | | + +------+ + Encounter Details +--------+ + + + + | Date | Type | Department | Care Team | Description | +--------+ + + + + | 02/21/ | [facility] | UNKNOWN DEPARTMENT | Letter, Clinic | Letters | | 2006 | scribed | [address] | | | | | | [address] | | | | | | [place], [place] | | | | | | [address] | | | +--------+ + + + [...] as of this encounter Progress Notes Interface, Certified Master Safecracker In - 02/22/2007 2:26 AM PST [id number] 02/21/2007 02/21/2007 [id number] JOHNSON Sagastume [address] [address] or February 21, 2007 Timothy Burks M.D. [facility], [place] RE: CHRISSY PRATHER MR #: [id number] Dear Dr. Burks: We just saw Chrissy Prather back in the vascular surgery clinic at [facility]. Thanks for allowing us to continue seeing her. 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 It seems to be very focal and not involving the subcutaneous tissue. I offered her focal resection of this malformation. I would feel comfortable resecting this if her INR is in the range of 2.0. We would appreciate it if you could see her in the near future to help regulate the INR with a target goal of 2.0. We tentatively have her scheduled for surgery on March 02, 2007. If you have any questions please do not hesitate to contact me. With Best Wishes, Alonzo Torrez M.D. / [id number] / [id number] / [id number] / documented in this encounter Plan of Treatment Not on filedocumented as of this encounter Visit Diagnoses Not on filedocumented in this encounter"
--- OUTSIDE RECORDS SUMMARY | ~2019-02-10 | XMS | Encounter Summary ---
Demographics + + + | Address | [address] | | | [place] [address] | + + + | Home Phone [...] Team Providers + +------+ + | Care Automotive Service Director Name | Role | Phone | [...] | | anomalies | [address] | [place], [place] | | | | | Congenital | [place], [place] | [address] | | | | | lower limb | [address] | Phone: | | | | | vessel | Phone: | [phone] | | | | | anomaly | [phone] | Fax: | | | | | Procedures | Fax: | [phone] | | | | | CONSULT TO | [phone] | | | | | | SURGERY [...] malformation | | | | Surgery at [facility] [address] | [place], [place] | (Primary Dx) | | | | [address] | [address] | | | | | Mailcode: [facility] | [phone] | | | | | [facility] | | | | | | and Healing, | | | | | | Building 1, | | | | | | Floor [facility] [place] | | | | | | [address] | | | | | | [phone] | | | +--------+---------+ + + + [...]
--- OUTSIDE RECORDS SUMMARY | ~2019-02-10 | XMS | Encounter Summary ---
Demographics + + + | Address | [address] | | | [place] [address] | + + + | Home Phone [...] Team Providers + +------+ + | Care Artists' Model Name | Role | Phone | + [...] | | | | | Procedures | [place], [place] | [address] | | | | | REQUEST TO | [address] | Physician's | | | | | SURGERY | Phone: | Ron | | | | | DEBT AND BUDGET COUNSELOR | [phone] | [place], [place] | | | | | [place] VASCULAR | Fax: | [address] | | | | | SURGERY | [phone] | Phone: | | | | | PROCEDURE | | [phone] | | | | | [place] | | Fax: | | | | | | | [phone] | +--------+--------+ + + + + Reason [...] | | | [address] Mailcode: | [place], [place] | Vascular Anom NEC | | | | [address] Physician's | [address] | | | | | [place], | [phone] | | | | | [place] [address] | | | | | | [phone] | | | +--------+---------+ + + + [...] as possible. I will have our or wrap knitting machine operator contact her regarding date and time. CC: Timothy Burks MD [facility] [address] [place] [address] [place] [address] documented in this encoun ter Plan of [...]
--- OUTSIDE RECORDS SUMMARY | ~2019-02-10 | XMS | Encounter Summary ---
Demographics + + + | Address | [address] | | | [place] [address] | + + + | Home Phone [...] Team Providers + +------+ + | Care Internal Grinder Tender Name | Role | Phone | + +------+ + | Timothy Burks MD | PCP | | + +------+ + Encounter Details +--------+ + + + + | Date | Type | Department | Care Team | Description | +--------+ + + + + | 06/21/ | Professor Of Biology | [facility] | JaimeHeidy | Bright red rectal | | 2016 | | [place] [address] | E[address] | bleeding (Primary | | | | [address] Mailcode: | [address] | Dx) | | | | [facility] for | [place], [place] | | | | | Health and Healing, | [address] | | | | | [address] | [phone] | | | | | [place], [place] | | | | | | [address] | | | | | | [phone] | | | +--------+ + + + [...]
--- OUTSIDE RECORDS SUMMARY | ~2019-02-10 | XMS | Encounter Summary ---
Demographics + + + | Address | [address] | | | [place] [address] | + + + | Home Phone [...] Team Providers + +------+ + | Care Shrimp Header Name | Role | Phone | [...]
--- OUTSIDE RECORDS SUMMARY | ~2019-02-10 | XMS | Encounter Summary ---
Demographics + + + | Address | [address] | | | [place] [address] | + + + | Home Phone [...] + + + | Author | [facility] | + + + | Organization | [facility] | + + + | [...] Providers + +------+ + | Care Electric Organ Inspector And Repairer Name | Role | Phone | [...] | | anomalies | [address] | [place], [place] | | | | | Congenital | [place] | [address] | | | | | lower limb | [address] | Phone: | | | | | vessel | Phone: | [phone] | | | | | anomaly | [phone] | Fax: | | | | | Procedures | Fax: | [phone] | | | | | CONSULT TO | [phone] | | | | | | SURGERY [...] | | | [address] Sh[address] Mailcode: | [place], [place] | | | | | [address] Physician's | [address] | | | | | [place], | [phone] | | | | | [place] [address] | | | | | | [phone] | | | +--------+---------+ + + + [...] note. SEBAS BURTON MD VASCULAR SURGERY AT [facility] 2ND FLOOR [address] [place] [address] Mailcode: [address] [place] [id number] Javier Duarte MD - 10/28/2013 11:25 AM PDT Attending Surgeon: Sebas Burton MD Author: Javier Epperson MD Date: 10/28/2013 Identification: Mahi Prather is a 38 year old female with history significant for the [facility] vascular operations: Multiple excisions of left gluteal [...]
--- OUTSIDE RECORDS SUMMARY | ~2019-02-10 | XMS | Encounter Summary ---
Demographics + + + | Address | [address] | | | [place] [address] | + + + | Home Phone [...] Team Providers + +------+ + | Care Kier Operator Name | Role | Phone | [...] Note | | 1999 | Visit-Trans | [address] [facility] | [phone] | | | | hemalatha | [address] | | | | | | [place], [place] | | | | | | [address] | | | +--------+ + + + [...] her swelling adequately. 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 She has had no bleeding complications from her shelter warfarin therapy. Physical Examination: On examination her [...] in one year. Lazaro Zuñiga Jr., M.D. rapid extractor operator KT/delmis A documented in this encounter Plan of Treatment Not on filedocumented as of this encounter Visit Diagnoses Not on filedocumented in this encounter"
--- OUTSIDE RECORDS SUMMARY | ~2019-02-10 | XMS | Encounter Summary ---
Demographics + + + | Address | [address] | | | [place] [address] | + + + | Home Phone [...] Team Providers + +------+ + | Care Orthotic Technician Name | Role | Phone | [...] | | anomalies | [address] | [place], [place] | | | | | Congenital | [place], [place] | [address] | | | | | lower limb | [address] | Phone: | | | | | vessel | Phone: | [phone] | | | | | anomaly | [phone] | Fax: | | | | | Procedures | Fax: | [phone] | | | | | CONSULT TO | [phone] | | | | | | SURGERY [...] malformation | | | | Surgery at [facility] [address] | [place], [place] | (Primary Dx) | | | | [address] | [address] | | | | | Mailcode: [facility] | [phone] | | | | | [facility] | | | | | | and Healing, | | | | | | Building 1, 5th | | | | | | Floor [place], [place] | | | | | | [address] | | | | | | [phone] | | | +--------+---------+ + + + [...] | + +--------+ + + + | CA INJ INTO SKIN | Routin | 02/24/2015 [...]
--- OUTSIDE RECORDS SUMMARY | ~2019-02-10 | XMS | Encounter Summary ---
Demographics + + + | Address | [address] | | | [place] [address] | + + + | Home Phone [...] Team Providers + +------+ + | Care Meat Packager Name | Role | Phone | + [...] 2018 | on | Center at [address] | | | | | | [address] | | | | | | Mailcode: [place] | | | | | | for [facility] and | | | | | | Healing, [address] | | | | | | [place], [place] | | | | | | [address] | | | | | | [phone] | | | +--------+ + + + [...]
--- OUTSIDE RECORDS SUMMARY | ~2019-02-10 | XMS | Encounter Summary ---
Demographics + + + | Address | [address] | | | [place] [address] | + + + | Home Phone [...] Team Providers + +------+ + | Care Quality Assurance Project Manager Name | Role | Phone [...] Closed | | Plastic | Diagnoses | [place], | [place], | | | | Surgery | Other | MD Sebas | MD Uzair | | | | | specified | [address] | [address] | | | | | congenital | [address] | Ave | | | | | anomalies | [address] | [place], [place] | | | | | Congenital | [place], [place] | [address] | | | | | lower limb | [address] | Phone: | | | | | vessel | Phone: | [phone] | | | | | anomaly | [phone] | Fax: | | | | | Procedures | Fax: | [phone] | | | | | CONSULT TO | [phone] | | | | | | SURGERY [...] malformation | | | | Surgery at [facility] [address] | [place], [place] | (Primary Dx) | | | | [address] | [address] | | | | | Mailcode: [facility] | [phone] | | | | | [facility] | | | | | | and Healing, | | | | | | Building 1, 5th | | | | | | Floor [place], [place] | | | | | | [address] | | | | | | [phone] | | | +--------+---------+ + + + [...] | + +--------+ + + + | [place] FILL CONTOUR | Routin | 10/24/2014 | [...]
--- OUTSIDE RECORDS SUMMARY | ~2019-02-10 | XMS | Encounter Summary ---
Demographics + + + | Address | [address] | | | [place] [address] | + + + | Home Phone [...] Team Providers + +------+ + | Care Programmer Numerical Control Name | Role | Phone | + +------+ + | Jose Ramires MD | PCP | | + +------+ + Encounter Details +--------+--------+ + + + | Date | Type | Department | Care Team | Description | +--------+--------+ + + + | 02/01/ | Travel | | | | | 2018 | | | | | +--------+--------+ + [...]
--- OUTSIDE RECORDS SUMMARY | ~2019-02-10 | XMS | Encounter Summary ---
Demographics + + + | Address | [address] | | | [place] [address] | + + + | Home Phone [...] Team Providers + +------+ + | Care Steel Roller Name | Role | Phone | + +------+ + | Jose Ramires MD | PCP | | + +------+ + Encounter Details +--------+ + + + + | Date | Type | Department | Care Team | Description | +--------+ + + + + | 06/14/ | Telephone | Vascular Surgery | Raul Madera MD | | | 2019 | | at [facility] 2nd Floor | [address] | | | | | [address] | [place] | | | | | [place] Mailcode: | [place] [address] | | | | | [address] Physician's | [phone] | | | | | [place], | | | | | | [place] [address] | | | | | | [phone] | | | +--------+ + + + [...]
--- OUTSIDE RECORDS SUMMARY | ~2019-02-10 | XMS | Encounter Summary ---
Demographics + + + | Address | [address] | | | [place] [address] | + + + | Home Phone [...] Providers + +------+ + | Care Electric Powerline Examiner Name | Role | Phone | + [...] | 2019 | Encounter | Reconstructive | ENTERPRISE SALES PERSON [address] | | | | | Surgery at [facility] [address] | Ave [facility] [place] | | | | | [address] | [address] | | | | | Mailcode: 5 | [phone] | | | | | [facility] | | | | | | and Healing, | | | | | | Building 1, | | | | | | Floor [place], [place] | | | | | | [address] | | | | | | [phone] | | | +--------+ + + + [...]
--- OUTSIDE RECORDS SUMMARY | ~2019-02-10 | XMS | Encounter Summary ---
Demographics + + + | Address | [address] | | | [place] [address] | + + + | Home Phone [...] Team Providers + +------+ + | Care Dietetic Assistant Name | Role | Phone | + +------+ + | Timothy Burks MD | PCP | | + +------+ + Encounter Details +--------+ + + + + | Date | Type | Department | Care Team | Description | +--------+ + + + + | 06/08/ | Document-Sc | Health Information | Unknown . | | | 2018 | anned | Services 1982 | | | | | | [address] | | | | | | Mailcode: OP17A | | | | | | [facility] | | | | | | [place], [place] | | | | | | [address] | | | | | | [phone] | | | +--------+ + + + [...]
--- OUTSIDE RECORDS SUMMARY | ~2019-02-10 | XMS | Encounter Summary ---
Demographics + + + | Address | [address] | | | [place] [address] | + + + | Home Phone [...] Team Providers + +------+ + | Care Technical Sales Representative Name | Role | Phone [...] | | | [address] Mailcode: | [place], [place] | Dx) | | | | [address] | [address] | | | | | [place], | [phone] | | | | | [place] [address] | | | | | | [phone] | | | +--------+---------+ + + + [...] secondary intention. 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
--- OUTSIDE RECORDS SUMMARY | ~2019-02-10 | XMS | Encounter Summary ---
Demographics + + + | Address | [address] | | | [place] [address] | + + + | Home Phone | | + + + | Preferred Language | Unknown | + + + | Marital Status | Single | + + + | Spiritism Affiliation | PRO | + + + [...] Team Providers + +------+ + | Care Shift Lab Technician Name | Role | Phone | + +------+ + | Timothy Burks MD | PCP | | + +------+ + Encounter Details +--------+ + + + + | Date | Type | Department | Care Team | Description | +--------+ + + + + | 12/23/ | Abstract | Vascular Surgery | Surgery, Vascular | | | 2016 | | at [facility] 2nd Floor | [address] | | | | | [address] | [facility] | | | | | [place] Mailcode: | [place] [address] | | | | | [address] | | | | | | [place] | | | | | | [place] [address] | | | | | | [phone] | | | +--------+ + + + [...]
--- OUTSIDE RECORDS SUMMARY | ~2019-02-10 | XMS | Encounter Summary ---
Demographics + + + | Address | [address] | | | [place] [address] | + + + | Home Phone [...] Team Providers + +------+ + | Care Pipe Coremaker Name | Role | Phone | + [...] [address] | | | | | | [facility] | [facility] | | | | | | Rd | Rd | | | | | | [place], [place] | Mailcode: | | | | | | [address] | [address] | | | | | | Phone: | Physician's | | | | | | [phone] | Pavilion | | | | | | Fax: | [place], [place] | | | | | | [phone] | [address] | | | | | | | Phone: | | | | | | | [phone] | | | | | | | Fax: | | | | | | | [phone] | + +--------+ + + + + [...] mucosa; New | | | | at [facility] [address] | [address] [place], | patient consultation | | | | [address] | [place] [address] | | | | | Mailcode: [address]06 | [phone] | | | | | [place], [facility] | | | | | | floor [place], [place] | | | | | | [address] | | | | | | [phone] | | | +--------+ + + + [...] podiatry, suc h as Dr Adams at [facility]. For your excision, Dr Mendoza's outside repairer special will call you. 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 The [...] helpful enough, consult with podiatry -Follow-up in [facility] in 1 year Patient seen today with Drs. Albrecht of dermatology and Dr. Mendoza of plastic surgery I have reviewed and verified the above scribed note of my visit with this patient as record ed by Joy Mg CMA. 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
--- OUTSIDE RECORDS SUMMARY | ~2019-02-10 | XMS | Encounter Summary ---
Demographics + + + | Address | [address] | | | [place] [address] | + + + | Home Phone [...] Team Providers + +------+ + | Care Disk Operator Name | Role | Phone | [...] | Other | MD Sebas | MD zUair | | | | | specified | [address] | [address] | | | | | congenital | [address] | Ave | | | | | anomalies | [address] | [place], [place] | | | | | Congenital | [place], [place] | [address] | | | | | lower limb | [address] | Phone: | | | | | vessel | Phone: | [phone] | | | | | anomaly | [phone] | Fax: | | | | | Procedures | Fax: | [phone] | | | | | CONSULT TO | [phone] | | | | | | SURGERY [...] Dx) | | | | Surgery at [facility] [address] | [place], [place] | | | | | [address] | [address] | | | | | Mailcode: [facility] | [phone] | | | | | [facility] | | | | | | and Healing, | | | | | | Building 1, | | | | | | Floor [facility] [place] | | | | | | [address] | | | | | | [phone] | | | +--------+---------+ + + + [...] | + +--------+ + + + | [place] FILL CONTOUR | Routin | 04/01/2014 | [...]
--- OUTSIDE RECORDS SUMMARY | ~2019-02-10 | XMS | Encounter Summary ---
Demographics + + + | Address | [address] | | | [place] [address] | + + + | Home Phone [...] Team Providers + +------+ + | Care Button Sawyer Name | Role | Phone | + +------+ + | Timothy Burks MD | PCP | | + +------+ + Encounter Details +--------+ + + + + | Date | Type | Department | Care Team | Description | +--------+ + + + + | 02/21/ | Office | UNKNOWN DEPARTMENT | Nte, Vascular | Progress Note | | 2006 | Visit-Trans | [address] | Surgery Clinic | | | | hemalatha | [address] | | | | | | [place], [place] | | | | | | [address] | | | +--------+ + + + [...] documented as of this encounter Progress Notes Ani Keith - 04/26/2007 11:08 PM PST [id number] JOHNSON Sagastume [id number] Date: 02/21/2007 Patient: Mahi Prather MR# [id number] Established Patient Examination Subjective: Ms. Prather is well known to the Vascular Clinic. She returns for her yearly visit. She is a 31-year-old woman with a history of angiodysplasia and edema of her left leg. She has been managing this with thigh-high compression stockings at a strength of 40 to 50 mmHg compression. She has known DVTs and a history of PE and stroke from these and is on chronic Coumadin therapy. Regarding her legs, she has no complaints. She states that the edema is stable. The compression stocking seems to be working adequately. She does not have any pain or ulcerations. She is able to carry out her normal activities. 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 Historically, it has drained clear fluid. She has undergone a laser ablation of this at the D[facility]atology [facility] which unfortunately did not help it resolve. Over the past couple of weeks, it has been oozing both serous and bloody fluid, and has become very bothersome. She also states that approximately once a year she experiences swelling in her labia from what she thinks is a broken blood vessel. It takes about a week to go down. It is painful, and she questions whether there is anything that can be done regarding that. Objective: A well-appearing woman in no acute distress. Heart: Regular. Lungs: Clear bilaterally. Extremities: Her left lower extremity is very swollen from the toes to the hip. There is discoloration over her third, fourth, and fifth toes and the lateral thigh. She has palpable DP pulse, and there is no skin breakdown or ulceration. In her gluteal cleft on the right side, there is an approximately 3 x 1 cm AVM that is protruding about 1 cm out from the surface of the skin, it is oozing serosanguineous fluid. To palpation, it is well demarcated and does not seem to be diving any deeper into her gluteus. Her left labia majora is also swollen with redundant tissue, is nontender at this time. Assessment and Plan: Ms. 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 These have been well controlled with a compression stocking. Her vaginal swelling occurs once a year, and no intervention is warranted at this time. The arteriovenous malformation in her gluteal cleft is symptomatic and feels fairly localized. We discussed elliptical excision of this arteriovenous malformation as a day surgery. Because of her history with deep vein thrombosis, pulmonary embolism, and stroke, it is warranted to continue her Coumadin. We would be willing to perform the surgery with a target INR of 2, but would be forced to cancel the case if it were greater than 2.5. After discussing the risks, she agreed to proceed with the surgery. It is tentatively scheduled for March 02, 2007. During clinic, I contacted her primary care doctor's office in [place] and informed his nurse of the plan. Ms. Prather will need closer surveillance of her INR in the week preceding surgery to reach the goal target of 2.0. This patient was seen and examined with Dr. Torrez who agrees with the assessment and plan. Ani Keith M.D. Alonzo Torrez M.D. / ALENA [id number] / [id number] / [id number] / [id number] cc: Timothy Burks M.D. [place], [place] Reviewed or Edited By Ani Keith on 02-28-2007 Electronically signed by Alonzo Torrez 04-26-2007 11:07:41 PM documented in this encoun ter Plan of Treatment Not on filedocumented as of this encounter Visit Diagnoses Not on filedocumented in this encounter"
--- OUTSIDE RECORDS SUMMARY | ~2019-02-10 | XMS | Encounter Summary ---
Demographics + + + | Address | [address] | | | [place] [address] | + + + | Home Phone [...] Team Providers + +------+ + | Care Estate Conservator Name | Role | Phone | + +------+ + | Timothy Bruks MD | PCP | | + +------+ + Encounter Details +--------+ + + + + | Date | Type | Department | Care Team | Description | +--------+ + + + + | 06/13/ | Telephone | Vascular Surgery | Sebas Burton, | | | 2017 | | at [facility] 2nd Floor | [address] | | | | | [address] | [address] | | | | | [place] Mailcode: | [place], [place] | | | | | [address] Phys[address] | [address] | | | | | [place], | [phone] | | | | | [place] [address] | | | | | | [phone] | | | +--------+ + + + [...]
--- OUTSIDE RECORDS SUMMARY | ~2019-02-10 | XMS | Encounter Summary ---
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 [facility] [address] | | | | | lower limb | [address] | [address] | | | | | vessel | [address] | [address] | | | | | anomaly | [address] | Rd Mailcode: | | | | | Procedures | [facility] [place] | [address] | | | | | VASC LAB | [address] | Physician's | | | | | VENOUS | Phone: | Pavilion | | | | | DUPLEX LOWER | [phone] | [place], [place] | | | | | EXTREMITY | Fax: | [address] | | | | | LT | [phone] | Phone: | | | | | | | [phone] | | | | | | | Fax: | | | | | | | [phone] | +--------+--------+ + + + + Encounter Details +--------+ + + + + | Date | Type | Department | Care Team | Description | +--------+ + + + + | 10/23/ | Hospital | Diagnostic | | | | 2011 | Encounter | Radiology at [facility] | | | | | | [address] | | | | | | [place] Mailcode: | | | | | | [address] Physician's | | | | | | [place], | | | | | | [place] [address] | | | | | | [phone] | | | +--------+ + + + [...] + + documented in this encounter Results [facility] LAB VENOUS DUPLEX LOWER EXTREMITY LT (10/24/2011 [...]
--- OUTSIDE RECORDS SUMMARY | ~2019-02-10 | XMS | Encounter Summary ---
Demographics + + + | Address | [address] | | | [place] [address] | + + + | Home Phone [...] Team Providers + +------+ + | Care Bathhouse Keeper Name | Role | Phone | + +------+ + | Timothy Burks MD | PCP | | + +------+ + Reason for Visit + + + | Reason | Comments | + + + | Follow-up visit | 8 mo f/u gluteal cleft hemangeoma | + + + Office Visit - E/M Services (Routine) +--------+--------+ + + + + | Status | Reason | Specialty | Diagnoses / | Referred By | Referred To | | | | | Procedures | Contact | Contact | +--------+--------+ + + + + | Closed | | Plastic | | Non-[facility] | Pls | | | | Surgery | | Epic Dept | Gen/Recon | | | | | | | [facility] [address] | | | | | | [address] | | | | | | | Mailcode: | | | | | | | [facility] | | | | | | | for Health | | | | | | | and Healing, | | | | | | | Building 1, | | | | | | | 5th Floor | | | | | | | [place], [place] | | | | | | | [address] | | | | | | | Phone: | | | | | | | [phone] | +--------+--------+ + + + + Encounter Details +--------+---------+ + + + | Date | Type | Department | Care Team | Description | +--------+---------+ + + + | 02/09/ | Office | Plastic and | Guillermo Mendoza MD | Lymphatic | | 2018 | Visit | Reconstructive | [address] | malformation | | | | Surgery at [facility] [address] | [place], [place] | (Primary Dx) | | | | [address] | [address] | | | | | Mailcode: [facility] | [phone] | | | | | [facility] | | | | | | and Healing, | | | | | | Building 1, 5th | | | | | | Floor [place], [place] | | | | | | [address] | | | | | | [phone] | | | +--------+---------+ + + + [...] + + + | Blood Pressure | 129/77 | 02/09/2018 2:26 PM | | | | | PST | | + + + + + | Pulse | 78 | 02/09/2018 2:26 PM | | | | | PST | | + + + + + | Temperature | - | - | | + + + + + | Respiratory Rate | 16 | 02/09/2018 2:26 PM | | | | | PST | | + + + + + | Oxygen Saturation | 92% | 02/09/2018 2:26 PM | | | | | PST | | + + + + + | Inhaled Oxygen | - | - | | | Concentration | | | | + + + + + | Weight | 136.6 kg (301 lb 3.2 | 02/09/2018 2:26 PM | | | | oz) | PST | | + + + + + | Height | 175.3 cm (5' 9") | 02/09/2018 2:26 PM | | | | | PST | | + + + + + | Body Mass Index | 44.48 | 02/09/2018 2:26 PM | | | | | PST | | + + + + + documented in this encounter Progress Notes Guillermo Mendoza MD - 02/09/2018 2:45 PM PSTPLASTIC SURGERY CLINIC FOLLOW-UP VISIT ID: Mahi Prather is a 42 year old female with history of recurrent gluteal cleft lymphangiomas, s/p multiple surgical excisions. She presents today for her gluteal cleft lymphangiomas. Pat abiel reports that her lymphangiomas are causing her moderate pain and she would like further steroid injections in clinic today. She has noticed a new ones forming lower in the gluteal cleft. Patient has had good response with the steroid treatments in the past. Physical Exam: BP 129/77 | Pulse 78 | RR 16 | Ht 1.753 m (5' 9") | Wt 136.6 kg (301 lb 3.2 oz) | SpO2 92% | BMI 44.48 kg/(m^2) General: NAD, AAOx3 : There a lymphangioma blebs on both sides of the gluteal cleft. The previously treated a reas on the upper gluteal cleft are doing well and not enlarging. There is an area of scatte red new blebs on the left inferior gluteal cleft. These are the areas treated today. Under sterile conditions 0.7mL of Kenalog 40 was injected into the lymphangiomas and scar on both sides of the gluteal cleft. She tolerated it well. There are several areas of lymph angiomatous blebs near the anus. Assessment and Plan: Mahi Prather is a 40 y.o. female with recurrent gluteal cleft lymphangiomas. Steroid injec tion performed today, as documented above. We discussed trying sirolimus cream to see if that will slow the progression of the lymphat ic malformation blebs. A prescription was sent to [facility] for Sirol imus 1% cream, 30 gm tube, apply daily to affected areas. I, Enmanuel Fabian, am functioning as a scribe for Guillermo Mendoza MD. I have reviewed and verified the above scribed note of my visit with this patient as record ed by Enmanuel Fabian. GUILLERMO MENDOZA MD atmospheric sciences professor of Plastic Surgery [address] [place] [address] documented in this en counter Plan of Treatment Not on filedocumented as of this encounter Procedures + +--------+ + + + | Procedure Name | Priori | Date/Time | Associated Diagnosis | Comments | | | ty | | | | + +--------+ + + + | ORDERS OTHER | | 02/09/2018 | | Results for this | | | | 12:00 AM | | procedure are in the | | | | PST | | results section. | + +--------+ + + + documented in this encounter Results ORDERS OTHER (02/09/2018 12:00 AM PST) + + + | Narrative | Performed At | + + + | | | + + + documented in this encounter Visit Diagnoses + + | Diagnosis | + + | Lymphatic malformation - Primary Congenital anomaly, unspecified | + + documented in this encounter
--- OUTSIDE RECORDS SUMMARY | ~2019-02-10 | XMS | Encounter Summary ---
Demographics + + + | Address | [address] | | | [place] [address] | + + + | Home Phone [...] Team Providers + +------+ + | Care Low Pressure Boiler Tender Name | Role | Phone | [...] | | | | | Anomalies at [facility] | [place], [place] | | | | | [address] | [address] | | | | | [address] Mailcode: | [phone] | | | | | [address] | | | | | | [place], [place] | | | | | | [address] | | | | | | [phone] | | | +--------+ + + + [...]
--- OUTSIDE RECORDS SUMMARY | ~2019-02-10 | XMS | Encounter Summary ---
Demographics + + + | Address | [address] | | | [place] [address] | + + + | Home Phone [...] Team Providers + +------+ + | Care C D Stripper Name | Role | Phone | + +------+ + | Timothy Burks MD | PCP | | + +------+ + Encounter Details +--------+ + + + + | Date | Type | Department | Care Team | Description | +--------+ + + + + | 11/25/ | Telephone | Vascular Surgery | Surgery, Vascular | | | 2016 | | at [facility] 2nd Floor | [address] | | | | | [address] | [facility] | | | | | [place] [place] Mailcode: | [place] [address] | | | | | [address] Physician's | | | | | | [place] | | | | | | [place] [address] | | | | | | [phone] | | | +--------+ + + + [...]
--- OUTSIDE RECORDS SUMMARY | ~2019-02-10 | XMS | Encounter Summary ---
Demographics + + + | Address | [address] | | | [place] [address] | + + + | Home Phone [...] Team Providers + +------+ + | Care Residential Counselor Name | Role | Phone | + +------+ + | Timothy Burks MD | PCP | | + +------+ + Reason for Visit + + + | Reason | Comments | + + + | Follow-up encounter | gluteal cleft hemangioma new concenrs: none | + + + Consultation (Routine) [...] | | | congenital | Bob | Patsy | | | | | anomalies | Zahraa Shay | [place], [place] | | | | | Congenital | [place], [place] | [address] | | | | | lower limb | [address] | Phone: | | | | | vessel | Phone: | [phone] | | | | | anomaly | [phone] | Fax: | | | | | Procedures | Fax: | [phone] | | | | | CONSULT TO | [phone] | | | | | | SURGERY - | | | | | | | PLASTICS | | | +--------+--------+ + + + + Encounter Details +--------+---------+ + + + | Date | Type | Department | Care Team | Description | +--------+---------+ + + + | 08/23/ | Office | Plastic and | Guillermo Mendoza MD | Lymphatic | | 2017 | Visit | Reconstructive | [address] | malformation | | | | Surgery at [facility] [address] | [place], [place] | (Primary Dx) | | | | [address] | [address] | | | | | Mailcode: 5P | [phone] | | | | | [facility] | | | | | | and Healing, | | | | | | Building 1, | | | | | | Floor [place], [place] | | | | | | [address] | | | | | | [phone] | | | +--------+---------+ + + + [...] +---------+ + + | Blood Pressure | 132/73 | 08/23/2016 11:20 AM | | | | | PDT | | + +---------+ + + | Pulse | 82 | 08/23/2016 11:20 AM | | | | | PDT | | + +---------+ + + | Temperature | - | - | | + +---------+ + + | Respiratory Rate | 18 | 08/23/2016 11:20 AM | | | | | PDT | | + +---------+ + + | Oxygen Saturation | 98% | 08/23/2016 11:20 AM | | | | | PDT [...] encounter Progress Notes Guillermo Mendoza MD - 08/23/2016 11:00 AM PDTI was present with the resident during the histo ry and exam. I discussed the case with the resident and agree with the findings and plan as documented in the resident s note. GUILLERMO MENDOZA MD assistant professor of german of Plastic Surgery [address] [place] [address] Skinny Celestin MD - 08/23/2016 11:00 AM PDTFormatting of this note might be different from the origi nal. PLASTIC SURGERY CLINIC FOLLOW-UP VISIT ID: Mahi [...] cleft. She has had good response with the steroid treatments in the past. Objective: Filed Vitals: 08/23/2016 11:20 AM BP: 132/73 Pulse: 82 Resp: 18 SpO2: 98% PainSc: 0 - Zero General: Adult female, alert and oriented : [...] Department of Plastic & Reconstructive Surgery Pager [phone] signed by Amie Beltran MD at 08/23/2016 8:22 PM PDTdocumented in this encounter Plan of Treatment Not on filedocumented as of this encounter Visit Diagnoses + + | Diagnosis | + + | Lymphatic malformation - Primary Congenital anomaly, unspecified | + + documented in this encounter
--- OUTSIDE RECORDS SUMMARY | ~2019-02-10 | XMS | Encounter Summary ---
Demographics + + + | Address | [address] | | | [place] [address] | + + + | Home Phone [...] Providers + +------+ + | Care Business Controller Name | Role | Phone | + [...]
--- OUTSIDE RECORDS SUMMARY | ~2019-02-10 | XMS | Encounter Summary ---
Demographics + + + | Address | [address] | | | [place] [address] | + + + | Home Phone [...] Team Providers + +------+ + | Care Bobbin Marker Name | Role | Phone | + [...] + + | 01/23/ | Hospital | [facility] | Uzair Mendoza MD | | | 2019 | Encounter | ST[address] | [address] | | | | | Ave Mailcode: [facility] | [place], [place] | | | | | [facility] | [address] | | | | | Health and Healing, | [phone] | | | | | [facility] 1 | | | | | | [place], [place] | | | | | | [address] | | | | | | [phone] | | | +--------+ + + + [...] feel free to call our office at [phone] with any questions. Call our office immediately [...] PathologistPathology, | | | | | | [facility] | | | | | [...] | HEALTH + | | | | [id number]. Leg, Left | | HEALING | | [...] | + + + + + | [facility] | [address] | [place] [address] | | | PATHOLOGY | [address] | | | + + + + + | [facility] | [address] | [place] [address] | | | SERVICES, [place] [facility] | | | | | HEALTH [...] | [facility] | [address] [facility] [address] | [place] [address] | | | OF CARE TESTS | [...]
--- OUTSIDE RECORDS SUMMARY | ~2019-02-10 | XMS | Encounter Summary ---
Demographics + + + | Address | [address] | | | [place] [address] | + + + | Home Phone [...] Team Providers + +------+ + | Care Undercar Specialist Name | Role | Phone | [...] | | | Zahraa Shay Mailcode: | [place], [place] | | | | | [address] | [address] | | | | | [place], | [phone] | | | | | [place] [address] | | | | | | [phone] | | | +--------+---------+ + + + [...]
--- OUTSIDE RECORDS SUMMARY | ~2019-02-10 | XMS | Encounter Summary ---
Demographics + + + | Address | [address] | | | [place] [address] | + + + | Home Phone [...] Team Providers + +------+ + | Care Road Traffic Controller Name | Role | Phone | [...] W | | | | ON | [facility] 4th Floor [address] | | | | | [address] | Road [place], [place] | | | | | Mailcode: [facility] | [address] | | | | | [facility] | | | | | | and Healing, | | | | | | Building 1,4th Floor | | | | | | [place], [place] | | | | | | [address] | | | | | | [phone] | | | +--------+ + + + [...]
--- OUTSIDE RECORDS SUMMARY | ~2019-02-10 | XMS | Encounter Summary ---
Demographics + + + | Address | [address] | | | [place] [address] | + + + | Home Phone [...] Team Providers + +------+ + | Care Wool Supplier Name | Role | Phone | + +------+ + | Timothy Burks MD | PCP | | + +------+ + Encounter Details +--------+ + + + + | Date | Type | Department | Care Team | Description | +--------+ + + + + | 12/23/ | Abstract | Vascular Surgery | Surgery, Vascular | | | 2016 | | at [facility] 2nd Floor | [address] | | | | | [address] | [facility] | | | | | [place] Shay Mailcode: | [place] [address] | | | | | [address] | | | | | | [place] | | | | | | [place] [address] | | | | | | [phone] | | | +--------+ + + + [...]
--- OUTSIDE RECORDS SUMMARY | ~2019-02-10 | XMS | Encounter Summary ---
Demographics + + + | Address | [address] | | | [place] [address] | + + + | Home Phone [...] Team Providers + +------+ + | Care Animal Services Officer Name | Role | Phone | + +------+ + | Timothy Burks MD | PCP | | + +------+ + Encounter Details +--------+ + + + + | Date | Type | Department | Care Team | Description | +--------+ + + + + | 12/31/ | Document-Sc | UNKNOWN DEPARTMENT | Unknown . | | | 2012 | anned | [address] | | | | | | [address] | | | | | | [place], [place] | | | | | | [address] | | | +--------+ + + + [...] | + +--------+ + + + | LAB REPORTS | | 01/10/2013 | | Results for this | | | | 12:00 AM | | procedure are in the | | | | PDT | | results section. | + +--------+ + + + | LAB REPORTS | | 01/10/2013 | | Results for this | | | | 12:00 AM | | procedure are in the | | | | PDT | | results section. | + +--------+ + + + documented in this encounter Results LAB REPORTS (01/10/2013 12:00 AM PDT) + + + | Narrative | Performed At | + + + | | | | | | + + + + + | Procedure Note | + + | Dre Glover - 01/04/2013 6:49 PM PDT | + + LAB REPORTS (01/10/2013 12:00 AM PDT) + + + | Narrative | Performed At | + + + | | | | | | + + + + + | Procedure Note | + + | Adalberto, Faculty - 01/03/2013 6:48 PM PDT | + + documented in this encounter Visit Diagnoses Not on filedocumented in this encounter
--- OUTSIDE RECORDS SUMMARY | ~2019-02-10 | XMS | Encounter Summary ---
Demographics + + + | Address | [address] | | | [place] [address] | + + + | Home Phone [...] | + + + + + | Mairah Prather | OZZIE | [place] | | + + + + + Care Team Providers + +------+ + | Care Quality Control Scientist Name | Role | Phone | [...] | | | 2019 | Event | [facility] | [address] | | | | | and Healing Surgery | [address] | | | | | Center Admitting | [place], [place] | | | | | Desk Located on the | [address] | | | | | 4th floor [address] | [phone] | | | | | [address] [place], | | | | | | [place] [address] | | | +--------+ + + + [...] | | Oral; Cuffed; 01/23/19; 826 | AUTO BODY TECHNICIAN | AUTO BODY TECHNICIAN | +--------+ + + + documented in [...]
--- OUTSIDE RECORDS SUMMARY | ~2019-02-10 | XMS | Encounter Summary ---
Demographics + + + | Address | [address] | | | [place] [address] | + + + | Home Phone [...] + + + | Mariah Prather | OZIZE | [place] | | + + + + + Care Team Providers + +------+ + | Care Referral Management Liaison Name | Role | Phone | + [...] 03/24/ | Office | Vascular Surgery | Malini Dent, | Benign Isaias Soft | | 2007 | Visit | at [facility] 2nd Floor | [address] | Tissue Leg; | | | | [address] | [address] [place], [place] | Candidiasis of Skin | | | | [place] Mailcode: | [address] | | | | | [address] | | | | | | [place], | | | | | | [place] [address] | | | | | | [phone] | | | +--------+---------+ + + + [...]
--- OUTSIDE RECORDS SUMMARY | ~2019-02-10 | XMS | Encounter Summary ---
Demographics + + + | Address | [address] | | | [place] [address] | + + + | Home Phone [...] Team Providers + +------+ + | Care Binding Cementer French Cord Name | Role | Phone | + [...] | | anomalies | [address] Sh[address] | [place], [place] | | | | | Congenital | [place] | [address] | | | | | lower limb | [address] | Phone: | | | | | vessel | Phone: | [phone] | | | | | anomaly | [phone] | Fax: | | | | | Procedures | Fax: | [phone] | | | | | CONSULT TO | [phone] | | | | | | SURGERY [...] malformation | | | | Surgery at [facility] [address] | [place], [place] | (Primary Dx) | | | | [address] | [address] | | | | | Mailcode: 5P | [phone] | | | | | [facility] | | | | | | and Healing, | | | | | | Building 1, | | | | | | Floor [place], [place] | | | | | | [address] | | | | | | [phone] | | | +--------+---------+ + + + [...] s note. GUILLERMO MENDOZA MD professor of oceanography of Plastic Surgery [address] [place] [address] Skinny Celestin MD - 08/23/2016 11:00 AM [...] Department of Plastic & Reconstructive Surgery Pager [phone] signed by Amie Beltran MD at 08/23/2016 8:22 PM PDTdocumented in this encounter Plan of Treatment Not on filedocumented as of this encounter Visit Diagnoses + + | Diagnosis | + + | Lymphatic malformation - Primary Congenital anomaly, unspecified | + + documented in this encounter
--- OUTSIDE RECORDS SUMMARY | ~2019-02-10 | XMS | Encounter Summary ---
Demographics + + + | Address | [address] | | | [place] [address] | + + + | Home Phone [...] Team Providers + +------+ + | Care Dross Puller Name | Role | Phone | [...] | | | | | Surgery at [facility] [address] | [place], [place] | | | | | [address] | [address] | | | | | Mailcode: CH5P | [phone] | | | | | [facility] | | | | | | and Mic, | | | | | | [facility] | | | | | | Floor [place], [place] | | | | | | [address] | | | | | | [phone] | | | +--------+ + + + [...]
--- OUTSIDE RECORDS SUMMARY | ~2019-02-10 | XMS | Encounter Summary ---
Demographics + + + | Address | [address] | | | [place] [address] | + + + | Home Phone [...] Team Providers + +------+ + | Care Semiconductor Lab Technician Name | Role | Phone [...] as of this encounter Discharge Summaries Interface, Scrummaster In - 03/21/2006 3:[address] [address] [facility] MEDICAL SUMMARY OF HOSPITALIZATION Med Rec No: [...] her primary care physician, Dr. Baldwin, in [place]. CONDITION ON DISCHARGE: Stable. DISCHARGE MEDICATION(S): 1. Enoxaparin 80 mg subcutaneously twice a day for the next three days until INR was therapeutic. 2. Coumadin p.o. 5 mg q.d. This will be adjusted by Dr. Baldwin in [place] as indicated. 3. Premarin 0.625 mg once a day. The patient is instructed to hold Premarin until her INR is therapeutic. DISCHARGE INSTRUCTION(S): DIET: Regular. ACTIVITY: As tolerated. FOLLOWUP: The patient will be seen by Dr. Baldwin on June 09 before departing for [facility]. At that visit, the patient will get her INR checked, and Coumadin dosage will be adjusted accordingly. Jay White M.D. JIW/merritt A cc: TIMOTHY BALDWIN MD [address] [place] [id number] signed by Interface, Scrummaster In at 03/21/2006 3:05 AM PSTdocumented in this encounter Plan of Treatment Not on filedocumented as of this encounter Visit Diagnoses Not on filedocumented in this encounter"
--- OUTSIDE RECORDS SUMMARY | ~2019-02-10 | XMS | Encounter Summary ---
Demographics + + + | Address | [address] | | | [place] [address] | + + + | Home Phone [...] Team Providers + +------+ + | Care Cafeteria Attendant Name | Role | Phone | + [...] Rd | | | | | | [place], [place] | | | | | | [address] | | | +--------+ + + + [...] as of this encounter Progress Notes Interface, Machinist Brake In - 02/22/2007 2:26 AM PST [id number] 02/21/2007 02/21/2007 [id number] JOHNSON Sagastume [id number] [address] [address] or February 21, 2007 Timothy Burks M.D. [facility], [place] RE: CHRISSY PRATHER MR #: [id number] Dear Dr. Burks: We just saw Chrissy Prather back in the vascular surgery clinic at [facility]. Thanks for allowing us to continue seeing [...] With Best Wishes, Alonzo Torrez M.D. / [id number] / [id number] / [id number] / documented in this encounter Plan of Treatment Not on filedocumented as of this encounter Visit Diagnoses Not on filedocumented in this encounter"
--- OUTSIDE RECORDS SUMMARY | ~2019-02-10 | XMS | Encounter Summary ---
Demographics + + + | Address | [address] | | | [place] [address] | + + + | Home Phone | | + + + | Preferred Language | Unknown | + + + | Marital Status | Single | + + + | Adventism Affiliation | PRO | + + + [...] Team Providers + +------+ + | Care Liaison Engineer Name | Role | Phone | [...] | | Podiatry / | Diagnoses | [place], | [place], | | | | Family | Neoplasm of | [place], | [place], | | | | Practice | uncertain | SECURITY SALES MANAGER [address] | DPM [address] | | | | | behavior of | [address] | [address] | | | | | skin of | [place], [place] | [place], [place] | | | | | lower leg | [address] | [address] | | | | | Procedures | Phone: | Phone: | | | | | CONSULT TO | [phone] | [phone] | | | | | PODIATRY | Fax: | Fax: | | | | | | [phone] | [phone] | + +--------+ + + + + Reason for Visit +---------+ + | Reason | Comments | +---------+ + | Post Op | excision left leg skin lesion | +---------+ + Encounter Details +--------+---------+ + + + | Date | Type | Department | Care Team | Description | +--------+---------+ + + + | 02/01/ | Office | Plastic and | [place], Sierra T, | Neoplasm of | | 2019 | Visit | Reconstructive | SECURITY SALES MANAGER [address] | uncertain behavior | | | | Surgery at [facility] [address] | Ave [place], [place] | of skin of lower leg | | | | [address] | [address] | (Primary Dx) | | | | Mailcode: [facility] | [phone] | | | | | [facility] | | | | | | and Healing, | | | | | | Building 1, 5th | | | | | | Floor [place], [place] | | | | | | [address] | | | | | | [phone] | | | +--------+---------+ + + + [...] Sierra Espinoza, ANGELA - 02/01/2019 10:15 AM [facility] Division of Plastic and Reconstructive Surgery Date [...] NP Division of Plastic & Reconstructive Surgery [facility] documented in this encounter Plan of Treatment Not on filedocumented as of this encounter Visit Diagnoses + + | Diagnosis | + + | 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
--- OUTSIDE RECORDS SUMMARY | ~2019-02-10 | XMS | Encounter Summary ---
Demographics + + + | Address | [address] | | | [place] [address] | + + + | Home Phone [...] | Mariah Prather | OZZIE | [place] | | + + + + + Care Team Providers + +------+ + | Care Surveyor Name | Role | Phone | + [...] | | | Zahraa Shay Mailcode: | [place], [place] | | | | | [address] | [address] | | | | | [place], | | | | | | [place] [address] | | | | | | [phone] | | | +--------+ + + + [...]
--- OUTSIDE RECORDS SUMMARY | ~2019-02-10 | XMS | Encounter Summary ---
Demographics + + + | Address | [address] | | | [place] [address] | + + + | Home Phone | | + + + | Preferred Language | Unknown | + + + | Marital Status | Single | + + + | Mormon Affiliation | PRO | + + + [...] Team Providers + +------+ + | Care Dredge Mate Name | Role | Phone | + [...] | | | | | | | [place], [place] | | | | | | | [address] | | | | | | | Phone: | | | | | | | [phone] | | | | | | | Fax: | | | | | | | [phone] | +--------+--------+ + + + + Encounter [...] | | | Zahraa Shay Mailcode: | [place], [place] | of peripheral | | | | [address] | [address] | vascular system | | | | [facility] [place], | [phone] | | | | | [place] [address] | | | | | | [phone] | | | +--------+---------+ + + + [...] LE every day. 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 Sebas Burton MD VASCULAR SURGERY AT [address] [place] [address] Mailcode: [address] [place] [address] documented in this en counter [...]
--- OUTSIDE RECORDS SUMMARY | ~2019-02-10 | XMS | Encounter Summary ---
Demographics + + + | Address | [address] | | | [place] [address] | + + + | Home Phone [...] Providers + +------+ + | Care Clinical Dietician Name | Role | Phone | + [...] | | | | | | | [place], [place] | | | | | | | [address] | | | | | | | Phone: | | | | | | | [phone] | | | | | | | Fax: | | | | | | | [phone] | +--------+--------+ + + + + Encounter [...] | | | Zahraa Shay Mailcode: | [place], [place] | lymphedema | | | | [address] | [address] | | | | | [facility] [place], | [phone] | | | | | [place] [address] | | | | | | [phone] | | | +--------+---------+ + + + [...] stockings. Follow up in 1 year. CC: iTmothy Burks MD [facility] [address] [place] [address] Sebas Prince M D - 10/18/2010 9:22 AM MAGALIEI saw and evaluated the patient. I agree with the findings and t he plan of care as documented in the resident s note. Overall she is doing well. Gave he r a new Rx for stockings and plan to see back in a year. 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
--- OUTSIDE RECORDS SUMMARY | ~2019-02-10 | XMS | Encounter Summary ---
Demographics + + + | Address | [address] | | | [place] [address] | + + + | Home Phone [...] Team Providers + +------+ + | Care Retail Branch Manager Name | Role | Phone | [...] Rd | | | | | | [place], [place] | | | | | | [address] | | | +--------+ + + + [...]
--- OUTSIDE RECORDS SUMMARY | ~2019-02-10 | XMS | Encounter Summary ---
Demographics + + + | Address | [address] | | | [place] [address] | + + + | Home Phone [...] Author + + + | Author | [facility] | + + + | Organization | [facility] | + + + | [...] Team Providers + +------+ + | Care Tile Mechanic Helper Name | Role | Phone | [...] | | | Zahraa Shay Mailcode: | [place], [place] | | | | | [address] | [address] | | | | | [place], | | | | | | [place] [address] | | | | | | [phone] | | | +--------+---------+ + + + [...] Syringe inject 1.5 mg/kg by subcutaneous ro telida once daily, start on MondayMarch 03, finish [...] PhD Resident, General Surgery Department of Surgery [facility] Joesph Munoz MD - 04/07 10:32 AM PSTI saw and evaluated the patient. I agree with the findings and the plan o f care as documented in the resident s note. 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
--- OUTSIDE RECORDS SUMMARY | ~2019-02-10 | XMS | Encounter Summary ---
Demographics + + + | Address | [address] | | | [place] [address] | + + + | Home Phone [...] Team Providers + +------+ + | Care Asbestos Pipe Supervisor Name | Role | Phone | [...] | | anomalies | [address] | [place], [place] | | | | | Congenital | [place], [place] | [address] | | | | | lower limb | [address] | Phone: | | | | | vessel | Phone: | [phone] | | | | | anomaly | [phone] | Fax: | | | | | Procedures | Fax: | [phone] | | | | | CONSULT TO | [phone] | | | | | | SURGERY [...] | | | | Surgery at [facility] [address] | [place], [place] | (Primary Dx) | | | | [address] | [address] | | | | | Mailcode: [facility] | [phone] | | | | | [facility] | | | | | | and Healing, | | | | | | Building 1, 5th | | | | | | Floor [facility] [place] | | | | | | [address] | | | | | | [phone] | | | +--------+---------+ + + + [...] | + +--------+ + + + | CT INJ INTO SKIN | Routin | 10/29/2013 [...]
--- OUTSIDE RECORDS SUMMARY | ~2019-02-10 | XMS | Encounter Summary ---
Demographics + + + | Address | [address] | | | [place] [address] | + + + | Home Phone [...] Team Providers + +------+ + | Care Nicker Name | Role | Phone | + [...] | | | | | Surgery at [facility] [address] | [place], [place] | | | | | [address] | [address] | | | | | Mailcode: 5P | [phone] | | | | | [facility] | | | | | | lilia Haile, | | | | | | [facility] | | | | | | [place], [place] | | | | | | [address] | | | | | | [phone] | | | +--------+ + + + [...]
--- OUTSIDE RECORDS SUMMARY | ~2019-02-10 | XMS | Encounter Summary ---
Demographics + + + | Address | [address] | | | [place] [address] | + + + | Home Phone [...] Team Providers + +------+ + | Care Tracer Bullet Charging Machine Operator Name | Role | Phone | + +------+ + | Timothy Burks MD | PCP | | + +------+ + Reason for Visit + + + | Reason | Comments | + + + | Postoperative visit | 7 day postop dos 01/10/13 | + + + Global Period - [...] | | | | Procedures | [address] | Ave | | | | | OP: | Rd | [place], [place] | | | | | 01/04/10 | [place], [place] | [address] | | | | | excision | [address] | Phone: | | | | | lymphangioma | | [phone] | | | | | right | | Fax: | | | | | buttock | | [phone] | +--------+--------+ + + + + Encounter Details +--------+---------+ + + + | Date | Type | Department | Care Team | Description | +--------+---------+ + + + | 01/17/ | Office | Plastic and | Sebastian Jackson, | Vascular | | 2012 | Visit | Reconstructive | PA-C [address] | malformation | | | | Surgery at [facility] [address] | (Primary Dx) | | | | [address] | [address] [place], [place] | | | | | Mailcode: CH5P | [phone] | | | | | [facility] | | | | | | and Healing, | | | | | | Building 1, | | | | | | Floor [place], [place] | | | | | | [address] | | | | | | [phone] | | | +--------+---------+ + + + [...] +---------+ + + | Blood Pressure | 145/66 | 01/17/2013 2:10 PM | | | | | PDT | | + +---------+ + + | Pulse | 76 | 01/17/2013 2:10 PM | | | | | PDT | | + +---------+ + + | Temperature | - | - | | + +---------+ + + | Respiratory Rate | 12 | 01/17/2013 2:10 PM | | | | | PDT | | + +---------+ + + | Oxygen Saturation | 95% | 01/17/2013 2:10 PM | | | | | PDT [...] + documented in this encounter Progress Notes Sebastian Hdz - 01/17/2013 2:16 PM PDTFormatting of this note might be different from jesse childers. 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 female who presents today for postop evaluation. She has no acut e concerns or issues. She would like her drains out today. Her pain control is good. She is currently taking nothing for pain. Drain output is reported less than 30 ml/24 hrs x 2 days. Denies constitutional sxs. Denies fever, chills, fatigue. Denies increased surgical site pain, swelling, or progressive redness. PE: Vitals: Filed Vitals: 01/17/2013 2:10 PM BP: 145/66 Pulse: 76 Resp: 12 SpO2: 95% PainSc: 03 - Mild to Moderate General Appearance: Well-developed, well-nourished female in no apparent distress. Buttocks: mild swelling. No ballotable fluid collections. The incision is c/d/i. No erythem a, no induration. No wound complications or drainage. Area is NT. SURGICAL PATHOLOGY SOURCE OF SPECIMEN:A Inferior left buttock lesion SOURCE OF SPECIMEN:B Superior left buttock lesion Final Pathologic Diagnosis: A. Left buttock, inferior lesion, resection: - Lymphangioma, completely excised B. 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 -Discussed continued incision care: gently clean with soap and running water, apply thin fi lm of abx ointment, bandage to keep clean and dry. -F/U with Dr Mendoza in one month, sooner prn. The patient indicates understanding of these issues and agrees to the plan. Sebastian Jackson PA-C Dept Plastic/Reconstructive Surgery [facility] Electronically signed on 01/21/2013 at 8:50 AM SEBASTIAN JACKSON PA-C. 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
--- OUTSIDE RECORDS SUMMARY | ~2019-02-10 | XMS | Encounter Summary ---
Demographics + + + | Address | [address] | | | [place] [address] | + + + | Home Phone [...] | | | | | | [address] | | | | | | | [address] | | | | | | | Mailcode: [facility] | | | | | | | [facility] | | | | | | | for Health | | | | | | | and Healing, | | | | | | | Building [address] | | | | | | | [place], [place] | | | | | | | [address] | | | | | | | Phone: | | | | | | | [phone] | | | | | | | Fax: | | | | | | | [phone] | +--------+--------+ + + + + Encounter Details +--------+ + + + + | Date | Type | Department | Care Team | Description | +--------+ + + + + | 01/04/ | Hospital | [facility] | Uzair Mendoza MD | | | 2009 | Encounter | [address] | [address] | | | | | Ave Mailcode: [facility] | [place], [place] | | | | | [facility] | [address] | | | | | Health and Healing, | [phone] | | | | | [facility] [address] | | | | | | [place], [place] | | | | | | [address] | | | | | | [phone] | | | +--------+ + + + [...] | | | | | | Jay Orozoc, | | | | | | Ph.D./PathologistT:01/06 [...] | | | | | | faceA2-3, sales service representative | | | | | | [...] + + + + + | [facility] | [address] | [place] [address] | | | PATHOLOGY | [address] | | | + + + + + documented in this encounter Visit Diagnoses Not on filedocumented in this encounter
--- OUTSIDE RECORDS SUMMARY | ~2019-02-10 | XMS | Encounter Summary ---
Demographics + + + | Address | [address] | | | [place] [address] | + + + | Home Phone [...] Providers + +------+ + | Care Laboratory Apparatus Glass Blower Name | Role | Phone | + [...] Rd | | | | | | [place], [place] | | | | | | [address] | | | +--------+ + + + [...] Ani Keith - 04/26/2007 11:08 PM PST [id number] JOHNSON Sagastume [id number] Date: 02/21/2007 Patient: Mahi Prather MR# [id number] [...] contacted her primary care doctor's office in [place] and informed his nurse of the plan. Ms. Prather will need closer surveillance of her INR in the week preceding surgery to reach the goal target of 2.0. This patient was seen and examined with Dr. Torrez who agrees with the assessment and plan. Ani Keith M.D. Alonzo Torrez M.D. / ALENA [id number] / [id number] / [id number] / [id number] cc: Timothy Burks M.D. [place], [place] Reviewed or Edited By Ani Keith on 02-28-2007 Electronically signed by Alonzo Torrez 04-26-2007 11:07:41 PM documented in this encoun ter Plan of Treatment Not on filedocumented as of this encounter Visit Diagnoses Not on filedocumented in this encounter"
--- OUTSIDE RECORDS SUMMARY | ~2019-02-10 | XMS | Encounter Summary ---
Demographics + + + | Address | [address] | | | [place] [address] | + + + | Home Phone [...] + + + | Author | [facility] | + + + | Organization | [facility] | + + + | [...] Providers + +------+ + | Care Equipment Validation Engineer Name | Role | Phone | [...] as of this encounter Progress Notes Interface, Charging Board Operator In - 03/02/2005 5:02 AM PST [id number] JOHNSON Sagastume Date: 02/16/2005 Patient: Mahi Prather [...] doing well. She is currently living in [place] and is trying hard to lose the [...] Burton. Terri Chambers M.D. Sebas Burton M.D. pelt dropper HL / HS [id number] / [id number] / [id number] / [id number] Electronically signed by Sebas Burton (Greg) 03-01-2005 04:02:33 PM documented i n this encounter Plan of Treatment Not on filedocumented as of this encounter Visit Diagnoses Not on filedocumented in this encounter"
--- OUTSIDE RECORDS SUMMARY | ~2019-02-10 | XMS | Encounter Summary ---
Demographics + + + | Address | [address] | | | [place] [address] | + + + | Home Phone [...] Team Providers + +------+ + | Care Faculty Research Physician Name | Role | Phone | + [...] | | | | | Procedures | [facility] | Ave | | | | | OP: | Rd | [place], [place] | | | | | 01/04/10 | [place], [place] | [address] | | | | | excision | [address] | Phone: | | | | | lymphangioma | | [phone] | | | | | right | | Fax: | | | | | buttock | | [phone] | +--------+--------+ + + + + Encounter Details +--------+---------+ + + + | Date | Type | Department | Care Team | Description | +--------+---------+ + + + | 02/12/ | Office | Plastic and | Uzair Mendoza MD | Vascular | | 2009 | Visit | Reconstructive | [address] | malformation | | | | Surgery at [facility] [address] | [place], [place] | (Primary Dx) | | | | [address] | [address] | | | | | Mailcode: CH5P | [phone] | | | | | [facility] | | | | | | and Healing, | | | | | | Building 1, | | | | | | Floor [place], [place] | | | | | | [address] | | | | | | [phone] | | | +--------+---------+ + + + [...]
--- OUTSIDE RECORDS SUMMARY | ~2019-02-10 | XMS | Encounter Summary ---
Demographics + + + | Address | [address] | | | [place] [address] | + + + | Home Phone [...] Team Providers + +------+ + | Care Picker Packer Name | Role | Phone | [...] | | 1995 | Visit-Trans | Medicine [address] | Clinic | | | | hemalatha | [address] | | | | | | Mailcode: L475 | | | | | | Outpatient Clinic | | | | | | [address] | | | | | | [place], [place] | | | | | | [address] | | | | | | [phone] | | | +--------+ + + + [...] as of this encounter Progress Notes Interface, Hot Dip Plater In - 06/10/2006 5:11 AM PDT CLINIC DATE: 12/26/95 [facility] HISTORY OF PRESENT ILLNESS/PATIENT IDENTIFICATION: Ms. Prather is a 20-year-old female originally seen in [facility] Clinic on the . At that time she presented complaining of more prominent hay fever symptoms since moving to [place] from [facility] on September 24 of this year. Physically [...] a routine follow-up. Jose Martin Araujo M.D. Junior Accountant Bookkeeper, Internal Medicine Ingrid Marion M.D. Building Certifier, Medicine ENID/gil documented in this encounter Plan of Treatment Not on filedocumented as of this encounter Visit Diagnoses Not on filedocumented in this encounter"
--- OUTSIDE RECORDS SUMMARY | ~2019-02-10 | XMS | Encounter Summary ---
Demographics + + + | Address | [address] | | | [place] [address] | + + + | Home Phone | | + + + | Preferred Language | Unknown | + + + | Marital Status | Single | + + + | Sabianism Affiliation | PRO | + + + [...] Team Providers + +------+ + | Care Valet Attendant Name | Role | Phone | + +------+ + | Timothy Burks MD | PCP | | + +------+ + Reason for Visit + + + | Reason | Comments | + + + | Anticoagulant | | | therapy | | + + + Encounter Details +--------+ + + + + | Date | Type | Department | Care Team | Description | +--------+ + + + + | 05/06/ | Telephone | Vascular Surgery | Sebas Burton, | Anticoagulant | | 2016 | | at [facility] 2nd Floor | [address] [facility] | therapy | | | | [address] | [address] | | | | | [address] Mailcode: | [place], [place] | | | | | [address] Phys[address]'s | [address] | | | | | [place], | [phone] | | | | | [place] [address] | | | | | | [phone] | | | +--------+ + + + [...]
--- OUTSIDE RECORDS SUMMARY | ~2019-02-10 | XMS | Encounter Summary ---
Demographics + + + | Address | [address] | | | [place] [address] | + + + | Home Phone [...] + | Mariah Prather | OZZIE | [place] | | + + + + + Care Team Providers + +------+ + | Care Soaker Meat Name | Role | Phone | + +------+ + | Timothy Burks MD | PCP | | + +------+ + Encounter Details +--------+ + + + + | Date | Type | Department | Care Team | Description | +--------+ + + + + | 03/07/ | Office | UNKNOWN DEPARTMENT | Other, Faculty | Progress Note | | 2000 | Visit-Trans | [address] [facility] | [phone] | | | | hemalatha | [address] | | | | | | [place], [place] | | | | | | [address] | | | +--------+ + + + [...] and lifelong warfarin therapy. Sebas Lauren M.D. hang gliding instructor LARRY / ALENA [id number] / [id number] / [id number] / C: 03/12/2001 moi documented in this encounter Plan of Treatment Not on filedocumented as of this encounter Visit Diagnoses Not on filedocumented in this encounter"
--- OUTSIDE RECORDS SUMMARY | ~2019-02-10 | XMS | Encounter Summary ---
Demographics + + + | Address | [address] | | | [place] [address] | + + + | Home Phone [...] Team Providers + +------+ + | Care Last Inserter Name | Role | Phone | + [...] | 2007 | Encounter | Services at [facility] | [facility] [address] | | | | | [address] | [place] | | | | | [address] Mailcode: | [place] [address] | | | | | [address] [place] | | | | | | [facility] | | | | | | [place], [place] | | | | | | [address] | | | | | | [phone] | | | +--------+ + + + [...]
--- OUTSIDE RECORDS SUMMARY | ~2019-02-10 | XMS | Encounter Summary ---
Demographics + + + | Address | [address] | | | [place] [address] | + + + | Home Phone [...] Team Providers + +------+ + | Care Sales Assistant Name | Role | Phone | [...] | | anomalies | [address] | [place], [place] | | | | | Congenital | [place] | [address] | | | | | lower limb | [address] | Phone: | | | | | vessel | Phone: | [phone] | | | | | anomaly | [phone] | Fax: | | | | | Procedures | Fax: | [phone] | | | | | CONSULT TO | [phone] | | | | | | SURGERY [...] Dx) | | | | Surgery at [facility] [address] | [facility] [place] | | | | | [address] | [address] | | | | | Mailcode: 5 | [phone] | | | | | [facility] | | | | | | and Healing, | | | | | | Building 1, 5th | | | | | | Floor [facility] [place] | | | | | | [address] | | | | | | [phone] | | | +--------+---------+ + + + [...] injected with steroids today. GUILLERMO MENDOZA MD associate professor of economics of Plastic Surgery [facility] [address] [address] [facility] VegasGuillermo orona MD - 04/2017 10:45 AM [facility] PLASTIC SURGERY CLINIC FOLLOW-UP VISIT ID: Mahi [...] Department of Plastic & Reconstructive Surgery Pager [phone] signed by Guillermo Mendoza MD at 04/28/2017 5:06 PM PSTdocumented i n this encounter Plan of Treatment Not on filedocumented as of this encounter Visit Diagnoses + + | Diagnosis | + + | Lymphangioma - Primary Lymphangioma, any site | + + documented in this encounter
--- OUTSIDE RECORDS SUMMARY | ~2019-02-10 | XMS | Encounter Summary ---
Demographics + + + | Address | [address] | | | [place] [address] | + + + | Home Phone [...] Team Providers + +------+ + | Care Linen Clerk Name | Role | Phone | [...] Closed | | Plastic | Diagnoses | [place], | [place], | | | | Surgery | Other | MD Sebas | MD Guillermo | | | | | specified | [address] | [address] | | | | | congenital | [address] | Ave | | | | | anomalies | [address] | [place], [place] | | | | | Congenital | [place], [place] | [address] | | | | | lower limb | [address] | Phone: | | | | | vessel | Phone: | [phone] | | | | | anomaly | [phone] | Fax: | | | | | Procedures | Fax: | [phone] | | | | | CONSULT TO | [phone] | | | | | | SURGERY [...] lymphangioma | | | | Surgery at [facility] [address] | [place], [place] | (Primary Dx) | | | | [address] | [address] | | | | | Mailcode: 5 | [phone] | | | | | [facility] | | | | | | and Healing, | | | | | | Building 1, 5th | | | | | | Floor [facility] [place] | | | | | | [address] | | | | | | [phone] | | | +--------+---------+ + + + [...] s note. GUILLERMO MENDOZA MD professor of special education of Plastic Surgery [address], [place] [address] Kateryna Pan - 06/25/2013 12:14 PM PDTPlastic [...] PGY 7, Plastic and Reconstructive Surgery Pager [phone] documented in this encounter Plan of Treatment Not on filedocumented as of this encounter Procedures + +--------+ + + + | Procedure Name | Priori | Date/Time | Associated Diagnosis | Comments | | | ty | | | | + +--------+ + + + | [place] INJ INTO SKIN | Routin | 06/30/2013 [...]
--- OUTSIDE RECORDS SUMMARY | ~2019-02-10 | XMS | Encounter Summary ---
Demographics + + + | Address | [address] | | | [place] [address] | + + + | Home Phone [...] Team Providers + +------+ + | Care General Doc Name | Role | Phone | + [...] | | | | | Surgery at [facility] [address] | [place], [place] | | | | | [address] | [address] | | | | | Mailcode: [facility] | [phone] | | | | | [facility] | | | | | | and Mic, | | | | | | Building | | | | | | Floor [place], [place] | | | | | | [address] | | | | | | [phone] | | | +--------+ + + + [...]
--- OUTSIDE RECORDS SUMMARY | ~2019-02-10 | XMS | Encounter Summary ---
Demographics + + + | Address | [address] | | | [place] [address] | + + + | Home Phone [...] Providers + +------+ + | Care Supervisor Drying And Softening Name | Role | Phone | + [...] Rd | | | | | | [place], [place] | | | | | | [address] | | | +--------+ + + + [...]
--- OUTSIDE RECORDS SUMMARY | ~2019-02-10 | XMS | Encounter Summary ---
Demographics + + + | Address | [address] | | | [place] [address] | + + + | Home Phone [...] Team Providers + +------+ + | Care Refrigerated National Truck Driver Name | Role | Phone | [...]
--- OUTSIDE RECORDS SUMMARY | ~2019-02-10 | XMS | Encounter Summary ---
Demographics + + + | Address | [address] | | | [place] [address] | + + + | Home Phone [...] Team Providers + +------+ + | Care Broadcast Operations Technician Name | Role | Phone | [...] | | | [address] Mailcode: | [place], [place] | | | | | [address] | [address] | | | | | [place], | [phone] | | | | | [place] [address] | | | | | | [phone] | | | +--------+---------+ + + + [...] compression stockings. SEBAS LAUREN MD VASCULAR SURGERY, [address] Mail Code [address] [place] [address] Email: [email or web address] Lauren - 008 10:21 AM [...] her back afterwards. CC: Timothy Burks MD [facility] [address] [place] [address] [place] [address] documented in this encoun ter Plan of [...] | | | | | | weighted security systems administrator images | | | | | | [...] current | | | | | | [email or web address] have | | | | | | [...] | | + +---------+ + + | [facility] DEPARTMENT OF | | | | [...] | | | | | | weighted security systems administrator images | | | | | | [...] current | | | | | | [email or web address] have | | | | | | [...] | | + +---------+ + + | [facility] DEPARTMENT OF | | | | | RADIOLOGY | | | | + +---------+ + + documented in this encounter Visit Diagnoses + + | Diagnosis | + + | 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
--- OUTSIDE RECORDS SUMMARY | ~2019-02-10 | XMS | Encounter Summary ---
Demographics + + + | Address | [address] | | | [place] [address] | + + + | Home Phone [...] Team Providers + +------+ + | Care Parking Line Painter Name | Role | Phone | + +------+ + | Timothy Burks MD | PCP | | + +------+ + Reason for Referral PROC - Dept/Practice Procedure (Routine) +--------+ + + + + + | Status | Reason | Specialty | Diagnoses / | Referred By | Referred To | | | | | Procedures | Contact | Contact | +--------+ + + + + + | Closed | PLE: | Gastroenterol | Diagnoses | Pasko, | Gas Endo | | | Estimate | ogy | Bleeding | Rox Zaldivar, | [address] | | | Complete | | per rectum | [address] | | | | | Procedures | [place] | Mailcode: | | | | | CONSULT TO | Zahraa Shay | [facility] | | | | | COLORECTAL | [place], [place] | for Health | | | | | SURGERY [place] | [address] | and Healing, | | | | | COLONOSCOPY, | Phone: | Building 2 | | | | | FLEX, | [phone] | [place], [place] | | | | | W/[place]OPSY [place] | Fax: | [address] | | | | | UPPER GI | [phone] | Phone: | | | | | ENDOSCOPY,BI | | [phone] | | | | | OPSY | | Fax: | | | | | | | [phone] | +--------+ + + + + + Reason for Visit [...] | | | | | | | [address] | | | | | | | Jaspal Mailcode: | | | | | | | OP11 | | | | | | | Physician's | | | | | | | Pavilion | | | | | | | [place], [place] | | | | | | | [address] | | | | | | | Phone: | | | | | | | [phone] | | | | | | | Fax: | | | | | | | [phone] | +--------+--------+ + + + + Encounter Details +--------+---------+ + + + | Date | Type | Department | Care Team | Description | +--------+---------+ + + + | 04/20/ | Office | Vascular Surgery | Sebas Burton, | Bleeding per rectum | | 2016 | Visit | at [facility] 2nd Floor | [address] | (Primary Dx); | | | | [address] | [address] | Congenital anomaly | | | | Zahraa Shay Mailcode: | [place], [place] | of peripheral | | | | OP[address] Physician's | [address] | vascular system | | | | Ron [place], | [phone] | | | | | [place] [address] | | | | | | [phone] | | | +--------+---------+ + + + [...] + + + | Blood Pressure | 118/57 | 04/20/2015 1:07 PM | | | | | PST | | + + + + + | Pulse | 77 | 04/20/2015 1:07 PM | | | | | PST | | + + + + + | Temperature | 36.8 C (98.2 F) | 04/20/2015 1:07 PM | | | | | PST | | + + + + + | Respiratory Rate | 14 | 04/20/2015 1:07 PM | | | | | PST | | + + + + + | Oxygen Saturation | - | - | | + + + + + | Inhaled Oxygen | - | - | | | Concentration | | | | + + + + + | Weight | 133.1 kg (293 lb 8 | 04/20/2015 1:07 PM | | | | oz) | PST | | + + + + + | Height | - | - | | + + + + + | Body Mass Index | 43.34 | 01/28/2014 10:06 AM | | | | | PST | | + + + + + documented in this encounter Progress Notes Sebas Burton MD - 04/20/2015 3:08 PM PSTI saw and evaluated the patient. I agree with the findings and the plan of care as documented in the resident s note. 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 INTERVAL EVENTS: Patient states she has been having BRBPR for 6 months She states it covers the stool and colors the toilet bowel She additionally states she is having no pain with bowel movements (3 a day) She has had a colonoscopy 9 years ago which was normal She denies sob, she is post menapausal( s/p hysterectomy) On coumadin for stroke and PE She does have some dizziness MEDICATIONS: Current outpatient prescriptions: conjugated estrogens 0.625 mg Oral Tablet, take 1 tablet (0.625 mg) by oral route once daily for 21 consecutive days, followed by 7 days off, Disp: , Rfl: COUMADIN 10 mg Oral Tablet, Take 10 mg by mouth once daily., Disp: , Rfl: loratadine (CLARITIN) 10 mg oral tablet, Take 10 mg by mouth once daily., Disp: , Rfl: metoclopramide 10 mg Oral Tablet, Take 10 mg by mouth every six hours as needed. , Disp: , Rfl: nadolol 20 mg oral tablet, Take 20 mg by mouth once daily. Indications: MIGRAINE PREVENTION , Disp: , Rfl: PROZAC OR, take 1 table by mouth every day., Disp: , Rfl: OBJECTIVE: Filed Vitals 02/24/2015 11:16 AM BP: 144/66 Pulse: 86 Resp: 16 SpO2: 97% PainSc: 02 - Mild PainLoc: Buttocks PHYSICAL EXAM: General: Alert and oriented, NAD Respiratory: unlabored, CTAB CV: regular Abdomen: soft, obese Gluteals: patient has bilateral gluteal cleft scar, lymphangioma on left gluteal area, ZAIRA: external exam reveals no anal fissures, or external hemorrhoids, ZAIRA no masses or occu lt blood on glove ASSESSMENT AND PLAN: Mahi Prather is a 39 y.o. female with hx of lymphangioma s/p gluteal resections now with 6 months of BRBPR 1. Patient has no external signs of bleeding from anus, we would recommend colonoscopy for evaluation 2. We referred to Dr. Montero 3. From lymphangioma standpoint doing well, getting steroid injections from nga Mendoza led to see in 6 months Rox Smith MD General Surgery, R4 Daria Juarez Md - 04/20/2015 12:54 PM PST Vascular Surgery History and Physical Exam Attending Surgeon: Sebas Burton MD Author: Daria Mohr MD Date: 04/20/2015 Chief Complaint: Rectal bleeding History of Present Illness: Mahi Prather is a 39 year old female with history significant for lymphedema Past Medical History: Past Medical History Diagnosis Date Allergic rhinitis Deep venous thrombosis (HCC) 1998 Pulmonary embolism (HCC) 1998 Cerebrovascular Accident with stroke ASD (atrial septal defect) repaired as a child Lymphangioma gluteal cleft region Angiodysplasia LLE, since PONV (postoperative nausea and vomiting) GERD (gastroesophageal reflux disease) Ulcerative colitis (HCC) UTI (urinary tract infection) Depressive disorder, not elsewhere classified Past Surgical History: Past Surgical History Procedure Laterality Date Angiodysplasia of vein of the lower extremities Atrial septal defect surgically repaired 06-29-2007 other 06-29-2007 Heart surgery Total abdominal hysterectomy Tonsillectomy 1981 Sinus surgery 1997 Excision of lymphangioma 2006, 2007, 2009 Hysterectomy Family History: Family History Problem Relation Diabetes Father Thyroid Father Thyroid Mother Anesthesia Neg Hx Blood Disease Neg Hx Social History: History Substance Use Topics Smoking status: Never Smoker Smokeless tobacco: Never Used Alcohol Use: No Comment: "few times a year maybe" Allergies: Allergies Allergen Reactions Codeine Nausea and Vomiting Hydrocodone Nausea and Vomiting Medications: conjugated estrogens 0.625 mg Oral Tablet, take 1 tablet (0.625 mg) by oral route once xavier y for 21 consecutive days, followed by 7 days off COUMADIN 10 mg Oral Tablet, Take 10 mg by mouth once daily. loratadine (CLARITIN) 10 mg oral tablet, Take 10 mg by mouth once daily. metoclopramide 10 mg Oral Tablet, Take 10 mg by mouth every six hours as needed. nadolol 20 mg oral tablet, Take 20 mg by mouth once daily. Indications: MIGRAINE PREVENTION PROZAC OR, take 1 table by mouth every day. Review of Systems: ROS OBJECTIVE: There were no vitals taken for this visit. Laboratory Data: Lab Results Component Value Date NA 142 12/18/2009 K 4.7 12/18/2009 CL 106 12/18/2009 BICARB 27 12/18/2009 BUN 14 12/18/2009 CR 0.65 12/18/2009 GLU 124 12/18/2009 CA 9.2 12/18/2009 Lab Results Component Value Date WBC 7.2 12/18/2009 HB 14.1 12/18/2009 HCT 42.0 12/18/2009 PLT 255 12/18/2009 MCV 83.3 12/18/2009 RDW 16.5 12/18/2009 Lab Results Component Value Date APTT 38.1* 11/27/2003 FIBRINOGEN 327. 06/03/1998 Assessment and Plan: Mahi Prather is a 39 year old female with history significant for : In brief she has a long history of lymphangioma and lymphedema of the LLE. She has had mul tiple VTE events including stroke (paradoxical embolus leading to open heart surgery to repa ir congenital defect) and PE for which she is on lifelong coumadin managed by PCP in her [facility]. She has had multiple recurrences of the lymphangioma that have been re-resected and she is now undergoing steroid injections which appear to be helping shrink the remaining les ion, most recently in September 2014. Sebas Burton MD is the attending surgeon of record. They have evaluated the patient and are in agreement with my assessment and plan. Daria Mohr MD Vascular Surgery Department 04/20/2015 documented in this enc ounter Plan of Treatment Not on filedocumented as of this encounter Visit Diagnoses + + | Diagnosis | + + | Bleeding per rectum - Primary Hemorrhage of rectum and anus | + + | Congenital anomaly of peripheral vascular system Congenital anomaly of the peripheral | | vascular system, unspecified site | + + documented in this encounter
--- OUTSIDE RECORDS SUMMARY | ~2019-02-10 | XMS | Encounter Summary ---
Demographics + + + | Address | [address] | | | [place] [address] | + + + | Home Phone [...] Team Providers + +------+ + | Care Subscription Clerk Name | Role | Phone | [...]
--- OUTSIDE RECORDS SUMMARY | ~2019-02-10 | XMS | Encounter Summary ---
Demographics + + + | Address | [address] | | | [place] [address] | + + + | Home Phone [...] Team Providers + +------+ + | Care Sound Editor Name | Role | Phone | [...] | | | OP: | Rd | [place], [place] | | | | | 01/04/10 | [place] | [address] | | | | | excision | [address] | Phone: | | | | | lymphangioma | | [phone] | | | | | right | | Fax: | | | | | buttock | | [phone] | +--------+--------+ + + + + Encounter Details +--------+---------+ + + + | Date | Type | Department | Care Team | Description | +--------+---------+ + + + | 01/17/ | Office | Plastic and | Sebastian Jackson, | Vascular | | 2012 | Visit | Reconstructive | PA-C [address] | malformation | | | | Surgery at [facility] [address] | (Primary Dx) | | | | [address] | [address] [place], [place] | | | | | Mailcode: CH5P | [id number] | | | | | [facility] | | | | | | and Healing, | | | | | | Building 1, | | | | | | Floor [place], [place] | | | | | | [address] | | | | | | [phone] | | | +--------+---------+ + + + [...] Sebastian Jackson PA-C Dept Plastic/Reconstructive Surgery [facility] Electronically signed on 01/21/2013 at 8:50 AM SEBASTIAN JACKSON PA-C. 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
--- OUTSIDE RECORDS SUMMARY | ~2019-02-10 | XMS | Encounter Summary ---
Demographics + + + | Address | [address] | | | [place] [address] | + + + | Home Phone [...] Providers + +------+ + | Care Manager Welding Name | Role | Phone | + [...] | at [facility] 2nd Floor | [address] [facility] | therapy | | | | [address] | [address] | | | | | Zahraa Shay Mailcode: | [place], [place] | | | | | [address] Physician's | [phone] | | | | | Ron [place], | [phone] | | | | | [place] [address] | | | | | | [phone] | | | +--------+ + + + [...]
--- OUTSIDE RECORDS SUMMARY | ~2019-02-10 | XMS | Encounter Summary ---
Demographics + + + | Address | [address] | | | [place] [address] | + + + | Home Phone [...] Team Providers + +------+ + | Care Activity Specialist Name | Role | Phone | [...] | | | | | subcutaneous | [place], [place] | [place] | | | | | tissue, | [address] | [address] | | | | | unspecified | Phone: | Phone: | | | | | | [phone] | [phone] | | | | | Procedures | Fax: | Fax: | | | | | REQUEST TO | [phone] | [phone] | | | | | SURGERY | | | | | | | STATISTICAL METHODS TEACHER | | | | | | | [place] EXC SKIN | | | | | | | BENIG | | | | | | | 1.1-2CM | | | | | | | TRUNK,ARM,LE | | | | | | | G NY EXC | | | | | | [...] behavior | | | | Anomalies at [facility] | [place], [place] | of skin of lower leg | | | | [address] | [address] | (Primary Dx) | | | | Zahraa Shay Mailcode: | [phone] | | | | | [address] | | | | | | [place], [place] | | | | | | [address] | | | | | | [phone] | | | +--------+---------+ + + + [...] excision of LLE nodule Alfonso Sheets MD [id number] Plastic & Reconstructive Surgery Associated attestation - [...] derm note for details). GUILLERMO MENDOZA MD theatre arts professor of Plastic Surgery 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
--- OUTSIDE RECORDS SUMMARY | ~2019-02-10 | XMS | Encounter Summary ---
Demographics + + + | Address | [address] | | | [place] [address] | + + + | Home Phone [...] Providers + +------+ + | Care Nutritional Assistant Name | Role | Phone | + +------+ + | Timothy Burks MD | PCP | | + +------+ + Encounter Details +--------+ + + + + | Date | Type | Department | Care Team | Description | +--------+ + + + + | 01/07/ | Hospital | Dermatopathology | | | | 2014 | Encounter | [address] | | | | | | Mailcode: CH16D | | | | | | [facility] | | | | | | and Healing, | | | | | | Building 1, | | | | | | Floor [place], [place] | | | | | | [address] | | | | | | [phone] | | | +--------+ + + + [...] + + + + | SHONNA | [address], [address] | [place] [address] | | | DERMATOPATHOLOGY | [address] | | | + + + + + documented in this encounter Visit Diagnoses Not on filedocumented in this encounter
--- OUTSIDE RECORDS SUMMARY | ~2019-02-10 | XMS | Encounter Summary ---
Demographics + + + | Address | [address] | | | [place] [address] | + + + | Home Phone [...] Team Providers + +------+ + | Care Potato Grader Name | Role | Phone | + [...] | | anomalies | Zahraa Shay | [place], [place] | | | | | Congenital | [place] | [address] | | | | | lower limb | [address] | Phone: | | | | | vessel | Phone: | [phone] | | | | | anomaly | [phone] | Fax: | | | | | Procedures | Fax: | [phone] | | | | | CONSULT TO | [phone] | | | | | | SURGERY [...] Dx) | | | | Surgery at [facility] [address] | [facility] [place] | | | | | [address] | [address] | | | | | Mailcode: [facility] | [phone] | | | | | [facility] | | | | | | and Healing, | | | | | | Building 1, | | | | | | Floor [place], [place] | | | | | | [address] | | | | | | [phone] | | | +--------+---------+ + + + [...]
--- OUTSIDE RECORDS SUMMARY | ~2019-02-10 | XMS | Encounter Summary ---
Demographics + + + | Address | [address] | | | [place] [address] | + + + | Home Phone [...] Team Providers + +------+ + | Care Coffee Shop Aide Name | Role | Phone | + [...] | Bleeding | Rox Zaldivar, | [address] | | | Complete | | per rectum | [address] | | | | | Procedures | [address] | Mailcode: | | | | | CONSULT TO | Zahraa Shay | [facility] | | | | | COLORECTAL | [place], [place] | for Health | | | | | SURGERY [place] | [address] | and Healing, | | | | | COLONOSCOPY, | Phone: | Building 2 | | | | | FLEX, | [phone] | [place], [place] | | | | | W/BIOPSY [place] | Fax: | [address] | | | | | UPPER GI | [phone] | Phone: | | | | | ENDOSCOPY,BI | | [phone] | | | | | OPSY | | Fax: | | | | | | | [phone] | +--------+ + + + + + [...] | | | | | | | [place], [place] | | | | | | | [address] | | | | | | | Phone: | | | | | | | [phone] | | | | | | | Fax: | | | | | | | [phone] | +--------+--------+ + + + + Encounter [...] | | | Zahraa Shay Mailcode: | [place], [place] | of peripheral | | | | [address] Physician's | [address] | vascular system | | | | [address] [place], | [phone] | | | | | [place] [address] | | | | | | [phone] | | | +--------+---------+ + + + [...] note. Sebas Burton MD VASCULAR SURGERY AT [facility] 2ND FLOOR [address] [place] [address] Mailcode: [address]11 [place] [address] Rox Porter MD - 04/20/2015 [...] months Rox Smith MD General Surgery, R4 Draia Juarez Md - 04/20/2015 12:54 PM PST [...] lifelong coumadin managed by PCP in her [facility]. She has had multiple recurrences of the [...]
--- OUTSIDE RECORDS SUMMARY | ~2019-02-10 | XMS | Encounter Summary ---
Demographics + + + | Address | [address] | | | [place] [address] | + + + | Home Phone [...] + + + + + | Mariah Parther | OZZIE | [place] | | + + + + + Care Team Providers + +------+ + | Care Vehicle Fare Collector Name | Role | Phone | + [...] | 01/10/ | Surgery | [facility] | Uzair Mendoza MD | EXCISION BILATERAL | | 2012 | | [place] [facility] | [address] | VASCULAR | | | | and Healing Surgery | [place], [place] | MALFORMATION | | | | Center Admitting | [address] | BUTTOCKS Specimens | | | | Desk Located on the | [phone] | to pathology | | | | 4th floor [address] | | | | | | [address] [place], | | | | | | [place] [address] | | | +--------+---------+ + + + [...] Diagnostician: | | | | | | mItiaz Abdi | | | | | | [...] + + + + + | [facility] | [address] | [place] [address] | | | PATHOLOGY | [address] [...] PDT | | | | | Starting [facility] 01/10/13 at 0958, | | | | [...]
--- OUTSIDE RECORDS SUMMARY | ~2019-02-10 | XMS | Encounter Summary ---
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 A prescription was sent to [facility] for Sirol imus 1% cream, 30 gm tube, apply daily to affected areas. I, Enmanuel Fabian, am functioning as a scribe for Guillermo Mendoza MD. I have reviewed and verified the above scribed note of my visit with this patient as record ed by Enmanuel Fabian. GUILLERMO MENDOZA MD professor of biological sciences of Plastic Surgery [address] [place] [address] documented in this en counter Plan of [...]
--- OUTSIDE RECORDS SUMMARY | ~2019-02-10 | XMS | Encounter Summary ---
Demographics + + + | Address | [address] | | | [place] [address] | + + + | Home Phone [...] Team Providers + +------+ + | Care Transcriptionist Name | Role | Phone | + [...] Closed | | Vascular | Diagnoses | [place], | Vas Vasc | | | | Surgery | Vascular | MD Sebas | Surg [facility] | | | | | malformation | [address] | [address] | | | | | Congenital | [address] | | | | | lower limb | [address] | Rd Mailcode: | | | | | vessel | [place], [place] | [address]11 | | | | | anomaly | [address] | Physician's | | | | | Procedures | Phone: | Ron | | | | | REQUEST TO | [phone] | [place], [place] | | | | | SURGERY | Fax: | [address] | | | | | RN ACUTE | [phone] | Phone: | | | | | PA EXC SKIN | | [phone] | | | | | BENIG <5MM | | Fax: | | | | | TRUNK,ARM,LE | | [phone] | | | | | G | [...] | | | Zahraa Shay Mailcode: | [place], [place] | | | | | [address] Physician's | [address] | | | | | [place], | [phone] | | | | | [place] [address] | | | | | | [phone] | | | +--------+---------+ + + + [...] schedule this. 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
--- OUTSIDE RECORDS SUMMARY | ~2019-02-10 | XMS | Encounter Summary ---
Demographics + + + | Address | [address] | | | [place] [address] | + + + | Home Phone | | + + + | Preferred Language | Unknown | + + + | Marital Status | Single | + + + | Uatsdin Affiliation | PRO | + + + [...] Team Providers + +------+ + | Care Directional Bore Operator Name | Role | Phone | [...] as of this encounter Progress Notes Interface, Customer Account Administrator In - 02/09/2006 3:02 AM [facility]: [facility] SUBJECTIVE: This [...] M.D. Derrell Lowe M.D. MIKHAIL / ALENA [id number] / [id number] / [id number] / [id number] cc: ALISON ARAUJO MD [address] [place] [address] [id number] signed by Interface, Customer Account Administrator In at 02/09/2006 3:02 AM PSTdocume nted in this encounter Plan of Treatment Not on filedocumented as of this encounter Visit Diagnoses Not on filedocumented in this encounter"
[~2019-02-10 10:37] MED LIST changes: +COUMADIN10 MG PO; +IBUPROFEN600 MG PO; +MAPAP325 MG PO; -METOCLOPRAMIDE10 MG PO; +OXYCODON-ACETA1 EAC2 PO; +PEPCID40 MG PO; +WARFARIN SODIUM10 MG PO
--- OUTSIDE RECORDS SUMMARY | 2019-02-10 10:40 | XMS ---
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 E.D. VISIT COUNT (12 MO.) 1 Keny Major TOTAL 2 NOTE: Visits indicate total known visits. ED/UCC VISIT TRACKING (12 MO.) 02/10/2019 10:37 [place] TYPE: Emergency COMPLAINT: - COUGHING UP BLOOD 02/09/2019 16:22 [facility]y [place] TYPE: Emergency DIAGNOSES: - Cough - Hemoptysis - coughing up blood INPATIENT VISIT TRACKING (12 MO.) No inpatient visits to display in this time frame [email or web address]
[2019-02-10] MEDS ORDERED: PANTOPRAZOLE SO40 MG PO (10:52)
[2019-02-10] MEDS ORDERED: ACYCLOVIR400 MG PO (10:52)
== END 2019-02-10 13:12 | disposition home or self-care (01) ==
LOC: ED 10:37
DX: R04.2 Hemoptysis (principal); Z86.73 Personal history of transient ischemic attack (TIA), and cerebral infarction without residual deficits; Z88.5 Allergy status to narcotic agent; Z88.1 Allergy status to other antibiotic agents; Z79.899 Other long term (current) drug therapy; Z79.01 Long term (current) use of anticoagulants
CPT/HCPCS: 36415; 71045; 80053; 85025; 85610; 99283-25

== ENCOUNTER 2021-05-12 05:45 | Day surgery (SDC) | payer OTHER ==
[~2021-05-12] VITALS: Ht 175.3 cm; Wt 133.0 kg
[~2021-05-12 05:45] MED LIST changes: +ACYCLOVIR400 MG PO; +ARTHRITIS PAIN150 GM; +ELIQUIS5 MG PO; +LIPITOR10 MG; +PANTOPRAZOLE SO40 MG PO
[2021-05-12] MEDS ORDERED: TRAMADOL HCL50 MG PO (07:29)
--- NOTE | 2021-05-12 07:37 | NUR ---
05/12/21 0737 Isabel Burns 0732 PATIENT ARRIVES TO PACU SLEEPING. RESP EVEN AND UNLABORED, MASK AT 6 LITERS. SATS 100%. 0735 PATIENT AWAKE OFF/ON. RESP EVEN AND UNLABORED, OCCASIONAL DRY COUGH. MASK CONTINUED AT 6 LITERS.
--- NOTE | 2021-05-12 09:59 | NUR ---
PT TAKEN TO SURGERY, MOTHER LOWELL WAITING IN RM. GAVE ENCOURAGEMENT, ANSWERED ALL QUESTIONS WILL FOLLOW NEEDED
--- NOTE | 2021-05-12 22:09 | EKG ---
[facility] [address] [facility] [place] [address] Signed Sinus rhythm with occasional premature ventricular complexes Otherwise normal ECG No previous ECGs available Confirmed by LUAN YIN MD ([id number]) on 05/12/2021 8:23:35 PM Electronically Signed By: LUAN YIN MD 05/12/212208 PATIENT NAME: CHRISSY ORNELAS Electrocardiogram DATE OF : 73 PHYSICIAN: LUAN YIN MD REPORT #: [id number] REPORT IS CONFIDENTIAL AND NOT TO BE RELEASED WITHOUT AUTHORIZATION
--- NOTE | 2021-05-13 07:41 | OR ---
[facility] [address], [place] [address] Signed DATE OF OPERATION: 05/12/2021 SURGEON: Mary Cochran MD PREOPERATIVE DIAGNOSIS: Left carpal tunnel syndrome. POSTOPERATIVE DIAGNOSIS: Left carpal tunnel syndrome. PROCEDURE PERFORMED: Left carpal tunnel release. TABLE MACHINE OPERATOR: None. ANESTHESIA: Falcon block. TOURNIQUET TIME: 20 minutes. BRIEF HISTORY: Chrissy is a 45-year-old female with progressive worsening of numbness and tingling in her wrist. Nerve conduction studies were consistent with carpal tunnel. Risks and benefits of operative treatment were discussed after nonoperative treatment failed. DESCRIPTION OF PROCEDURE: Once consent was obtained, she was taken to the operating room. After adequate anesthesia, she was placed on operating table. All downside pressure points were well padded. The left arm was prepped and draped in the standard sterile fashion after Alivia block was established. The carpal tunnel was approached through a 1.5 cm incision in the distal wrist crease. This was carried through skin and subcutaneous tissue. The palmaris longus was identified and retracted. The transverse carpal ligament was identified under loupe magnification. Overlying soft tissue was dissected free of the ligament. It was then transected cm proximally and distally to the distal extent. The [place] was used to palpate the canal and was found to be completely released. The wound was copiously irrigated with normal saline and closed using 3-0 nylon. The aleks-incisional soft tissue was injected with 8 mL of 0.25% Marcaine plain. The wound was Electronically Signed By: MARY COCHRAN MD 05/13/21 0741 PATIENT NAME: CHRISSY ORNELAS OPERATIVE REPORT DATE OF : 73 REPORT #: [id number] PHYSICIAN: MARY COCHRAN MD PCP: MEENA RAMSEY MD REPORT IS CONFIDENTIAL AND NOT TO BE RELEASED WITHOUT AUTHORIZATION [facility] [address], [place] [address] Signed dressed with bacitracin Adaptic 4 x 8's, and gauze. She tolerated the procedure well. All sponge, needle, and instrument counts were correct. Mary Cochran MD BA/TANYAL /[id number] Copies: ~ Electronically Signed By: MARY COCHRAN MD 05/13/21 0741 PATIENT NAME: CHRISSY ORNELAS OPERATIVE REPORT DATE OF : 73 REPORT #: [id number] PHYSICIAN: MARY COCHRAN MD PCP: MEENA RAMSEY MD REPORT IS CONFIDENTIAL AND NOT TO BE RELEASED WITHOUT AUTHORIZATION
== END 2021-05-12 08:05 | disposition home or self-care (01) ==
LOC: OPS 05:45 → DS 05:45 → OPS 06:45 → DS 05-14 06:45
PROVIDERS: ATTEND Specialist
PROC: 01N50ZZ Release Median Nerve, Open Approach (ICD-10-PCS; principal; 2021-05-12 06:45)
DX: G56.02 Carpal tunnel syndrome, left upper limb (principal); Z88.1 Allergy status to other antibiotic agents; Z88.5 Allergy status to narcotic agent
CPT/HCPCS: 93005; 93010; J0690; J2704; J7121

== ENCOUNTER 2024-12-20 05:48 | Day surgery (SDC) | payer BC, OTHER ==
[~2024-12-20] VITALS: Ht 175.3 cm; Wt 145.0 kg
[~2024-12-20 05:48] MED LIST changes: +DULOXETINE HCL20 MG PO; +LACTATED RINGER'S 1,000 ML IV SCH; -LIPITOR10 MG; +LIPITOR10 MG PO; +TRAMADOL HCL50 MG PO
[2024-12-20 06:04] VITALS: BP 158/57
[2024-12-20] MEDS ORDERED: KETOROLAC TROMETHAMINE 30 MG/ML VIAL ONE ×3 (06:13→06:51)
[2024-12-20] MEDS ORDERED: DEXAMETHASONE SOD PHOS 4 MG/ML VIAL ONE (06:51)
[2024-12-20] MEDS ORDERED: fentaNYL citrate 100 MCG/2 ML VIAL ONE (06:51)
[2024-12-20] MEDS ORDERED: LIDOCAINE HCL 2% 5 ML SDV ONE (06:51)
[2024-12-20] MEDS ORDERED: ACETAMINOPHEN 1,000 MG/100 ML VIAL ONE (06:52)
[2024-12-20] MEDS ORDERED: IBLOOD GLUCOSE TEST STRIP 1 EA TEST VI PRN ×2 (07:00→07:30)
[2024-12-20] MEDS ORDERED: LIDOCAINE HCL 1% 5 ML SDV INJ ONE (07:00)
[2024-12-20] MEDS ORDERED: CEFAZOLIN SODIUM 3 GM in SODIUM CHLORIDE 0.9% 100 ML IV SCH (07:00)
[2024-12-20] MEDS ORDERED: TRAMADOL HCL 50 MG TAB PO PRN (07:00)
[2024-12-20] MEDS ORDERED: KETAMINE in NS 50 MG/5 ML SYR ONE (07:15)
[2024-12-20] MEDS ORDERED: SCOPOLAMINE 1 MG/3 DAYS PATCH 1 EACH TDSY ONE (07:19)
[2024-12-20] MEDS ORDERED: NALOXONE HCL 0.4 MG SYR IV PRN (07:30)
[2024-12-20] MEDS ORDERED: fentaNYL citrate 50 MCG/ML SDV IV PRN (07:30)
[2024-12-20] MEDS ORDERED: TRAMADOL HCL50 MG PO (07:35)
--- NOTE | 2024-12-20 07:52 | NUR ---
12/20/24 0752 Mariela Delvalle 0736: PT ARRIVED TO PACU VIA STRETCHER. PT NON RESPONSIVE AT THIS TIME. PT ON 6L VIA MASK WITH SATS IN THE MID 90'S. PT HAS DRESSING TO RIGHT KNEE IN PLACE. DRESSING C/D/I. GOOD CAP REFIL. 0745: PT TITRATED TO RA AT THIS TIME. PT AROUSABLE AND HAS NO COMPLAINTS OF PAIN OR NAUSEA. 0752: PT REMAINS ON RA. DRESSING TO RIGHT KNEE C/D/I.
[2024-12-20] MEDS ORDERED: CELECOXIB 200 MG CAP PO SCH (08:00)
[2024-12-20 08:09] VITALS: BP 126/65
--- NOTE | 2024-12-20 08:14 | NUR ---
0810 PT ARRIVED TO DAY SURGERY FROM PACU VIA STREACHER. PT AWAKE BUT DROWSEY, PT WAKES TO VERBAL STIMULI. PT IS ON TWO L OF O2 VIA NASAL CANULLA DUE TO PT DROWSINESS AND O2 DROPPING WHEN TAKEN OFF. PT REPORTING 4/10 TOLERABLE PAIN. PT REPORTS NO NAUSEA A THIS TIME. PT HAS WATER AND JELLO AT BEDSIDE. CALL LIGHT WITHIN REACH, BED IS LOW AND LOCKED.
--- NOTE | 2024-12-20 09:27 | NUR ---
0900 AMB TO BR VOIDS 200MLS DARK URINE. STATES KNEE FEELS BETTER AFTER SURGERY. WANTS TO GET DRESSED AND READY TO GO HOME. KADEEMN HERE TO TAKE PT HOME. RONNY INSTRUCTIONS EXPLAINED AND COPY GIVEN REVIEWEED DR JEFFERSON SHEET WELL. ENC TO RE READ INFO AT HOME AGAIN.
[2024-12-20] MEDS ORDERED: SEVOFLURANE 250 ML BTL INH ONE (11:05)
--- NOTE | 2024-12-23 07:06 | OR ---
[facility] [address], [place] [address] Signed DATE OF OPERATION: 12/20/2024 SURGEON: Mary Cochran MD PREOPERATIVE DIAGNOSIS: Medial meniscus tear, right knee. POSTOPERATIVE DIAGNOSIS: Medial meniscus tear, right knee. PROCEDURE PERFORMED: Right knee arthroscopy with partial meniscectomy. DISABILITY REPRESENTATIVE: None. ANESTHESIA: General. BLOOD LOSS: Minimal. BRIEF HISTORY: Chrissy is a 49-year-old female with significant pain and locking in her right knee. This is her good knee as she has significant lymphedema on the left. Risks and benefits of operative treatment were discussed with her and she elected to proceed. Once consent was obtained, she was taken to the operating room. After adequate anesthesia, she was placed on the OR table. The left leg was carefully positioned in a leg poe and well padded. The right leg was placed in well-padded leg poe and prepped and draped in a standard sterile fashion. The portal sites were then injected with 0.25% Marcaine with epinephrine. A standard inferolateral and superolateral portals were made. The scope was introduced into the knee. ARTHROSCOPIC FINDINGS: Significant synovitis was noted throughout the knee. 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 Medial and lateral gutters were clear. The lateral compartment was intact. ACL and PCL were intact with significant synovitis. Medial compartment showed grade 2 to scattered grade 3 chondromalacia throughout the femur and tibia. The meniscus had a large radial tear in the medial portion. Electronically Signed By: MARY COCHRAN MD 12/23/24 0706 PATIENT NAME: CHRISSY ORNELAS OPERATIVE REPORT DATE OF : 73 REPORT #: [id number] PHYSICIAN: MARY COCHRAN MD PCP: CHELSI TOM DO REPORT IS CONFIDENTIAL AND NOT TO BE RELEASED WITHOUT AUTHORIZATION [facility] [address], [place] [address] Signed DESCRIPTION OF OPERATION: Standard inferomedial portal was established and the straight and curved biters were used to trim the meniscus tear back to a stable rim. This was then smoothed, then feathered out using the shaver and all debris was evacuated. The chondral flaps on the femur were then debrided and the scope was withdrawn. Portals were closed with 3-0 nylon and the knee was injected with 60 mg of Toradol. The wounds were dressed with Adaptic, ABD, and Holden wrap. She tolerated the procedure well. All sponge, needle, and instrument counts were correct. Mary Cochran MD BA/MODL /[id number] Copies: ~ Electronically Signed By: MARY COCHRAN MD 12/23/24 0706 PATIENT NAME: CHRISSY ORNELAS OPERATIVE REPORT DATE OF : 73 REPORT #: [id number] PHYSICIAN: MARY COCHRAN MD PCP: CHELSI TOM DO REPORT IS CONFIDENTIAL AND NOT TO BE RELEASED WITHOUT AUTHORIZATION
== END 2024-12-20 09:10 | disposition home or self-care (01) ==
LOC: DS 05:48
PROVIDERS: ATTEND Specialist
PROC: 0SBC4ZZ Excision of Right Knee Joint, Percutaneous Endoscopic Approach (ICD-10-PCS; principal; 2024-12-20 07:00)
DX: S83.241A Other tear of medial meniscus, current injury, right knee, initial encounter (principal); X58.XXXA Exposure to other specified factors, initial encounter; M94.261 Chondromalacia, right knee; M65.961 Unspecified synovitis and tenosynovitis, right lower leg; Z88.1 Allergy status to other antibiotic agents; Z88.5 Allergy status to narcotic agent; Z79.01 Long term (current) use of anticoagulants; Z79.899 Other long term (current) drug therapy
CPT/HCPCS: 01400; J0131; J0688; J1100; J1885; J2003; J2405; J2704; J3010; J3490; J7121